=== PATIENT | female | born 1970 | race Caucasian/White ===

== ENCOUNTER 2019-09-28 01:32 | Emergency (ER) | payer BC, MEDICAID, SELFPAY ==
--- NOTE | ~2019-09-28 | XR_ITS ---
EXAMINATION: XR hip LT min 3V w AP pelvis DATE: 09/28/2019 02:25 INDICATION: Left hip pain at the greater trochanter. TECHNIQUE: An anteroposterior view of the pelvis on 2 radiographs and 3 views of left hip were obtain ed. COMPARISON: CT abdomen and pelvis 03/18/2018 FINDINGS: There is dextrocurvature and mild spondylosis of lumbar spine. No fracture. There is mild o steoarthritis of the hips. A surgical clip overlies the pelvis. IMPRESSION: 1. Mild osteoarthritis of the hips. Reviewed, dictated and finalized at location A.
[2019-09-28 01:32] VITALS: BP 164/101; PULSE 83; RESP 18; TEMP 36.2; O2SAT 99
[2019-09-28 01:52] VITALS: BP 133/88; PULSE 84; RESP 20; O2SAT 97
--- NOTE | 2019-09-28 02:18 | ED.EXTPRO ---
HPI - Extremity Problem General Chief complaint: Extremity Problem,Nontraumatic Stated complaint: Left leg Pain Source: patient Mode of arrival: ambulatory Limitations: no limitations History of Present Illness HPI Narrative: Pain in the left lateral hip, onset 2 weeks ago, much worse tonight. Pain is brought on by walking, sitting, standing up, laying on the left side or applying pressure. With these maneuvers the pain is severe tonight. The pain does not radiate into the back or into the leg. There is no leg numbness or weakness. She denies numbness or weakness of her legs. Acetaminophen and ibuprofen have not been controlling the pain. There is no hx of trauma to this area. Since July she has not been working but has been at home with her children. Quality: sharp Radiation: none Relieving factors: other (heat) Related Data Home Medications Medication Instructions Recorded Confirmed liraglutide [Victoza 3-Sandor] 0.6 mg SUBCUT DAILY 09/28/19 09/28/19 lisdexamfetamine [Vyvanse] 50 mg PO DAILY 09/28/19 09/28/19 prazosin 1 mg PO DAILY 09/28/19 09/28/19 Allergies Allergy/AdvReac Type Severity Reaction Status Date / Time Penicillins Allergy Unknown Itching Verified 09/28/19 01:57 nitrofurantoin AdvReac Intermediate Unknown Verified 09/28/19 01:57 PAPER TAPE Allergy Intermediate Redness of Uncoded 09/28/19 01:57 Skin Review of Systems Constitutional: Constitutional: Denies chills and Denies fever(s) Musculoskeletal: Musculoskeletal: Denies joint swelling Comments: no joint pain elsewhere. Denies back pain. Integumentary/Breasts: Skin/Breast: Denies rash PMFSH Past Medical History Medical History (Updated 09/28/19 @ 02:51 by Steven Hylton MD) Anxiety Diabetes mellitus Surgical History Surgical History (Updated 09/28/19 @ 02:28 by Steven Hylton MD) H/O: hysterectomy History of cholecystectomy Family History Family History (Updated 01/25/18 @ 13:49 by DOCTOR UNKNOWN) Grandparent Diabetes mellitus Mother Patient's mother is in good health Father Patient's father is in good health Other Family history of arthritis Hypertension Social History Social History Smoking status: Former smoker Smoking end date: 05/18/16 Alcohol intake: never Exam Narrative: Exam Narrative: Gait is slow and painful. No antalgic or waddling gait. Const: Other: looks uncomfortable. Moving from side to sitting up to standing are down slowly and deliberately. Skin: General skin exam: normal color Rashes: no rashes Wounds: no wounds Neuro: General: patient oriented x3 Extrem: Other: Maximally tender over the left greater, superior - posterior portion. There is no redness or swelling. near full ROM but pain at endpoint of external rotation. Resisted internal rotation is painful. Resisted left hip adduction reproduces the pain. Able to stand on both legs w/ c/o left hip pain. Would not try standing on just the left leg because pain. Psych: Appearance: grossly normal Mental Status: mental status grossly normal Course Course Emergency Course: [place] 5/325 given with some improvement.X ray results reviewed with patient. Vital Signs Vital signs: Vital Signs Temperature 36.2 C L 09/28/19 01:32 Pulse Rate 83 09/28/19 01:32 Respiratory Rate 18 09/28/19 01:32 Blood Pressure 164/101 H 09/28/19 01:32 Pulse Oximetry 99 09/28/19 01:32 Temperature 37.1 C 09/28/19 02:50 Pulse Rate 74 09/28/19 02:50 Respiratory Rate 20 09/28/19 02:50 Blood Pressure 129/86 09/28/19 02:50 Pulse Oximetry 99 09/28/19 02:50 MDM - Extremity (Nontraumatic) Differential Diagnosis Differential diagnosis: Likely gout and other (Sciatica, hip bone pathology, septic joint, greater trochanteric bursitis. ) Lab Data Labs: X ray of left hip: No evidence of acute fracture; no dislocation; Relatively moderate to large stool in the ascending and transverse colon. Possible concstipation
[2019-09-28 02:50] VITALS: BP 129/86; PULSE 74; RESP 20; TEMP 37.1; O2SAT 99
== END 2019-09-28 02:58 | disposition home or self-care (01) ==
PROVIDERS: Emergency Provider Family Medicine; PCP Family Medicine
DX: M70.62 Trochanteric bursitis, left hip (principal); K59.00 Constipation, unspecified
CPT/HCPCS: 73502; 99283; A9270

== ENCOUNTER 2019-10-17 12:12 | Outpatient (CLI) | payer BC, MEDICAID, SELFPAY ==
--- NOTE | ~2019-10-17 | XR_ITS ---
XR lumbar spine 2-3V DATE: 10/17/2019 12:34 INDICATION: Low back pain; No injury TECHNIQUE: AP, lateral, coned lateral lumbosacral views COMPARISON: None FINDINGS: Surgical clips, right upper quadrant, likely due to cholecystectomy. A surgical clip overli es the mid pelvis. Minimal dextroscoliosis. There is minimal dextroscoliosis of the lumbar spine. There is mild degenerative disease at L1-2, L3- 4 and moderate degenerative disease at L4-5. Normal alignment of the lumbar spine. No fracture or bone destruction or spondylolisthesis. The inclu ded lower thoracic and lumbar pedicles are intact. The sacroiliac joints are intact. IMPRESSION: Mild to moderate degenerative disc disease Reviewed, dictated and finalized at location A.
== END 2019-10-17 12:13 | disposition home or self-care (01) ==
LOC: ANHIMG 12:21
PROVIDERS: PCP Family Medicine; Visit Provider Family Medicine
DX: M54.5 Low back pain (principal); M51.36 Other intervertebral disc degeneration, lumbar region
CPT/HCPCS: 72100

== ENCOUNTER 2019-10-28 16:38 | Outpatient (CLI) | payer BC, MEDICAID, SELFPAY ==
--- NOTE | ~2019-10-28 | MR_ITS ---
EXAMINATION: MR lumbar spine wo con DATE: 10/28/2019 17:18 INDICATION: Low back pain. Left-sided sciatica. TECHNIQUE: Magnetic resonance imaging (MRI) of the lumbar spine was performed without intravenous con trast. Sequences included sagittal T2-weighted FSE, sagittal T2-weighted FS FSE, sagittal T1-weighted FSE, and axial T2-weighted FSE. COMPARISON: Lumbar spine radiograph 10/17/2019 FINDINGS: There is 5 degrees dextrocurvature of lumbar spine. There is 3 mm retrolisthesis of L5 on S 1. There are Schmorl's nodes at multiple levels. There is mildly decreased disc height at L3-L4 and m oderately decreased disc height at L4-L5 and L5-S1. The distal spinal cord signal intensity is normal . The conus medullaris is at L2. The following disc levels are specifically discussed: L1-L2: The disc does not extend beyond the endplate margin. There is mild bilateral facet joint osteo arthritis. There is no neural foraminal stenosis. There is no central canal stenosis. L2-L3: The disc does not extend beyond the endplate margin. There is mild bilateral facet joint osteo arthritis. There is no neural foraminal stenosis. There is no central canal stenosis. L3-L4: The disc is bulging and has an annular fissure. There is moderate bilateral facet joint osteoa rthritis. There is mild bilateral neural foraminal stenosis. There is mild central canal stenosis. L4-L5: The disc is bulging. There is mild right and moderate left facet joint osteoarthritis. There i s mild bilateral neural foraminal stenosis. There is mild central canal stenosis. L5-S1: The disc is bulging with superimposed left central extrusion that abuts left S1 nerve root in left lateral recess. There is mild bilateral facet joint osteoarthritis. There is moderate right and mild left neural foraminal stenosis. There is mild central canal stenosis. IMPRESSION: 1. Moderate lumbar spondylosis. Reviewed, dictated and finalized at location A.
== END 2019-10-28 16:39 | disposition home or self-care (01) ==
PROVIDERS: PCP Family Medicine; Visit Provider Family Medicine
DX: M54.42 Lumbago with sciatica, left side (principal); M47.816 Spondylosis without myelopathy or radiculopathy, lumbar region
CPT/HCPCS: 72148

== ENCOUNTER 2020-03-02 06:53 | Outpatient (CLI) | payer BC, MEDICAID, SELFPAY ==
--- NOTE | ~2020-03-02 | MR_ITS ---
EXAMINATION: MR lumbar spine wo con DATE: 03/02/2020 07:52 INDICATION: Lumbar degenerative disc disease with sciatica. TECHNIQUE: Magnetic resonance imaging (MRI) of the lumbar spine was performed without intravenous con trast. Sequences included sagittal T2-weighted FSE, sagittal T2-weighted FS FSE, sagittal T1-weighted FSE, and axial T2-weighted FSE. COMPARISON: Lumbar spine MRI 10/28/2019 FINDINGS: There is 3 mm retrolisthesis of L5 on S1. There is 6 degrees dextrocurvature of lumbar spin e. There are Schmorl's nodes at multiple levels. There is mildly decreased disc height at L3-L4 and m oderately decreased disc height at L4-L5 and L5-S1. The distal spinal cord signal intensity is normal . The conus medullaris is at L1-L2. The following disc levels are specifically discussed: L1-L2: The disc does not extend beyond the endplate margin. There is mild bilateral facet joint osteo arthritis. There is no neural foraminal stenosis. There is no central canal stenosis. L2-L3: The disc does not extend beyond the endplate margin. There is mild bilateral facet joint osteo arthritis. There is no neural foraminal stenosis. There is no central canal stenosis. L3-L4: The disc is bulging. There is moderate right and mild left facet joint osteoarthritis. There i s mild bilateral neural foraminal stenosis. There is mild central canal stenosis. L4-L5: The disc is bulging. There is mild right and moderate left facet joint osteoarthritis. There i s mild bilateral neural foraminal stenosis. There is mild central canal stenosis. L5-S1: The disc is bulging with superimposed left subarticular zone extrusion with mass effect on lef t S1 nerve root in left lateral recess. There is mild bilateral facet joint osteoarthritis. There is moderate right neural foraminal stenosis. There is mild central canal stenosis. IMPRESSION: 1. Stable moderate lumbar spondylosis. Of note, an extrusion at L5-S1 exerts mass effect on left S1 n erve root. Reviewed, dictated and finalized at location A. IMPRESSION: 1. Stable moderate lumbar spondylosis. Of note, an extrusion at L5-S1 exerts ma ss effect on left S1 nerve root.
== END 2020-03-02 06:54 | disposition home or self-care (01) ==
PROVIDERS: PCP Family Medicine; Visit Provider Family Medicine
DX: M51.16 Intervertebral disc disorders with radiculopathy, lumbar region (principal); M47.26 Other spondylosis with radiculopathy, lumbar region
CPT/HCPCS: 72148

== ENCOUNTER 2020-03-08 17:14 | Outpatient (CLI) | payer BC, MEDICAID, SELFPAY ==
[2020-03-08 17:27] LABS: Basophils Absolute Auto 0.06 K/mm3 (0.00-0.10); Basophils Percent Auto 0.6 % (0.0-1.0); Eosinophils Absolute Auto 0.11 K/mm3 (0.02-0.50); Eosinophils Percent Auto 1.2 % (1.0-6.0); Hematocrit 42.9 % (35.0-49.0); Hemoglobin 14.3 g/dL (12.0-15.0); Immature Granulocyte Absolute 0.04 K/mm3 (0.00-0.00); Immature Granulocyte Percent A 0.4 % (0.0-0.0); Lymphocytes Absolute Auto 2.31 K/mm3 (1.10-4.50); Lymphocytes Percent Auto 24.7 % (18.0-42.0); Mean Corpuscular HGB Conc 33.3 g/dL (32.0-36.0); Mean Corpuscular Hemoglobin 30.6 pg (27.0-31.0); Mean Corpuscular Volume 91.9 fL (78.0-102.0); Mean Platelet Volume 9.6 fl (9.2-11.8); Monocytes Absolute Auto 0.42 K/mm3 (0.10-0.90); Monocytes Percent Auto 4.5 % (2.0-11.0); Neutrophils Absolute Auto 6.4 K/mm3 (1.7-7.2); Neutrophils Percent Auto 68.6 % (50.0-70.0); Platelet Count Result 253 K/mm3 (150-420); Red Blood Count 4.67 M/mm3 (4.20-5.40); Red Cell Distribution Width 12.2 % (11.6-14.4); White Blood Count 9.4 K/mm3 (4.8-10.8)
--- NOTE | 2020-03-08 17:35 | ECG_ITS ---
Measurements Intervals [place] Rate: 74 P: 59 PA: 155 QRS: -19 QRSD: 96 T: 24 QT: 380 QTc: 423 Interpretive Statements SINUS RHYTHM BORDERLINE T WAVE ABNORMALITY- INFERIOR LEADS BORDERLINE ECG Electronically Signed On 03-09-2020 7:05:47 CDT by Reno Mcnamara D.O.
[2020-03-08 18:40] LABS: Alanine Aminotransferase 38 U/L (14-59); Albumin Level 3.5 g/dL (3.4-5.0); Alkaline Phosphatase 77 U/L (46-116); Anion Gap 8 mmol/L (8-16); Aspartate Amino Transferase 17 U/L (15-37); Bilirubin,Total 0.3 mg/dL (0.00-1.00); Blood Urea Nitrogen 11 mg/dL (7-18); Calcium 9.3 mg/dL (8.5-10.1); Carbon Dioxide 26 mmol/L (21-32); Chloride 100 mmol/L (98-108); Estimated Glomerular Filt Rate > 60; Osmolality Calculated 295 mOsm/kg (285-295); Sodium 134 mmol/L (136-145); Total Protein 6.6 g/dL (6.4-8.2)
[2020-03-08 18:48] LABS: Glucose 417 mg/dL (70-99)
== END 2020-03-08 17:15 | disposition home or self-care (01) ==
LOC: CHSLAB 17:17
PROVIDERS: PCP Family Medicine; Visit Provider Neurological Surgery
DX: Z01.812 Encounter for preprocedural laboratory examination (principal)
CPT/HCPCS: 36415; 80053; 85025; 93005

== ENCOUNTER 2020-03-11 19:29 | Emergency (ER) | payer BC, MEDICAID, SELFPAY ==
[2020-03-11 19:44] VITALS: BP 163/67; PULSE 74; RESP 20; TEMP 36.5; O2SAT 100
--- NOTE | 2020-03-11 19:47 | ED.BACK ---
HPI - Back Pain/Injury General Chief Complaint: Back Pain/Injury Stated Complaint: 49YO female w/ known h.o low back pain scheduled for a microdiscectomy tomorrow in [place] here c/o 1 week h/o left sided SI pain that she is unable to get relief from using Percocet. Here for pain relief till her surgery tomorrow. Denies any new trauma or injury. Related Data Home Medications Medication Instructions Recorded Confirmed liraglutide [Victoza 3-Sandor] 0.6 mg SUBCUT DAILY 09/28/19 03/11/20 lisdexamfetamine [Vyvanse] 50 mg PO DAILY 09/28/19 03/11/20 prazosin 1 mg PO DAILY 09/28/19 03/11/20 oxycodone-acetaminophen 1 tablet PO Q4-6H PRN 03/11/20 03/11/20 Allergies Allergy/AdvReac Type Severity Reaction Status Date / Time Penicillins Allergy Unknown Itching Verified 09/28/19 01:57 nitrofurantoin AdvReac Intermediate Unknown Verified 09/28/19 01:57 PAPER TAPE Allergy Intermediate Redness of Uncoded 09/28/19 01:57 Skin Review of Systems Review of Systems: All systems reviewed & are unremarkable except as noted in HPI and below Constitutional: Constitutional: Reports no additional constitutional complaints Eyes: Eyes: Reports no additional eye complaints ENT: Reports system reviewed and no additional complaints, except as documented Cardiovascular: Cardiovascular: Reports no additional cardiovascular complaints Respiratory: Respiratory: Reports no additional respiratory complaints Gastrointestinal: Gastrointestinal: Reports no additional gastrointestinal complaints Genitourinary: Genitourinary: Reports no additional female genitourinary complaints Musculoskeletal: Musculoskeletal: Reports back pain (Left SI TTP that reproduces exact pain she feels.) Integumentary/Breasts: Skin/Breast: Reports system reviewed and no additional complaints, except as docu Neurologic: Reports system reviewed and no additional complaints, except as documented Psychiatric: Psychiatric: Reports no additional psychiatric complaints Endocrine: Endocrine: Reports no additional endocrine complaints Hematologic/Lymphatic: Hematologic/Lymphatic: Reports no additional hematologic/lymphatic complaints Allergic/Immunologic: Allergic/Immunologic: Reports no additional allergic/immunologic complaints PMFSH Past Medical History Medical History Anxiety Degenerative disc disease at L5-S1 level Diabetes mellitus Lumbar spondylosis Surgical History Surgical History H/O: hysterectomy History of cholecystectomy Family History Family History Grandparent Diabetes mellitus Mother Patient's mother is in good health Father Patient's father is in good health Other Family history of arthritis Hypertension Social History Social History Smoking status: Former smoker Smoking end date: 05/18/16 Alcohol intake: never Exam Const: General: healthy appearing, no acute distress and alert Orientation/consciousness: patient oriented x3 HENMT: Head: normal to inspection General nose exam: Normal nares present Face and sinus: normal facial exam Mouth: Yes moist mucous membranes Eyes: Pupils: Equal, round and reactive pupils present Neck: Neck: normal visual inspection and no lymphadenopathy Chest: Chest palpation & inspection: normal inspection of the chest Resp: Effort & Inspection: normal respiratory effort Auscultation: clear to auscultation bilaterally Cardio: Rate: regular rate Rhythm: regular rhythm GI: Inspection: distended Auscultation: normal bowel sounds : General: Yes no CVA tenderness Back/Spine/Pelvis: Back: no CVA tenderness Skin: General skin exam: normal color Neuro: General: patient oriented x3, moves all extremities, no meningeal signs, no focal motor deficits and CN's II-XI int
[2020-03-11] MEDS: CYCLOBENZAPRINE HCL 10 MG TABLET PO (19:53)
[2020-03-11] MEDS: ONDANSETRON HCL ODT 4 MG TABLET PO (19:54)
[2020-03-11] MEDS: MORPHINE SULFATE INJ (*CRX) 10 MG/ML AMP IM (19:54)
[2020-03-11 20:24] VITALS: BP 132/80; PULSE 92; RESP 16; O2SAT 97
== END 2020-03-11 20:26 | disposition home or self-care (01) ==
PROVIDERS: Emergency Provider Family Medicine; PCP Family Medicine
DX: M53.3 Sacrococcygeal disorders, not elsewhere classified (principal); M47.9 Spondylosis, unspecified; M51.37 Other intervertebral disc degeneration, lumbosacral region
CPT/HCPCS: 96372; 99282; 99283; A9270; J2270

== ENCOUNTER 2020-05-11 18:20 | Emergency (ER) | payer BC, MEDICAID, SELFPAY ==
[2020-05-11] VITALS (15 sets, daily range): BP systolic 111–130; BP diastolic 66–93; PULSE 73–88; RESP 14–27; TEMP 37.3; O2SAT 93–98
--- NOTE | 2020-05-11 21:13 | PC.NURSE ---
PT WALKED OUT OF THE BUILDING STATING WE HAVE BEEN HERE 3 HOURS AND HAVEN'T SEEN ANYONE. THIS IS RIDICULOUS
--- NOTE | 2020-05-14 03:43 | PM.OP ---
Procedure Note - Brief Procedure Note - Brief Date of procedure: 05/14/20 Pre-op diagnosis: Falling,legs keep going numb,hit head Surgeon: Amilcar Walter MD Patient came in reportedly with complaints of nausea. She left without being seen after reportedly becoming angry that she had waited 45 minutes to see a physician. I had walked into her room to evaluate her when she told me she was leaving, but I was not able to calm her or assess her. She left without being evaluated.
== END 2020-05-11 21:01 | disposition left against medical advice (07) ==
PROVIDERS: Emergency Provider Emergency Medicine; PCP Family Medicine; Referring Provider Neurological Surgery
DX: Z53.8 Procedure and treatment not carried out for other reasons (principal)
CPT/HCPCS: 99199

== ENCOUNTER 2020-05-16 16:31 | Outpatient (CLI) | payer BC, MEDICAID, SELFPAY ==
--- NOTE | ~2020-05-16 | MR_ITS ---
EXAMINATION: MR lumbar spine wo/w con DATE: 05/16/2020 17:41 INDICATION: Low back pain. Left leg numbness. TECHNIQUE: Magnetic resonance imaging (MRI) of the lumbar spine was performed without and with 15 mL MultiHance intravenous contrast. Sequences included sagittal T2-weighted FSE, sagittal T2-weighted FS FSE, and sagittal and axial T1-weighted FSE. Postcontrast sequences included axial T2-weighted FSE a nd axial and sagittal T1-weighted FS FSE. COMPARISON: Lumbar spine MRI 03/02/2020 FINDINGS: There is 3 mm retrolisthesis of L5 on S1. There are Schmorl's nodes at multiple levels. The re is mildly decreased disc height at L3-L4 and moderately decreased disc height at L4-L5 and L5-S1. The distal spinal cord signal intensity is normal. The conus medullaris is at L2. The following disc levels are specifically discussed: L1-L2: The disc does not extend beyond the endplate margin. There is mild bilateral facet joint osteo arthritis. There is no neural foraminal stenosis. There is no central canal stenosis. L2-L3: The disc does not extend beyond the endplate margin. There is mild bilateral facet joint osteo arthritis. There is no neural foraminal stenosis. There is no central canal stenosis. L3-L4: The disc is bulging and has an annular fissure. There is moderate bilateral facet joint osteoa rthritis. There is mild bilateral neural foraminal stenosis. There is mild central canal stenosis. L4-L5: The disc is bulging and has an annular fissure. There is mild right and moderate left facet [place] int osteoarthritis. There is mild bilateral neural foraminal stenosis. There is mild central canal st enosis. L5-S1: The disc is bulging and has an annular fissure. There are changes of left hemilaminotomy and m icrodiscectomy. There is a fluid collection in the surgical bed, consistent with seroma. The collecti on measures up to 2.6 x 2.1 x 2.3 cm. There is enhancing epidural granulation tissue on the left. The re is mild bilateral facet joint osteoarthritis. There is moderate right and mild left neural foramin al stenosis. There is mild central canal stenosis. IMPRESSION: 1. Moderate lower lumbar spondylosis with improvement at L5-S1 status post microdiscectomy. Reviewed, dictated and finalized at location A. [employer] IMPRESSION: 1. Moderate lower lumbar spondylosis with improvement at L5-S1 status post micr odiscectomy.
[2020-05-16 17:04] LABS: Estimated Glomerular Filt Rate > 60
== END 2020-05-16 16:32 | disposition home or self-care (01) ==
PROVIDERS: PCP Family Medicine; Visit Provider Neurological Surgery
DX: M54.5 Low back pain (principal); M47.816 Spondylosis without myelopathy or radiculopathy, lumbar region; Z98.890 Other specified postprocedural states
CPT/HCPCS: 72158; A9577

== ENCOUNTER 2020-05-29 17:10 | Outpatient (CLI) | payer BC, MEDICAID, SELFPAY ==
[2020-05-29 18:01] LABS: Basophils Absolute Auto 0.08 K/mm3 (0.00-0.10); Basophils Percent Auto 1.1 % (0.0-1.0); Eosinophils Absolute Auto 0.17 K/mm3 (0.02-0.50); Eosinophils Percent Auto 2.2 % (1.0-6.0); Hematocrit 43.4 % (35.0-49.0); Hemoglobin 14.8 g/dL (12.0-15.0); Immature Granulocyte Absolute 0.04 K/mm3 (0.00-0.00); Immature Granulocyte Percent A 0.5 % (0.0-0.0); Lymphocytes Absolute Auto 2.58 K/mm3 (1.10-4.50); Lymphocytes Percent Auto 33.9 % (18.0-42.0); Mean Corpuscular HGB Conc 34.1 g/dL (32.0-36.0); Mean Corpuscular Hemoglobin 31.1 pg (27.0-31.0); Mean Corpuscular Volume 91.2 fL (78.0-102.0); Monocytes Absolute Auto 0.39 K/mm3 (0.10-0.90); Monocytes Percent Auto 5.1 % (2.0-11.0); Neutrophils Absolute Auto 4.4 K/mm3 (1.7-7.2); Neutrophils Percent Auto 57.2 % (50.0-70.0); Platelet Count Result 288 K/mm3 (150-420); Red Blood Count 4.76 M/mm3 (4.20-5.40); Red Cell Distribution Width 11.9 % (11.6-14.4); White Blood Count 7.6 K/mm3 (4.8-10.8)
[2020-05-29 18:26] LABS: Anion Gap 9 mmol/L (8-16); Blood Urea Nitrogen 17 mg/dL (7-18); Calcium 9.6 mg/dL (8.5-10.1); Carbon Dioxide 29 mmol/L (21-32); Chloride 98 mmol/L (98-108); Estimated Glomerular Filt Rate > 60; Glucose 322 mg/dL (70-99); Osmolality Calculated 295 mOsm/kg (285-295); Potassium 4.2 mmol/L (3.5-5.1); Sodium 136 mmol/L (136-145)
== END 2020-05-29 17:11 | disposition home or self-care (01) ==
LOC: CHSLAB 17:13
PROVIDERS: PCP Family Medicine; Visit Provider Neurological Surgery
DX: Z01.812 Encounter for preprocedural laboratory examination (principal)
CPT/HCPCS: 36415; 80048; 85025

== ENCOUNTER 2020-09-12 06:42 | Outpatient (CLI) | payer BC, MEDICAID, SELFPAY ==
--- NOTE | ~2020-09-12 | MR_ITS ---
EXAMINATION: MR lumbar spine wo/w con EXAM DATE: 09/12/2020 08:10 INDICATION: Low back pain, bilateral leg pain, left leg numbness, right hip pain. History of surgery. TECHNIQUE: Multi-sequential, multiplanar MR images of the lumbar spine were obtained without contrast . Sagittal T1, T2, T2 fat saturation images. Axial T2 weighted images. Axial T1 weighted sequence. Patient was then injected with 15 mL Multihance intravenous contrast and reimaged. Postcontrast axi al and sagittal T1-weighted fat saturation sequences were obtained. Comparison is made to prior exami nation from 05/16/2020. FINDINGS: There is interval placement of interbody and posterior fusion at L5-S1, and probable lamino tomies. Mild disc disease L3-L5. There are no suspicious marrow signal abnormalities. The vertebral b odies are aligned in the AP dimension. The conus medullaris terminates at the L1/2 level and has norm al signal intensity and morphology. Paraspinal soft tissue is unremarkable. There are no areas of a bnormal enhancement on the post contrast images. Level by level evaluation: T12-L1: Disc does not extend beyond the endplate margin. Facet arthropathy: None. Neural foraminal stenosis: No stenosis. Central canal stenosis: No stenosis. L1-L2: Disc does not extend beyond the endplate margin. Facet arthropathy: Minimal. Neural foraminal stenosis: No stenosis. Central canal stenosis: No stenosis. L2-L3: There is a mild diffuse disc bulge. Facet arthropathy: Mild. Neural foraminal stenosis: No stenosis. Central canal stenosis: No stenosis. L3-L4: There is a mild diffuse disc bulge. Facet arthropathy: Mild. Neural foraminal stenosis: Minimal bilateral. Central canal stenosis: Mild. L4-L5: There is a mild diffuse disc bulge. Facet arthropathy: Mild. Neural foraminal stenosis: Minimal bilateral. Central canal stenosis: Mild. L5-S1: This level is fused. Facet arthropathy: Mild. Neural foraminal stenosis: Mild bilateral. Central canal stenosis: Posterior decompression. IMPRESSION: 1. Interval L5-S1 fusion, posterior decompression. 2. Mild lumbar spondylosis. Reviewed, dictated and finalized at location A.
[2020-09-12 07:24] LABS: Estimated Glomerular Filt Rate > 60
== END 2020-09-12 06:43 | disposition home or self-care (01) ==
PROVIDERS: PCP Family Medicine; Visit Provider Neurological Surgery
DX: M54.5 Low back pain (principal); Z98.1 Arthrodesis status; M47.816 Spondylosis without myelopathy or radiculopathy, lumbar region
CPT/HCPCS: 72158; A9577

== ENCOUNTER 2020-11-13 09:43 | Outpatient (CLI) | payer BC, MEDICAID, SELFPAY ==
[2020-11-13 10:05] LABS: Hemoglobin A1C 11.9 % (<5.7)
[2020-11-13 10:11] LABS: Creatinine Urine 175.16 mg/dL (40-278)
[2020-11-13 10:16] LABS: MALB Creatinine Ratio 11.3 mg/g (0-30); Microalbumin Urine Random 19.9 mg/L
[2020-11-13 10:54] LABS: Alanine Aminotransferase 32 U/L (14-59); Albumin Level 3.8 g/dL (3.4-5.0); Alkaline Phosphatase 90 U/L (46-116); Anion Gap 8 mmol/L (8-16); Aspartate Amino Transferase 15 U/L (15-37); Bilirubin,Total 0.4 mg/dL (0.00-1.00); Blood Urea Nitrogen 12 mg/dL (7-18); Calcium 9.6 mg/dL (8.5-10.1); Carbon Dioxide 30 mmol/L (21-32); Chloride 102 mmol/L (98-108); Cholesterol 197 mg/dL (0-200); Estimated Glomerular Filt Rate > 60; Glucose 251 mg/dL (70-99); HDL Direct 37 mg/dL (40-60); LDL Cholesterol Calculated 121 mg/dL (<130); Osmolality Calculated 297 mOsm/kg (285-295); Potassium 4.1 mmol/L (3.5-5.1); Sodium 140 mmol/L (136-145); Total Protein 7.2 g/dL (6.4-8.2); Triglycerides 196 mg/dL (0-150)
== END 2020-11-13 09:44 | disposition home or self-care (01) ==
LOC: CHSLAB 09:48
PROVIDERS: PCP Family Medicine; Visit Provider Family Medicine
DX: E11.9 Type 2 diabetes mellitus without complications (principal); I10 Essential (primary) hypertension; E78.5 Hyperlipidemia, unspecified
CPT/HCPCS: 36415; 80053; 80061; 82043; 83036

== ENCOUNTER 2021-06-04 15:26 | Outpatient (CLI) | payer OTHER, SELFPAY ==
[2021-06-04 18:48] LABS: SARS-CoV-2 Ag Negative (Negative)
[2021-06-05 21:11] LABS: SARS-CoV-2 RNA PCR Negative
== END 2021-06-04 15:27 | disposition home or self-care (01) ==
LOC: CHSLAB 15:31
PROVIDERS: PCP Physician Assistant; Visit Provider Family Medicine
DX: Z20.822 Contact with and (suspected) exposure to COVID-19 (principal)
CPT/HCPCS: 87426; C9803; U0003; U0005

== ENCOUNTER 2021-07-06 08:16 | Outpatient (CLI) | payer OTHER, MEDICAID, SELFPAY ==
[2021-07-06 09:22] LABS: SARS-CoV-2 RNA PCR Negative (Negative)
== END 2021-07-06 08:17 | disposition home or self-care (01) ==
PROVIDERS: PCP Family Medicine; Visit Provider Family Medicine
DX: R09.81 Nasal congestion (principal); Z20.822 Contact with and (suspected) exposure to COVID-19
CPT/HCPCS: C9803; U0003; U0005

== ENCOUNTER 2021-07-19 10:27 | Outpatient (CLI) | payer OTHER, MEDICAID, SELFPAY ==
--- NOTE | 2021-07-19 10:40 | PC.NURSE ---
here for op infusion, taken to room 210, isolation due to covid diagnosis, here for sotrovimab infusion
[2021-07-19] MEDS: FAMOTIDINE 20 MG TABLET PO (11:02)
[2021-07-19] MEDS: ACETAMINOPHEN 325 MG TABLET 650 MG PO (11:02)
[2021-07-19] MEDS: diphenhydrAMINE HCl CAP 25 MG CAPSULE PO (11:02)
[2021-07-19 11:10] VITALS: BP 127/78; PULSE 80; RESP 18; TEMP 36.8; O2SAT 96
[2021-07-19 12:26] VITALS: BP 121/77; PULSE 65; RESP 18; TEMP 36.6; O2SAT 97
--- NOTE | 2021-07-19 12:28 | PC.NURSE ---
discharge ambulatory to home, here, denies needs upon discharge
== END 2021-07-19 10:28 | disposition home or self-care (01) ==
LOC: CHSTREATRM 10:31
PROVIDERS: PCP Family Medicine; Visit Provider Family Medicine
DX: U07.1 COVID-19 (principal); E11.9 Type 2 diabetes mellitus without complications; I10 Essential (primary) hypertension
CPT/HCPCS: 96365; A9270; M0247; Q0247

== ENCOUNTER 2021-08-07 16:27 | Outpatient (CLI) | payer OTHER, MEDICAID, SELFPAY ==
--- NOTE | ~2021-08-07 | XR_ITS ---
XR lumbar spine 2-3V 08/07/2021 16:49 Indication: Intervertebral disc disorder. Procedure: 3 views of the lumbar spine Comparison: 10/17/2019 Findings: Interval placement of pedicular screws at L5-S1. There are prosthetic disc devices at the L 5-S1 level. There is disc narrowing at L4-5. Vertebral body heights are maintained. No acute fracture or traumatic displacement. No evidence for spondylolisthesis. Pedicle screws appear to be intact. Th ere is mild dextrocurvature of the lumbar spine. There are cholecystectomy clips. Impression: 1: Interval surgical changes consistent with L5-S1 fusion with placement of prosthetic disc devices a t this level. 2: Mild spondylosis at L4-5. Reviewed, dictated and finalized at location A. Impression: 1: Interval surgical changes consistent with L5-S1 fusion with placement of pro sthetic disc devices at this level. 2: Mild spondylosis at L4-5.
== END 2021-08-07 16:28 | disposition home or self-care (01) ==
LOC: ANHIMG 16:32
PROVIDERS: PCP Family Medicine; Visit Provider Physician Assistant
DX: M47.817 Spondylosis without myelopathy or radiculopathy, lumbosacral region (principal); Z98.1 Arthrodesis status
CPT/HCPCS: 72100

== ENCOUNTER 2021-08-23 13:25 | Outpatient (CLI) | payer OTHER, MEDICAID, SELFPAY ==
--- NOTE | ~2021-08-23 | MR_ITS ---
EXAMINATION: MR lumbar spine wo/w con EXAM DATE: 08/23/2021 14:25 INDICATION: Lumbar pain. TECHNIQUE: Multi-sequential, multiplanar MR images of the lumbar spine were obtained without contrast . Sagittal T1, T2, T2 fat saturation images. Axial T2 weighted images. Axial T1 weighted sequence. Patient was then injected with 15 mL Multihance intravenous contrast and reimaged. Postcontrast axi al and sagittal T1-weighted fat saturation sequences were obtained. Comparison is made to prior exami nation from 09/12/2020. FINDINGS: Mild lumbar dextroscoliosis. Mild disc disease L3-4 and L4-5. Interbody and posterior fusio n, laminotomies at L5-S1. The conus medullaris terminates at the L1/2 level and has normal signal int ensity and morphology. There are no suspicious marrow signal abnormalities. The vertebral bodies are aligned in the AP dimension. There are no areas of abnormal enhancement on the post contrast image s. Level by level evaluation: T12-L1: Disc does not extend beyond the endplate margin. Facet arthropathy: None. Neural foraminal stenosis: No stenosis. Central canal stenosis: No stenosis. L1-L2: Disc does not extend beyond the endplate margin. Facet arthropathy: Mild. Neural foraminal stenosis: No stenosis. Central canal stenosis: No stenosis. L2-L3: Disc does not extend beyond the endplate margin. Facet arthropathy: Mild. Neural foraminal stenosis: No stenosis. Central canal stenosis: No stenosis. L3-L4: There is a mild diffuse disc bulge. Facet arthropathy: Mild to moderate. Neural foraminal stenosis: No stenosis. Central canal stenosis: No stenosis. L4-L5: There is a mild diffuse disc bulge. Facet arthropathy: Mild to moderate. Neural foraminal stenosis: Mild left. Central canal stenosis: Mild. L5-S1: This level is fused. Facet arthropathy: Fused. Neural foraminal stenosis: Mild to moderate left, mild right. Central canal stenosis: Posterior decompression. Difficult to appreciate any significant interval change compared to last year. IMPRESSION: 1. L5-S1 fusion. 2. Mild to moderate facet arthropathy. Reviewed, dictated and finalized at location A.
[2021-08-23 13:56] LABS: Estimated Glomerular Filt Rate > 60
== END 2021-08-23 13:26 | disposition home or self-care (01) ==
PROVIDERS: PCP Family Medicine; Visit Provider Neurological Surgery
DX: M54.50 Low back pain, unspecified (principal); Z98.1 Arthrodesis status; M12.88 Other specific arthropathies, not elsewhere classified, other specified site
CPT/HCPCS: 72158; A9577

== ENCOUNTER 2021-11-11 13:53 | Outpatient (CLI) | payer OTHER, MEDICAID, SELFPAY ==
[2021-11-11 14:16] LABS: Hemoglobin A1C 9.6 % (<5.7)
[2021-11-14 15:15] LABS: Vitamin D 1,25 (OH)2 Total 31 pg/mL (18-72); Vitamin D2 1,25 (OH)2 <8 pg/mL; Vitamin D3 1,25 (OH)2 31 pg/mL
[2021-11-15 07:30] LABS: Vitamin D 25 Hydroxy 22 ng/mL (30-100)
== END 2021-11-11 13:54 | disposition home or self-care (01) ==
LOC: CHSLAB 13:58
PROVIDERS: PCP Family Medicine; Visit Provider Family Medicine
DX: E55.9 Vitamin D deficiency, unspecified (principal); E11.65 Type 2 diabetes mellitus with hyperglycemia
CPT/HCPCS: 36415; 82306; 82652; 83036

== ENCOUNTER 2022-03-28 12:03 | Emergency (ER) | payer OTHER, MEDICAID, SELFPAY ==
[2022-03-28 12:09] VITALS: BP 136/98; PULSE 102; RESP 16; TEMP 37.1; O2SAT 99
--- NOTE | 2022-03-28 12:42 | ED.DENTAL ---
HPI - Dental/Oral General Chief complaint: Dental/Oral Stated complaint: abcessed tooth right side been on antibiotics 3 da Time Seen by Provider: 03/28/22 12:07 Source: patient and RN notes reviewed Mode of arrival: ambulatory Limitations: no limitations History of Present Illness MD Complaint: tooth pain Location: Tooth # (29) Onset (ago): day(s) (3) Duration: constant Severity: moderate Severity scale (1-10): 7 Relieving factors: prescription analgesics Exacerbating factors: chewing Context: history of dental caries and poor dental care Associated symptoms: gum swelling Treatment prior to arrival: none Related Data Home Medications Medication Instructions Recorded Confirmed liraglutide 0.6 mg/0.1 mL (18 mg/3 1.8 mg subcut DAILY 09/28/19 03/28/22 mL) subcutaneous pen injector (Victoza 3-Sandor) methocarbamol 750 mg tablet 750 mg PO TID PRN Pain 05/11/20 03/28/22 clindamycin HCl 300 mg capsule 300 mg PO TID 03/28/22 03/28/22 dapagliflozin 10 mg tablet 10 mg PO DAILY 03/28/22 03/28/22 (Farxiga) ezetimibe 10 mg tablet 10 mg PO DAILY 03/28/22 03/28/22 insulin glargine 100 unit/mL (3 16 unit subcut DAILY 03/28/22 03/28/22 mL) subcutaneous pen (Lantus Solostar U-100 Insulin) insulin lispro 100 unit/mL 6 unit subcut TIDWMEAL 03/28/22 03/28/22 subcutaneous pen (Humalog KwikPen (U-100) Insulin) pregabalin 25 mg capsule 25 mg PO DAILY 03/28/22 03/28/22 Allergies Allergy/AdvReac Type Severity Reaction Status Date / Time Penicillins Allergy Unknown Itching Verified 09/28/19 01:57 ibuprofen [From Motrin] Allergy Unknown Verified 03/28/22 12:37 nitrofurantoin AdvReac Intermediate Unknown Verified 09/28/19 01:57 PAPER TAPE Allergy Intermediate Redness of Uncoded 09/28/19 01:57 Skin Review of Systems Review of Systems: All systems reviewed & are unremarkable except as noted in HPI and below Constitutional: Constitutional: Reports no additional constitutional complaints Eyes: Eyes: Reports no additional eye complaints ENT: Reports system reviewed and no additional complaints, except as documented Comments: tooth abscess Cardiovascular: Cardiovascular: Reports no additional cardiovascular complaints Respiratory: Respiratory: Reports no additional respiratory complaints Gastrointestinal: Gastrointestinal: Reports no additional gastrointestinal complaints Genitourinary: Genitourinary: Reports no additional female genitourinary complaints Musculoskeletal: Musculoskeletal: Reports no additional musculoskeletal complaints Integumentary/Breasts: Skin/Breast: Reports system reviewed and no additional complaints, except as docu Neurologic: Reports system reviewed and no additional complaints, except as documented Psychiatric: Psychiatric: Reports no additional psychiatric complaints Endocrine: Endocrine: Reports no additional endocrine complaints Hematologic/Lymphatic: Hematologic/Lymphatic: Reports no additional hematologic/lymphatic complaints Allergic/Immunologic: Allergic/Immunologic: Reports no additional allergic/immunologic complaints PMFSH Past Medical History Medical History Anxiety Degenerative disc disease at L5-S1 level Dental abscess Diabetes mellitus Lumbar spondylosis Surgical History Surgical History H/O: hysterectomy History of cholecystectomy Family History Family History Grandparent Diabetes mellitus Mother Patient's mother is in good health Father Patient's father is in good health Other Family history of arthritis Hypertension Social History Social History Smoking status: Former smoker Smoking end date: 05/18/16 Alcohol intake: never Exam Const: General: healthy appearing, no acute distress and well nourished Nutritiona
[2022-03-28] MEDS: KETOROLAC 30 MG/ML VIAL (*BKC) IM (13:03)
[2022-03-28 13:04] VITALS: BP 131/87; PULSE 84; RESP 16; TEMP 36.7; O2SAT 99
[2022-03-28] MEDS: cefTRIAXone 1 GM, LIDOCAINE HCL 1% LOCAL INJ 2.1 ML IM (13:04)
== END 2022-03-28 13:36 | disposition home or self-care (01) ==
PROVIDERS: Emergency Provider Emergency Medicine; PCP Family Medicine
DX: K08.89 Other specified disorders of teeth and supporting structures (principal); K04.7 Periapical abscess without sinus
CPT/HCPCS: 96372; 99284; J0696; J1885

== ENCOUNTER 2022-12-29 09:43 | Outpatient (CLI) | payer OTHER, MEDICAID, SELFPAY ==
[2022-12-29 10:17] LABS: Hemoglobin A1C 6.4 % (<5.7)
[2022-12-29 10:24] LABS: Creatinine Urine 93.68 mg/dL (40-278); MALB Creatinine Ratio 13.8 mg/g (0-30); Microalbumin Urine Random < 13.0 mg/L
[2022-12-29 10:36] LABS: Alanine Aminotransferase 25 U/L (14-59); Albumin Level 3.7 g/dL (3.4-5.0); Alkaline Phosphatase 72 U/L (46-116); Anion Gap 6 mmol/L (8-16); Aspartate Amino Transferase 17 U/L (15-37); Bilirubin,Total 0.4 mg/dL (0.00-1.00); Blood Urea Nitrogen 18 mg/dL (7-18); Calcium 8.8 mg/dL (8.5-10.1); Carbon Dioxide 31 mmol/L (21-32); Chloride 105 mmol/L (98-108); Cholesterol 154 mg/dL (0-200); Estimated Glomerular Filt Rate > 60; Glucose 116 mg/dL (70-99); HDL Direct 35 mg/dL (40-60); LDL Cholesterol Calculated 88 mg/dL (<130); Osmolality Calculated 296 mOsm/kg (285-295); Potassium 4.3 mmol/L (3.5-5.1); Sodium 142 mmol/L (136-145); Total Protein 6.9 g/dL (6.4-8.2); Triglycerides 155 mg/dL (0-150)
== END 2022-12-29 09:44 | disposition home or self-care (01) ==
LOC: CHSLAB 09:45
PROVIDERS: PCP Family Medicine; Visit Provider Family Medicine
DX: I10 Essential (primary) hypertension (principal); E11.65 Type 2 diabetes mellitus with hyperglycemia; E78.5 Hyperlipidemia, unspecified
CPT/HCPCS: 36415; 80053; 80061; 82043; 83036

== ENCOUNTER 2023-08-20 11:43 | Outpatient (CLI) | payer OTHER, MEDICAID, SELFPAY ==
[2023-08-20 12:20] LABS: Creatinine Urine 154.69 mg/dL (40-278); MALB Creatinine Ratio 8.4 mg/g (0-30); Microalbumin Urine Random < 13.0 mg/L
[2023-08-20 12:22] LABS: Hemoglobin A1C 5.8 % (<5.7)
[2023-08-20 13:24] LABS: Alanine Aminotransferase 34 U/L (14-59); Albumin Level 3.9 g/dL (3.4-5.0); Alkaline Phosphatase 68 U/L (46-116); Anion Gap 9 mmol/L (4-12); Aspartate Amino Transferase 20 U/L (15-37); Bilirubin,Total 0.4 mg/dL (0.00-1.00); Blood Urea Nitrogen 14 mg/dL (7-18); Calcium 9.2 mg/dL (8.5-10.1); Carbon Dioxide 31 mmol/L (21-32); Chloride 103 mmol/L (98-108); Cholesterol 183 mg/dL (0-200); Estimated Glomerular Filt Rate > 60; Glucose 106 mg/dL (70-99); HDL Direct 54 mg/dL (40-60); LDL Cholesterol Calculated 101 mg/dL (<130); Osmolality Calculated 296 mOsm/kg (285-295); Potassium 3.5 mmol/L (3.5-5.1); Sodium 143 mmol/L (136-145); Total Protein 6.9 g/dL (6.4-8.2); Triglycerides 138 mg/dL (0-150)
== END 2023-08-20 11:44 | disposition home or self-care (01) ==
LOC: CHSLAB 11:46
PROVIDERS: PCP Family Medicine; Visit Provider Family Medicine
DX: I10 Essential (primary) hypertension (principal); E78.5 Hyperlipidemia, unspecified; E11.65 Type 2 diabetes mellitus with hyperglycemia
CPT/HCPCS: 36415; 80053; 80061; 82043; 83036

== ENCOUNTER 2023-11-01 17:20 | Inpatient (IN) | payer OTHER, MEDICAID, SELFPAY ==
[2023-11-01] VITALS (17 sets, daily range): BP systolic 92–111; BP diastolic 51–87; PULSE 78–97; RESP 15–20; TEMP 36.4–36.9; O2SAT 94–100
--- NOTE | ~2023-11-01 | US_ITS ---
US transvaginal Ordering provider: Taisha Cook APRN History: . look for ovarian cyst, ectopic . Comparison: None. Technique: Transabdominal and endovaginal ultrasound of the pelvis (Doppler ultrasound interrogation techniques used as needed for this exam.) FINDINGS: UTERUS surgically removed. RIGHT OVARY: Not demonstrated. LEFT OVARY: Surgically removed. IMPRESSION: Status post surgical removal of the uterus and left ovary. The right ovary is not well demonstrated. Reviewed, dictated and finalized at location A. IMPRESSION: Status post surgical removal of the uterus and left ovary. The right ovary is n ot well demonstrated.
--- NOTE | ~2023-11-01 | CT_ITS ---
CT abdomen pelvis wo con Ordering provider: Magdalena Sommers MD History: 53 years Female with . Onset x1 day, low back pain/nausea/vomiting/hematuria . Comparison: None. Technique: CT abdomen and pelvis without IV and without oral contrast. Radiation reduction technique utilized. DLP is 330.36 mGy. Findings: VISUALIZED LOWER CHEST: Normal. UPPER ABDOMINAL ORGANS: Liver: Normal. Gallbladder: Status post cholecystectomy. Spleen: Normal. Stomach/duodenum: Normal. Pancreas: Normal. Adrenals: Normal. Kidneys: Normal. PELVIC ORGANS: The bladder shows slightly thickened wall. Evaluation for cystitis advised. BOWEL AND MESENTERY: Colon: No evidence of diverticulitis. Fecal material is loaded in the colon suggestive of constipatio n. Normal appendix. Small Bowel: Normal. No obstruction. Peritoneum/mesentery: No free air or free fluid. No mesenteric lymphadenopathy. RETROPERITONEUM: Mild atheromatous disease of the abdominal aorta. No retroperitoneal lymphadenopat hy. MUSCULOSKELETAL: Superficial soft tissues: The superficial soft tissues are normal. Tiny fat-containing umbilical carol ann ia. Bones: Age appropriate degenerative changes of the spine. Postoperative changes in the lumbosacral. IMPRESSION: 1. Thickened wall of the urinary bladder. Evaluation for cystitis advised. 2. Constipation. Reviewed, dictated and finalized at location A.
--- NOTE | ~2023-11-01 | US_ITS ---
EXAMINATION: US renal BI DATE: 11/03/2023 09:34 INDICATION: Kidney stones and hematuria TECHNIQUE: Multiple ultrasound grayscale images of the kidneys were obtained. COMPARISON: CT dated 11/01/2023 FINDINGS: The right kidney measures 10.0 x 4.0 x 4.9 cm. The left kidney measures 10.1 x 4.1 x 5.4 cm. The kidn eys demonstrate normal echogenicity. There is no hydronephrosis in either kidney. No stones identifi ed. There is diffuse mild bladder wall thickening with smooth mucosal surface. IMPRESSION: 1. Normal kidneys without hydronephrosis. 2. Diffuse mild bladder wall thickening which could be due to underdistention, cystitis either acute or chronic, neurogenic bladder or chronic outlet obstruction. Reviewed, dictated and finalized at location A. IMPRESSION: 1. Normal kidneys without hydronephrosis. 2. Diffuse mild bladder wall thickening which could be due to underdistention, cystitis either acute or chronic, neurogenic bladder or chronic outlet obstruct ion.
--- NOTE | ~2023-11-01 | XR_ITS ---
EXAMINATION: XR chest 2V DATE: 11/01/2023 17:55 INDICATION: Shortness of breath. Chest tightness. TECHNIQUE: Frontal and lateral views of the chest were obtained. COMPARISON: Chest single view 01/10/2017 FINDINGS: There is no pneumonia, pleural effusion, or pneumothorax. The heart size is normal. There a re surgical clips in the abdomen. IMPRESSION: 1. No acute cardiopulmonary disease. Reviewed, dictated and finalized at location E.
[2023-11-01 17:27] LABS: Glucose Point of Care 141 mg/dl (65-105)
--- NOTE | 2023-11-01 17:38 | ED.GENADULT ---
HPI - General Adult General Chief complaint: Urogenital-Female <Magdalena Sommers MD - Last Filed: 11/04/23 11:57> Stated complaint: dizzy <Magdalena Sommers MD - Last Filed: 11/04/23 11:57> Time Seen by Provider: 11/01/23 17:26 <Magdalena Sommers MD - Last Filed: 11/04/23 11:57> History of Present Illness HPI narrative: Patient is a 53 year old female with history of chronic back pain, DM here with back pain, fever, urinary symptoms. Patient notes that 2 days ago she began having worsening back pain than she typically has. She thought it was a flare up of her chronic back issues initially. Yesterday she began having dysuria, increased urinary frequency and a fever. Tmax at home was 102F. She noted that today she continued to feel worse and now has a headache, dizziness, nausea, chest tightness and generally feels horrible. She denies cough. She denies sick contacts. She took 400 mg of ibuprofen about 2 hours ago which helped minimally with her symptoms. She notes she feels similar to the last time she had a UTI. She notes this was about 8 years ago and she required ICU hospitalization at [facility]. No diarrhea. Prior abdominal surgeries include hysterectomy and cholecystectomy. No new lower extremity numbness or weakness. <Magdalena Sommers MD - Last Filed: 11/04/23 11:57> Related Data Allergies/adverse reactions: Allergies Allergy/AdvReac Type Severity Reaction Status Date / Time Penicillins Allergy Unknown Itching Verified 11/04/23 08:50 nitrofurantoin AdvReac Intermediate Unknown Verified 09/15/23 09:56 PAPER TAPE Allergy Intermediate Redness of Uncoded 09/15/23 09:56 Skin <Magdalena Smomers MD - Last Filed: 11/04/23 11:57> Review of Systems Review of Systems: All systems reviewed & are unremarkable except as noted in HPI and below <Magdalena Sommers MD - Last Filed: 11/04/23 11:57> PMFSH Past Medical History Medical History: Medical History (Updated 11/02/23 @ 10:33 by Taisha Cook, JAMES) Anxiety Chronic back pain Degenerative disc disease at L5-S1 level Essential (primary) hypertension Generalized anxiety disorder Hot flashes Hyperlipidemia, unspecified Loss of balance Major depressive disorder, recurrent, moderate Migraine, unspecified, not intractable, without status migrainosus Other spondylosis with radiculopathy, lumbar region Peripheral neuropathy Type 2 diabetes mellitus with hyperglycemia Type 2 diabetes mellitus without complications <Magdalena Sommers MD - Last Filed: 11/04/23 11:57> Surgical History Surgical History: Surgical History H/O lumbar discectomy 03/12/2020, (Infusions 05/2020, and 12/24/2021) H/O: hysterectomy History of cholecystectomy <Magdalena Sommers MD - Last Filed: 11/04/23 11:57> Family History Family History: Family History Grandparent Diabetes mellitus Mother Patient's mother is in good health Father Patient's father is in good health Other Family history of arthritis Hypertension <Magdalena Sommers MD - Last Filed: 11/04/23 11:57> Social History Social History: Social History Smoking packs per day: 0.5 Smoking cigarettes per day: 10.0 Years smoked: 20 Smoking pack-years: 10.00 Smoking status: Current some day smoker Tobacco type: cigarettes Second hand tobacco smoke exposure: No Smoking end date: 05/18/16 Alcohol intake: never Substance use: never Substance use type: does not use Do You Feel Safe in your Home?: Yes Lack of Transportation: No Lack of Food: Never True Current Housing: I Have Housing Concerned About Future Housing: No Difficulty Paying Gas/Electric Bills: No Difficulty Paying for Meds: No Currently Unemployed: No Education: Associate Degree Difficulty w/ Childcare or Family Care: No Living arrangements: with family
--- NOTE | 2023-11-01 17:47 | ECG_ITS ---
Test Date: 2023-11-01 18:08:48 Measurements Intervals Carbon Rate: 74 P: 57 [place]: 154 QRS: -14 QRSD: 88 T: 34 QT: 373 QTc: 416 Interpretive Statements SINUS RHYTHM No previous ECG available for comparison Electronically Signed On 11-03-2023 11:37:45 CDT by Kelsea Langston M.D.
[2023-11-01 18:18] LABS: Basophils Absolute Auto 0.09 K/mm3 (0.00-0.10); Eosinophils Absolute Auto 0.16 K/mm3 (0.02-0.50); Eosinophils Percent Auto 1.8 % (1.0-6.0); Hematocrit 42.6 % (35.0-49.0); Immature Granulocyte Absolute 0.04 K/mm3 (0.00-0.00); Immature Granulocyte Percent A 0.4 % (0.0-0.0); Lymphocytes Percent Auto 31.1 % (18.0-42.0); Mean Corpuscular HGB Conc 32.9 g/dL (32-36); Mean Corpuscular Hemoglobin 31.5 pg (27.0-31.0); Mean Corpuscular Volume 95.7 fL (78.0-102.0); Mean Platelet Volume 9.3 fl (9.2-11.8); Monocytes Absolute Auto 0.56 K/mm3 (0.10-0.90); Monocytes Percent Auto 6.2 % (2.0-11.0); Neutrophils Absolute Auto 5.34 K/mm3 (1.70-7.20); Neutrophils Percent Auto 59.5 % (50.0-70.0); Platelet Count Result 248 K/mm3 (150-420); Red Blood Count 4.45 M/mm3 (4.20-5.40); Red Cell Distribution Width 13.4 % (11.6-14.4)
[2023-11-01 18:18] LABS: Bilirubin Urine Negative (Negative); Blood Urine 3+ (Negative); Color Urine Yellow (Yellow); Glucose Urine UA 3+ (Negative); Ketones Urine Negative (Negative); Leukocyte Esterase Ur Trace LEU/UL (Negative); Nitrate Urine Negative (Negative); Protein Urine 2+ (Negative); Specific Grav Ur 1.025 (1.010-1.020); pH Urine 6.5 (5.0-8.0)
[2023-11-01] MEDS: LACTATED RINGERS 1,000 ML 999 ML IV CONT ×2 (18:25→18:26)
[2023-11-01] MEDS: ONDANSETRON INJ 4 MG/2 ML VIAL IV PUSH ×2 (18:25→21:14)
[2023-11-01 18:26] LABS: SARS-CoV-2 RNA PCR Negative (Negative)
[2023-11-01 18:27] LABS: Add Urine Microscopic? YES; Appearance Urine Turbid (Clear); Influenza A QL RT-PCR Negative (Negative); Influenza B QL RT-PCR Negative (Negative); RBC Urine >75 /hpf (0-2); RSV RNA, RT-PCR Negative (Negative); Squamous Epithelial Cell Urine Few /hpf (Few); WBC Clumps Urine Present /hpf; WBC Urine >75 /hpf (0-3)
[2023-11-01 18:28] LABS: Bacteria Urine 4+ /hpf; Mucus Urine Heavy /lpf
[2023-11-01 18:29] LABS: INR 0.9; Partial Thromboplastin Time 25.1 Sec (23.9-30.70); Prothrombin Time 9.8 Seconds (9.50-12.1)
--- NOTE | 2023-11-01 18:45 | PC.NURSE ---
report to yair wesley
--- NOTE | 2023-11-01 18:55 | PC.NURSE ---
assumed care. report received from Jerardo UGARTE.
--- NOTE | 2023-11-01 18:57 | PC.NURSE ---
patient requesting pain medication for headache. will notify provider
--- NOTE | 2023-11-01 19:01 | PC.NURSE ---
patient ambulating to the bathroom
[2023-11-01] MEDS: ACETAMINOPHEN 500 MG TABLET 1000 MG PO (19:07)
[2023-11-01 19:15] LABS: Alanine Aminotransferase 28 U/L (14-59); Albumin Level 3.5 g/dL (3.4-5.0); Alkaline Phosphatase 77 U/L (46-116); Anion Gap 9 mmol/L (4-12); Aspartate Amino Transferase 19 U/L (15-37); Bilirubin,Total 0.3 mg/dL (0.00-1.00); Blood Urea Nitrogen 17 mg/dL (7-18); CRP 1.4 mg/dL (0.0-0.9); Carbon Dioxide 26 mmol/L (21-32); Chloride 106 mmol/L (98-108); Estimated CRCL calculation 57 ml/min; Estimated Glomerular Filt Rate 59; Glucose 132 mg/dL (70-99); Lactic Acid Reflex 0.8 mmol/L (0.4-2.0); Lipase 87 U/L (16-77); Osmolality Calculated 295 mOsm/kg (285-295); Potassium 3.7 mmol/L (3.5-5.1); Sodium 141 mmol/L (136-145); Total Protein 7.3 g/dL (6.4-8.2)
[2023-11-01 19:17] LABS: Troponin I < 4.0 ng/L (0.00-60.4)
--- NOTE | 2023-11-01 20:05 | PC.NURSE ---
room assignment received, room 204. registration notified. Jer Rn to be the nurse
--- NOTE | 2023-11-01 20:12 | PC.NURSE ---
ED SBAR reviewed and printed by this RN. Room is ready for pt arrival to the floor.
--- NOTE | 2023-11-01 21:00 | ADMGEN ---
This patient, Kateryna Overton, was admitted to 2nd Floor Room 204-1. Patient oriented to hospital policies and general routines including ID bracelet, bed and alarms, visiting hours, pain management, procedures, bathroom and other care routines, personal items, smoking policy, room service/diet, and visiting hours. Information on how to activate the Rapid Response Team has been discussed. Patient are encouraged to report perceived risks to care and to ask questions if they do not understand what they are told or what they should do.
[2023-11-01] MEDS: diphenhydrAMINE HCl INJ 50 MG/ML VIAL 25 MG IV PUSH (21:14)
[2023-11-01] MEDS: PREGABALIN (*CRX) 25 MG CAPSULE PO (21:14)
[2023-11-01 22:32] LABS: Glucose Point of Care 233 mg/dl (65-105)
[2023-11-01] MEDS: LACTATED RINGERS 1,000 ML 100 ML IV CONT (22:32)
[2023-11-02] MEDS: ACETAMINOPHEN 325 MG TABLET 650 MG PO ×2 (01:10→07:40)
[2023-11-02] MEDS: ONDANSETRON HCL ODT 4 MG TABLET PO ×2 (01:11→19:51)
--- NOTE | 2023-11-02 05:52 | PC.NURSE ---
Pt's sandwich brought in by placed in a bag w/pt label and placed in the fridge for pt to eat at a later time.
[2023-11-02] MEDS: ONDANSETRON INJ 4 MG/2 ML VIAL IV PUSH ×2 (07:41→15:14)
[2023-11-02 08:00] VITALS: BP 120/76; PULSE 84; RESP 14; TEMP 36.6; O2SAT 97
--- NOTE | 2023-11-02 08:40 | PM.IMHP ---
H&P: HPI History of Present Illness Date/Time: 11/02/23 08:40 Chief Complaint: UTI back pain dizziness Narrative: This is a 53-year-old female with a significant past medical history of chronic back pain, diabetes mellitus, anxiety, hyperlipidemia, depression, migraine, peripheral neuropathy, hypertension who presents with back pain, fever, urinary complaints. patient states that she felt back pain on Thursday but did not really think anything it as she has chronic back pain. She put a lidocaine patch on and went about her day as she felt fine otherwise.. Thursday she noticed some burning with urination Which started to worsen over Thursday with associated fever chills. She states she has had a UTI 8 years ago that she became septic with and her urinary pain was similar to that time. She came in for further evaluation. On examination today patient Is alert oriented x3, lying in the bed. Patient endorses chills, abdominal pain, nausea, burning and pain with urination. Patient denies any fever, vomiting, diarrhea, shortness of breath, chest pain. Workup in the hospital included a chest x-ray which was negative. Abdomen/ pelvis CT which showed thickened wall of the urinary bladder likely cystitis, constipation. Initial labs revealed normal white blood cell count of 9.0, blood sugars ranging 106-132, lactic acid was normal at 0.8, C reactive protein was 1.4, troponin was negative, lipase was 87. A UA was obtained and showed a urine specific gravity of 1.025, 2+ urine protein, 3+ urine glucose, 3+ urine blood, trace leukocytes, greater than 75 urine RBC, greater than 75 urine WBC, 4+ bacteria. A respiratory panel was also obtained which was negative for influenza a and B, RSV, COVID. Blood and urine cultures were obtained and are pending. Patient was given 1 L of LR, Zofran, Tylenol, Benadryl, and started on Rocephin. We will add Pyridium for urinary pain. Review of Systems Review of Systems: All systems reviewed & are unremarkable except as noted in HPI and below Constitutional: Constitutional: Reports as per HPI and Reports no additional constitutional complaints Eyes: Eyes: Reports as per HPI and Reports no additional eye complaints ENT: Reports system reviewed and no additional complaints, except as documented and Reports as per HPI Cardiovascular: Cardiovascular: Reports as per HPI and Reports no additional cardiovascular complaints Respiratory: Respiratory: Reports as per HPI and Reports no additional respiratory complaints Gastrointestinal: Gastrointestinal: Reports as per HPI and Reports no additional gastrointestinal complaints Genitourinary: Genitourinary: Reports no additional female genitourinary complaints and Reports as per HPI Musculoskeletal: Musculoskeletal: Reports no additional musculoskeletal complaints and Reports as per HPI Integumentary/Breasts: Skin/Breast: Reports system reviewed and no additional complaints, except as docu and Reports as per HPI Neurologic: Reports system reviewed and no additional complaints, except as documented and Reports as per HPI Psychiatric: Psychiatric: Reports no additional psychiatric complaints and Reports as per HPI [facility] Past Medical History Medical History (Updated 11/02/23 @ 10:33 by Taisha Cook APRN) Anxiety Chronic back pain Degenerative disc disease at L5-S1 level Essential (primary) hypertension Generalized anxiety disorder Hot flashes Hyperlipidemia, unspecified Loss of balance Major depressive disorder, recurrent, moderate Migraine, unspecified, not intractable, without status migrainosus Other spondylosis with radiculopathy, lumbar region Peripheral neuropathy Type 2 diabetes mellitus with hyperglycemia Type 2 diabetes mellitus without complications Surgical History Surgical History H/O lumbar discectomy 03/12/2020, (Infusions 05/2020, and 12/24/2021) H/O: hysterectomy History of cholecystect
[2023-11-02] MEDS: PREGABALIN (*CRX) 25 MG CAPSULE PO ×4 (09:27→20:08)
[2023-11-02] MEDS: DULoxetine HCL 30 MG CAPSULE.DR 60 MG PO (09:27)
[2023-11-02] MEDS: EMPAGLIFLOZIN 25 MG TABLET PO (09:28)
[2023-11-02] MEDS: EZETIMIBE 10 MG TABLET PO (09:28)
[2023-11-02] MEDS: DOCUSATE SODIUM 100 MG CAPSULE PO ×2 (09:28→17:06)
[2023-11-02] MEDS: INSULIN HUMAN LISPRO (*BKC) 1,000 UNITS/10 ML VIAL 6 UNITS SUB-Q (09:32)
[2023-11-02 11:33] LABS: Glucose Point of Care 69 mg/dl (65-105)
[2023-11-02] MEDS: PHENAZOPYRIDINE HCL 100 MG TABLET 200 MG PO ×2 (11:34→17:05)
[2023-11-02 16:00] VITALS: BP 112/65; PULSE 55; RESP 16; TEMP 36.8; O2SAT 97
--- NOTE | 2023-11-02 17:14 | PC.NURSE ---
Patient c/o poor appetite and blood glucose was 147 before dinner. Lieutenant Fire Fighter held 6 units of scheduled insulin and notified WORKERS' COMPENSATION CLAIMS SUPERVISOR. WORKERS' COMPENSATION CLAIMS SUPERVISOR to place scheduled insulin on hold and rely solely on sliding scale.
[2023-11-02] MEDS: LIDOCAINE 5% PATCH 1 PATCH TOPICAL (19:51)
[2023-11-02 20:45] LABS: Glucose Point of Care 281 mg/dl (65-105)
--- NOTE | 2023-11-02 21:00 | PC.NURSE ---
Lidocaine patch applied @ this time instead of 0900 per patient's request.
[2023-11-03] VITALS: BP 120/70; PULSE 70; RESP 16; TEMP 36.4; O2SAT 95
[2023-11-03] MEDS: ONDANSETRON INJ 4 MG/2 ML VIAL IV PUSH ×3 (00:21→12:40)
[2023-11-03] MEDS: ACETAMINOPHEN 325 MG TABLET 650 MG PO ×2 (00:21→07:44)
[2023-11-03 05:26] LABS: Basophils Absolute Auto 0.06 K/mm3 (0.00-0.10); Basophils Percent Auto 0.9 % (0.0-1.0); Eosinophils Absolute Auto 0.19 K/mm3 (0.02-0.50); Hematocrit 37.3 % (35.0-49.0); Hemoglobin 12.6 g/dL (12.0-15.0); Immature Granulocyte Absolute 0.04 K/mm3 (0.00-0.00); Immature Granulocyte Percent A 0.6 % (0.0-0.0); Lymphocytes Absolute Auto 1.69 K/mm3 (1.10-4.50); Lymphocytes Percent Auto 26.7 % (18.0-42.0); Mean Corpuscular HGB Conc 33.8 g/dL (32-36); Mean Corpuscular Hemoglobin 32.2 pg (27.0-31.0); Mean Corpuscular Volume 95.4 fL (78.0-102.0); Mean Platelet Volume 9.3 fl (9.2-11.8); Monocytes Absolute Auto 0.47 K/mm3 (0.10-0.90); Monocytes Percent Auto 7.4 % (2.0-11.0); Neutrophils Absolute Auto 3.88 K/mm3 (1.70-7.20); Neutrophils Percent Auto 61.4 % (50.0-70.0); Platelet Count Result 201 K/mm3 (150-420); Red Blood Count 3.91 M/mm3 (4.20-5.40); Red Cell Distribution Width 13.2 % (11.6-14.4); White Blood Count 6.3 K/mm3 (4.8-10.8)
[2023-11-03 05:43] LABS: Alanine Aminotransferase 14 U/L (14-59); Albumin Level 2.9 g/dL (3.4-5.0); Alkaline Phosphatase 63 U/L (46-116); Anion Gap 5 mmol/L (4-12); Aspartate Amino Transferase 20 U/L (15-37); Bilirubin,Total 0.2 mg/dL (0.00-1.00); Blood Urea Nitrogen 14 mg/dL (7-18); Calcium 8.4 mg/dL (8.5-10.1); Carbon Dioxide 30 mmol/L (21-32); Chloride 106 mmol/L (98-108); Estimated CRCL calculation 67 ml/min; Estimated Glomerular Filt Rate > 60; Glucose 122 mg/dL (70-99); Osmolality Calculated 293 mOsm/kg (285-295); Potassium 3.9 mmol/L (3.5-5.1); Sodium 141 mmol/L (136-145); Total Protein 6.2 g/dL (6.4-8.2)
--- NOTE | 2023-11-03 07:49 | P.PNIM_ITS ---
Progress Note: A&P Assessment and Plan (1) UTI (urinary tract infection): Code(s): N39.0 - Urinary tract infection, site not specified Status: Acute Assessment and Plan: 11/02/23: * UA showed a urine specific gravity of 1.025, 2+ urine protein, 3+ urine glucose, 3+ urine blood, trace leukocytes, greater than 75 urine RBC, greater than 75 urine WBC, 4+ urine bacteria * urine and blood cultures are obtained and pending * continue Rocephin * will start Pyridium for urinary pain associated with UTI 11/03/23: * Urine and blood cultures are still pending * continue with Rocephin * continue with Pyridium * Patient complaining right-sided abdominal pain and cramping. Patient had concerns for her ovary on the right as she has had a mass on her left with removal of her left ovary past. We did do a transvaginal ultrasound but her right ovary was in a easily seen and there was no note of growth on that. She did have a CT scan the other day which did not make any concerns for her ovary. We also did a renal ultrasound as I seen some calcifications on her CT when looking added and could not figure out if there might be some kidney stones that were moving towards the bladder However that was negative as well. (2) Hyperlipidemia, unspecified: Qualifiers: Hyperlipidemia type: mixed hyperlipidemia Qualified Code(s): E78.2 - Mixed hyperlipidemia Code(s): E78.5 - Hyperlipidemia, unspecified Status: Chronic Assessment and Plan: 11/02/23: * continues Zetia 11/03/23: * no change to current treatment plan (3) Type 2 diabetes mellitus with hyperglycemia: Qualifiers: Diabetes mellitus shelter insulin use: with shelter use Qualified Code(s): E11.65 - Type 2 diabetes mellitus with hyperglycemia; Z79.4 - terminal operator (current) use of insulin Code(s): E11.65 - Type 2 diabetes mellitus with hyperglycemia Status: Chronic Assessment and Plan: 11/02/23: * blood sugars ranging 141-233 * last hemoglobin A1c 5.8 on 08/20/2023 * Ozempic on hold * Will supplement with Jardiance for her Farxiga as it is nonformulary * insulin lispro 6 units t.i.d. with meals * Accu-Cheks AC and HS * low-dose sliding scale insulin ordered * hypoglycemic protocol in place * diabetic diet ordered 11/03/23: * insulin lispro 6 units t.i.d. with meals on hold * continue with current treatment plan (4) Major depressive disorder, recurrent, moderate: Code(s): F33.1 - Major depressive disorder, recurrent, moderate Status: Chronic Assessment and Plan: 11/02/23: * continue Cymbalta 11/03/23: * no change to current treatment plan (5) Chronic back pain: Code(s): M54.9 - Dorsalgia, unspecified; G89.29 - Other chronic pain Status: Chronic Assessment and Plan: 11/02/23: * continue methocarbamol and Lyrica * will start lidocaine patch 11/03/23: * no change to current treatment plan Time Spent With Patient Time with patient: 15 - 25 minutes Subjective Date/time seen: 11/03/23 07:49 Interval history: 11/02/23: This is a 53-year-old female with a significant past medical history of chronic back pain, diabetes mellitus, anxiety, hyperlipidemia, depression, migraine, peripheral neuropathy, hypertension who presents with back pain, fever, urinary complaints. patient states that she felt back pain on Thursday but did not really think anything it as she has chronic back pain. She put a lidocaine patch on and went about her day as she felt fine otherwise.. Sa
--- NOTE | 2023-11-03 07:49 | PM.IMPN ---
Progress Note: A&P Assessment and Plan (1) UTI (urinary tract infection): Code(s): N39.0 - Urinary tract infection, site not specified Status: Acute Assessment and Plan: 11/02/23: UA showed a urine specific gravity of 1.025, 2+ urine protein, 3+ urine glucose, 3+ urine blood, trace leukocytes, greater than 75 urine RBC, greater than 75 urine WBC, 4+ urine bacteria urine and blood cultures are obtained and pending continue Rocephin will start Pyridium for urinary pain associated with UTI 11/03/23: Urine and blood cultures are still pending continue with Rocephin continue with Pyridium Patient complaining right-sided abdominal pain and cramping. Patient had concerns for her ovary on the right as she has had a mass on her left with removal of her left ovary past. We did do a transvaginal ultrasound but her right ovary was in a easily seen and there was no note of growth on that. She did have a CT scan the other day which did not make any concerns for her ovary. We also did a renal ultrasound as I seen some calcifications on her CT when looking added and could not figure out if there might be some kidney stones that were moving towards the bladder However that was negative as well. (2) Hyperlipidemia, unspecified: Qualifiers: Hyperlipidemia type: mixed hyperlipidemia Qualified Code(s): E78.2 - Mixed hyperlipidemia Code(s): E78.5 - Hyperlipidemia, unspecified Status: Chronic Assessment and Plan: 11/02/23: continues Zetia 11/03/23: no change to current treatment plan (3) Type 2 diabetes mellitus with hyperglycemia: Qualifiers: Diabetes mellitus joint terminal attack controller insulin use: with joint terminal attack controller use Qualified Code(s): E11.65 - Type 2 diabetes mellitus with hyperglycemia; Z79.4 - intermediate (current) use of insulin Code(s): E11.65 - Type 2 diabetes mellitus with hyperglycemia Status: Chronic Assessment and Plan: 11/02/23: blood sugars ranging 141-233 last hemoglobin A1c 5.8 on 08/20/2023 Ozempic on hold Will supplement with Jardiance for her Farxiga as it is nonformulary insulin lispro 6 units t.i.d. with meals Accu-Cheks AC and HS low-dose sliding scale insulin ordered hypoglycemic protocol in place diabetic diet ordered 11/03/23: insulin lispro 6 units t.i.d. with meals on hold continue with current treatment plan (4) Major depressive disorder, recurrent, moderate: Code(s): F33.1 - Major depressive disorder, recurrent, moderate Status: Chronic Assessment and Plan: 11/02/23: continue Cymbalta 11/03/23: no change to current treatment plan (5) Chronic back pain: Code(s): M54.9 - Dorsalgia, unspecified; G89.29 - Other chronic pain Status: Chronic Assessment and Plan: 11/02/23: continue methocarbamol and Lyrica will start lidocaine patch 11/03/23: no change to current treatment plan Time Spent With Patient Time with patient: 15 - 25 minutes Subjective Date/time seen: 11/03/23 07:49 Interval history: 11/02/23: This is a 53-year-old female with a significant past medical history of chronic back pain, diabetes mellitus, anxiety, hyperlipidemia, depression, migraine, peripheral neuropathy, hypertension who presents with back pain, fever, urinary complaints. patient states that she felt back pain on Thursday but did not really think anything it as she has chronic back pain. She put a lidocaine patch on and went about her day as she felt fine otherwise.. Thursday she noticed some burning with urination Which started to worsen over Thursday with associated fever chills. She states she has had a UTI 8 years ago that she became septic with and her urinary pain was similar to that time. She came in for further evaluation. On examination today patient Is alert oriented x3, lying in the bed. Patient endorses chills, abdominal pain, nausea, burning and pain with urination. Patie
[2023-11-03 08:00] VITALS: BP 98/58; PULSE 57; RESP 14; TEMP 36.4; O2SAT 97
[2023-11-03] MEDS: PHENAZOPYRIDINE HCL 100 MG TABLET 200 MG PO ×3 (08:20→16:35)
[2023-11-03] MEDS: EZETIMIBE 10 MG TABLET PO (09:46)
[2023-11-03] MEDS: PREGABALIN (*CRX) 25 MG CAPSULE PO ×4 (09:47→20:44)
[2023-11-03] MEDS: BISACODYL 5 MG TABLET EC PO (09:47)
[2023-11-03] MEDS: DULoxetine HCL 30 MG CAPSULE.DR 60 MG PO (09:47)
[2023-11-03] MEDS: EMPAGLIFLOZIN 25 MG TABLET PO (09:47)
[2023-11-03] MEDS: DOCUSATE SODIUM 100 MG CAPSULE PO ×2 (09:47→16:36)
[2023-11-03 11:39] LABS: Glucose Point of Care 104 mg/dl (65-105)
[2023-11-03 16:00] VITALS: BP 121/71; PULSE 67; RESP 16; TEMP 36.7; O2SAT 96
[2023-11-03 16:40] LABS: Glucose Point of Care 137 mg/dl (65-105)
--- NOTE | 2023-11-03 17:03 | PC.NURSE ---
Patient c/o feeling constipated and the colace is not working for her. Barrel Racer gave patient 4 oz apple juice.
[2023-11-03] MEDS: LIDOCAINE 5% PATCH 1 PATCH TOPICAL (20:44)
[2023-11-03 20:50] LABS: Glucose Point of Care 195 mg/dl (65-105)
[2023-11-04 00:06] VITALS: BP 117/71; PULSE 64; RESP 18; TEMP 37.1; O2SAT 97
[2023-11-04] MEDS: ACETAMINOPHEN 325 MG TABLET 650 MG PO ×2 (01:34→08:32)
[2023-11-04] MEDS: ONDANSETRON HCL ODT 4 MG TABLET PO ×2 (01:34→08:32)
[2023-11-04 05:21] LABS: Basophils Percent Auto 1.4 % (0.0-1.0); Eosinophils Absolute Auto 0.25 K/mm3 (0.02-0.50); Eosinophils Percent Auto 3.4 % (1.0-6.0); Hematocrit 38.8 % (35.0-49.0); Hemoglobin 12.8 g/dL (12.0-15.0); Immature Granulocyte Absolute 0.05 K/mm3 (0.00-0.00); Immature Granulocyte Percent A 0.7 % (0.0-0.0); Lymphocytes Absolute Auto 2.16 K/mm3 (1.10-4.50); Lymphocytes Percent Auto 29.5 % (18.0-42.0); Mean Corpuscular Hemoglobin 31.4 pg (27.0-31.0); Mean Corpuscular Volume 95.3 fL (78.0-102.0); Mean Platelet Volume 9.4 fl (9.2-11.8); Monocytes Absolute Auto 0.57 K/mm3 (0.10-0.90); Monocytes Percent Auto 7.8 % (2.0-11.0); Neutrophils Absolute Auto 4.18 K/mm3 (1.70-7.20); Neutrophils Percent Auto 57.2 % (50.0-70.0); Platelet Count Result 218 K/mm3 (150-420); Red Blood Count 4.07 M/mm3 (4.20-5.40); Red Cell Distribution Width 12.9 % (11.6-14.4); White Blood Count 7.3 K/mm3 (4.8-10.8)
[2023-11-04 05:43] LABS: Alanine Aminotransferase 28 U/L (14-59); Albumin Level 2.9 g/dL (3.4-5.0); Alkaline Phosphatase 62 U/L (46-116); Anion Gap 7 mmol/L (4-12); Aspartate Amino Transferase 18 U/L (15-37); Bilirubin,Total 0.2 mg/dL (0.00-1.00); Blood Urea Nitrogen 16 mg/dL (7-18); Calcium 8.5 mg/dL (8.5-10.1); Carbon Dioxide 28 mmol/L (21-32); Chloride 104 mmol/L (98-108); Estimated CRCL calculation 68 ml/min; Estimated Glomerular Filt Rate > 60; Glucose 132 mg/dL (70-99); Osmolality Calculated 291 mOsm/kg (285-295); Potassium 4.1 mmol/L (3.5-5.1); Sodium 139 mmol/L (136-145); Total Protein 6.2 g/dL (6.4-8.2)
[2023-11-04 07:50] VITALS: BP 129/67; PULSE 63; RESP 16; TEMP 36.8; O2SAT 96
[2023-11-04] MEDS: PHENAZOPYRIDINE HCL 100 MG TABLET 200 MG PO ×3 (08:27→16:48)
[2023-11-04] MEDS: EZETIMIBE 10 MG TABLET PO (08:27)
[2023-11-04] MEDS: DOCUSATE SODIUM 100 MG CAPSULE PO ×2 (08:27→16:47)
[2023-11-04] MEDS: EMPAGLIFLOZIN 25 MG TABLET PO (08:27)
[2023-11-04] MEDS: PREGABALIN (*CRX) 25 MG CAPSULE PO ×4 (08:27→21:17)
[2023-11-04] MEDS: DULoxetine HCL 30 MG CAPSULE.DR 60 MG PO (08:27)
[2023-11-04] MEDS: BISACODYL 5 MG TABLET EC PO (08:27)
[2023-11-04] MEDS: HYOSCYAMINE SULFATE 0.125 MG TABLET 0.25 MG PO (10:04)
[2023-11-04] MEDS: METOCLOPRAMIDE HCL 10 MG TABLET PO ×3 (10:05→21:17)
--- NOTE | 2023-11-04 10:10 | P.PNIM_ITS ---
Progress Note: A&P Assessment and Plan (1) UTI (urinary tract infection): Code(s): N39.0 - Urinary tract infection, site not specified Status: Acute Assessment and Plan: 11/02/23: * UA showed a urine specific gravity of 1.025, 2+ urine protein, 3+ urine glucose, 3+ urine blood, trace leukocytes, greater than 75 urine RBC, greater than 75 urine WBC, 4+ urine bacteria * urine and blood cultures are obtained and pending * continue Rocephin * will start Pyridium for urinary pain associated with UTI 11/03/23: * Urine and blood cultures are still pending * continue with Rocephin * continue with Pyridium * Patient complaining right-sided abdominal pain and cramping. Patient had concerns for her ovary on the right as she has had a mass on her left with removal of her left ovary past. We did do a transvaginal ultrasound but her right ovary was in a easily seen and there was no note of growth on that. She did have a CT scan the other day which did not make any concerns for her ovary. We also did a renal ultrasound as I seen some calcifications on her CT when looking added and could not figure out if there might be some kidney stones that were moving towards the bladder However that was negative as well. 11/03: Continue Rocephin urine culture E coli but sensitivities still pending. Prior history of sepsis requiring ICU stay. Add Levsin for bladder spasms. Patient reports bladder feels a little better after addition of Pyridium. (2) Hyperlipidemia, unspecified: Qualifiers: Hyperlipidemia type: mixed hyperlipidemia Qualified Code(s): E78.2 - Mixed hyperlipidemia Code(s): E78.5 - Hyperlipidemia, unspecified Status: Chronic Assessment and Plan: 11/02/23: * continues Zetia 11/03/23: * no change to current treatment plan (3) Type 2 diabetes mellitus with hyperglycemia: Qualifiers: Diabetes mellitus long term care social worker insulin use: with long term care social worker use Qualified Code(s): E11.65 - Type 2 diabetes mellitus with hyperglycemia; Z79.4 - termite control representative (current) use of insulin Code(s): E11.65 - Type 2 diabetes mellitus with hyperglycemia Status: Chronic Assessment and Plan: 11/02/23: * blood sugars ranging 141-233 * last hemoglobin A1c 5.8 on 08/20/2023 * Ozempic on hold * Will supplement with Jardiance for her Juancarlos as it is nonformulary * insulin lispro 6 units t.i.d. with meals * Accu-Cheks AC and HS * low-dose sliding scale insulin ordered * hypoglycemic protocol in place * diabetic diet ordered 11/03/23: * insulin lispro 6 units t.i.d. with meals on hold * continue with current treatment plan 11/03: Patient previously on Ozempic has not taking in about 4 months, non- contributory. Patient also used to be on Lantus but no longer takes that, only SGL2 and sliding scale Humalog at home (4) Major depressive disorder, recurrent, moderate: Code(s): F33.1 - Major depressive disorder, recurrent, moderate Status: Chronic Assessment and Plan: 11/02/23: * continue Cymbalta 11/03/23: * no change to current treatment plan (5) Chronic back pain: Code(s): M54.9 - Dorsalgia, unspecified; G89.29 - Other chronic pain Status: Chronic Assessment and Plan: 11/02/23: * continue methocarbamol and Lyrica * will start lidocaine patch 11/03/23: * no change to current treatment plan Time Spent With Patient Time with patient: Greater than 35 minutes Subjective Date/time seen: 11/04/23 10:10 Interval history: 11/02/23: Th
--- NOTE | 2023-11-04 10:10 | PM.IMPN ---
Progress Note: A&P Assessment and Plan (1) UTI (urinary tract infection): Code(s): N39.0 - Urinary tract infection, site not specified Status: Acute Assessment and Plan: 11/02/23: UA showed a urine specific gravity of 1.025, 2+ urine protein, 3+ urine glucose, 3+ urine blood, trace leukocytes, greater than 75 urine RBC, greater than 75 urine WBC, 4+ urine bacteria urine and blood cultures are obtained and pending continue Rocephin will start Pyridium for urinary pain associated with UTI 11/03/23: Urine and blood cultures are still pending continue with Rocephin continue with Pyridium Patient complaining right-sided abdominal pain and cramping. Patient had concerns for her ovary on the right as she has had a mass on her left with removal of her left ovary past. We did do a transvaginal ultrasound but her right ovary was in a easily seen and there was no note of growth on that. She did have a CT scan the other day which did not make any concerns for her ovary. We also did a renal ultrasound as I seen some calcifications on her CT when looking added and could not figure out if there might be some kidney stones that were moving towards the bladder However that was negative as well. 11/03: Continue Rocephin urine culture E coli but sensitivities still pending. Prior history of sepsis requiring ICU stay. Add Levsin for bladder spasms. Patient reports bladder feels a little better after addition of Pyridium. (2) Hyperlipidemia, unspecified: Qualifiers: Hyperlipidemia type: mixed hyperlipidemia Qualified Code(s): E78.2 - Mixed hyperlipidemia Code(s): E78.5 - Hyperlipidemia, unspecified Status: Chronic Assessment and Plan: 11/02/23: continues Zetia 11/03/23: no change to current treatment plan (3) Type 2 diabetes mellitus with hyperglycemia: Qualifiers: Diabetes mellitus intermediate insulin use: with technician terminal and repeater use Qualified Code(s): E11.65 - Type 2 diabetes mellitus with hyperglycemia; Z79.4 - prison (current) use of insulin Code(s): E11.65 - Type 2 diabetes mellitus with hyperglycemia Status: Chronic Assessment and Plan: 11/02/23: blood sugars ranging 141-233 last hemoglobin A1c 5.8 on 08/20/2023 Ozempic on hold Will supplement with Jardiance for her Farxiga as it is nonformulary insulin lispro 6 units t.i.d. with meals Accu-Cheks AC and HS low-dose sliding scale insulin ordered hypoglycemic protocol in place diabetic diet ordered 11/03/23: insulin lispro 6 units t.i.d. with meals on hold continue with current treatment plan 11/03: Patient previously on Ozempic has not taking in about 4 months, non-contributory. Patient also used to be on Lantus but no longer takes that, only SGL2 and sliding scale Humalog at home (4) Major depressive disorder, recurrent, moderate: Code(s): F33.1 - Major depressive disorder, recurrent, moderate Status: Chronic Assessment and Plan: 11/02/23: continue Cymbalta 11/03/23: no change to current treatment plan (5) Chronic back pain: Code(s): M54.9 - Dorsalgia, unspecified; G89.29 - Other chronic pain Status: Chronic Assessment and Plan: 11/02/23: continue methocarbamol and Lyrica will start lidocaine patch 11/03/23: no change to current treatment plan Time Spent With Patient Time with patient: Greater than 35 minutes Subjective Date/time seen: 11/04/23 10:10 Interval history: 11/02/23: This is a 53-year-old female with a significant past medical history of chronic back pain, diabetes mellitus, anxiety, hyperlipidemia, depression, migraine, peripheral neuropathy, hypertension who presents with back pain, fever, urinary complaints. patient states that she felt back pain on Thursday but did not really think anything it as she has chronic back pain. She put a lidocaine patch on and went about her day as she felt fine otherwise
[2023-11-04] MEDS: SODIUM CHLORIDE 0.9% IV 1,000 ML 75 ML IV CONT (11:18)
[2023-11-04 12:04] LABS: Glucose Point of Care 151 mg/dl (65-105)
--- NOTE | 2023-11-04 12:30 | PC.NURSE ---
Patient changed to IP at 1230.
[2023-11-04 16:40] VITALS: BP 97/62; PULSE 58; RESP 16; TEMP 36.6; O2SAT 95
[2023-11-04 16:55] LABS: Glucose Point of Care 212 mg/dl (65-105)
[2023-11-04] MEDS: LIDOCAINE 5% PATCH 1 PATCH TOPICAL (21:17)
[2023-11-04 21:18] LABS: Glucose Point of Care 210 mg/dl (65-105)
[2023-11-05] VITALS: BP 112/63; PULSE 70; RESP 16; TEMP 36.5; O2SAT 95
[2023-11-05] MEDS: SODIUM CHLORIDE 0.9% IV 1,000 ML 75 ML IV CONT (01:02)
[2023-11-05 05:18] LABS: Basophils Absolute Auto 0.08 K/mm3 (0.00-0.10); Basophils Percent Auto 1.2 % (0.0-1.0); Eosinophils Absolute Auto 0.23 K/mm3 (0.02-0.50); Eosinophils Percent Auto 3.5 % (1.0-6.0); Hematocrit 38.1 % (35.0-49.0); Hemoglobin 12.6 g/dL (12.0-15.0); Immature Granulocyte Absolute 0.07 K/mm3 (0.00-0.00); Immature Granulocyte Percent A 1.1 % (0.0-0.0); Lymphocytes Absolute Auto 1.98 K/mm3 (1.10-4.50); Lymphocytes Percent Auto 30.2 % (18.0-42.0); Mean Corpuscular HGB Conc 33.1 g/dL (32-36); Mean Corpuscular Hemoglobin 31.6 pg (27.0-31.0); Mean Corpuscular Volume 95.5 fL (78.0-102.0); Mean Platelet Volume 9.2 fl (9.2-11.8); Monocytes Absolute Auto 0.58 K/mm3 (0.10-0.90); Monocytes Percent Auto 8.8 % (2.0-11.0); Neutrophils Absolute Auto 3.62 K/mm3 (1.70-7.20); Neutrophils Percent Auto 55.2 % (50.0-70.0); Platelet Count Result 211 K/mm3 (150-420); Red Blood Count 3.99 M/mm3 (4.20-5.40); Red Cell Distribution Width 13.1 % (11.6-14.4); White Blood Count 6.6 K/mm3 (4.8-10.8)
[2023-11-05 05:35] LABS: Alanine Aminotransferase 29 U/L (14-59); Albumin Level 2.9 g/dL (3.4-5.0); Alkaline Phosphatase 58 U/L (46-116); Anion Gap 4 mmol/L (4-12); Aspartate Amino Transferase 15 U/L (15-37); Bilirubin,Total 0.2 mg/dL (0.00-1.00); Blood Urea Nitrogen 14 mg/dL (7-18); Calcium 8.1 mg/dL (8.5-10.1); Carbon Dioxide 30 mmol/L (21-32); Chloride 107 mmol/L (98-108); Estimated CRCL calculation 70 ml/min; Estimated Glomerular Filt Rate > 60; Glucose 115 mg/dL (70-99); Osmolality Calculated 293 mOsm/kg (285-295); Sodium 141 mmol/L (136-145)
[2023-11-05] MEDS: METOCLOPRAMIDE HCL 10 MG TABLET PO ×2 (06:25→12:00)
[2023-11-05 07:59] LABS: Glucose Point of Care 133 mg/dl (65-105)
[2023-11-05 08:00] VITALS: BP 105/72; PULSE 71; RESP 14; TEMP 36.6; O2SAT 97
[2023-11-05] MEDS: DULoxetine HCL 30 MG CAPSULE.DR 60 MG PO (09:17)
[2023-11-05] MEDS: PHENAZOPYRIDINE HCL 100 MG TABLET 200 MG PO ×2 (09:17→13:04)
[2023-11-05] MEDS: EMPAGLIFLOZIN 25 MG TABLET PO (09:18)
[2023-11-05] MEDS: PREGABALIN (*CRX) 25 MG CAPSULE PO ×2 (09:18→13:04)
[2023-11-05] MEDS: EZETIMIBE 10 MG TABLET PO (09:18)
[2023-11-05] MEDS: BISACODYL 5 MG TABLET EC PO (09:18)
[2023-11-05] MEDS: DOCUSATE SODIUM 100 MG CAPSULE PO (09:18)
[2023-11-05] MEDS: methocarbamoL 750 MG TABLET PO (09:20)
[2023-11-05 11:40] LABS: Glucose Point of Care 123 mg/dl (65-105)
--- NOTE | 2023-11-05 12:13 | PM.DS ---
DS: Admitting Diagnosis Discharge Date 11/05/2023 Admitting Diagnosis UTI DS: Discharge Diagnosis Discharge Diagnosis (1) UTI (urinary tract infection): Code(s): N39.0 - Urinary tract infection, site not specified Status: Acute (2) Hyperlipidemia, unspecified: Qualifiers: Hyperlipidemia type: mixed hyperlipidemia Qualified Code(s): E78.2 - Mixed hyperlipidemia Code(s): E78.5 - Hyperlipidemia, unspecified Status: Chronic (3) Type 2 diabetes mellitus with hyperglycemia: Qualifiers: Diabetes mellitus alf insulin use: with alf use Qualified Code(s): E11.65 - Type 2 diabetes mellitus with hyperglycemia; Z79.4 - prison (current) use of insulin Code(s): E11.65 - Type 2 diabetes mellitus with hyperglycemia Status: Chronic (4) Major depressive disorder, recurrent, moderate: Code(s): F33.1 - Major depressive disorder, recurrent, moderate Status: Chronic (5) Chronic back pain: Code(s): M54.9 - Dorsalgia, unspecified; G89.29 - Other chronic pain Status: Chronic DS: Summary Hospital Course Hospital Course: This is a 53 year old female patient with history of sepsis from UTI, IDDM, HLD, chronic back pain, HTN and several back surgeries who was admitted due to severe abdominal pain, nausea/vomiting and findings of UTI. Patient received IV antibiotics for several days and had to go back on IV fluids due to poor oral intake. Patient had significant constipation as well. Workup revealed E. coli UTI. Culture and sensitivities took extra time. Once sensitivities were back patient was discharged on oral antibiotics. Patient also given Reglan for nausea/vomiting which helped more than Zofran. Status at Discharge Cognitive/behavioral status at discharge: awake, alert, oriented and pleasant Functional status at discharge: independent ambulation Overall status at discharge: patient is back to baseline Time Spent with Patient Time attestation: Total time spent providing and/or coordinating discharge services:45 minutes Time spent: Greater than 30 minutes Exam Narrative: General: Awake alert oriented, comfortable appearing Head: atraumatic Eyes: EOMI, PERRLA, sclera clear ENT: moist mucous membranes, nasal passages clear Neck: supple, no JVD, no adenopathy, trachea midline Cardiac: Normal S1 and S2. RRR, No murmur, gallops or friction rubs, peripheral pulses intact. Respiratory: Lungs clear to auscultation, no adventitious lung sounds, currently on room air Gastrointestinal: soft, no tenderness no rebound no guarding, normoactive bowel sounds. Extremities: moves all extremities well, no edema, good ROM, strength 5/5 Skin: clean, dry, intact. No wounds or lesions. Neuro: Alert and oriented x4, cranial nerves intact, no neuro deficits. Psych: normal mood, normal affect, interactive DS: Data Data Completed and Pending Completed studies during hospitalization: CXR, CT abd/pelvis, pelvis US, renal US Labs on day of discharge: Labs from last 24 hours 11/05/23 11/05/23 11/05/23 11:34 07:53 05:00 WBC 6.6 RBC 3.99 L Hgb 12.6 Hct 38.1 MCV 95.5 MCH 31.6 H MCHC 33.1 RDW 13.1 Plt Count 211 MPV 9.2 Immature Gran % (Auto) 1.1 H Neut % (Auto) 55.2 Lymph % (Auto) 30.2 [place] % (Auto) 8.8 Eos % (Auto) 3.5 Baso % (Auto) 1.2 H Lymph # (Auto) 1.98 [place] # (Auto) 0.58 Eos # (Auto) 0.23 Baso # (Auto) 0.08 Abs Immat Gran (auto) 0.07 H Absolute Neuts (auto) 3.62 Absolute Nucleated RBC 0.00 Nucleated RBC % 0.0 Sodium 141 Potassium 4.0 Chloride 107 Carbon Dioxide 30 Anion Gap 4 BUN 14 Creatinine 0.80 Estim Creat Clear Calc 70 Estimated GFR > 60 Glucose 115 H POC Capillary Glucose 123 H 133 H Calculated Osmolality 293 Calcium 8.1 L Total Bilirubin 0.2 AST 15 ALT 29 Alkaline Phosphatase 58 Total Protein 6.0
--- NOTE | 2023-11-05 14:38 | PC.NURSE ---
Pt discharged to home and family care. Medications reviewed with pt and CG. Purpose, dose,times and SE. Pt has made a follow up appointment for Thursday with her PCP. VSS, no nausea or vomiting .
--- NOTE | 2023-11-11 10:59 | PC.NURSE ---
Discharge call back completed, patient reports concerns regarding her discharge information from the provider on her [email or web address] account. CNO notified of patient concerns and will follow up.
[2023-11-23 21:40] LABS: Glucose Point of Care 149 mg/dl (65-105)
[2023-11-23 21:40] LABS: Glucose Point of Care 147 mg/dl (65-105)
[2023-11-23 21:41] LABS: Glucose Point of Care 133 mg/dl (65-105)
== END 2023-11-05 13:40 | disposition home or self-care (01) | DRG 690 ==
LOC: CHSED 18:47 → CHS2ND 20:08
PROVIDERS: Nurse Practitioner Acute Care; Student in an Organized Health Care Education/Training Program; Admitting Provider Internal Medicine; Emergency Provider Family Medicine; PCP Family Medicine; Visit Provider Internal Medicine
DX: N39.0 Urinary tract infection, site not specified (principal); I10 Essential (primary) hypertension; E78.5 Hyperlipidemia, unspecified; E11.51 Type 2 diabetes mellitus with diabetic peripheral angiopathy without gangrene; B96.20 Unspecified Escherichia coli [E. coli] as the cause of diseases classified elsewhere; K59.00 Constipation, unspecified; M54.9 Dorsalgia, unspecified; M51.37 Other intervertebral disc degeneration, lumbosacral region; M47.26 Other spondylosis with radiculopathy, lumbar region; G89.29 Other chronic pain; F41.9 Anxiety disorder, unspecified; F41.1 Generalized anxiety disorder; F32.9 Major depressive disorder, single episode, unspecified; Z72.0 Tobacco use; Z79.4 Long term (current) use of insulin
CPT/HCPCS: 36415; 71046; 74176; 76775; 76830; 80053; 81001; 82948; 83605; 83690; 84484; 85025; 85610; 85730; 86140; 87040; 87077; 87086; 87088; 87186; 87637; 93005; 96361; 96365; 96366; 96375; 96376; 99285; A9270; G0378; J0696; J1200; J1815; J2405; J7030; J7120

== ENCOUNTER 2024-01-26 16:04 | Outpatient (CLI) | payer OTHER, MEDICARE, MEDICAID, SELFPAY ==
--- NOTE | ~2024-01-26 | XR_ITS ---
EXAM: XR lumbar spine min 4V DATE: 01/26/2024 17:09 HISTORY: ARTHRODESIS STATUS . COMPARISON: 08/07/2021. FINDINGS: Cholecystomy clips. Mild lumbar scoliosis. Interval removal of the posterior fusion hardwar e at L5-S1. Uncomplicated appearing posterior lumbar fusion hardware at L4-5. Interbody devices at L4 -5 and L5-S1. 5 nonrib-bearing lumbar-type vertebral bodies. Pedicles intact. Normal vertebral body a lignment. Vertebral body heights preserved. Multilevel mild disc space narrowing and marginal osteoph ytosis. Multilevel mild facet hypertrophy and sclerosis. No fracture or dislocation. IMPRESSION: Uncomplicated posterior lumbar fusion hardware and interbody devices. Multilevel mild deg enerative disc disease. Multilevel mild facet arthropathy. Reviewed, dictated and finalized at location [facility]. IMPRESSION: Uncomplicated posterior lumbar fusion hardware and interbody device s. Multilevel mild degenerative disc disease. Multilevel mild facet arthropathy .
== END 2024-01-26 16:05 | disposition home or self-care (01) ==
PROVIDERS: PCP Family Medicine; Visit Provider Neurological Surgery
DX: Z98.1 Arthrodesis status (principal); M51.36 Other intervertebral disc degeneration, lumbar region; M12.88 Other specific arthropathies, not elsewhere classified, other specified site
CPT/HCPCS: 72110

== ENCOUNTER 2024-02-14 10:20 | Outpatient (CLI) | payer OTHER, MEDICARE, MEDICAID, SELFPAY ==
--- NOTE | ~2024-02-14 | MR_ITS ---
MRI of the lumbar spine Clinical History: Spinal stenosis Technique: Axial T2-weighted images, and sagittal T1-weighted, T2-weighted, and and T2 fat-sat images were acquired. Following intravenous administration of 13 cc MultiHance gadolinium, T1-weighted fat- sat imaging was performed in the axial and sagittal planes. Findings: No acute fracture or subluxation identified. There is posterior fusion from L4 to L5, with L4 and L5 laminectomies. Interbody disc fusion cages are present at the L4-L5 and L5-S1 levels. No smith spicious bone marrow signal abnormality seen. At L1-L2 and L2-L3, there is no disc bulge or herniation. No spinal canal stenosis or neural foramina l narrowing at these levels. At L3-L4, there is minimal disc bulge with moderate facet arthropathy. No central canal stenosis or n eural foraminal narrowing. At L4-L5, there is no disc bulge or herniation. There is posterior decompression. No spinal canal geoff nosis or definite neural foraminal narrowing. At L5-S1, there is probable minimal disc bulge. No spinal canal stenosis. There is probable mild to m oderate bilateral neural foraminal narrowing. Paravertebral soft tissues are unremarkable. No abnormal postcontrast enhancement seen. Impression: Postoperative changes at the L4-L5 and L5-S1 levels, as above. No acute abnormality evident. Mild degenerative spondylitic changes, as above. Reviewed, dictated and finalized at [facility]. Impression: Postoperative changes at the L4-L5 and L5-S1 levels, as above. No acute abnormality evident. Mild degenerative spondylitic changes, as above.
== END 2024-02-14 10:21 | disposition home or self-care (01) ==
PROVIDERS: PCP Family Medicine; Visit Provider Neurological Surgery
DX: M48.062 Spinal stenosis, lumbar region with neurogenic claudication (principal)
CPT/HCPCS: 72158; A9577

== ENCOUNTER 2024-02-27 09:59 | Outpatient (CLI) | payer OTHER, MEDICARE, MEDICAID, SELFPAY ==
--- NOTE | ~2024-02-27 | CT_ITS ---
EXAMINATION: CT lumbar spine wo con DATE: 02/27/2024 10:19 INDICATION: Lumbar arthrodesis. TECHNIQUE: Computed tomography (CT) of the lumbar spine was performed without intravenous contrast. A utomated exposure control and iterative reconstruction technique were employed. The dose-length produ ct was 388.41 mGy-cm. COMPARISON: Lumbar spine MRI 02/14/2024 FINDINGS: There is 7 degrees dextrocurvature of lumbar spine. There are changes of anterior fusion pr ocedures at L4-L5 and L5-S1 with interbody devices. There is vacuum disc phenomenon at L5-S1 with gas between the interbody devices and the superior endplate of L1. There are changes of posterior fusion procedure at L4-L5 with pedicle screws. There is mildly decreased disc height at L3-L4. The followin g disc levels are specifically discussed: L1-L2: The disc does not extend beyond the endplate margin. There is mild bilateral facet joint osteo arthritis. There is no neural foraminal stenosis. There is no central canal stenosis. L2-L3: The disc does not extend beyond the endplate margin. There is mild bilateral facet joint osteo arthritis. There is no neural foraminal stenosis. There is no central canal stenosis. L3-L4: The disc is bulging. There is moderate bilateral facet joint osteoarthritis. There is mild bairon ateral neural foraminal stenosis. There is mild central canal stenosis. L4-L5: There is no facet joint hypertrophy. There is mild bilateral neural foraminal stenosis. There is no central canal stenosis. There is posterior decompression. L5-S1: There is mild bilateral facet joint hypertrophy. There is mild bilateral neural foraminal sten osis. There is mild central canal stenosis. There is posterior decompression. IMPRESSION: 1. Anterior fusion procedures at L4-L5 and L5-S1. No bony fusion between the superior endplate of S1 and the interbody devices at L5-S1. 2. Posterior fusion procedure at L4-L5. 3. Mild lumbar spondylosis. Reviewed, dictated and finalized at location [facility]. IMPRESSION: 1. Anterior fusion procedures at L4-L5 and L5-S1. No bony fusion between the smith perior endplate of S1 and the interbody devices at L5-S1. 2. Posterior fusion procedure at L4-L5. 3. Mild lumbar spondylosis.
== END 2024-02-27 10:00 | disposition home or self-care (01) ==
PROVIDERS: PCP Family Medicine; Visit Provider Neurological Surgery
DX: Z98.1 Arthrodesis status (principal); M47.816 Spondylosis without myelopathy or radiculopathy, lumbar region
CPT/HCPCS: 72131

== ENCOUNTER 2024-03-31 15:55 | Emergency (ER) | payer OTHER, MEDICARE, MEDICAID, SELFPAY ==
[2024-03-31 16:00] VITALS: BP 131/99; PULSE 81; RESP 16; TEMP 36.7; O2SAT 98
--- NOTE | 2024-03-31 16:10 | ED.EAR ---
HPI - Ear Problem General Chief complaint: Ear Stated complaint: left ear Time Seen by Provider: 03/31/24 15:59 Source: patient Mode of arrival: ambulatory Limitations: no limitations History of Present Illness HPI Narrative: This is a 53-year-old female with history of diabetes that presents with sinus congestion with left ear pressure and fullness with no shortness of breath no fever chills does have nasal congestion with no audible wheezing no nausea vomiting no chest pain. MD Complaint: ear pain Location: left ear Duration: constant Severity: moderate Exacerbating factors: nothing, chewing, position of head and palpation Discharge from ear: Reports no Associated symptoms ear: external ear tenderness Related Data Allergies Allergy/AdvReac Type Severity Reaction Status Date / Time Penicillins Allergy Unknown Itching Verified 03/31/24 16:10 nitrofurantoin AdvReac Intermediate Unknown Verified 03/31/24 16:10 PAPER TAPE Allergy Intermediate Redness of Uncoded 03/31/24 16:10 Skin Review of Systems Review of Systems: All systems reviewed & are unremarkable except as noted in HPI and below PMFSH Past Medical History Medical History Anxiety Chronic back pain Degenerative disc disease at L5-S1 level Essential (primary) hypertension (~11/09/23) Generalized anxiety disorder Hot flashes Hyperlipidemia, unspecified Loss of balance Major depressive disorder, recurrent, moderate Migraine, unspecified, not intractable, without status migrainosus Other spondylosis with radiculopathy, lumbar region Peripheral neuropathy Type 2 diabetes mellitus with hyperglycemia Type 2 diabetes mellitus without complications Surgical History Surgical History H/O lumbar discectomy 03/12/2020, (Infusions 05/2020, and 12/24/2021) H/O: hysterectomy History of cholecystectomy Family History Family History Grandparent Diabetes mellitus Mother Patient's mother is in good health Father Patient's father is in good health Other Family history of arthritis Hypertension Social History Social History Smoking packs per day: 0.5 Smoking cigarettes per day: 10.0 Years smoked: 20 Smoking pack-years: 10.00 Smoking status: Current some day smoker Tobacco type: cigarettes Second hand tobacco smoke exposure: No Smoking end date: 05/18/16 Alcohol intake: never Substance use: never Substance use type: does not use Do You Feel Safe in your Home?: Yes Lack of Transportation: No Lack of Food: Never True Current Housing: I Have Housing Concerned About Future Housing: No Difficulty Paying Gas/Electric Bills: No Difficulty Paying for Meds: No Currently Unemployed: No Education: Associate Degree Difficulty w/ Childcare or Family Care: No Living arrangements: with family Occupation/Education: occupation Gender identity (if verbalized by the patient): Female Sexual Orientation (if Verbalized by the Patient): Straight or Heterosexual Spiritual care concerns: No Exam Const: General: healthy appearing and no acute distress Nutritional Appearance: well nourished Orientation/consciousness: patient oriented x3 Limitations: no limitations HENMT: Other: Left ear fullness and dullness with sinus pressure with palpation of the left frontal and maxillary sinus. Eyes: Conjunctivae: conjunctivae normal Neck: Neck: normal visual inspection, no lymphadenopathy and no meningeal signs Chest: Chest palpation & inspection: normal inspection of the chest Resp: Effort & Inspection: normal respiratory effort Auscultation: clear to auscultation bilaterally Cardio: Rate: regular rate Rhythm: regular rhythm GI: Auscultation: normal bowel sounds Course Course Emergency Course: Patient with some left ear pain and pressure and fullness advised take medicine as prescribed and follow-up with primary. Vital Signs Vital signs: Vital Signs Temperature 36.7 C 03/31/24 16:00 Pulse Rate 81 03/31/24 16:00 Respiratory Rate 16 03/31/24 16:00 Blood Pressure 131/99 H 03/31/24 16:00 Pulse Oximetry 98 03/31/24 16:00 Oxygen Delivery Room Air 03/31/24 16:00 Temperature 36.7 C 03/31/24 16:00 Pulse Rate 81 03/31/24 16:00 Respiratory Rate 16 03/31/24 16:00 Blood Pressure 131/99 H 03/31/24 16:00 Pulse Oximetry 98 03/31/24 16:00 Oxygen Delivery Room Air 03/31/24 16:00 Medical Decision Making Vital Signs Vital Signs: Vital Signs Temperature 36.7 C 03/31/24 16:00 Pulse Rate 81 03/31/24 16:00 Respiratory Rate 16 03/31/24 16:00 Blood Pressure 131/99 H 03/31/24 16:00 Pulse Oximetry 98 03/31/24 16:00 Oxygen Delivery Room Air 03/31/24 16:00 Temperature 36.7 C 03/31/24 16:00 Pulse Rate 81 03/31/24 16:00 Respiratory Rate 16 03/31/24 16:00 Blood Pressure 131/99 H 03/31/24 16:00 Pulse Oximetry 98 03/31/24 16:00 Oxygen Delivery Room Air 03/31/24 16:00 Critical Care Time Critical Care Time Critical Care Time: No Discharge Plan Discharge Clinical Impression: Sinusitis Patient Disposition: Home, Self-Care Condition: Stable Instructions: Antibiotic Form, Sinusitis (ED) Additional Instructions: advised take medicine as prescribed, and take Claritin D twice daily x4 days and then regular Claritin daily times 10 days. Follow with primary symptoms persist or worsen. Prescriptions: New azithromycin [Zithromax Z-Sandor] 250 mg tablet See Rx Instructions .ROUTE .COMPLEX Qty: 6 0RF Rx Instructions: For 250 mg dose pack: take 500 mg today (day 1), then 250 mg for 4 days (days 2-5) fluticasone propionate [Flonase Allergy Relief] 50 mcg/actuation spray,suspension 2 spray intranasal DAILY Qty: 16 0RF Rx Instructions: administer into each nostril No Action ondansetron HCl 4 mg tablet 4 mg PO Q6H PRN (Reason: nausea and vomiting) Qty: 30 2RF duloxetine 60 mg capsule,delayed release(DR/EC) 60 mg PO DAILY Qty: 90 1RF Ozempic 2 mg/dose (8 mg/3 mL) pen injector 2 mg subcut WEEKLY Qty: 3 6RF pregabalin 25 mg capsule 25 mg PO QID Qty: 120 3RF lidocaine 5 % adhesive patch,medicated 1 patch topical DAILY Qty: 30 1RF Rx Instructions: leave on most painful area for up to 12 hrs tizanidine 4 mg tablet 4 mg PO TID PRN (Reason: muscle spasticity) Qty: 270 1RF (DME) Dexcom G6 Transmitter Device See Rx Instructions .Route Qty: 1 6RF Rx Instructions: As directed alprazolam 0.25 mg tablet 0.25 mg PO BID PRN (Reason: anxiety) Qty: 20 0RF (DME) Dexcom G6 Sensor Device See Rx Instructions .Route Qty: 9 1RF Rx Instructions: As directed (DME) pen needle, diabetic [BD Ultra-Fine Orig Pen Needle] 29 gauge x 1/2 needle See Rx Instructions .Route Qty: 100 3RF Rx Instructions: use as directed 5 times daily insulin aspart U-100 [Novolog FlexPen U-100 Insulin] 100 unit/mL (3 mL) insulin pen 6 unit subcut TID Qty: 15 0RF ezetimibe 10 mg tablet 10 mg PO DAILY Qty: 90 1RF Follow-up/Referrals: UNKNOWN,DOCTOR [Primary Care Provider] - Time of Disposition: 16:15
[2024-03-31 16:28] VITALS: BP 131/99; PULSE 81; RESP 16; TEMP 36.7; O2SAT 98
== END 2024-03-31 16:28 | disposition home or self-care (01) ==
LOC: CHSED 16:18
PROVIDERS: Emergency Provider Emergency Medicine
DX: J32.9 Chronic sinusitis, unspecified (principal); E11.9 Type 2 diabetes mellitus without complications; I10 Essential (primary) hypertension; E78.5 Hyperlipidemia, unspecified; F17.210 Nicotine dependence, cigarettes, uncomplicated
CPT/HCPCS: 99283

== ENCOUNTER 2024-05-02 08:34 | Outpatient (RCR) | payer OTHER, MEDICARE, MEDICAID, SELFPAY ==
--- NOTE | 2024-05-02 08:51 | PTOPEVAL1 ---
Assessment and note entered by Niranjan Blair Evaluation Information Assessment Status Evaluation Diagnosis L3-4 laminectomy, L3-5 fusion, Z98.1 ICD-10 Condition Codes (PT) Pain in low back M54.50 Onset 04/05/24 Subjective Information Pt. reports that she underwent surgery on 04/05/24 . She reports that she has underwent multiple surgeries to her low back with her last being . She states she has multiple symptoms which include weakness in the left l.e., cramping in the left lower leg and pain across the low back. She states that she can only stand for about 10 minute before having to sit. She reports she attempted to walk through [employer] yesterday, but could not due to left leg pain. She reports she cannot sleep well due to pain currently. She states that she takes Hydrocodone every night and states that she has to take anti-nausea medication due to increased pain. She reports that she requires a cane for ambulation. She reports that her goal is to be able to walk through the store in order to do her shopping. Reported Pain Level Pain Score 8: Self Report Assessment PT Clinical Summary Pt. is a 53 year old female who enters the clinic with a diagnosis of low back pain post laminectomy and fusion. she presents with impaired gait, functional decline, impaired l.e. strength and pain on this date. Continued skilled PT is indicated in order to improve these areas to allow the pt. to achieve improved comfort with IADL performance and to improve standing endurance. Plan of Care Interventions Electrical Stimulation,Gait Training,Hot Pack/Cold Pack,Manual Therapy,Neuro Re-education,Patient/ Caregiver Education,Therapeutic Activities, Therapeutic Exercise PT Services Indicated Yes Treatment Frequency and 2x/week x 10 visits Duration These treatments will address the objective and functional deficits as defined above. The patient will be advanced safely and appropriately in order for the patient to progress towards his/her prior level of function. Additional exercises will be introduced and as well as a comprehensive home exercise program upon discharge, if needed, ?to ensure carryover of functional gains achieved in the clinic. This treatment plan has been reviewed and agreement upon by the patient.
== END 2024-05-02 20:00 | disposition home or self-care (01) ==
LOC: CHSPT 08:34
PROVIDERS: Visit Provider Neurological Surgery
DX: Z98.1 Arthrodesis status (principal)
CPT/HCPCS: 97110; 97162

== ENCOUNTER 2024-05-25 19:05 | Emergency (ER) | payer OTHER, MEDICARE, MEDICAID, SELFPAY ==
--- NOTE | ~2024-05-25 | CT_ITS ---
History: Palpable abnormality over spine surgery access site (reoperative spine surgery performed ) with back pain. PROCEDURE: CT lumbar spine without intravenous contrast. COMPARISON: No postoperative imaging of the lumbar spine has been performed TECHNIQUE: Multiple contiguous axial images of the lumbar spine were performed without the administration of int ravenous contrast. DLP: 408 mGy-cm FINDINGS: Fixation hardware and postoperative change at the levels of L3, L4, and L5. Disc spacers are also noted at the levels of L3/L4, L4/L5 and L5/S1. Postlaminectomy change is also noted at these levels. No acute compression fracture is appreciated. Originating superficial to the paraspinous muscles at the level of L5 and extending cranially to the level of L2 is a focus of fluid attenuation, likely a perioperative seroma. This focus measures 2.6 x 2.4 x 10.8 cm (anterior to posterior x medial to lateral x cranial to cauda l dimension). Only trace surrounding infiltration of the superficial fat is present. Hardware is in good position, without additional abnormality. Impression: Likely perioperative seroma, as detailed above. If clinical suspicion persists, fluid sampling versus contrast-enhanced lumbar spine is suggested, to evaluate for rim enhancement. Reviewed, dictated and finalized at location A. [facility] Impression: Likely perioperative seroma, as detailed above. If clinical suspicion persists, fluid sampling versus contrast-enhanced lumbar spine is suggested, to evaluate for rim enhancement.
[2024-05-25 19:09] VITALS: BP 140/94; PULSE 101; RESP 18; TEMP 37.2; O2SAT 99
--- NOTE | 2024-05-25 19:30 | ED.BACK ---
HPI - Back Pain/Injury General Chief Complaint: Back Pain/Injury Stated Complaint: back pain/ abdominal pain Time Seen by Provider: 05/25/24 19:25 Source: patient Mode of arrival: ambulatory Limitations: no limitations History of Present Illness HPI Narrative: 53-year-old female with a history of smoking, hypertension, GERD, dyslipidemia, diabetes mellitus, migraine, peripheral neuropathy, lumbar diskectomy in 2019 with recent back surgery( L4-L5 hardware removal, L3-L4 posterior spinal decompressive laminectomy and L3-L5 posterior spinal fusion) at [facility] on 04/05/2024 presents to the ED with a 5 day history of -- lower back pain. No new neuro deficit in bilateral lower extremities. No bladder or bowel involvement. She has chronic left lower extremity decreased sensation and decreased strength. -- swelling on the top of the back incision. -- groin pain blood sugar is controlled. No fever or chills no drainage from the incision site patient has a history of partial hysterectomy and left oophorectomy. MD elicited complaint: back pain Pertinent past history: prior back pain and recent trauma ( recent surgery on 04/05/2024.) Onset (ago): day(s) ( 5 days) Timing: constant Severity: moderate Quality: aching Location: lumbar spine Radiation: none Exacerbating factors: movement Relieving factors: immobilization Work related injury: No Related Data Allergies Allergy/AdvReac Type Severity Reaction Status Date / Time Penicillins Allergy Unknown Itching Verified 05/25/24 21:32 nitrofurantoin AdvReac Intermediate Unknown Verified 05/25/24 21:32 PAPER TAPE Allergy Intermediate Redness of Uncoded 05/25/24 21:32 Skin Review of Systems Review of Systems: All systems reviewed & are unremarkable except as noted in HPI and below Constitutional: Constitutional: Reports as per HPI and Reports no additional constitutional complaints Eyes: Eyes: Reports as per HPI and Reports no additional eye complaints ENT: Reports system reviewed and no additional complaints, except as documented and Reports as per HPI Cardiovascular: Cardiovascular: Reports as per HPI and Reports no additional cardiovascular complaints Respiratory: Respiratory: Reports as per HPI and Reports no additional respiratory complaints Gastrointestinal: Gastrointestinal: Reports as per HPI and Reports no additional gastrointestinal complaints Genitourinary: Genitourinary: Reports no additional female genitourinary complaints and Reports as per HPI Musculoskeletal: Musculoskeletal: Reports no additional musculoskeletal complaints and Reports back pain Integumentary/Breasts: Comments: 5 cm swelling over the top of lumbar incision. Neurologic: Reports system reviewed and no additional complaints, except as documented Comments: Chronic left lower extremity decreased sensation and decreased strength Psychiatric: Psychiatric: Reports no additional psychiatric complaints and Reports as per HPI Endocrine: Endocrine: Reports no additional endocrine complaints and Reports as per HPI Hematologic/Lymphatic: Hematologic/Lymphatic: Reports no additional hematologic/lymphatic complaints and Reports as per HPI Allergic/Immunologic: Allergic/Immunologic: Reports no additional allergic/immunologic complaints and Reports as per HPI [facility] Past Medical History Medical History Chronic back pain Other spondylosis with radiculopathy, lumbar region Major depressive disorder, recurrent, moderate Loss of balance Type 2 diabetes mellitus with hyperglycemia Hot flashes Generalized anxiety disorder Peripheral neuropathy Migraine, unspecified, not intractable, without status migrainosus Hyperlipidemia, unspecified Essential (primary) hypertension (~11/09/23) Type 2 diabetes mellitus without complications Degenerative disc disease at L5-S1 level Anxiety Surgical History Surgical History H/O lumbar discectomy 03/12/2020, (Infusions 05/2020, and 12/24/2021) History of cholecystectomy H/O: hysterectomy Family History Family History Grandparent Diabetes mellitus Mother Patient's mother is in good health Father Patient's father is in good health Other Family history of arthritis Hypertension Social History Social History Smoking packs per day: 0.5 Smoking cigarettes per day: 10.0 Years smoked: 20 Smoking pack-years: 10.00 Smoking status: Current some day smoker Tobacco type: cigarettes Second hand tobacco smoke exposure: No Smoking end date: 05/18/16 Alcohol intake: never Substance use: never Substance use type: does not use Do You Feel Safe in your Home?: Yes Lack of Transportation: No Lack of Food: Never True Current Housing: I Have Housing Concerned About Future Housing: No Difficulty Paying Gas/Electric Bills: No Difficulty Paying for Meds: No Currently Unemployed: No Education: Associate Degree Difficulty w/ Childcare or Family Care: No Living arrangements: with family Occupation/Education: occupation Gender identity (if verbalized by the patient): Female Sexual Orientation (if Verbalized by the Patient): Straight or Heterosexual Spiritual care concerns: No Exam Narrative: afebrile with a temperature of 37.2?. Blood pressure 140/94. Heart rate of 101. Const: General: ill appearing Nutritional Appearance: well nourished Orientation/consciousness: patient oriented x3 Limitations: no limitations HENMT: Head: normal to inspection Ears: external ears normal Face/Nose/Sinus: Normal external nose present Face and sinus: normal facial exam Mouth: Yes Normal oral and palatal mucosa present Throat: posterior oropharynx normal Eyes: Conjunctivae: conjunctivae normal Pupils: Equal, round and reactive pupils present EOM: EOMs intact bilaterally Direct Ophthalmoscopy: no photophobia Neck: Neck: normal visual inspection, no lymphadenopathy and no meningeal signs Chest: Chest palpation & inspection: normal inspection of the chest Resp: Effort & Inspection: normal respiratory effort Auscultation: clear to auscultation bilaterally Cardio: Rate: regular rate Rhythm: regular rhythm GI: GI Palp: Yes Soft to palpation Auscultation: normal bowel sounds Other: No tenderness/rigidity / rebound. Right groin lymphadenopathy : General: Yes no CVA tenderness Back/Spine/Pelvis: Back: no CVA tenderness Other: lumbar incision which looks healthy. On the top of the lumbar incision there is a 5 cm semicircular swelling. tender on palpation Skin: General skin exam: normal color Rashes: no rashes Wounds: no wounds Neuro: General: patient oriented x3, moves all extremities, no meningeal signs and CN's II-XI intact bilaterally Cranial nerves: Yes Nystagmus not present Speech: normal speech Extrem: General: normal to inspection and no clubbing, cyanosis or edema Psych: Mental Status: mental status grossly normal Affect: normal affect Attitude: cooperative Course Course Emergency Course: 5 cm soft tissue swelling in the lower back-- CT revealed a swelling of 2.6X 2.4X 10.8 cm. findings suggestive perioperative seroma. Patient was afebrile and noted to have a normal white cell count. right inguinal lymphadenopathy-- No obvious focus of infection. Will have the patient follow-up with her surgeon for fluid sampling. sent MRSA nasal surveillance culture Vital Signs Vital signs: Vital Signs Temperature 37.2 C 05/25/24 19:09 Pulse Rate 101 H 05/25/24 19:09 Respiratory Rate 18 05/25/24 19:09 Blood Pressure 140/94 H 05/25/24 19:09 Pulse Oximetry 99 05/25/24 19:09 Oxygen Delivery Room Air 05/25/24 19:09 Temperature 37.2 C 05/25/24 19:09 Pulse Rate 101 H 05/25/24 19:09 Respiratory Rate 18 05/25/24 19:09 Blood Pressure 140/94 H 05/25/24 19:09 Pulse Oximetry 99 05/25/24 19:09 Oxygen Delivery Room Air 05/25/24 19:09 MDM - Back Pain/Injury MDM Narrative Medical decision making narrative: Postoperative seroma status post spinal surgery Differential Diagnosis Differential diagnosis: Likely lumbar radiculopathy and strain of lumbar region Medical Records Attestation: I reviewed the patient's medical records. Lab Data Attestation: I reviewed the patient's lab results. 05/25/24 20:09 05/25/24 20:09 Labs: Lab Results 05/25/24 05/25/24 Range/Units 20:09 21:02 WBC 9.5 (4.8-10.8) K/mm3 RBC 4.55 (4.20-5.40) M/mm3 Hgb 14.0 (12.0-15.0) g/dL Hct 42.2 (35.0-49.0) % MCV 92.7 (78.0-102.0) fL MCH 30.8 (27.0-31.0) pg MCHC 33.2 (32-36) g/dL RDW 12.7 (11.6-14.4) % Plt Count 316 (150-420) K/mm3 MPV 8.8 L (9.2-11.8) fl Immature Gran % (Auto) 0.4 H (0.0-0.0) % Neut % (Auto) 70.3 H (50.0-70.0) % Lymph % (Auto) 21.2 (18.0-42.0) % [place] % (Auto) 5.1 (2.0-11.0) % Eos % (Auto) 1.9 (1.0-6.0) % Baso % (Auto) 1.1 H (0.0-1.0) % Lymph # (Auto) 2.01 (1.10-4.50) K/mm3 [place] # (Auto) 0.48 (0.10-0.90) K/mm3 Eos # (Auto) 0.18 (0.02-0.50) K/mm3 Baso # (Auto) 0.10 (0.00-0.10) K/mm3 Abs Immat Gran (auto) 0.04 H (0.00-0.00) K/mm3 Absolute Neuts (auto) 6.69 (1.70-7.20) K/mm3 Absolute Nucleated RBC 0.00 (0.00-0.00) K/mm3 Nucleated RBC % 0.0 (0-0.0) % APTT 27.3 (23.9-30.70) Sec Sodium 137 (136-145) mmol/L Potassium 3.6 (3.5-5.1) mmol/L Chloride 100 (98-108) mmol/L Carbon Dioxide 29 (21-32) mmol/L Anion Gap 8 (4-12) mmol/L BUN 12 (7-18) mg/dL Creatinine 0.87 (0.55-1.02) mg/dL Estim Creat Clear Calc 64 ml/min Estimated GFR > 60 (59 - ) Glucose 172 H (70-99) mg/dL Calculated Osmolality 287 (285-295) mOsm/kg Lactic Acid 1.3 (0.4-2.0) mmol/L Calcium 9.6 (8.5-10.1) mg/dL Total Bilirubin 0.4 (0.00-1.00) mg/dL AST 12 L (15-37) U/L ALT 38 (14-59) U/L Alkaline Phosphatase 122 H (46-116) U/L C-Reactive Protein 4.3 H (0.0-0.9) mg/dL Total Protein 8.0 (6.4-8.2) g/dL Albumin 3.6 (3.4-5.0) g/dL Lipase 54 (16-77) U/L Urine Color Light yellow (Yellow) Urine Appearance Clear (Clear) Urine pH 6.0 (5.0-8.0) Ur Specific [place] <= 1.005 L (1.010-1.020) Urine Protein Negative (Negative) Urine Glucose (UA) Negative (Negative) Urine Ketones Negative (Negative) Ur Blood (Man) Negative (Negative) Urine Nitrate Negative (Negative) Urine Bilirubin Negative (Negative) Urine Urobilinogen 0.2 (0.2-1.0) mg/dL Leukocyte Esterase Rfl Negative (Negative) ARIEL/UL Discharge Plan Discharge Clinical Impression: Seroma complicating a procedure, Inguinal adenopathy Back pain Qualifiers: Back pain location: low back pain Chronicity: chronic Back pain laterality: midline Sciatica presence: without sciatica Qualified Code(s): M54.50 - Low back pain, unspecified Patient Disposition: Home, Self-Care Condition: Stable Instructions: Antibiotic Form, Surgical Site Infections (ED), Back Pain (ED) Patient Language: Serbian Prescriptions: No Action pregabalin 25 mg capsule 25 mg PO QID Qty: 120 3RF (DME) Dexcom G6 Transmitter Device See Rx Instructions .Route Qty: 1 6RF Rx Instructions: As directed alprazolam 0.25 mg tablet 0.25 mg PO BID PRN (Reason: anxiety) Qty: 20 0RF (DME) Dexcom G6 Sensor Device See Rx Instructions .Route Qty: 9 1RF Rx Instructions: As directed ezetimibe 10 mg tablet 10 mg PO DAILY Qty: 90 1RF insulin lispro 100 unit/mL insulin pen See Rx Instructions .ROUTE .COMPLEX Qty: 15 0RF Dose Instruction: INJECT 6 UNITS UNDER THE SKIN THREE TIMES DAILY WITH MEALS Rx Instructions: INJECT 6 UNITS UNDER THE SKIN THREE TIMES DAILY WITH MEALS duloxetine 60 mg capsule,delayed release(DR/EC) 60 mg PO DAILY Qty: 90 1RF fluticasone propionate [Flonase Allergy Relief] 50 mcg/actuation spray,suspension 2 spray intranasal DAILY Qty: 16 0RF Rx Instructions: administer into each nostril lidocaine 5 % adhesive patch,medicated 1 patch topical DAILY Qty: 30 1RF Rx Instructions: leave on most painful area for up to 12 hrs lisinopril 5 mg tablet 5 mg PO DAILY Qty: 90 1RF ondansetron HCl 4 mg tablet 4 mg PO Q6H PRN (Reason: nausea and vomiting) Qty: 30 2RF (DME) pen needle, diabetic [BD Ultra-Fine Orig Pen Needle] 29 gauge x 1/2 needle See Rx Instructions .Route Qty: 100 3RF Rx Instructions: use as directed 5 times daily Ozempic 2 mg/dose (8 mg/3 mL) pen injector 2 mg subcut WEEKLY Qty: 3 6RF tizanidine 4 mg tablet 4 mg PO TID PRN (Reason: muscle spasticity) Qty: 270 1RF Follow-up/Referrals: Christos Coon MD [Primary Care Provider] - Time of Disposition: 21:47
--- NOTE | 2024-05-25 19:55 | PC.NURSE ---
patient in imaging at this time.
--- NOTE | 2024-05-25 20:01 | PC.NURSE ---
pt aware urine specimen is needed. pt unable to go at this time
[2024-05-25 20:13] LABS: Basophils Percent Auto 1.1 % (0.0-1.0); Eosinophils Absolute Auto 0.18 K/mm3 (0.02-0.50); Eosinophils Percent Auto 1.9 % (1.0-6.0); Hematocrit 42.2 % (35.0-49.0); Immature Granulocyte Absolute 0.04 K/mm3 (0.00-0.00); Immature Granulocyte Percent A 0.4 % (0.0-0.0); Lymphocytes Absolute Auto 2.01 K/mm3 (1.10-4.50); Lymphocytes Percent Auto 21.2 % (18.0-42.0); Mean Corpuscular HGB Conc 33.2 g/dL (32-36); Mean Corpuscular Hemoglobin 30.8 pg (27.0-31.0); Mean Corpuscular Volume 92.7 fL (78.0-102.0); Mean Platelet Volume 8.8 fl (9.2-11.8); Monocytes Absolute Auto 0.48 K/mm3 (0.10-0.90); Monocytes Percent Auto 5.1 % (2.0-11.0); Neutrophils Absolute Auto 6.69 K/mm3 (1.70-7.20); Neutrophils Percent Auto 70.3 % (50.0-70.0); Platelet Count Result 316 K/mm3 (150-420); Red Blood Count 4.55 M/mm3 (4.20-5.40); Red Cell Distribution Width 12.7 % (11.6-14.4); White Blood Count 9.5 K/mm3 (4.8-10.8)
[2024-05-25] MEDS: ONDANSETRON HCL ODT 4 MG TABLET PO (20:14)
[2024-05-25] MEDS: HYDROmorphone HCL INJ (*CRX) 2 MG/ML VIAL 0.5 MG IM (20:14)
[2024-05-25 20:27] LABS: Partial Thromboplastin Time 27.3 Sec (23.9-30.70)
[2024-05-25 20:29] LABS: Alanine Aminotransferase 38 U/L (14-59); Albumin Level 3.6 g/dL (3.4-5.0); Alkaline Phosphatase 122 U/L (46-116); Anion Gap 8 mmol/L (4-12); Aspartate Amino Transferase 12 U/L (15-37); Bilirubin,Total 0.4 mg/dL (0.00-1.00); Blood Urea Nitrogen 12 mg/dL (7-18); CRP 4.3 mg/dL (0.0-0.9); Calcium 9.6 mg/dL (8.5-10.1); Carbon Dioxide 29 mmol/L (21-32); Chloride 100 mmol/L (98-108); Estimated CRCL calculation 64 ml/min; Estimated Glomerular Filt Rate > 60; Glucose 172 mg/dL (70-99); Lipase 54 U/L (16-77); Osmolality Calculated 287 mOsm/kg (285-295); Potassium 3.6 mmol/L (3.5-5.1); Sodium 137 mmol/L (136-145)
[2024-05-25 20:35] LABS: Lactic Acid Reflex 1.3 mmol/L (0.4-2.0)
--- NOTE | 2024-05-25 20:54 | PC.NURSE ---
pt taken to bathroom via wheelchair for urine specimen
[2024-05-25 21:04] LABS: Add Urine Microscopic? NO; Appearance Urine Clear (Clear); Bilirubin Urine Negative (Negative); Blood Urine Negative (Negative); Color Urine Light Yellow (Yellow); Glucose Urine UA Negative (Negative); Ketones Urine Negative (Negative); Leukocyte Esterase Ur Negative LEU/UL (Negative); Nitrate Urine Negative (Negative); Protein Urine Negative (Negative); Specific Grav Ur <= 1.005 (1.010-1.020); Urobilinogen Urine 0.2 mg/dL (0.2-1.0)
--- NOTE | 2024-05-25 21:09 | PC.NURSE ---
patient awake and alert, now sitting upright on stretcher in ED 2, reports her pain is improved, now is 7/10 post internal medicine physician. patient update provided, awaiting results of imaging. sig other at bedside. call light within reach.
--- NOTE | 2024-05-25 21:41 | PC.NURSE ---
JAC Al at patient bedside at this time, providing patient update of labs and imaging results in addition to plan of care.
[2024-05-25 22:04] VITALS: BP 116/77; PULSE 86; RESP 16; TEMP 36.6; O2SAT 97
[2024-05-25 23:24] LABS: MRSA (PCR) NOT DETECTED (NOT DETECTE)
--- NOTE | 2024-05-27 13:02 | PC.NURSE ---
PRELIMINARY BLOOD CULTURE; NO GROWTH TO DATE.
== END 2024-05-25 22:05 | disposition home or self-care (01) ==
PROVIDERS: Emergency Provider Internal Medicine Critical Care Medicine; PCP Family Medicine
DX: L76.34 Postprocedural seroma of skin and subcutaneous tissue following other procedure (principal); M54.50 Low back pain, unspecified; I10 Essential (primary) hypertension; E78.5 Hyperlipidemia, unspecified; E11.42 Type 2 diabetes mellitus with diabetic polyneuropathy; K21.9 Gastro-esophageal reflux disease without esophagitis; Z98.1 Arthrodesis status; F17.210 Nicotine dependence, cigarettes, uncomplicated; Y83.8 Other surgical procedures as the cause of abnormal reaction of the patient, or of later complication, without mention of misadventure at the time of the procedure; Z79.4 Long term (current) use of insulin; Z79.85 Long-term (current) use of injectable non-insulin antidiabetic drugs
CPT/HCPCS: 36415; 72131; 80053; 81003; 83605; 83690; 85025; 85730; 86140; 87040; 87641; 96372; 99284; A9270; J1171

== ENCOUNTER 2024-07-11 08:44 | Outpatient (CLI) | payer OTHER, MEDICARE, MEDICAID, SELFPAY ==
--- NOTE | ~2024-07-11 | XR_ITS ---
EXAMINATION: XR lumbar spine 2-3V DATE: 07/11/2024 09:04 INDICATION: Arthrodesis status. TECHNIQUE: 3 views of lumbar spine were obtained. COMPARISON: Lumbar spine radiographs 01/26/2024 FINDINGS: There is 7 degrees dextrocurvature of lumbar spine. Vertebral body heights are normal. Inte rvertebral disc heights are normal. There are changes of anterior fusion procedures from L3 to S1 wit h interbody devices. There are changes of posterior fusion procedure from L3 to L5 with pedicle screw s. There is multilevel [id number] facet joint osteoarthritis. There are surgical clips in right abdomen. IMPRESSION: 1. Anterior fusion procedures at L3-L4, L4-L5, and L5-S1. 2. Posterior fusion procedure from L3 to L5. Reviewed, dictated and finalized at location [facility]. [facility]
--- OUTSIDE RECORDS SUMMARY | 2024-07-11 09:12 | XMS_ITS | Referral Summary ---
Author Organization [facility] Address [address] [place] [address] Care Team Providers Care Reservation Agent Name Role Phone Christos Coon MD Primary Care Provider [phone] Source Comments [facility],non-owned Affiliates and Associated Physician Practices is amultiple site organization consisting of ambulatory clinics and hospital sitesin [place], [place], [place] and [place]. This disclosure is being madepursuant to the Care Everywhere program and may not contain all information available regarding this patient. Last updated 18.[facility] Allergies No known active allergies Medications * Be aware that medications may not be up to date on this document. Alwaysverify current medications with the patient. Medication Sig Dispensed Refills Start Date End Date Status fluconazole (DIFLUCAN) 150 MG tablet TAKE 1 TABLET BY MOUTH EVERY DAY FOR 2 DAYS 11/03/2019 Active ACCU-CHEK GUIDE test strip USE TO TEST ONCE DAILY 07/05/2019 Ac tive HYDROcodone-acetam inophen (NORCO) 5-325 MG tablet Take 1 tablet by mouth every 6 hours as needed 11/12/2019 Active VICTOZA 18 MG/3ML pen INJECT 1.8MG SUBCUTANEOUSLY ONCE DAILY 11/23/2019 Active VYVANSE 50 MG capsule TAKE 1 CAPSULE BY MOUTH EVERY DAY IN THE MORNING 11/23/2019 Active metroNIDAZOLE (FLAGYL) 500 MG tablet TAKE 1 TABLET BY MOUTH TWICE A DAY FOR 7 DAYS 11/13/2019 Activ e prazosin (MINIPRESS) 1 MG capsule Take 1 mg by mouth at bedtime 11/23/2019 Active predniSONE (DELTASONE) 10 MG tablet TAKE 4 TABS DAILY X 3 DAYS, 3 TABS DAILY X 3 DAYS, 2 TABS DAILY X 3 DAYS, THEN 1 TAB DAILY X 3 DAYS 11/11/2019 Active Active Problems No known active problems Social History Tobacco Use Types Packs/Day Years Used Date Smoking Tobacco: Every Day Smokeless Tobacco: Never Alcohol Use Standard Drinks/Week Comments Not Currently 0 (1 standard drink = 0.6 oz pur e alcohol) Sex and Gender Information Value Date Recorded Sex Assigned at Not on file Gender Identity Not on file Sexual Orientation Not on file Last Filed Vital Signs Vital Sign Reading Time Taken Comments Blood Pressure 134/90 12/08/2019 2:18 PM CDT Pulse 93 12/08/2019 2:18 PM CDT Temperature 36.2 C (97.1 F) 12/08/2019 2:18 PM CDT Respiratory Rate 20 12/08/2019 2:18 PM CDT Oxygen Saturation 98% 12/08/2019 2:18 PM CDT Inhaled Oxygen Concentration - - Weight 83.9 kg (185 lb) 12/08/2019 2:18 PM CDT Height 170.2 cm (5' 7 ) 12/08/2019 2:18 PM CDT Body Mass Index 28.98 12/08/2019 2:18 PM CDT Plan of Treatment Not on file Care Teams Reservation Agent Relationship Specialty Start Date End Date Christos Coon MD PCP - General 11/05/17
--- OUTSIDE RECORDS SUMMARY | 2024-07-11 09:12 | XMS_ITS | Clinical Summary ---
Author Organization [facility] Address [address] [place] [address] Care Team Providers Care Neurology Technologist Name Role Phone Christos Coon MD Primary Care Provider [phone] Allergies Active Allergy Reactions Criticality Noted Date Comments Tape Rash Low 05/11/2020 Penicillins Rash Low 05/11/2020 Medications methocarbamol 750 MG Tab Take 1 tablet by mouth 3 (three) times daily. Active etodolac 400 MG tablet Take 400 mg by mouth every 12 (twelve) hours. Active prazosin 1 MG capsule Take 1 mg by mouth nightly at bedtime. 04/13/2020 Active lisdexamfetamin e (VYVANSE) 50 MG capsule TAKE 1 CAPSULE BY MOUTH EVERY DAY IN THE MORNING 11/23/2019 Active liraglutide (VICTOZA) 18 MG/3ML injection Inject 18 mg into the muscle daily. 11/23/2019 Active Social History Tobacco Use Types Packs/Day Years Used Date Smoking Tobacco: Every Day Smokeless Tobacco: Never Alcohol Use Standard Drinks/Week Comments Not Currently 0 (1 standard drink = 0.6 oz pur e alcohol) Comments Unknown Sex and Gender Information Value Date Recorded Sex Assigned at Not on file Legal Sex Female 5:47 PM IMPREGNATOR HELPER Gender Identity Not on file Sexual Orientation Not on file Last Filed Vital Signs Vital Sign Reading Time Taken Comments Blood Pressure 136/85 05/11/2020 11:20 PM IMPREGNATOR HELPER Pulse 85 05/11/2020 11:20 PM IMPREGNATOR HELPER Temperature 36.8 C (98.2 F) 05/11/2020 11:20 PM IMPREGNATOR HELPER Respiratory Rate 20 05/11/2020 11:20 PM IMPREGNATOR HELPER Oxygen Saturation 99% 05/11/2020 11:20 PM IMPREGNATOR HELPER Inhaled Oxygen Concentration - - Weight 76.7 kg (169 lb) 05/11/2020 11:20 PM IMPREGNATOR HELPER Height 170.2 cm (5' 7 ) 05/11/2020 11:20 PM IMPREGNATOR HELPER Body Mass Index 26.47 05/11/2020 11:20 PM IMPREGNATOR HELPER Plan of Treatment Health Maintenance Due Date Last Done Comments Cervical Cancer Screening Pa p Smear (Age 30 to 64) Every 3 Years 1971 Colorectal Cancer Screening Colonoscopy (10 Years) 1971 Annual Physical 1974 Pneumococcal Vaccine: Pediat rics (0 to 5 Years) and At-Risk Patients (6 to 64 Years) (1 of 2 - PCV) 1977 Hepatitis C 1989 DTaP, Tdap and Td Vaccines ( 1 - Tdap) 1990 Hepatitis B Vaccines (1 of 3 - 19+ 3-dose series) 1990 Cervical Cancer Screening Pa p with HPV Testing (Age 30 to 64) Every 5 Years 2001 Cervical Cancer Screening with HPV 2001 Mammogram Screening 2011 Zoster Vaccines (1 of 2) 2021 COVID-19 Vaccine ( - 2023-2 5 season) 2024 Influenza Adult (#1) 2024 Meningococcal B Vaccine Aged Out No l onger eligible based on patient's age to complete this topic Meningococcal Vaccine Aged Out No kusum david eligible based on patient's age to complete this topic RSV Immunizations Under 20 Months Aged Out No longer eligible based on patient's age to complete this topic Insurance [facility] MEDICAID Care Teams Neurology Technologist Relationship Specialty Start Date End Date Christos Coon MD [address] [place] [id number] PCP - General FAMILY PRACTICE 05/11/20
--- OUTSIDE RECORDS SUMMARY | 2024-07-11 09:12 | XMS_ITS | Clinical Summary ---
Author Organization [facility] Address [address] [address] Care Team Providers Care Risk Tech Name Role Phone Christos Coon MD Primary Care Provider [phone] Source Comments [facility],non-owned Affiliates and Associated Physician Practices is amultiple site organization consisting of ambulatory clinics and hospital sitesin [place], [place], [place] and [place]. This disclosure is being madepursuant to the Care Everywhere program and may not contain all information available regarding this patient. Last updated 18.[facility] Allergies No known active allergies Medications * [...] 12/08/2019 2:18 PM CDT Plan of Treatment Health Maintenance Due Date Last Done Comments COLOGUARD (AGES 45-75) - COL ON CA SCREENING 1971 COLON MONITORING 1971 COLONOSCOPY - COLON CA SCREENING 1971 CT COLONOGRAPHY - COLON CA SCREENING 1971 Colorectal Cancer Screening 1971 FIT - COLON CA SCREENING 1971 FLEX SIG - COLON CA SCREENING 1971 LIPID TESTING 1971 PAP SMEAR 1971 HIV SCREENING 1986 HEPATITIS C SCREENING 06/06/1989 DTAP/TDAP/TD VACCINES (1 - Tdap) 1990 HEPATITIS B VACCINE (1 of 3 - 19+ 3-dose series) 1990 PNEUMOCOCCAL VACCINE 50+ (1 of 2 - PCV) 1990 MAMMOGRAM 03/22/2015 03/22/2013 SCREENING FOR DIABETES 12/08/2019 ZOSTER VACCINE (1 of 2) 2021 COVID-19 VACCINE ( - 2023-2 5 season) 2024 INFLUENZA VACCINE (#1) 2024 DEPRESSION SCREENING 05/18/2024 HIB VACCINE Aged Out No longer eligi ble based on patient's age to complete this topic HPV VACCINE Aged Out No longer eligi ble based on patient's age to complete this topic MENINGOCOCCAL (Group B) VACCINE Aged Out No longer eligible based on patient's age to complete this topic MENINGOCOCCAL VACCINE Aged Out No kusum david eligible based on patient's age to complete this topic Care Teams Risk Tech Relationship Specialty Start Date End Date Christos Coon MD PCP - General 11/05/17
--- OUTSIDE RECORDS SUMMARY | 2024-07-11 09:12 | XMS_ITS | Referral Summary ---
Author Organization [facility] al Address [address] [place] [address] Care Team Providers Care Asparagus Buncher Name Role Phone Christos Coon MD Primary Care Provider [phone] Darío Ceron MD Unavailable Kali Moses MD Unavailable Encounters Date Type Department Care Team Description 07/06/2024 2:00 PM BEEKEEPER - 07/06/2024 11:59 PM BEEKEEPER Hospital Encounter [address] [address] Discharge Disposition: Discharge to home or self care 07/06/2024 11:30 AM BEEKEEPER Home Care Visit [address] [place] [address] Mary Juarez PTA PT HOME VISIT 07/06/2024 2:00 PM BEEKEEPER Home Care Visit [address] [place] [address] Marcello Hurtado, SHANEL SN HOME VISIT 07/01/2024 Home Care Visit [address] [place] [address] Alexia Ta, SHANEL SN TRIAGE ENCOUNTER 07/01/2024 4:15 PM BEEKEEPER Home Care Visit [address] [place] [address] Mili White SN HOME VISIT 06/30/2024 Orders Only [facility] [address] [place] [address] Gina Pisano, [facility] 06/28/2024 6:27 PM BEEKEEPER - 06/28/2024 11:59 PM BEEKEEPER Hospital Encounter [address] [address] Discharge Disposition: Discharge to home or self care 06/28/2024 1:30 PM BEEKEEPER Home Care Visit [address] [place] [address] Marcello Hurtado, RN SN HOME VISIT 06/22/2024 9:30 AM BEEKEEPER - 06/22/2024 11:59 PM BEEKEEPER Hospital Encounter [address] [address] Discharge Disposition: Discharge to home or self care 06/22/2024 9:30 AM BEEKEEPER Home Care Visit [address] [place] [address] Marcello Hurtado, SHANEL SN HOME VISIT 06/20/2024 Home Care Visit [address] [place] [address] Mili Isidro, PT CARE CONFERENCE 06/20/2024 Home Care Visit [address] [place] [address] Georgina Mauricio, SHANEL SN TRIAGE ENCOUNTER 06/20/2024 1:30 PM BEEKEEPER Home Care Visit [address] [place] [address] Mili Isidro, PT PT INITIAL EVALUATION 06/18/2024 Home Care Visit [address] [place] [address] Leslie Contrersa, RN TELEPHONE ENCOUNTER 06/18/2024 Home Care Visit [address] [place] [address] Marcia Cho, SHANEL SN TRIAGE ENCOUNTER 06/17/2024 Home Care Visit [address] [place] [address] Georgina Mauricio RN SN TRIAGE ENCOUNTER 06/15/2024 Plan of Care Documentation [address] [place] [address] 06/15/2024 8:15 AM BEEKEEPER Home Care Visit [address] [address] [address] [place] [address] Marcello Hurtado RN SN OASIS START OF CARE 06/14/2024 Orders Only [facility] Home Care Services [address] [place] [address] Gina Pisano, [facility] 06/07/2024 8:19 PM BEEKEEPER - 06/14/2024 4:29 PM BEEKEEPER Hospital Encounter [address] [address] Abram Mcnair MD Jain, Anshu, MD care home current use of antibiotics (Primary Dx); Spinal abscess (CMS/HCC) (HCC); Acute low back pain due to spinal disorder Discharge Disposition: Discharge to home, home health skilled care 06/08/2024 2:58 PM BEEKEEPER Anesthesia Event [facility] Operating Room [address] [place] [phone] Jah Bowman MD Grither, Christine D., SET ILLUSTRATOR 06/08/2024 2:02 PM BEEKEEPER - 06/08/2024 4:07 PM BEEKEEPER Surgery [facility] Operating Room [address] [place] [phone] Darío Ceron MD INCISION AND DRAINAGE - LUMBAR WOUND from Last 3 Months Allergies Active Allergy Reactions Criticality Noted Date Comments Adhesive Hives Medium 02/23/2020 Paper tape Dapagliflozin Other (See comments) Low 03/21/2024 Caused a serious UTI and ended up in hospital Nitrofurantoin Anaphylaxis,Swelling , Other (See comments),Mental status changes High 10/11/2021 Throat closing, swelling, confusion Penicillins Swelling,Rash Medium 05/11/2020 Swelling as an adult; Patient may still be a candidate for cephalosporins - please investigate & update findings here Medications ezetimibe (ZETIA) 10 mg tablet Take 1 tablet (10 mg total) by mouth nightly 04/04/20 21 Active blood-glucose sensor (Dexcom G6 Sensor) device 1 Device continuously Use to check glucose level continuously; change every 10 days. e11.65 12 each 12/10/19 22 Active blood-glucose transmitter (Dexcom G6 Transmitter) device 1 Device continuously Use to monitor blood sugar continuously, change every 90 days e11.65 1 each 12/10/19 22 Active BD Ultra-Fine Orig Pen Needle 29 gauge x 1/2 needle Use to deliver insulin 4x/day e11.65 150 each 12/12/[address] (CYMBALTA) 60 mg capsule Take 1 capsule (60 mg total) by mouth nightly Active insulin aspart (NovoLOG) 100 unit/mL (3 mL) pen for injection Inject 3-5 Units under the skin 3 (three) times a day as needed (sliding scale with meals) Active lidocaine (LIDODERM) 5 % Place 1 patch on the skin daily Remove & discard patch within 12 hours or as directed by MD. Active semaglutide (Ozempic) 2 mg/dose (8 mg/3 mL) pen injector injectionIndic ations:type 2 diabetes mellitus Inject 2 mg under the skin every 30 (thirty) days Active TiZANidine (ZANAFLEX) 4 mg capsule Take 1 capsule (4 mg total) by mouth 3 (three) times a day as needed for muscle spasms Active ondansetron (ZOFRAN) 4 mg tablet Take 1 tablet (4 mg total) by mouth every 8 (eight) hours as needed for nausea or vomiting Active ALPRAZolam (XANAX) 0.25 mg tablet Take 0.5-1 tablets (0.125-0.25 mg total) by mouth daily as needed for anxiety Active fluticasone propionate (FLONASE) 50 mcg/actuation nasal spray Administer 1 spray into each nostril daily Active pregabalin (LYRICA) 25 mg capsule Take 1 capsule (25 mg total) by mouth 3 (three) times a day 06/14/19 25 Active oxyCODONE (ROXICODONE) 5 mg immediate release tabletIndicati ons:Pain Take 1 tablet (5 mg total) by mouth every 8 (eight) hours as needed for pain 12 tablet 06/14/19 25 Active ceFAZolin (ANCEF) 2,000 mg/20 mL syringeIndicat ions:Blood Stream/Endovas cular Infection Infuse 20 mL (2 g total) into a venous catheter every 8 (eight) hours 06/14/19 25 025 Active pregabalin (LYRICA) 25 mg capsule Take 1 capsule (25 mg total) by mouth 4 (four) times a day 025 Discontinued Active Problems Problem Noted Date Diagnosed Date Intractable pain 06/08/2024 Spinal abscess (CMS/HCC) 06/08/2024 Lumbar disc herniation with radiculopathy 2021 Type 2 diabetes mellitus wit h hyperglycemia, with long-term current use of insulin 12/09/2021 Assessment & Plan (12/09/2021 12:49 PM CDT): This is a chronic condition which is improving, but not at goal. Personally reviewed most recent A1c - Lab Results Component Value Date HGBA1C 7.9 12/09/2021 goal less than 7% Personally reviewed blood sugar- Lab Results Component Value Date GLUCOSE 280 (H) 10/11/2021 not at goal 80-180 Medication- Continue Victoza 1.8mg weekly, farxiga 10 mg daily, Add Lantus 14 units nightly, decrease Humalog to 5 units - 15 minutes prior to meals. Call blood sugar in 4 days. Monitor blood sugar continuously with Dexcom sensor. Encouraged annual eye exam. Monofilament foot exam completed, loss of protective senses. Treated with Lyrica- helps with pain Urine microalbumin/creatinine ratio - <30., at goal <30- not treated with BLAS/ARB Personally reviewed BUN, creatinine, GFR-109 Kidney function- normal B/P today- 136/76 at goal . Goal is <140/90 and as close to 120/80 as possible. Personally reviewed lipid panel. At Goal of less than 70. Continue on zetia Will evaluate for Type 1 Diabetes- Due to such high blood sugars after Covid. Mixed hyperlipidemia 12/09/2021 Assessment & Plan (12/09/2021 12:49 PM CDT): This is a chronic condition which is at goal. Goal is less than 70. Personally reviewed lipid panel. Continue zetia Encouraged to eat healthy, include fresh fruits and vegetables daily and avoid eating fried foods more than once per week. Encouraged to take medications as prescribed. Immunizations Immunization Administration Dates Next Due Influenza, Quadrivalent, Split, Intramuscular ,02/21/2017 Influenza, Trivalent, IM (MDV) 05/04/2013 Influenza, Unspecified 05/04/2013 Tdap 05/06/2013 Social History Tobacco Use Types Packs/Day Years Used Date Smoking Tobacco: Former Cigarettes Smokeless Tobacco: Never Tobacco Cessation:Counseling Given: Not Answered Comments:Smokes every couple days and nicotine gum- Last cigarette- This morning 10/11/2021 OASIS D0700: Social Isolation Answer Da te Recorded Frequency of experiencing loneliness or isolatio n Never 06/15/2024 OASIS A1250: Transportation Answer Date Recorded Lack of Transportation (Medical) No 06/15/2024 Lack of Transportation (Non-Medical) No 06/15/2024 Patient Unable or Declines to Respond No 06/15/2024 OASIS B1300: Health Literacy Answer Too e Recorded Frequency of needing help to read materials from doctor or pharmacy Sometimes 06/15/2024 [facility] Utilities Answer Date Recorded In the past 12 months has e [employer], AA Party, or water [employer] threatened to shut off services in your home? Patient declined 06/08/2024 Social Connection and Isolation Panel [NHANES] A nswer Date Recorded In a typical week, how many times do you talk on the phone with family, friends, or neighbors? Patient declined 06/08/2024 How often do you get togethe r with friends or relatives? Patient declined 06/08/2024 How often do you attend scientology or anabaptist serv ices? Patient declined 06/08/2024 Do you belong to any clubs o r organizations such as scientology groups, unions, fraternal or athletic groups, or school groups? Patient declined 06/08/2024 How often do you attend meet ings of the clubs or organizations you belong to? Patient declined 06/08/2024 Are you , , di vorced, , never , or living with a partner? Patient declined 06/08/2024 AUDIT-C Answer Date Recorded Q1: How often do you have a drink containing alcohol? Never 04/05/2024 Q2: How many drinks containi ng alcohol do you have on a typical day when you are drinking? Patient does not drink Q3: How often do you have si x or more drinks on one occasion? Never 04/05/2024 Overall Financial Resource Strain (CARDIA) Answe r Date Recorded How hard is it for you to pa y for the very basics like food, housing, medical care, and heating? Patient declined 06/08/2024 Hunger Vital Sign Answer Date Recorded Within the past 12 months, y ou worried that your food would run out before you got the money to buy more. Patient declined Within the past 12 months, t he food you bought just didn't last and you didn't have money to get more. Patient declined PRAPARE - Transportation Answer Date Re corded In the past 12 months, has l ack of transportation kept you from medical appointments or from getting medications? Patient declined 06/08/2024 In the past 12 months, has l ack of transportation kept you from meetings, work, or from getting things needed for daily living? Patient declined 06/08/2024 Housing Stability Vital Sign Answer Too e Recorded In the last 12 months, was t here a time when you were not able to pay the mortgage or rent on time? Patient declined 06/08/19 25 Number of Times Moved in the Last Year Not on fi le 06/08/2024 At any time in the past 12 m [facility], were you homeless or living in a snf (including now)? Patient declined 06/08/2024 Personal Safety Answer Date Recorded Have you ever been in or are you currently in a harmful physical or emotional relationship or is someone making you feel afraid or unsafe? Denies 06/08/2024 Comments No Sex and Gender Information Value Date Recorded Sex Assigned at Not on file Legal Sex Female 12:29 PM BEEKEEPER Gender Identity Not on file Sexual Orientation Not on file Last Filed Vital Signs Vital Sign Reading Time Taken Comments Blood Pressure 108/64 07/06/2024 12:04 PM BEEKEEPER Pulse 86 07/06/2024 12:04 PM BEEKEEPER Temperature 36.9 C (98.5 F) 07/06/2024 12:04 PM BEEKEEPER Respiratory Rate 18 07/06/2024 12:04 PM BEEKEEPER Oxygen Saturation 98% 07/06/2024 12:04 PM BEEKEEPER Inhaled Oxygen Concentration - - Weight 60.9 kg (134 lb 3.2 oz) 06/08/2024 4:00 A M BEEKEEPER Height 170.2 cm (5' 7 ) 06/08/2024 4:00 AM BEEKEEPER Body Mass Index 21.02 06/08/2024 4:00 AM BEEKEEPER Plan of Treatment Not on file Medical Devices Implanted Type Area Truss Builder Device Identifier Shelf Expiration Date Model / Serial / Lot Stuart Spine [place] L22 Mm X W8.5 Mm X H10 Mm Convex Cage Spinal Titanium P Latex Free [id number] - Sn/A - [id number] Implanted:Qty: 1 on 12/24/2021 by Darío Ceron MD at [facility] Cage N/A: Lumbar-Sa cral Spine [place] Spine [id number] 06/03/[id number] 210NC-G2 / N/A / [id number] [place] Spine [place] L22 Mm X W8.5 Mm X H10 Mm Convex Cage Spinal Titanium P Latex Free [id number] - Sn/A - [id number] Implanted:Qty: 1 on 12/24/2021 by Darío Ceron MD at [facility] Cage N/A: Lumbar-Sa cral Spine Stuart Spine [id number] 06/03/[id number] 210NC-G2 / N/A / [id number] 11 Screws,Rods N/A: Spine Lumbar Stuart Spine 4mm 30mm Polyaxial Spine Screw Bone Deformity [id number] - [id number] Implanted:Qty: 2 on 12/24/2021 by Darío Ceron MD at [facility] N/A: Lumbar-Sa cral Spine Stuart Spine [id number] 0 / / Stuart Spine 4.5mm 30mm Polyaxial Spine Screw Bone Deformity [id number] - [id number] Implanted:Qty: 2 on 12/24/2021 by Darío Ceron MD at [facility] N/A: Lumbar-Sa cral Spine Stuart Spine 1622-5097 0 / / [place] Spine 4.5mm 40mm Contour Praful Spinal Cocr [id number] - [id number] Implanted:Qty: 2 on 12/24/2021 by Darío Ceron MD at [facility] N/A: Lumbar-Sa cral Spine [place] Spine [id number] 0 / / [place] Spine 29mm Semiadjustable Transverse Spine Connector Praful Posterior [id number] - [id number] Implanted:Qty: 1 on 12/24/2021 by Darío Ceron MD at [facility] N/A: Lumbar-Sa cral Spine Stuart Spine [id number] 9A / / Stuart Spine 26mm Semiadjustable Transverse Spine Connector Praful Posterior 3001-20095c - [id number] Implanted:Qty: 1 on 04/05/2024 by Darío Ceron MD at [facility] N/A: Spine Lumbar [place] Spine [id number] 6A / / Stuart Spine 29mm Semiadjustable Transverse Spine Connector Praful Posterior 3001-08946d - [id number] Implanted:Qty: 1 on 04/05/2024 by Darío Ceron MD at [facility] N/A: Spine Lumbar Stuart Spine [id number] 9A / / Stuart Spine 4mm 30mm Polyaxial Spine Screw Bone Deformity 3001-21131 - [id number] Implanted:Qty: 2 on 04/05/2024 by Darío Ceron MD at [facility] N/A: Spine Lumbar [place] Spine [id number] 0 / / [place] Spine 4.5mm 70mm Contour Praful Spinal Cocr [id number] - [id number] Implanted:Qty: 2 on 04/05/2024 by Darío Ceron MD at [facility] N/A: Spine Lumbar [place] Spine [id number] 0 / / [employer] Cage Spinal Lumbar 10 Degree Tlif Expandable 7-11.5mm Titanium [id number] - [id number] Implanted:Qty: 2 on 04/05/2024 by Darío Ceron MD at [facility] N/A: Spine Lumbar [employer] [id number] 10 / / Biocomposites Stimulan Rapid Cure Kit Paste Swiss Machinist 5cc 12.5cc Bone Void 620-005 - [id number] Implanted:Qty: 1 on 04/05/2024 by Darío Ceron MD at [facility] N/A: Spine Lumbar [employer]ites [id number] 12/15/2026 620-005 / / [id number] Procedures Procedure Name Priority Date/Time Associated Diagnosis Comments EGFR Routine 07/06/2024 2:00 PM BEEKEEPER DIFFERENTIAL AUTO Routine 07/06/2024 2:0 0 PM BEEKEEPER CBC WITH AUTO DIFFERENTIAL Routine 07/06/2024 2:00 PM BEEKEEPER COMPREHENSIVE METABOLIC PANEL Routine 07/06/2024 2:00 PM BEEKEEPER EGFR Routine 06/28/2024 1:30 PM BEEKEEPER DIFFERENTIAL AUTO Routine 06/28/2024 1:3 0 PM BEEKEEPER CBC WITH AUTO DIFFERENTIAL Routine 06/28/2024 1:30 PM BEEKEEPER COMPREHENSIVE METABOLIC PANEL Routine 06/28/2024 1:30 PM BEEKEEPER EGFR STAT 06/22/2024 9:30 AM BEEKEEPER DIFFERENTIAL AUTO STAT 06/22/2024 9:3 0 AM BEEKEEPER CBC WITH AUTO DIFFERENTIAL STAT 06/22/2024 9:30 AM BEEKEEPER COMPREHENSIVE METABOLIC PANEL STAT 06/22/2024 9:30 AM BEEKEEPER POCT GLUCOSE DEVICE Routine 06/14/2024 1 1:44 AM BEEKEEPER POCT GLUCOSE DEVICE Routine 06/14/2024 5 :57 AM BEEKEEPER POCT GLUCOSE DEVICE Routine 06/13/2024 9 :43 PM BEEKEEPER XR CHEST 1 VIEW ED Urgent/IP Urgent 06/13/2024 5:20 PM BEEKEEPER POCT GLUCOSE DEVICE Routine 06/13/2024 4 :41 PM BEEKEEPER GENERAL Routine 06/13/2024 4:36 PM BEEKEEPER care home current use of antibiotics POCT GLUCOSE DEVICE Routine 06/13/2024 1 1:19 AM BEEKEEPER POCT GLUCOSE DEVICE Routine 06/13/2024 5 :28 AM BEEKEEPER POCT GLUCOSE DEVICE Routine 06/12/2024 8 :07 PM BEEKEEPER HEPATITIS PANEL, ACUTE Routine 06/12/2024 7:39 PM BEEKEEPER POCT GLUCOSE DEVICE Routine 06/12/2024 4 :49 PM BEEKEEPER POCT GLUCOSE DEVICE Routine 06/12/2024 1 1:30 AM BEEKEEPER EGFR Routine 06/12/2024 6:07 AM BEEKEEPER DIFFERENTIAL AUTO Routine 06/12/2024 6:0 7 AM BEEKEEPER CBC WITH AUTO DIFFERENTIAL Routine 06/12/2024 6:07 AM BEEKEEPER BASIC METABOLIC PANEL Routine 06/12/2024 6:07 AM BEEKEEPER POCT GLUCOSE DEVICE Routine 06/12/2024 5 :52 AM BEEKEEPER POCT GLUCOSE DEVICE Routine 2024 8 :40 PM BEEKEEPER POCT GLUCOSE DEVICE Routine 2024 4 :22 PM BEEKEEPER TRANSTHORACIC ECHO (TTE) COMPLETE W DOPPLER/CF WO CONTRAST Routine 2024 1:09 PM BEEKEEPER HEPATIC FUNCTION PANEL Routine 2024 1:01 PM BEEKEEPER POCT GLUCOSE DEVICE Routine 2024 1 1:26 AM BEEKEEPER POCT GLUCOSE DEVICE Routine 2024 6 :17 AM BEEKEEPER POCT GLUCOSE DEVICE Routine 06/10/2024 8 :43 PM BEEKEEPER POCT GLUCOSE DEVICE Routine 06/10/2024 4 :41 PM BEEKEEPER BLOOD CULTURE Routine 06/10/2024 12:01 PM BEEKEEPER BLOOD CULTURE Routine 06/10/2024 12:01 PM BEEKEEPER POCT GLUCOSE DEVICE Routine 06/10/2024 1 1:29 AM BEEKEEPER EGFR Routine 06/10/2024 5:39 AM BEEKEEPER BASIC METABOLIC PANEL Routine 06/10/2024 5:39 AM BEEKEEPER POCT GLUCOSE DEVICE Routine 06/09/2024 9 :22 PM BEEKEEPER POCT GLUCOSE DEVICE Routine 06/09/2024 6 :22 PM BEEKEEPER POCT GLUCOSE DEVICE Routine 06/09/2024 2 :12 PM BEEKEEPER VANCOMYCIN LEVEL TROUGH Timed 06/09/2024 2:00 PM BEEKEEPER POCT GLUCOSE DEVICE Routine 06/09/2024 7 :53 AM BEEKEEPER POCT GLUCOSE DEVICE Routine 06/09/2024 4 :13 AM BEEKEEPER POCT GLUCOSE DEVICE Routine 06/09/2024 2 :03 AM BEEKEEPER POCT GLUCOSE DEVICE Routine 06/08/2024 1 1:36 PM BEEKEEPER POCT GLUCOSE DEVICE Routine 06/08/2024 7 :46 PM BEEKEEPER POCT GLUCOSE DEVICE Routine 06/08/2024 4 :34 PM BEEKEEPER MYCOLOGY (FUNGAL) CULTURE Routine 06/08/2024 4:30 PM BEEKEEPER AEROBIC AND ANAEROBIC CULTURE AND GRAM STAIN Routine 06/08/2024 4:30 PM BEEKEEPER MYCOLOGY (FUNGAL) CULTURE Routine 06/08/2024 4:30 PM BEEKEEPER AEROBIC AND ANAEROBIC CULTURE AND GRAM STAIN Routine 06/08/2024 4:30 PM BEEKEEPER AL AN PROCEDURE PLACEHOLDER Routine 06/08/2024 3:17 PM BEEKEEPER AL AN ELECTIVE ENDOTRACHEAL AIRWAY Routine 06/08/2024 3:17 PM BEEKEEPER INCISION AND DRAINAGE - BACK 06/08/2024 2:55 PM BEEKEEPER PAIN/ INFECTION POCT GLUCOSE DEVICE Routine 06/08/2024 1 :33 PM BEEKEEPER POCT GLUCOSE DEVICE Routine 06/08/2024 1 2:35 PM BEEKEEPER POCT GLUCOSE DEVICE Routine 06/08/2024 8 :39 AM BEEKEEPER EGFR Routine 06/08/2024 6:21 AM BEEKEEPER CBC WITHOUT DIFFERENTIAL Routine 06/08/2024 6:21 AM BEEKEEPER PHOSPHORUS Routine 06/08/2024 6:21 AM BEEKEEPER MAGNESIUM Routine 06/08/2024 6:21 AM BEEKEEPER BASIC METABOLIC PANEL Routine 06/08/2024 6:21 AM BEEKEEPER POCT GLUCOSE DEVICE Routine 06/08/2024 4 :21 AM BEEKEEPER BLOOD CULTURE STAT 06/08/2024 12:42 AM BEEKEEPER POCT GLUCOSE DEVICE Routine 06/08/2024 1 2:38 AM BEEKEEPER BLOOD CULTURE STAT 06/08/2024 12:30 AM BEEKEEPER MRI LUMBAR SPINE W WO CONTRAST ED 06/07/2024 11:30 PM BEEKEEPER URINALYSIS AND REFLEX TO MICROSCOPIC AND CULTURE STAT 06/07/2024 9:41 PM BEEKEEPER EGFR STAT 06/07/2024 9:39 PM BEEKEEPER DIFFERENTIAL AUTO STAT 06/07/2024 9:3 9 PM BEEKEEPER CBC WITH AUTO DIFFERENTIAL STAT 06/07/2024 9:39 PM BEEKEEPER COMPREHENSIVE METABOLIC PANEL STAT 06/07/2024 9:39 PM BEEKEEPER SEPSIS LACTATE WITH REFLEX STAT 06/07/2024 9:39 PM BEEKEEPER CRP (ACUTE PHASE) STAT 06/07/2024 9:3 9 PM BEEKEEPER ERYTHROCYTE SEDIMENTATION RATE STAT 06/07/2024 9:39 PM BEEKEEPER HEMOGLOBIN A1C Routine 03/21/2024 10:40 AM BEEKEEPER Preoperative examination POCT LIPID PANEL Routine 12/09/2021 10:2 7 AM CDT Type 2 diabetes mellitus with hyperglycemia, with long-term current use of insulin (CMS/HCC) (HCC) DIAGNOSTIC MAMMOGRAM BILATERAL W HAI Schedule Routine, Read Routine (OP Routine) 06/10/2021 10:10 AM BEEKEEPER Breast mass from Last 3 Months or Most Recently Relevant to Health Maintenance Results * eGFR (07/06/2024 2:00 PM BEEKEEPER) eGFR >90 >=60 mL/min/1. 73 m2 Comment: Interpretive Data Reference Interval Normal >/= 90 mL/min/1.73m2 Mildly decreased* 60 - 89 mL/min/1.73m2 Mildly to moderately decreased 45 - 59 mL/min/1.73m2 Moderately to severely decreased 30 - 44 mL/min/1.73m2 Severely decreased 15 - 29 mL/min/1.73m2 Kidney Failure < 15 mL/min/1.73m2 *Relative to young adult level Estimated glomerular filtration rate is determined by the 2020 CKD-EPI equation recommended by the National Kidney Foundation (A Unifying Approach to GFR Estimation: Recommendations of the NKF-ASK Task Force on Reassessing the Inclusion of Race in Diagnosing Kidney Disease, JASN 2020). The CKD-EPI equation should not be used for patients with unstable renal function and has not been validated in children and those over 70. Current interpretive data was last reviewed 2021. Blood 07/06/2024 2:00 PM BEEKEEPER 07/06/2024 4:57 PM BEEKEEPER us Kali Moses MD LAB BLOOD ORDERABLES Final Resul t JEFFREY RUSSELL [facility] Department [place] [address] * Differential, auto (07/06/2024 2:00 PM BEEKEEPER) Neutrophil abs 4.0 1.5 - 6.5 K/cumm Imm gran abs 0.0 0.0 - 0.1 K/cumm [facility] Lymphocyte abs 2.1 0.8 - 3.3 K/cumm [facility] Monocyte abs 0.5 0.2 - 0.8 K/cumm [facility] Eosinophil abs 0.3 0.0 - 0.5 K/cumm [facility] Basophil abs 0.1 0.0 - 0.1 K/cumm [facility] Neutrophil pct 57.4 % [facility] Comment: Interpretive Data Percent cell count reference ranges are not reported, since discordance with absolute values may lead to misinterpretation of CBC data. Current Interpretive Data was last revised on 2017. Imm gran pct 0.4 % [facility] Comment: Interpretive Data Percent cell count reference ranges are not reported, since discordance with absolute values may lead to misinterpretation of CBC data. Current Interpretive Data was last revised on 2017. Lymphocyte pct 30.5 % [facility] Comment: Interpretive Data Percent cell count reference ranges are not reported, since discordance with absolute values may lead to misinterpretation of CBC data. Current Interpretive Data was last revised on 2017. Monocyte pct 6.8 % [facility] Comment: Interpretive Data Percent cell count reference ranges are not reported, since discordance with absolute values may lead to misinterpretation of CBC data. Current Interpretive Data was last revised on 2017. Eosinophil pct 3.9 % [facility] Comment: Interpretive Data Percent cell count reference ranges are not reported, since discordance with absolute values may lead to misinterpretation of CBC data. Current Interpretive Data was last revised on 2017. Basophil pct 1.0 % [facility] Comment: Interpretive Data Percent cell count reference ranges are not reported, since discordance with absolute values may lead to misinterpretation of CBC data. Current Interpretive Data was last revised on 2017. Blood 07/06/2024 2:00 PM BEEKEEPER 07/06/2024 4:54 PM BEEKEEPER us Kali Moses MD LAB BLOOD ORDERABLES Final Resul t [facility] Department [place] [address] * CBC with auto differential (07/06/2024 2:00 PM BEEKEEPER) [facility] [facility] WBC 6.9 3.8 - 9.9 K/cumm Hgb 11.9 11.9 - 15.5 g/dL [facility] Hct 36.7 35.6 - 45.5 % [facility] Plt 267 150 - 400 K/cumm [facility] MPV 9.6 9.1 - 12.3 fL [facility] RBC 3.95 3.90 - 5.20 M/cumm [facility] MCV 92.9 81.3 - 96.4 fL [facility] MCH 30.1 27.1 - 33.3 pg [facility] MCHC 32.4 32.3 - 35.7 g/dL [facility] RDW CV 13.3 11.1 - 14.9 % [facility] RDW SD 45.5 35.7 - 48.1 fL [facility] NRBC abs 0.00 0.00 - 0.01 K/cumm [facility] Blood 07/06/2024 2:00 PM BEEKEEPER 07/06/2024 4:54 PM BEEKEEPER Kali Moses MD LAB BLOOD ORDERABLES Final Resul t [facility] Department [place] [address] * Comprehensive metabolic panel (07/06/2024 2:00 PM BEEKEEPER) [facility] Sodium 140 135 - 145 mmol/L Potassium, pl 4.2 3.3 - 4.9 mmol/L [facility] Chloride 103 97 - 110 mmol/L [facility] CO2 29 22 - 32 mmol/L [facility] Anion gap 8 2 - 15 mmol/L [facility] BUN 11 6 - 25 mg/dL [facility] Creatinine 0.62 0.60 - 1.10 mg/dL [facility] Glucose 175 70 - 199 mg/dL [facility] Comment: Interpretive Data Fasting glucose >/= 126 mg/dl is diagnostic for diabetes. Fasting is defined as no caloric intake for at least 8 hours. Fasting glucose between 100 mg/dl to 125 mg/dl is diagnostic of prediabetes. In a patient with classic symptoms of hyperglycemia or hyperglycemic crisis, a random glucose >/= 200 mg/dl is diagnostic for diabetes. In the absence of unequivocal hyperglycemia, results should be confirmed by repeat testing. The classification and Diagnosis of Diabetes Diabetes Care 202; 46: S19-S40. Current interpretive data was last revised 2022. Calcium 9.4 8.5 - 10.3 mg/dL [facility] Bilirubin, total <0.2 0.1 - 1.2 mg/dL [facility] Protein, pl 7.4 6.5 - 8.5 g/dL [facility] Albumin 4.0 3.5 - 5.0 g/dL [facility] Alk phos 86 40 - 130 Units/L [facility] ALT 9 7 - 45 Units/L [facility] AST 15 10 - 45 Units/L [facility] Blood 07/06/2024 2:00 PM BEEKEEPER 07/06/2024 4:53 PM BEEKEEPER Kali Moses MD LAB BLOOD ORDERABLES Final Resul t [facility] Department [place] [address] * eGFR (06/28/2024 1:30 PM BEEKEEPER) eGFR >90 >=60 mL/min/1. 73 m2 Comment: Interpretive Data Reference Interval Normal >/= 90 mL/min/1.73m2 Mildly decreased* 60 - 89 mL/min/1.73m2 Mildly to moderately decreased 45 - 59 mL/min/1.73m2 Moderately to severely decreased 30 - 44 mL/min/1.73m2 Severely decreased 15 - 29 mL/min/1.73m2 Kidney Failure < 15 mL/min/1.73m2 *Relative to young adult level Estimated glomerular filtration rate is determined by the 2020 CKD-EPI equation recommended by the National Kidney Foundation (A Unifying Approach to GFR Estimation: Recommendations of the NKF-ASK Task Force on Reassessing the Inclusion of Race in Diagnosing Kidney Disease, JASN 202). The CKD-EPI equation should not be used for patients with unstable renal function and has not been validated in children and those over 70. Current interpretive data was last reviewed 2021. Blood 06/28/2024 1:30 PM BEEKEEPER 06/28/2024 6:37 PM BEEKEEPER us Kali Moses MD LAB BLOOD ORDERABLES Final Resul t [facility] [place] [address] * Differential, auto (06/28/2024 1:30 PM BEEKEEPER) Neutrophil abs 4.2 1.5 - 6.5 K/cumm Imm gran abs 0.0 0.0 - 0.1 K/cumm [facility] Lymphocyte abs 2.1 0.8 - 3.3 K/cumm [facility] Monocyte abs 0.4 0.2 - 0.8 K/cumm [facility] Eosinophil abs 0.3 0.0 - 0.5 K/cumm [facility] Basophil abs 0.1 0.0 - 0.1 K/cumm [facility] Neutrophil pct 59.4 % [facility] Comment: Interpretive Data Percent cell count reference ranges are not reported, since discordance with absolute values may lead to misinterpretation of CBC data. Current Interpretive Data was last revised on 2017. Imm gran pct 0.3 % [facility] Comment: Interpretive Data Percent cell count reference ranges are not reported, since discordance with absolute values may lead to misinterpretation of CBC data. Current Interpretive Data was last revised on 2017. Lymphocyte pct 29.9 % [facility] Comment: Interpretive Data Percent cell count reference ranges are not reported, since discordance with absolute values may lead to misinterpretation of CBC data. Current Interpretive Data was last revised on 2017. Monocyte pct 5.4 % [facility] Comment: Interpretive Data Percent cell count reference ranges are not reported, since discordance with absolute values may lead to misinterpretation of CBC data. Current Interpretive Data was last revised on 2017. Eosinophil pct 3.6 % [facility] Comment: Interpretive Data Percent cell count reference ranges are not reported, since discordance with absolute values may lead to misinterpretation of CBC data. Current Interpretive Data was last revised on 2017. Basophil pct 1.4 % [facility] Comment: Interpretive Data Percent cell count reference ranges are not reported, since discordance with absolute values may lead to misinterpretation of CBC data. Current Interpretive Data was last revised on 2017. Blood 06/28/2024 1:30 PM BEEKEEPER 06/28/2024 6:26 PM BEEKEEPER us Kali Moses MD LAB BLOOD ORDERABLES Final Resul t [facility] Department [place] [address] * CBC with auto differential (06/28/2024 1:30 PM BEEKEEPER) WBC 7.0 3.8 - 9.9 K/cumm Hgb 12.4 11.9 - 15.5 g/dL [facility] Hct 37.7 35.6 - 45.5 % [facility] Plt 338 150 - 400 K/cumm [facility] MPV 9.8 9.1 - 12.3 fL [facility] RBC 4.02 3.90 - 5.20 M/cumm [facility] MCV 93.8 81.3 - 96.4 fL [facility] MCH 30.8 27.1 - 33.3 pg [facility] MCHC 32.9 32.3 - 35.7 g/dL [facility] RDW CV 13.7 11.1 - 14.9 % [facility] RDW SD 46.8 35.7 - 48.1 fL [facility] NRBC abs 0.00 0.00 - 0.01 K/cumm [facility] Blood 06/28/2024 1:30 PM BEEKEEPER 06/28/2024 6:26 PM BEEKEEPER us Kali Moses MD LAB BLOOD ORDERABLES Final Resul t [facility] Department [place] [address] * Comprehensive metabolic panel (06/28/2024 1:30 PM BEEKEEPER) Sodium 141 135 - 145 mmol/L Potassium, pl 3.9 3.3 - 4.9 mmol/L [facility] Chloride 103 97 - 110 mmol/L [facility] CO2 28 22 - 32 mmol/L [facility] Anion gap 10 2 - 15 mmol/L [facility] BUN 12 6 - 25 mg/dL [facility] Creatinine 0.64 0.60 - 1.10 mg/dL [facility] Glucose 132 70 - 199 mg/dL [facility] Comment: Interpretive Data Fasting glucose >/= 126 mg/dl is diagnostic for diabetes. Fasting is defined as no caloric intake for at least 8 hours. Fasting glucose between 100 mg/dl to 125 mg/dl is diagnostic of prediabetes. In a patient with classic symptoms of hyperglycemia or hyperglycemic crisis, a random glucose >/= 200 mg/dl is diagnostic for diabetes. In the absence of unequivocal hyperglycemia, results should be confirmed by repeat testing. The classification and Diagnosis of Diabetes Diabetes Care 202; 46: S19-S40. Current interpretive data was last revised 2022. Calcium 9.4 8.5 - 10.3 mg/dL [facility] Bilirubin, total <0.2 0.1 - 1.2 mg/dL [facility] Protein, pl 7.7 6.5 - 8.5 g/dL [facility] Albumin 3.9 3.5 - 5.0 g/dL [facility] Alk phos 97 40 - 130 Units/L [facility] ALT 7 7 - 45 Units/L [facility] AST 20 10 - 45 Units/L [facility] Blood 06/28/2024 1:30 PM BEEKEEPER 06/28/2024 6:26 PM BEEKEEPER Kali Moses MD LAB BLOOD ORDERABLES Final Resul t Performing Organization Address [facility] de Phone Number [facility] [place] [address] * eGFR (06/22/2024 9:30 AM BEEKEEPER) Pathologist [facility] eGFR >90 >=60 mL/min/1. 73 m2 Comment: Interpretive Data Reference Interval Normal >/= 90 mL/min/1.73m2 Mildly decreased* 60 - 89 mL/min/1.73m2 Mildly to moderately decreased 45 - 59 mL/min/1.73m2 Moderately to severely decreased 30 - 44 mL/min/1.73m2 Severely decreased 15 - 29 mL/min/1.73m2 Kidney Failure < 15 mL/min/1.73m2 *Relative to young adult level Estimated glomerular filtration rate is determined by the 2020 CKD-EPI equation recommended by the National Kidney Foundation (A Unifying Approach to GFR Estimation: Recommendations of the NKF-ASK Task Force on Reassessing the Inclusion of Race in Diagnosing Kidney Disease, JASN 2020). The CKD-EPI equation should not be used for patients with unstable renal function and has not been validated in children and those over 70. Current interpretive data was last reviewed 2021. Blood 06/22/2024 9:30 AM BEEKEEPER 06/22/2024 1:47 PM BEEKEEPER Kali Moses MD LAB BLOOD ORDERABLES Final Resul t Performing Organization Address [facility] Co de Phone Number [facility] Department [place] [address] * (ABNORMAL) Differential, auto (06/22/2024 9:30 AM BEEKEEPER) Pathologist [facility] Neutrophil abs 6.9(H) 1.5 - 6.5 K/cumm Imm gran abs 0.0 0.0 - 0.1 K/cumm [facility] Lymphocyte abs 2.0 0.8 - 3.3 K/cumm [facility] Monocyte abs 0.6 0.2 - 0.8 K/cumm [facility] Eosinophil abs 0.2 0.0 - 0.5 K/cumm [facility] Basophil abs 0.1 0.0 - 0.1 K/cumm [facility] Neutrophil pct 69.7 % [facility] Comment: Interpretive Data Percent cell count reference ranges are not reported, since discordance with absolute values may lead to misinterpretation of CBC data. Current Interpretive Data was last revised on 2017. Imm gran pct 0.4 % [facility] Comment: Interpretive Data Percent cell count reference ranges are not reported, since discordance with absolute values may lead to misinterpretation of CBC data. Current Interpretive Data was last revised on 2017. Lymphocyte pct 20.5 % [facility] Comment: Interpretive Data Percent cell count reference ranges are not reported, since discordance with absolute values may lead to misinterpretation of CBC data. Current Interpretive Data was last revised on 2017. Monocyte pct 6.0 % [facility] Comment: Interpretive Data Percent cell count reference ranges are not reported, since discordance with absolute values may lead to misinterpretation of CBC data. Current Interpretive Data was last revised on 2017. Eosinophil pct 2.4 % [facility] Comment: Interpretive Data Percent cell count reference ranges are not reported, since discordance with absolute values may lead to misinterpretation of CBC data. Current Interpretive Data was last revised on 2017. Basophil pct 1.0 % [facility] Comment: Interpretive Data Percent cell count reference ranges are not reported, since discordance with absolute values may lead to misinterpretation of CBC data. Current Interpretive Data was last revised on 2017. Blood 06/22/2024 9:30 AM BEEKEEPER 06/22/2024 1:45 PM BEEKEEPER us Kali Moses MD LAB BLOOD ORDERABLES Final Resul t [facility] Department [place] [address] * CBC with auto differential (06/22/2024 9:30 AM BEEKEEPER) [facility] WBC 9.9 3.8 - 9.9 K/cumm Hgb 12.8 11.9 - 15.5 g/dL [facility] Hct 39.1 35.6 - 45.5 % [facility] Plt 350 150 - 400 K/cumm [facility] MPV 9.5 9.1 - 12.3 fL [facility] RBC 4.19 3.90 - 5.20 M/cumm [facility] MCV 93.3 81.3 - 96.4 fL [facility] MCH 30.5 27.1 - 33.3 pg [facility] MCHC 32.7 32.3 - 35.7 g/dL [facility] RDW CV 14.0 11.1 - 14.9 % [facility] RDW SD 48.1 35.7 - 48.1 fL [facility] NRBC abs 0.00 0.00 - 0.01 K/cumm [facility] Blood 06/22/2024 9:30 AM BEEKEEPER 06/22/2024 1:45 PM BEEKEEPER us Kali Moses MD LAB BLOOD ORDERABLES Final Resul t [facility] Department [place] [address] * Comprehensive metabolic panel (06/22/2024 9:30 AM BEEKEEPER) [facility] Sodium 136 135 - 145 mmol/L Potassium, pl 4.4 3.3 - 4.9 mmol/L [facility] Chloride 98 97 - 110 mmol/L [facility] CO2 28 22 - 32 mmol/L [facility] Anion gap 10 2 - 15 mmol/L [facility] BUN 14 6 - 25 mg/dL [facility] Creatinine 0.66 0.60 - 1.10 mg/dL [facility] Glucose 198 70 - 199 mg/dL [facility] Comment: Interpretive Data Fasting glucose >/= 126 mg/dl is diagnostic for diabetes. Fasting is defined as no caloric intake for at least 8 hours. Fasting glucose between 100 mg/dl to 125 mg/dl is diagnostic of prediabetes. In a patient with classic symptoms of hyperglycemia or hyperglycemic crisis, a random glucose >/= 200 mg/dl is diagnostic for diabetes. In the absence of unequivocal hyperglycemia, results should be confirmed by repeat testing. The classification and Diagnosis of Diabetes Diabetes Care 2021; 46: S19-S40. Current interpretive data was last revised 2022. Calcium 9.8 8.5 - 10.3 mg/dL [facility] Bilirubin, total 0.2 0.1 - 1.2 mg/dL [facility] Protein, pl 7.7 6.5 - 8.5 g/dL [facility] Albumin 3.9 3.5 - 5.0 g/dL [facility] Alk phos 109 40 - 130 Units/L [facility] ALT 13 7 - 45 Units/L [facility] AST 21 10 - 45 Units/L [facility] Blood 06/22/2024 9:30 AM BEEKEEPER 06/22/2024 1:45 PM BEEKEEPER Kali Moses MD LAB BLOOD ORDERABLES Final Resul t Performing Organization Address City/[facility]/ZIP Co de Phone Number [facility] [place] [address] * (ABNORMAL) POCT glucose (06/14/2024 11:44 AM BEEKEEPER) [facility] Glucose, POC 347(H) 70 - 199 mg/dL Comment: For Glucose values <35 mg/dl when Hematocrit is >60 mg/dl,the test may not accurately detect significant hypoglycemia,and testing in the Laboratory should be considered if clinically indicated. Glucose comment 1 Follow Protocol [facility] Blood 06/14/2024 11:4 4 AM BEEKEEPER 06/14/2024 11:44 AM BEEKEEPER David Garza MD LAB POCT ORDERABLES - DEVICE Fin al Result [facility] [address] Department [place] [address] * POCT glucose (06/14/2024 5:57 AM BEEKEEPER) Glucose, POC 134 70 - 199 mg/dL Comment: For Glucose values <35 mg/dl when Hematocrit is >60 mg/dl,the test may not accurately detect significant hypoglycemia,and testing in the Laboratory should be considered if clinically indicated. Blood 06/14/2024 5:57 AM BEEKEEPER 06/14/2024 5:57 AM BEEKEEPER David Garza MD LAB POCT ORDERABLES - DEVICE Fin al Result Performing Organization Address [facility] Co de Phone Number [facility] [address] [place] [address] * (ABNORMAL) POCT glucose (06/13/2024 9:43 PM BEEKEEPER) Glucose, POC 212(H) 70 - 199 mg/dL Comment: For Glucose values <35 mg/dl when Hematocrit is >60 mg/dl,the test may not accurately detect significant hypoglycemia,and testing in the Laboratory should be considered if clinically indicated. Blood 06/13/2024 9:43 PM BEEKEEPER 06/13/2024 9:43 PM BEEKEEPER David Garza MD LAB POCT ORDERABLES - DEVICE Fin al Result Performing Organization Address [facility] Co de Phone Number [facility] [address] Department [place] [address] * XR Chest 1 View (06/13/2024 5:20 PM BEEKEEPER) Anatomical Region Laterality Modality Body, Chest N/A Computed Radiogr aphy 06/13/2024 5:45 PM BEEKEEPER Impressions 06/13/2024 5:45 PM BEEKEEPER No prior study available for comparison. Left upper extremity approach peripherally inserted central catheter tip terminates in the superior vena cava. The lungs are clear, specifically there is no focal consolidation or pulmonary edema. There is no pleural effusion or pneumothorax. The heart and mediastinal contours are within normal limits. Electronically signed by: Juan F Rausch MD, PHD Narrative 06/13/2024 5:45 PM BEEKEEPER EXAMINATION: XR CHEST 1 VIEW Procedure Note Juan F Rausch MD PhD - 06/13/2024 EXAMINATION: XR CHEST 1 VIEW IMPRESSION: No prior study available for comparison. Left upper extremity approach peripherally inserted central catheter tip terminates in the superior vena cava. The lungs are clear, specifically there is no focal consolidation or pulmonary edema. There is no pleural effusion or pneumothorax. The heart and mediastinal contours are within normal limits. Electronically signed by: Juan F Rausch MD, PHD us Balaji [facility] IMG XR PROCEDURES Final Result * POCT glucose (06/13/2024 4:41 PM BEEKEEPER) [facility] Glucose, POC 122 70 - 199 mg/dL Comment: For Glucose values <35 mg/dl when Hematocrit is >60 mg/dl,the test may not accurately detect significant hypoglycemia,and testing in the Laboratory should be considered if clinically indicated. Blood 06/13/2024 4:41 PM BEEKEEPER 06/13/2024 4:41 PM BEEKEEPER David Garza MD LAB POCT ORDERABLES - DEVICE Fin al Result [facility] [address] Department [place] [address] * GENERAL (06/13/2024 4:36 PM BEEKEEPER) Narrative Balaji Joel PA - 06/13/2024 4:36 PM BEEKEEPER Balaji Joel PA 06/13/2024 4:39 PM PICC Line Placement Date/Time: 06/13/2024 4:36 PM Performed by: Balaji Joel PA Authorized by: Balaji Joel PA [place] Protocol: RN Notified of Procedure: yes Informed consent: Risks, benefits, alternatives discussed and patient/tax compliance representative/guardian agrees and accepts Patient's stated name/ matches armband: Yes and patient unable to verbalize - armband matched to name and within medical record Allergies confirmed: yes Consent form signed, dated, timed; matches correct patient, intended procedure and site: Yes and no consent form due to emergent status Supplies, devices and special equipment are available: yes Site/side marked: yes Immediately prior to the procedure a time out was called: a verbal verification by the procedure participants confirmed correct patient identity, correct site/side marked and visible (if applicable); agreement on procedure to be done; and correct patient positioning Anesthesia (see MAR for exact dosage) Anesthesia method: Local infiltration Local anesthetic: Lidocaine 1% Hand hygiene performed: Yes PPE (including eye protection) in place as appropriate to the procedure: Yes Preparation: Patient was prepped using appropriate disinfectant and draped using sterile technique as needed Procedure details: Time out performed with Robbie Calixto at bedside. Double lumen PICC cut 34cm and placed in the LUE, one attempt. All ports aspirated and flushed. Patient tolerance: Patient tolerated the procedure well with no immediate complications Post Procedure Debrief: All guidewires, needles, sponges or other items are accounted for: yes Any special post procedure monitoring, testing or other considerations: yes (enter/request order) All specimens identified, labeled and matched to patient identification: n/a Responsible republican for transporting specimen(s) to lab determined: n/a Balaji [facility]OS IN CLINIC/BEDSIDE ORDERABLES F inal Result * (ABNORMAL) POCT glucose (06/13/2024 11:19 AM BEEKEEPER) Glucose, POC 265(H) 70 - 199 mg/dL Comment: For Glucose values <35 mg/dl when Hematocrit is >60 mg/dl,the test may not accurately detect significant hypoglycemia,and testing in the Laboratory should be considered if clinically indicated. Blood 06/13/2024 11:1 9 AM BEEKEEPER 06/13/2024 11:19 AM BEEKEEPER David Garza MD LAB POCT ORDERABLES - DEVICE Fin al Result [facility] [address] Department [place] [address] * POCT glucose (06/13/2024 5:28 AM BEEKEEPER) Glucose, POC 154 70 - 199 mg/dL Comment: For Glucose values <35 mg/dl when Hematocrit is >60 mg/dl,the test may not accurately detect significant hypoglycemia,and testing in the Laboratory should be considered if clinically indicated. Blood 06/13/2024 5:28 AM BEEKEEPER 06/13/2024 5:28 AM BEEKEEPER David Garza MD LAB POCT ORDERABLES - DEVICE Fin al Result Performing Organization Address [facility] Co de Phone Number [facility] [address] [facility] [place] [address] * POCT glucose (06/12/2024 8:07 PM BEEKEEPER) Pathologist [facility] Glucose, POC 138 70 - 199 mg/dL Comment: For Glucose values <35 mg/dl when Hematocrit is >60 mg/dl,the test may not accurately detect significant hypoglycemia,and testing in the Laboratory should be considered if clinically indicated. Blood 06/12/2024 8:07 PM BEEKEEPER 06/12/2024 8:07 PM BEEKEEPER David Garza MD LAB POCT ORDERABLES - DEVICE Fin al Result Performing Organization Address [facility] [facility] Co de Phone Number [facility] [address] [place] [address] * Hepatitis panel, acute Blood (06/12/2024 7:39 PM BEEKEEPER) Pathologist [facility] Department Hep A IgM Nonreactive Nonreactive Comment: Interpretive Data: If Hep A IgM Ab is reported as Equivocal, a new sample should be drawn in two weeks for testing. Current interpretive data was last revised on 19. Hep B core IgM Nonreactive Nonreactive [facility] Comment: Interpretive Data If HepB Core IgM Ab is reported as Equivocal, a new sample should be drawn in two weeks for testing. Current interpretive data was last revised on 19. Hep C Ab Nonreactive Nonreactive [facility] Comment: Interpretive Data Nonreactive: Antibodies to HCV not detected. Does NOT exclude the possibility of recent exposure to HCV. Equivocal: Equivocal for HCV antibodies. Supplemental molecular testing will be automatically performed to determine infection status in accordance with current CDC screening recommendations. Reactive: Positive for HCV antibodies. This may represent current or past HCV infection. Supplemental molecular testing will be automatically performed to determine current infection status in accordance with current CDC screening recommendations. Interpretive data was last revised on 2019. HepBsAg Nonreactive Nonreactive [facility] Blood 06/12/2024 7:39 PM BEEKEEPER 06/12/2024 8:01 PM BEEKEEPER Ayan Lucas NP LAB MICROBIOLOGY - GENERAL ALBA LERMA Final Result Performing Organization Address [facility] Co de Phone Number [facility] [address] [place] [address] * POCT glucose (06/12/2024 4:49 PM BEEKEEPER) Glucose, POC 105 70 - 199 mg/dL Comment: For Glucose values <35 mg/dl when Hematocrit is >60 mg/dl,the test may not accurately detect significant hypoglycemia,and testing in the Laboratory should be considered if clinically indicated. Blood 06/12/2024 4:49 PM BEEKEEPER 06/12/2024 4:49 PM BEEKEEPER David Garza MD LAB POCT ORDERABLES - DEVICE Fin al Result Performing Organization Address [facility]/ZIP Co de Phone Number [facility] [address] [place] [address] * (ABNORMAL) POCT glucose (06/12/2024 11:30 AM BEEKEEPER) Glucose, POC 227(H) 70 - 199 mg/dL Comment: For Glucose values <35 mg/dl when Hematocrit is >60 mg/dl,the test may not accurately detect significant hypoglycemia,and testing in the Laboratory should be considered if clinically indicated. Blood 06/12/2024 11:3 0 AM BEEKEEPER 06/12/2024 11:30 AM BEEKEEPER David Garza MD LAB POCT ORDERABLES - DEVICE Fin al Result Performing Organization Address [facility] Co de Phone Number [facility] [address] Department [place] [address] * eGFR (06/12/2024 6:07 AM BEEKEEPER) eGFR >90 >=60 mL/min/1. 73 m2 Comment: Interpretive Data Reference Interval Normal >/= 90 mL/min/1.73m2 Mildly decreased* 60 - 89 mL/min/1.73m2 Mildly to moderately decreased 45 - 59 mL/min/1.73m2 Moderately to severely decreased 30 - 44 mL/min/1.73m2 Severely decreased 15 - 29 mL/min/1.73m2 Kidney Failure < 15 mL/min/1.73m2 *Relative to young adult level Estimated glomerular filtration rate is determined by the 2020 CKD-EPI equation recommended by the National Kidney Foundation (A Unifying Approach to GFR Estimation: Recommendations of the NKF-ASK Task Force on Reassessing the Inclusion of Race in Diagnosing Kidney Disease, JASN 2020). The CKD-EPI equation should not be used for patients with unstable renal function and has not been validated in children and those over 70. Current interpretive data was last reviewed 2021. Blood 06/12/2024 6:07 AM BEEKEEPER 06/12/2024 6:22 AM BEEKEEPER David Garza MD LAB BLOOD ORDERABLES Final Resul t Performing Organization Address City/[facility]/ZIP Co de Phone Number [facility] [address] Department [place], [place] [id number] * Differential, auto (06/12/2024 6:07 AM BEEKEEPER) Pathologist [facility] Department Neutrophil abs 2.4 1.5 - 6.5 K/cumm Imm gran abs 0.0 0.0 - 0.1 K/cumm [facility] Lymphocyte abs 1.7 0.8 - 3.3 K/cumm [facility] Monocyte abs 0.4 0.2 - 0.8 K/cumm [facility] Eosinophil abs 0.2 0.0 - 0.5 K/cumm [facility] Basophil abs 0.0 0.0 - 0.1 K/cumm [facility] Neutrophil pct 50.6 % [facility] Comment: Interpretive Data Percent cell count reference ranges are not reported, since discordance with absolute values may lead to misinterpretation of CBC data. Current Interpretive Data was last revised on 2017. Imm gran pct 0.6 % [facility] Comment: Interpretive Data Percent cell count reference ranges are not reported, since discordance with absolute values may lead to misinterpretation of CBC data. Current Interpretive Data was last revised on 2017. Lymphocyte pct 36.2 % [facility] Comment: Interpretive Data Percent cell count reference ranges are not reported, since discordance with absolute values may lead to misinterpretation of CBC data. Current Interpretive Data was last revised on 2017. Monocyte pct 7.6 % [facility] Comment: Interpretive Data Percent cell count reference ranges are not reported, since discordance with absolute values may lead to misinterpretation of CBC data. Current Interpretive Data was last revised on 2017. Eosinophil pct 4.2 % [facility] Comment: Interpretive Data Percent cell count reference ranges are not reported, since discordance with absolute values may lead to misinterpretation of CBC data. Current Interpretive Data was last revised on 2017. Basophil pct 0.8 % [facility] Comment: Interpretive Data Percent cell count reference ranges are not reported, since discordance with absolute values may lead to misinterpretation of CBC data. Current Interpretive Data was last revised on 2017. Blood 06/12/2024 6:07 AM BEEKEEPER 06/12/2024 6:22 AM BEEKEEPER us David Garza MD LAB BLOOD ORDERABLES Final Resul t [facility] [address] Department [place] [address] * (ABNORMAL) CBC with auto differential (06/12/2024 6:07 AM BEEKEEPER) [facility] WBC 4.8 3.8 - 9.9 K/cumm Hgb 12.2 11.9 - 15.5 g/dL [facility] Hct 38.0 35.6 - 45.5 % [facility] Plt 304 150 - 400 K/cumm [facility] MPV 8.9(L) 9.1 - 12.3 fL [facility] RBC 3.99 3.90 - 5.20 M/cumm [facility] MCV 95.2 81.3 - 96.4 fL [facility] MCH 30.6 27.1 - 33.3 pg [facility] MCHC 32.1(L) 32.3 - 35.7 g/dL [facility] RDW CV 12.9 11.1 - 14.9 % [facility] RDW SD 45.3 35.7 - 48.1 fL [facility] NRBC abs 0.00 0.00 - 0.01 K/cumm [facility] Blood 06/12/2024 6:07 AM BEEKEEPER 06/12/2024 6:22 AM BEEKEEPER us David Garza MD LAB BLOOD ORDERABLES Final Resul t [facility] [address] [place] [address] * Basic metabolic panel (06/12/2024 6:07 AM BEEKEEPER) [facility] Sodium 140 135 - 145 mmol/L Potassium, pl 4.2 3.3 - 4.9 mmol/L [facility] Chloride 103 97 - 110 mmol/L [facility] CO2 32 22 - 32 mmol/L [facility] Anion gap 5 2 - 15 mmol/L [facility] BUN 12 6 - 25 mg/dL [facility] Creatinine 0.62 0.60 - 1.10 mg/dL [facility] Glucose 119 70 - 199 mg/dL [facility] Comment: Interpretive Data Fasting glucose >/= 126 mg/dl is diagnostic for diabetes. Fasting is defined as no caloric intake for at least 8 hours. Fasting glucose between 100 mg/dl to 125 mg/dl is diagnostic of prediabetes. In a patient with classic symptoms of hyperglycemia or hyperglycemic crisis, a random glucose >/= 200 mg/dl is diagnostic for diabetes. In the absence of unequivocal hyperglycemia, results should be confirmed by repeat testing. The classification and Diagnosis of Diabetes Diabetes Care 2021; 46: S19-S40. Current interpretive data was last revised 2022. Calcium 8.7 8.5 - 10.3 mg/dL [facility] Blood 06/12/2024 6:07 AM BEEKEEPER 06/12/2024 6:22 AM BEEKEEPER David Garza MD LAB BLOOD ORDERABLES Final Resul t Performing Organization Address [facility] Co de Phone Number [facility] [address] Department [place] [address] * POCT glucose (06/12/2024 5:52 AM BEEKEEPER) Glucose, POC 126 70 - 199 mg/dL Comment: For Glucose values <35 mg/dl when Hematocrit is >60 mg/dl,the test may not accurately detect significant hypoglycemia,and testing in the Laboratory should be considered if clinically indicated. Blood 06/12/2024 5:52 AM BEEKEEPER 06/12/2024 5:52 AM BEEKEEPER David Garza MD LAB POCT ORDERABLES - DEVICE Fin al Result Performing Organization Address City/[facility] Co de Phone Number [facility] [address] [place] [address] * POCT glucose (2024 8:40 PM BEEKEEPER) Glucose, POC 180 70 - 199 mg/dL Comment: For Glucose values <35 mg/dl when Hematocrit is >60 mg/dl,the test may not accurately detect significant hypoglycemia,and testing in the Laboratory should be considered if clinically indicated. Blood 2024 8:40 PM BEEKEEPER 2024 8:40 PM BEEKEEPER David Garza MD LAB POCT ORDERABLES - DEVICE Fin al Result Performing Organization Address [facility] Co de Phone Number [facility] [address] [place] [address] * POCT glucose (2024 4:22 PM BEEKEEPER) [facility] Glucose, POC 177 70 - 199 mg/dL Comment: For Glucose values <35 mg/dl when Hematocrit is >60 mg/dl,the test may not accurately detect significant hypoglycemia,and testing in the Laboratory should be considered if clinically indicated. Blood 2024 4:22 PM BEEKEEPER 2024 4:22 PM BEEKEEPER David Garza MD LAB POCT ORDERABLES - DEVICE Fin al Result Performing Organization Address [facility] Co de Phone Number [facility] [address] Department [place] [address] * TRANSTHORACIC ECHO (TTE) COMPLETE W DOPPLER/CF WO CONTRAST (2024 1:09 PM BEEKEEPER) [facility] LV EF 55-65 % CONS SCIMAGE Anatomical Region Laterality Modality Ultrasound 2024 7:44 AM BEEKEEPER Narrative 2024 3:59 PM BEEKEEPER [place] [address] [place] [address] ECHOCARDIOGRAM Patient Name: KATERYNA MOYER : 1970 (54y ) Gender: F Study Date: 2024 07:44:00 AM Ht(Inch): 67 Wt(Lb): 134.04 BSA: 1.7 Watch Supervisor: Location: [id number] Order Provider: KALI MOSES BMI: 20.99 BP: 116/66 Ref Provider: KALI MOSES - PROCEDURES: Echocardiographic Report: Transthoracic Echocardiogram with complete 2D, M-Mode, Spectral and Color Flow Doppler examination. INDICATIONS: Bacteremia. MEASUREMENTS: 2D/MM Value Range Doppler Value Range IVSd 2D 1.01 cm [ 0.60 - 0.90 ] AV Peak Spencer 2 m/s [ 1 - 2 ] LVIDd 2D 4.21 cm [ 3.80 - 5.20 ] AV Peak PG 9 mmHg LVIDs 2D 2.48 cm [ 2.20 - 3.50 ] AV Mean PG 5 mmHg LVPWd 2D 0.91 cm [ 0.60 - 0.90 ] AV VTI 35.1 cm Estimated EF 55-65 % ANNETTE V max 2.0 cm2 LA Dimension 2D 3.20 cm [ 2.70 - 3.80 ] ANNETTE VTI 2.1 cm2 AoR Diam 2D 2.97 cm [ 2.70 - 3.70 ] LVOT Peak Spencer 0.87 m/s [ 0.70 - 1.10 ] AoR Diam 2D Index 1.75 LVOT Diam 2.1 cm RA Volume 23.00 ml LVOT Peak PG 3 mmHg LA Volume Index 19.31 ml/m2 [ 16.00 - 34.00 ] LVOT VTI 20.4 cm TAPSE 2.12 cm [ 1.71 - 5.00 ] MV Peak PG 5 mmHg MV Mean PG 1 mmHg MV E Peak Spencer 1.1 m/s [ 0.6 - 1.3 ] MV A Peak Spencer 0.6 m/s [ 1.0 - 1.2 ] MV PHT 44.2 ms [ 20.0 - 100.0 ] MV Decel Time 138.8 ms [ 104.0 - 258.0 ] MVA PHT 5.0 ms MV E/A Ratio 1.8 TR Peak Spencer 2.6 m/s [ 1.0 - 2.8 ] TR Peak PG 27 mmHg RVSP 30.1 mmHg [ 10.0 - 36.0 ] RA Pressure 3.0 mmHg PV Peak Spencer 0.6 m/s [ 0.4 - 0.8 ] PV Peak PG 2 mmHg Lat E` Spencer 0.15 m/s [ 0.10 - 0.15 ] Sept E' Spencer 0.12 m/s [ 0.08 - 0.15 ] E/E` 7.33 RV S' 0.11 m/s 2D/MM Value Range Doppler Value Range - FINDINGS: BP: Blood pressure: 116/66 mmHg. Left Ventricle: Normal global and regional left ventricular systolic function. Ejection Fraction is estimated at 55-65 %. Normal left ventricular diastolic function. Normal left ventricular cavity size. LV wall thickness is within normal limits. Right Ventricle: Normal right ventricular systolic function. Normal right ventricular size. Left Atrium: The left atrium is normal in size. Right Atrium: The right atrium is normal in size. Atrial Septum: Normal appearing atrial septum. Mitral Valve: Normal appearance of the mitral valve leaflets. Mitral stenosis is absent. There is no mitral regurgitation. Aortic Valve: Normal appearance of the aortic valve. There is no aortic stenosis. There is no aortic regurgitation. Tricuspid Valve: Normal appearance of the tricuspid leaflets. There is no tricuspid regurgitation. TR envelope inadequate to estimate RVSP. Pulmonic Valve: Normal appearance and function of the pulmonic valve. Pericardium: Normal appearing pericardial thickness. No significant pericardial effusion. Aortic Root and Aorta: Normal caliber aortic root. Aortic Arch: Normal caliber aortic arch. IVC: Normal appearance of the inferior vena cava. CONCLUSIONS: 1. Normal 2D/Doppler-echocardiographic study with normal left ventricular function and no significant valvular abnormalities. 2. There are no intracardiac masses or thrombi identified. Electronically Signed By: Petey Hylton MD [facility] 2024 3:59:21 PM BEEKEEPER Procedure Note Petey Hylton MD - 2024 [facility] [address] [place] [address] ECHOCARDIOGRAM Patient Name: KATERYNA MOYER : 1970 (54y ) Gender: F Study Date: 2024 07:44:00 AM Ht(Inch): 67 Wt(Lb): 134.04 BSA: 1.7 Watch Supervisor: BRYAN Location: [id number] Order Provider: KALI MOSES BMI: 20.99 BP: 116/66 Ref Provider: KALI MOSES - PROCEDURES: Echocardiographic Report: Transthoracic Echocardiogram with complete 2D,M-Mode, Spectral and Color Flow Doppler examination. INDICATIONS: Bacteremia. MEASUREMENTS: 2D/MM Value Range DopplerValue Range IVSd 2D 1.01 cm [ 0.60 - 0.90 ] AV Peak Vel2 m/s [ 1 - 2 ] LVIDd 2D 4.21 cm [ 3.80 - 5.20 ] AV Peak PG9 mmHg LVIDs 2D 2.48 cm [ 2.20 - 3.50 ] AV Mean PG5 mmHg LVPWd 2D 0.91 cm [ 0.60 - 0.90 ] AV VTI35.1 cm Estimated EF 55-65 % ANNETTE V max2.0 cm2 LA Dimension 2D 3.20 cm [ 2.70 - 3.80 ] ANNETTE VTI2.1 cm2 AoR Diam 2D 2.97 cm [ 2.70 - 3.70 ] LVOT Peak Vel0.87 m/s [ 0.70 - 1.10 ] AoR Diam 2D Index 1.75 LVOT Diam2.1 cm RA Volume 23.00 ml LVOT Peak PG3 mmHg LA Volume Index 19.31 ml/m2 [ 16.00 - 34.00 ] LVOT VTI20.4 cm TAPSE 2.12 cm [ 1.71 - 5.00 ] MV Peak PG5 mmHg MV Mean PG 1 mmHg MV E Peak Spencer 1.1 m/s [ 0.6 - 1.3 ] MV A Peak Spencer 0.6 m/s [ 1.0 - 1.2 ] MV PHT 44.2 ms [ 20.0 - 100.0 ] MV Decel Time 138.8 ms [ 104.0 - 258.0 ] MVA PHT 5.0 ms MV E/A Ratio 1.8 TR Peak Spencer 2.6 m/s [ 1.0 - 2.8 ] TR Peak PG 27 mmHg RVSP 30.1 mmHg [ 10.0 - 36.0 ] RA Pressure 3.0 mmHg PV Peak Spencer 0.6 m/s [ 0.4 - 0.8 ] PV Peak PG 2 mmHg Lat E` Spencer 0.15 m/s [ 0.10 - 0.15 ] Sept E' Spencer 0.12 m/s [ 0.08 - 0.15 ] E/E` 7.33 RV S' 0.11 m/s 2D/MM Value Range DopplerValue Range - FINDINGS: BP: Blood pressure: 116/66 mmHg. Left Ventricle: Normal global and regional left ventricular systolicfunction. Ejection Fraction is estimated at 55-65 %. Normal left ventricular diastolicfunction. Normal left ventricular cavity size. LV wall thickness is within normal limits. Right Ventricle: Normal right ventricular systolic function. Normal rightventricular size. Left Atrium: The left atrium is normal in size. Right Atrium: The right atrium is normal in size. Atrial Septum: Normal appearing atrial septum. Mitral Valve: Normal appearance of the mitral valve leaflets. Mitralstenosis is absent. There is no mitral regurgitation. Aortic Valve: Normal appearance of the aortic valve. There is no aorticstenosis. There is no aortic regurgitation. Tricuspid Valve: Normal appearance of the tricuspid leaflets. There is notricuspid regurgitation. TR envelope inadequate to estimate RVSP. Pulmonic Valve: Normal appearance and function of the pulmonic valve. Pericardium: Normal appearing pericardial thickness. No significantpericardial effusion. Aortic Root and Aorta: Normal caliber aortic root. Aortic Arch: Normal caliber aortic arch. IVC: Normal appearance of the inferior vena cava. CONCLUSIONS: 1. Normal 2D/Doppler-echocardiographic study with normal left ventricularfunction and no significant valvular abnormalities. 2. There are no intracardiac masses or thrombi identified. Electronically Signed By: Peety Hylton MD [facility] 2024 3:59:21 PM BEEKEEPER Kali Moses MD CV ECHO PROCEDURES Final Result * (ABNORMAL) Hepatic function panel (2024 1:01 PM BEEKEEPER) Pathologist [facility] Department Bilirubin, total 0.2 0.1 - 1.2 mg/dL Bilirubin, direct <0.2 0.1 - 0.3 mg/dL [facility] Protein, pl 7.2 6.5 - 8.5 g/dL [facility] Albumin 3.4(L) 3.5 - 5.0 g/dL [facility] Alk phos 172(H) 40 - 130 Units/L [facility] ALT 102(H) 7 - 45 Units/L [facility] AST 83(H) 10 - 45 Units/L [facility] Blood 2024 1:01 PM BEEKEEPER 2024 1:48 PM BEEKEEPER us Ayan Lucas SET ILLUSTRATOR LAB BLOOD ORDERABLES Final Resu lt Performing Organization Address [facility] Co de Phone Number [facility] [address] [employer] [place], [place] [id number] * POCT glucose (2024 11:26 AM BEEKEEPER) Pathologist [facility] Glucose, POC 118 70 - 199 mg/dL Comment: For Glucose values <35 mg/dl when Hematocrit is >60 mg/dl,the test may not accurately detect significant hypoglycemia,and testing in the Laboratory should be considered if clinically indicated. Blood 2024 11:2 6 AM BEEKEEPER 2024 11:26 AM BEEKEEPER us David Garza MD LAB POCT ORDERABLES - DEVICE Fin al Result Performing Organization Address [facility]/ZIP Co de Phone Number [facility] [address] [facility] [employer] [place] [address] * POCT glucose (2024 6:17 AM BEEKEEPER) Glucose, POC 118 70 - 199 mg/dL Comment: For Glucose values <35 mg/dl when Hematocrit is >60 mg/dl,the test may not accurately detect significant hypoglycemia,and testing in the Laboratory should be considered if clinically indicated. Blood 2024 6:17 AM BEEKEEPER 2024 6:17 AM BEEKEEPER David Garza MD LAB POCT ORDERABLES - DEVICE Fin al Result Performing Organization Address [facility] Co de Phone Number [facility] [address] [facility] [place] [address] * POCT glucose (06/10/2024 8:43 PM BEEKEEPER) Glucose, POC 153 70 - 199 mg/dL Comment: For Glucose values <35 mg/dl when Hematocrit is >60 mg/dl,the test may not accurately detect significant hypoglycemia,and testing in the Laboratory should be considered if clinically indicated. Blood 06/10/2024 8:43 PM BEEKEEPER 06/10/2024 8:43 PM BEEKEEPER David Garza MD LAB POCT ORDERABLES - DEVICE Fin al Result Performing Organization Address [facility] Co de Phone Number [facility] [address] [facility] [place] [address] * POCT glucose (06/10/2024 4:41 PM BEEKEEPER) Glucose, POC 148 70 - 199 mg/dL Comment: For Glucose values <35 mg/dl when Hematocrit is >60 mg/dl,the test may not accurately detect significant hypoglycemia,and testing in the Laboratory should be considered if clinically indicated. Blood 06/10/2024 4:41 PM BEEKEEPER 06/10/2024 4:41 PM BEEKEEPER David Garza MD LAB POCT ORDERABLES - DEVICE Fin al Result Performing Organization Address [facility] Co de Phone Number [facility] [address] [facility] [place] [address] * Blood culture Blood (06/10/2024 12:01 PM BEEKEEPER) Report Final Report: No growth Blood 06/10/2024 12:0 1 PM BEEKEEPER 06/10/2024 12:17 PM BEEKEEPER Narrative [facility] - 06/15/2024 1:00 PM BEEKEEPER From a different site than #1. Collection->Peripheral Interpretive Data 1. Blood cultures are incubated and monitored continuously for 5 days (120 hours). The first negative report is issued within 24 hours of receipt in the laboratory. 2. All positive cultures are resulted and called to physicians/care providers as soon as they are detected. 3. A rapid molecular test for organism identification may be performed using the [employer] Blood Culture Identification panel. This assay detects microbial DNA in a blood culture broth. This assay has been cleared by the [place] Food and Drug Administration and its performance characteristics have been verified by the [facility]. Interpretive data was last revised on June 19, 2022. David Garza MD LAB MICROBIOLOGY - GENERAL ORDER BIENVENIDO Final Result [facility] [address] Department [place] [address] * Blood culture Blood (06/10/2024 12:01 PM BEEKEEPER) Report Final Report: No growth Blood 06/10/2024 12:0 1 PM BEEKEEPER 06/10/2024 12:17 PM BEEKEEPER Narrative [facility] - 06/15/2024 1:00 PM BEEKEEPER Collection->Peripheral Interpretive Data 1. Blood cultures are incubated and monitored continuously for 5 days (120 hours). The first negative report is issued within 24 hours of receipt in the laboratory. 2. All positive cultures are resulted and called to physicians/care providers as soon as they are detected. 3. A rapid molecular test for organism identification may be performed using the [employer] Blood Culture Identification panel. This assay detects microbial DNA in a blood culture broth. This assay has been cleared by the [place] Food and Drug Administration and its performance characteristics have been verified by the [facility]. Interpretive data was last revised on June 19, 2022. David Garza MD LAB MICROBIOLOGY - GENERAL ORDER BIENVENIDO Final Result [facility] [address] Department [place] [address] * POCT glucose (06/10/2024 11:29 AM BEEKEEPER) Pathologist [facility] Glucose, POC 178 70 - 199 mg/dL Comment: For Glucose values <35 mg/dl when Hematocrit is >60 mg/dl,the test may not accurately detect significant hypoglycemia,and testing in the Laboratory should be considered if clinically indicated. Blood 06/10/2024 11:2 9 AM BEEKEEPER 06/10/2024 11:29 AM BEEKEEPER David Garza MD LAB POCT ORDERABLES - DEVICE Fin al Result Performing Organization Address City/[facility]/ZIP Co de Phone Number [facility] [address] Department [place] [address] * eGFR (06/10/2024 5:39 AM BEEKEEPER) [facility] eGFR >90 >=60 mL/min/1. 73 m2 Comment: Interpretive Data Reference Interval Normal >/= 90 mL/min/1.73m2 Mildly decreased* 60 - 89 mL/min/1.73m2 Mildly to moderately decreased 45 - 59 mL/min/1.73m2 Moderately to severely decreased 30 - 44 mL/min/1.73m2 Severely decreased 15 - 29 mL/min/1.73m2 Kidney Failure < 15 mL/min/1.73m2 *Relative to young adult level Estimated glomerular filtration rate is determined by the 2020 CKD-EPI equation recommended by the National Kidney Foundation (A Unifying Approach to GFR Estimation: Recommendations of the NKF-ASK Task Force on Reassessing the Inclusion of Race in Diagnosing Kidney Disease, JASN 2020). The CKD-EPI equation should not be used for patients with unstable renal function and has not been validated in children and those over 70. Current interpretive data was last reviewed 2021. Blood 06/10/2024 5:39 AM BEEKEEPER 06/10/2024 6:22 AM BEEKEEPER Anita Sung SET ILLUSTRATOR LAB BLOOD ORDERABLES Final Re sult Performing Organization Address [facility]/ZIP Co de Phone Number [facility] [address] Department [place] [address] * (ABNORMAL) Basic metabolic panel (06/10/2024 5:39 AM BEEKEEPER) [facility] Sodium 139 135 - 145 mmol/L Potassium, pl 4.0 3.3 - 4.9 mmol/L [facility] Chloride 105 97 - 110 mmol/L [facility] CO2 28 22 - 32 mmol/L [facility] Anion gap 6 2 - 15 mmol/L [facility] BUN 9 6 - 25 mg/dL [facility] Creatinine 0.59(L) 0.60 - 1.10 mg/dL [facility] Glucose 115 70 - 199 mg/dL [facility] Comment: Interpretive Data Fasting glucose >/= 126 mg/dl is diagnostic for diabetes. Fasting is defined as no caloric intake for at least 8 hours. Fasting glucose between 100 mg/dl to 125 mg/dl is diagnostic of prediabetes. In a patient with classic symptoms of hyperglycemia or hyperglycemic crisis, a random glucose >/= 200 mg/dl is diagnostic for diabetes. In the absence of unequivocal hyperglycemia, results should be confirmed by repeat testing. The classification and Diagnosis of Diabetes Diabetes Care 2021; 46: S19-S40. Current interpretive data was last revised 2022. Calcium 8.3(L) 8.5 - 10.3 mg/dL [facility] Blood 06/10/2024 5:39 AM BEEKEEPER 06/10/2024 6:22 AM BEEKEEPER us Anita Sung SET ILLUSTRATOR LAB BLOOD ORDERABLES Final Re sult Performing Organization Address [facility]/ZIP Co de Phone Number [facility] [address] [place] [address] * POCT glucose (06/09/2024 9:22 PM BEEKEEPER) Glucose, POC 152 70 - 199 mg/dL Comment: For Glucose values <35 mg/dl when Hematocrit is >60 mg/dl,the test may not accurately detect significant hypoglycemia,and testing in the Laboratory should be considered if clinically indicated. Blood 06/09/2024 9:22 PM BEEKEEPER 06/09/2024 9:22 PM BEEKEEPER David Garza MD LAB POCT ORDERABLES - DEVICE Fin al Result Performing Organization Address [facility] de Phone Number [facility] [address] [facility] [place] [address] * POCT glucose (06/09/2024 6:22 PM BEEKEEPER) Glucose, POC 133 70 - 199 mg/dL Comment: For Glucose values <35 mg/dl when Hematocrit is >60 mg/dl,the test may not accurately detect significant hypoglycemia,and testing in the Laboratory should be considered if clinically indicated. Blood 06/09/2024 6:22 PM BEEKEEPER 06/09/2024 6:22 PM BEEKEEPER David Garza MD LAB POCT ORDERABLES - DEVICE Fin al Result Performing Organization Address [facility] de Phone Number [facility] [address] [place] [address] * (ABNORMAL) POCT glucose (06/09/2024 2:12 PM BEEKEEPER) Glucose, POC 271(H) 70 - 199 mg/dL Comment: For Glucose values <35 mg/dl when Hematocrit is >60 mg/dl,the test may not accurately detect significant hypoglycemia,and testing in the Laboratory should be considered if clinically indicated. Blood 06/09/2024 2:12 PM BEEKEEPER 06/09/2024 2:12 PM BEEKEEPER David Garza MD LAB POCT ORDERABLES - DEVICE Fin al Result Performing Organization Address [facility] de Phone Number [facility] [address] Department [place], [place] [id number] * Vancomycin level trough Obtain level at 1400 on 06/09. (06/09/2024 2:00 PM BEEKEEPER) Vancomycin trough 10.9 10.0 - 20.0 mcg/mL Blood 06/09/2024 2:00 PM BEEKEEPER 06/09/2024 2:36 PM BEEKEEPER Narrative [facility] - 06/09/2024 3:56 PM BEEKEEPER Obtain level at 1400 on 06/09. us Anita Sung NP LAB BLOOD ORDERABLES Final Re sult Performing Organization Address [facility] de Phone Number [facility] [address] [place] [address] * POCT glucose (06/09/2024 7:53 AM BEEKEEPER) Glucose, POC 156 70 - 199 mg/dL Comment: For Glucose values <35 mg/dl when Hematocrit is >60 mg/dl,the test may not accurately detect significant hypoglycemia,and testing in the Laboratory should be considered if clinically indicated. Blood 06/09/2024 7:53 AM BEEKEEPER 06/09/2024 7:53 AM BEEKEEPER David Garza MD LAB POCT ORDERABLES - DEVICE Fin al Result Performing Organization Address [facility] Co de Phone Number [facility] [address] [place] [address] * (ABNORMAL) POCT glucose (06/09/2024 4:13 AM BEEKEEPER) Glucose, POC 305(H) 70 - 199 mg/dL Comment: For Glucose values <35 mg/dl when Hematocrit is >60 mg/dl,the test may not accurately detect significant hypoglycemia,and testing in the Laboratory should be considered if clinically indicated. Blood 06/09/2024 4:13 AM BEEKEEPER 06/09/2024 4:13 AM BEEKEEPER David Garza MD LAB POCT ORDERABLES - DEVICE Fin al Result Performing Organization Address [facility] de Phone Number [facility] [address] [place] [address] * (ABNORMAL) POCT glucose (06/09/2024 2:03 AM BEEKEEPER) Glucose, POC 274(H) 70 - 199 mg/dL Comment: For Glucose values <35 mg/dl when Hematocrit is >60 mg/dl,the test may not accurately detect significant hypoglycemia,and testing in the Laboratory should be considered if clinically indicated. Blood 06/09/2024 2:03 AM BEEKEEPER 06/09/2024 2:03 AM BEEKEEPER David Garza MD LAB POCT ORDERABLES - DEVICE Fin al Result Performing Organization Address [facility] de Phone Number [facility] [address] [place] [address] * (ABNORMAL) POCT glucose (06/08/2024 11:36 PM BEEKEEPER) Glucose, POC 349(H) 70 - 199 mg/dL Comment: For Glucose values <35 mg/dl when Hematocrit is >60 mg/dl,the test may not accurately detect significant hypoglycemia,and testing in the Laboratory should be considered if clinically indicated. Blood 06/08/2024 11:3 6 PM BEEKEEPER 06/08/2024 11:36 PM BEEKEEPER David Garza MD LAB POCT ORDERABLES - DEVICE Fin al Result Performing Organization Address [facility] de Phone Number [facility] [address] [place] [address] * (ABNORMAL) POCT glucose (06/08/2024 7:46 PM BEEKEEPER) Glucose, POC 250(H) 70 - 199 mg/dL Comment: For Glucose values <35 mg/dl when Hematocrit is >60 mg/dl,the test may not accurately detect significant hypoglycemia,and testing in the Laboratory should be considered if clinically indicated. Blood 06/08/2024 7:46 PM BEEKEEPER 06/08/2024 7:46 PM BEEKEEPER David Garza MD LAB POCT ORDERABLES - DEVICE Fin al Result Performing Organization Address [facility] Co de Phone Number [facility] [address] Department [place] [address] * POCT glucose (06/08/2024 4:34 PM BEEKEEPER) Glucose, POC 91 70 - 199 mg/dL Comment: For Glucose values <35 mg/dl when Hematocrit is >60 mg/dl,the test may not accurately detect significant hypoglycemia,and testing in the Laboratory should be considered if clinically indicated. Blood 06/08/2024 4:34 PM BEEKEEPER 06/08/2024 4:34 PM BEEKEEPER David Garza MD LAB POCT ORDERABLES - DEVICE Fin al Result Performing Organization Address [facility] Co de Phone Number [facility] [address] Department [place] [address] * Mycology (fungal) culture Wound Back, lower (06/08/2024 4:30 PM BEEKEEPER) Report Final Report: No fungus isolated Wound (Back, lower) 06/08/2024 4:30 PM BEEKEEPER 06/08/2024 5:09 PM BEEKEEPER Narrative [facility] - 07/07/2024 1:00 PM BEEKEEPER Deep 1 Mycology cultures are held for 4 weeks. Darío Ceron MD LAB MICROBIOLOGY - GENERA L ORDERABLES Final Result Performing Organization Address [facility] Co de Phone Number [facility] [address] [facility] [place] [address] * Mycology (fungal) culture Wound Back, lower (06/08/2024 4:30 PM BEEKEEPER) Report Final Report: No fungus isolated Wound (Back, lower) 06/08/2024 4:30 PM BEEKEEPER 06/08/2024 5:09 PM BEEKEEPER Narrative [facility] - 07/07/2024 1:00 PM BEEKEEPER Superficial 1 Mycology cultures are held for 4 weeks. Darío Ceron MD LAB MICROBIOLOGY - GENERA L ORDERABLES Final Result Performing Organization Address City/[facility]/ZIP Co de Phone Number [facility] [address] [place] [address] * (ABNORMAL) Aerobic and anaerobic culture and gram stain Wound Back, lower (06/08/2024 4:30 PM BEEKEEPER) Direct Specimen Exam Stain: Rare polymorphonuclear leukocytes seen. No organisms seen. Report Final Report: Heavy growth of: Staphylococcus aureus, methicillin susceptible (.) [facility] Organism STAPHYLOCOCCUS AUREUS, METHICILLIN SUSCEPTIBLE [facility] Wound (Back, lower) 06/08/2024 4:30 PM BEEKEEPER 06/08/2024 5:09 PM BEEKEEPER Narrative [facility] - 2024 7:55 AM BEEKEEPER Deep 1 Organism Antibiotic Method Susceptibility Staphylococcus aureus, methicillin susceptible Cefazolin (JAMES) INTERPRETATION Susceptible Staphylococcus aureus, methicillin susceptible Clindamycin (JAMES) INTERPRETATION Resistant Staphylococcus aureus, methicillin susceptible Erythromycin (JAMES) INTERPRETATION Resistant Staphylococcus aureus, methicillin susceptible Oxacillin (JAMES) INTERPRETATION Susceptible Staphylococcus aureus, methicillin susceptible Tetracycline (JAMES) INTERPRETATION Susceptible Staphylococcus aureus, methicillin susceptible Trimethoprim with Sulfamethoxazole (JAMES) INTERPRETATION Susceptible Staphylococcus aureus, methicillin susceptible Vancomycin (JAMES) INTERPRETATION <=0.5 mcg/mL: Susceptible Darío Ceron MD LAB MICROBIOLOGY - GENERA L ORDERABLES Final Result Performing Organization Address City/[facility]/ZIP Co de Phone Number [facility] [address] [address] * (ABNORMAL) Aerobic and anaerobic culture and gram stain Wound Back, lower (06/08/2024 4:30 PM BEEKEEPER) Direct Specimen Exam Stain: Rare polymorphonuclear leukocytes seen. No organisms seen. Report Final Report: Heavy growth of: Staphylococcus aureus, methicillin susceptible Susceptibility reported on this organism on previous culture [id number] (.) [facility] Organism STAPHYLOCOCCUS AUREUS, METHICILLIN SUSCEPTIBLE [facility] Wound (Back, lower) 06/08/2024 4:30 PM BEEKEEPER 06/08/2024 5:09 PM BEEKEEPER Narrative [facility] - 2024 7:56 AM BEEKEEPER Superficial 1 us Darío Ceron MD LAB MICROBIOLOGY - GENERA L ORDERABLES Final Result [facility] [address] Department [place] [address] * AL AN ELECTIVE ENDOTRACHEAL AIRWAY, AL AN PROCEDURE PLACEHOLDER (06/08/2024 3:17 PM BEEKEEPER) Narrative Jasmyn Ramos CRNA - 06/08/2024 3:17 PM BEEKEEPER Jasmyn Ramos CRNA 06/08/2024 3:17 PM Airway Patient location: OR Urgency: elective Indications for airway management: anesthesia Difficult airway: no Staff: Placed by: MANAGER DOCUMENT CONTROL: Jasmyn Ramos CRNA Airway prep: Preoxygenated: yes Patient position: sniffing Mask difficulty assessment: 1 - vent by mask Sedation level during airway: GA Final airway details: Final airway type: endotracheal airway Tube type: ETT ETT size: 7.0 mm Cuffed: yes Technique used for successful ETT placement: direct laryngoscopy Devices/Methods used in placement: stylet Insertion site: oral Blade type: Garrido Blade size: 2 Cormack-Lehane (direct): grade I - full view of glottis Cuff volume: 5 mL Cuff inflated with: air ETT to lips: 21 cm Placement verified by: auscultation and CO2 detection Airway secured with: silk tape Number of attempts: 1 us Jah Bowman MD ANESTHESIA ORDERABLES Final Res ult * POCT glucose (06/08/2024 1:33 PM BEEKEEPER) Glucose, POC 124 70 - 199 mg/dL Comment: For Glucose values <35 mg/dl when Hematocrit is >60 mg/dl,the test may not accurately detect significant hypoglycemia,and testing in the Laboratory should be considered if clinically indicated. Blood 06/08/2024 1:33 PM BEEKEEPER 06/08/2024 1:33 PM BEEKEEPER David Garza MD LAB POCT ORDERABLES - DEVICE Fin al Result Performing Organization Address [facility] Co de Phone Number [facility] [address] [facility] [place] [address] * POCT glucose (06/08/2024 12:35 PM BEEKEEPER) Glucose, POC 84 70 - 199 mg/dL Comment: For Glucose values <35 mg/dl when Hematocrit is >60 mg/dl,the test may not accurately detect significant hypoglycemia,and testing in the Laboratory should be considered if clinically indicated. Blood 06/08/2024 12:3 5 PM BEEKEEPER 06/08/2024 12:35 PM BEEKEEPER David Garza MD LAB POCT ORDERABLES - DEVICE Fin al Result Performing Organization Address [facility] Co de Phone Number [facility] [address] [place] [address] * POCT glucose (06/08/2024 8:39 AM BEEKEEPER) Glucose, POC 105 70 - 199 mg/dL Comment: For Glucose values <35 mg/dl when Hematocrit is >60 mg/dl,the test may not accurately detect significant hypoglycemia,and testing in the Laboratory should be considered if clinically indicated. Blood 06/08/2024 8:39 AM BEEKEEPER 06/08/2024 8:39 AM BEEKEEPER David Garza MD LAB POCT ORDERABLES - DEVICE Fin al Result Performing Organization Address [facility] Co de Phone Number [facility] [address] Department [place] [address] * eGFR (06/08/2024 6:21 AM BEEKEEPER) eGFR 82 >=60 mL/min/1. 73 m2 Comment: Interpretive Data Reference Interval Normal >/= 90 mL/min/1.73m2 Mildly decreased* 60 - 89 mL/min/1.73m2 Mildly to moderately decreased 45 - 59 mL/min/1.73m2 Moderately to severely decreased 30 - 44 mL/min/1.73m2 Severely decreased 15 - 29 mL/min/1.73m2 Kidney Failure < 15 mL/min/1.73m2 *Relative to young adult level Estimated glomerular filtration rate is determined by the 2020 CKD-EPI equation recommended by the National Kidney Foundation (A Unifying Approach to GFR Estimation: Recommendations of the NKF-ASK Task Force on Reassessing the Inclusion of Race in Diagnosing Kidney Disease, JASN 2020). The CKD-EPI equation should not be used for patients with unstable renal function and has not been validated in children and those over 70. Current interpretive data was last reviewed 2021. Blood 06/08/2024 6:21 AM BEEKEEPER 06/08/2024 6:27 AM BEEKEEPER us Abram Mcnair MD LAB BLOOD ORDERABLES Final Resul t Performing Organization Address [facility]/ZIP Co de Phone Number [facility] [address] Department [place] [address] * (ABNORMAL) CBC without differential (06/08/2024 6:21 AM BEEKEEPER) WBC 12.3(H) 3.8 - 9.9 K/cumm Hgb 12.5 11.9 - 15.5 g/dL [facility] Hct 37.9 35.6 - 45.5 % [facility] Plt 289 150 - 400 K/cumm [facility] MPV 8.9(L) 9.1 - 12.3 fL [facility] RBC 3.98 3.90 - 5.20 M/cumm [facility] MCV 95.2 81.3 - 96.4 fL [facility] MCH 31.4 27.1 - 33.3 pg [facility] MCHC 33.0 32.3 - 35.7 g/dL [facility] RDW CV 13.0 11.1 - 14.9 % [facility] RDW SD 45.7 35.7 - 48.1 fL [facility] NRBC abs 0.00 0.00 - 0.01 K/cumm [facility] Blood 06/08/2024 6:21 AM BEEKEEPER 06/08/2024 6:27 AM BEEKEEPER us Abram Mcnair MD LAB BLOOD ORDERABLES Final Resul t Performing Organization Address [facility] Co de Phone Number [facility] [address] [facility] [place] [address] * Phosphorus (06/08/2024 6:21 AM BEEKEEPER) Phosphorus, pl 3.6 2.3 - 4.5 mg/dL Blood 06/08/2024 6:21 AM BEEKEEPER 06/08/2024 6:27 AM BEEKEEPER us Abram Mcnair MD LAB BLOOD ORDERABLES Final Resul t Performing Organization Address City/[facility] Co de Phone Number [facility] [address] [place] [address] * Magnesium (06/08/2024 6:21 AM BEEKEEPER) Magnesium 2.0 1.4 - 2.5 mg/dL Blood 06/08/2024 6:21 AM BEEKEEPER 06/08/2024 6:27 AM BEEKEEPER us Abram Mcnair MD LAB BLOOD ORDERABLES Final Resul t Performing Organization Address City/[facility] Co de Phone Number [facility] [address] Department [place] [address] * Basic metabolic panel (06/08/2024 6:21 AM BEEKEEPER) Sodium 136 135 - 145 mmol/L Potassium, pl 4.0 3.3 - 4.9 mmol/L [facility] Chloride 101 97 - 110 mmol/L [facility] CO2 27 22 - 32 mmol/L [facility] Anion gap 8 2 - 15 mmol/L [facility] BUN 12 6 - 25 mg/dL [facility] Creatinine 0.85 0.60 - 1.10 mg/dL [facility] Glucose 138 70 - 199 mg/dL [facility] Comment: Interpretive Data Fasting glucose >/= 126 mg/dl is diagnostic for diabetes. Fasting is defined as no caloric intake for at least 8 hours. Fasting glucose between 100 mg/dl to 125 mg/dl is diagnostic of prediabetes. In a patient with classic symptoms of hyperglycemia or hyperglycemic crisis, a random glucose >/= 200 mg/dl is diagnostic for diabetes. In the absence of unequivocal hyperglycemia, results should be confirmed by repeat testing. The classification and Diagnosis of Diabetes Diabetes Care 202; 46: S19-S40. Current interpretive data was last revised 2022. Calcium 8.8 8.5 - 10.3 mg/dL [facility] Blood 06/08/2024 6:21 AM BEEKEEPER 06/08/2024 6:27 AM BEEKEEPER Abram Mcnair MD LAB BLOOD ORDERABLES Final Resul t [facility] [address] Department [place] [address] * POCT glucose (06/08/2024 4:21 AM BEEKEEPER) Glucose, POC 116 70 - 199 mg/dL Comment: For Glucose values <35 mg/dl when Hematocrit is >60 mg/dl,the test may not accurately detect significant hypoglycemia,and testing in the Laboratory should be considered if clinically indicated. Blood 06/08/2024 4:21 AM BEEKEEPER 06/08/2024 4:21 AM BEEKEEPER Abram Mcnair MD LAB POCT ORDERABLES - DEVICE Fin al Result Performing Organization Address [facility] de Phone Number [facility] [address] [place] [address] * Blood culture Blood Peripheral (06/08/2024 12:42 AM BEEKEEPER) Report Final Report: No growth Blood (Peripheral) 06/08/2024 12:42 AM BEEKEEPER 06/08/2024 12:50 AM BEEKEEPER Narrative [facility] - 06/13/2024 7:01 AM BEEKEEPER From a different site than #1. Draw Blood cultures before administration of Antibiotics Collection->Peripheral Interpretive Data 1. Blood cultures are incubated and monitored continuously for 5 days (120 hours). The first negative report is issued within 24 hours of receipt in the laboratory. 2. All positive cultures are resulted and called to physicians/care providers as soon as they are detected. 3. A rapid molecular test for organism identification may be performed using the [employer] Blood Culture Identification panel. This assay detects microbial DNA in a blood culture broth. This assay has been cleared by the [place] Food and Drug Administration and its performance characteristics have been verified by the [facility]. Interpretive data was last revised on June 19, 2022. Anita Sung NP LAB MICROBIOLOGY - GENERAL OR DERABLES Final Result Performing Organization Address [facility] de Phone Number [facility] [address] [place] [address] * POCT glucose (06/08/2024 12:38 AM BEEKEEPER) Glucose, POC 121 70 - 199 mg/dL Comment: For Glucose values <35 mg/dl when Hematocrit is >60 mg/dl,the test may not accurately detect significant hypoglycemia,and testing in the Laboratory should be considered if clinically indicated. Blood 06/08/2024 12:3 8 AM BEEKEEPER 06/08/2024 12:38 AM BEEKEEPER us Notinfile Unknown LAB POCT ORDERABLES - DEVICE F inal Result [facility] [address] Department [place] [address] * (ABNORMAL) Blood culture Blood Peripheral (06/08/2024 12:30 AM BEEKEEPER) Direct Specimen Exam Molecular Analysis: Staphylococcus aureus, methicillin-suscep tible (MSSA) detected by the [employer] Blood Culture Identification Panel. This test does not exclude the possibility of a mixed bacterial infection. Please consider this result in the context of clinical findings and evaluate the possibility of antimicrobial de-escalation. Test result called to and read back by CARMEN RONQUILLO RN on 06/10/2024 05:31:07 by [id number] Direct Specimen Exam Stain: Gram Positive Cocci in clusters [facility] Report Final Report: Staphylococcus aureus, methicillin susceptible (.) [facility] Organism STAPHYLOCOCCUS AUREUS, METHICILLIN SUSCEPTIBLE [facility] Blood (Peripheral) 06/08/2024 12:30 AM BEEKEEPER 06/08/2024 12:50 AM BEEKEEPER Narrative [facility] - 06/12/2024 7:20 AM BEEKEEPER Draw Blood cultures before administration of Antibiotics Collection->Peripheral Interpretive Data 1. Blood cultures are incubated and monitored continuously for 5 days (120 hours). The first negative report is issued within 24 hours of receipt in the laboratory. 2. All positive cultures are resulted and called to physicians/care providers as soon as they are detected. 3. A rapid molecular test for organism identification may be performed using the x.aiArray Blood Culture Identification panel. This assay detects microbial DNA in a blood culture broth. This assay has been cleared by the [place] Food and Drug Administration and its performance characteristics have been verified by the [facility]. Interpretive data was last revised on June 19, 2022. Organism Antibiotic Method Susceptibility Staphylococcus aureus, methicillin susceptible Cefazolin (JAMES) INTERPRETATION Susceptible Staphylococcus aureus, methicillin susceptible Clindamycin (JAMES) INTERPRETATION Resistant Staphylococcus aureus, methicillin susceptible Erythromycin (JAMES) INTERPRETATION Resistant Staphylococcus aureus, methicillin susceptible Oxacillin (JAMES) INTERPRETATION Susceptible Staphylococcus aureus, methicillin susceptible Tetracycline (JAMES) INTERPRETATION Susceptible Staphylococcus aureus, methicillin susceptible Trimethoprim with Sulfamethoxazole (JAMES) INTERPRETATION Susceptible Staphylococcus aureus, methicillin susceptible Vancomycin (JAMES) INTERPRETATION <=0.5 mcg/mL: Susceptible Anita Sung SET ILLUSTRATOR LAB MICROBIOLOGY - GENERAL OR DERABLES Final Result [facility] [address] Department [place] [address] * MRI Lumbar Spine W WO Contrast (06/07/2024 11:30 PM BEEKEEPER) Anatomical Region Laterality Modality Spine N/A Magnetic Resonan ce 06/07/2024 10:3 6 PM BEEKEEPER Impressions 06/08/2024 8:45 AM BEEKEEPER 1. Changes of prior L3-L5 posterior decompression with instrumented fusion and interbody spacers. Paraspinal subcutaneous thick walled peripherally enhancing fluid collection extending from L3 through S1 measuring up to 8.8 cm in maximum diameter. This findings is indeterminate for postoperative fluid collection versus infection. Consider fluid sampling. 2. L3-L5 Heterogeneous enhancement in the paraspinal tissue extending into epidural space, most likely postoperative change given surgery performed within 2 month but imaging unable to determine the sterility. 3. Multilevel lumbar spondylosis without high-grade spinal canal stenosis or neural foraminal stenosis. For the purposes of quality control assessor, this study was initially interpreted by teleradiology. There is no significant discrepancy. Dictated by: Manpreet Knox D.O. The radiology attending physician has personally reviewed this study, and had reviewed and/or edited this written report and agrees with it. Electronically signed by: Jose A Bhagat MD, PHD Narrative 06/08/2024 8:45 AM BEEKEEPER EXAMINATION: Magnetic resonance imaging (MRI) of the lumbar spine without and with contrast HISTORY: 53 years-old Female with Low back pain, cauda equina syndrome suspected Osteomyelitis, lumbar; post op parasthenia concern epineural space abscess discitis, cauda equina. TECHNIQUE: Multiplanar multi-weighted MRI of the lumbar spine was performed without and with intravenous contrast using the standard protocol. Contrast information: 10 mL Gadoterate Meglumine COMPARISON: MRI lumbar spine 02/14/2024. FINDINGS: Metallic susceptibility artifact from patient's hardware limits evaluation within the lower lumbar spine. Changes of prior L3-L5 posterior decompression with posterior instrumented fusion with interbody spacers at these levels. Within the posterior paraspinal subcutaneous tissues extending from the level of L3 inferiorly to the level of S1 is a thick walled T2 hyperintense peripherally enhancing fluid collection measuring approximately 2.9 x 4.0 x 8.8 cm. Inferiorly, this extends to the skin surface at the level of L5. Superiorly, this extends to the level of the L2 spinous process where it extends anteriorly towards the thecal sac without definitive communication. Associated adjacent inflammatory stranding and enhancement. The alignment of the lumbar spine is normal. Possible mild edema at the L3-L4 disc space. No definitive abnormal enhancement at this level. There are no compression fractures. The conus medullaris terminates at the level of L1-L2. The distal spinal cord signal intensity is normal. Mild multilevel degenerative disc dessication and height loss. Limited views of the abdomen and pelvis show no soft tissue abnormality. The aorta is normal. L1-L2: The disc is normal in configuration. There is no facet arthropathy. There is no neuroforaminal stenosis. There is no spinal canal stenosis. L2-L3: The disc is normal in configuration. There is no facet arthropathy. There is no neuroforaminal stenosis. There is no spinal canal stenosis. L3-L4: Discectomy. There is no facet arthropathy. There is mild bilateral neuroforaminal stenosis. There is no spinal canal stenosis. L4-L5: Discectomy. There is no facet arthropathy. There is mild bilateral neuroforaminal stenosis. There is no spinal canal stenosis. L5-S1: Discectomy. There is mild facet arthropathy. There is mild bilateral neuroforaminal stenosis. There is no spinal canal stenosis. Procedure Note Jose A Bhagat MD PhD - 06/08/2024 EXAMINATION: Magnetic resonance imaging (MRI) of the lumbar spine without and with contrast HISTORY: 53 years-old Female with Low back pain, cauda equina syndrome suspected Osteomyelitis, lumbar; post op parasthenia concern epineural space abscess discitis, cauda equina. TECHNIQUE: Multiplanar multi-weighted MRI of the lumbar spine was performed without and with intravenous contrast using the standard protocol. Contrast information: 10 mL Gadoterate Meglumine COMPARISON: MRI lumbar spine 02/14/2024. FINDINGS: Metallic susceptibility artifact from patient's hardware limits evaluation within the lower lumbar spine. Changes of prior L3-L5 posterior decompression with posterior instrumented fusion with interbody spacers at these levels. Within the posterior paraspinal subcutaneous tissues extending from the level of L3 inferiorly to the level of S1 is a thick walled T2 hyperintense peripherally enhancing fluid collection measuring approximately 2.9 x 4.0 x 8.8 cm. Inferiorly, this extends to the skin surface at the level of L5. Superiorly, this extends to the level of the L2 spinous process where it extends anteriorly towards the thecal sac without definitive communication. Associated adjacent inflammatory stranding and enhancement. The alignment of the lumbar spine is normal. Possible mild edema at the L3-L4 disc space. No definitive abnormal enhancement at this level. There are no compression fractures. The conus medullaris terminates at the level of L1-L2. The distal spinal cord signal intensity is normal. Mild multilevel degenerative disc dessication and height loss. Limited views of the abdomen and pelvis show no soft tissue abnormality. The aorta is normal. L1-L2: The disc is normal in configuration. There is no facet arthropathy. There is no neuroforaminal stenosis. There is no spinal canal stenosis. L2-L3: The disc is normal in configuration. There is no facet arthropathy. There is no neuroforaminal stenosis. There is no spinal canal stenosis. L3-L4: Discectomy. There is no facet arthropathy. There is mild bilateral neuroforaminal stenosis. There is no spinal canal stenosis. L4-L5: Discectomy. There is no facet arthropathy. There is mild bilateral neuroforaminal stenosis. There is no spinal canal stenosis. L5-S1: Discectomy. There is mild facet arthropathy. There is mild bilateral neuroforaminal stenosis. There is no spinal canal stenosis. IMPRESSION: 1. Changes of prior L3-L5 posterior decompression with instrumented fusion and interbody spacers. Paraspinal subcutaneous thick walled peripherally enhancing fluid collection extending from L3 through S1 measuring up to 8.8 cm in maximum diameter. This findings is indeterminate for postoperative fluid collection versus infection. Consider fluid sampling. 2. L3-L5 Heterogeneous enhancement in the paraspinal tissue extending into epidural space, most likely postoperative change given surgery performed within 2 month but imaging unable to determine the sterility. 3. Multilevel lumbar spondylosis without high-grade spinal canal stenosis or neural foraminal stenosis. For the purposes of quality control assessor, this study was initially interpreted by teleradiology. There is no significant discrepancy. Dictated by: Manpreet Knox D.O. The radiology attending physician has personally reviewed this study, and had reviewed and/or edited this written report and agrees with it. Electronically signed by: Jose A Bhagat MD, PHD us Anita Sung SET ILLUSTRATOR IMG MRI PROCEDURES Final Resu lt * Urinalysis reflex to microscopic and culture Urine (06/07/2024 9:41 PM BEEKEEPER) Color, ur Yellow Yellow Clarity, ur Clear Clear [facility] Specific gravity, ur 1.012 1.003 - 1.030 [facility] pH, urine 7.0 [facility] Comment: Interpretive Data U rine pH is affected by diet, medications, systemic acid-base disturbances, and renal tubular function. pH may affect urinary stone formation. For example, urine pH below 6.0 may help reduce the tendency for calcium phosphate stones and pH greater than 6.0 may reduce the tendency for uric acid stone formation. Source: [facility] [place] Current Interpretive Data was last revised on 2017 Protein, ur ql Negative Negative [facility] Glucose, ur ql Negative Negative [facility] Ketones, ur Negative Negative [facility] Bilirubin, ur Negative Negative [facility] Blood, ur Negative Negative [facility] Urobilinogen, ur <2.0 <2.0 mg/dL [facility] Nitrite, ur Negative Negative [facility] Leukocyte esterase, ur Negative Negative [facility] UA reflex comment Reflex conditions for microscopic UA and culture not met. [facility] Urine 06/07/2024 9:41 PM BEEKEEPER 06/07/2024 9:41 PM BEEKEEPER us Anita Sung SET ILLUSTRATOR LAB MICROBIOLOGY - GENERAL OR DERABLES Final Result [facility] [address] Department [place] [address] * Sepsis Lactate w/ Reflex (06/07/2024 9:39 PM BEEKEEPER) Pathologist [facility] Sepsis Lactate 1.0 0.7 - 2.0 mmol/L Blood 06/07/2024 9:39 PM BEEKEEPER 06/07/2024 9:44 PM BEEKEEPER Anita Sung SET ILLUSTRATOR LAB BLOOD ORDERABLES Final Re sult Performing Organization Address City/[facility]/ZIP Co de Phone Number [facility] [address] Department of [place], [place] [id number] * eGFR (06/07/2024 9:39 PM BEEKEEPER) [facility] eGFR 69 >=60 mL/min/1. 73 m2 Comment: Interpretive Data Reference Interval Normal >/= 90 mL/min/1.73m2 Mildly decreased* 60 - 89 mL/min/1.73m2 Mildly to moderately decreased 45 - 59 mL/min/1.73m2 Moderately to severely decreased 30 - 44 mL/min/1.73m2 Severely decreased 15 - 29 mL/min/1.73m2 Kidney Failure < 15 mL/min/1.73m2 *Relative to young adult level Estimated glomerular filtration rate is determined by the 2020 CKD-EPI equation recommended by the National Kidney Foundation (A Unifying Approach to GFR Estimation: Recommendations of the NKF-ASK Task Force on Reassessing the Inclusion of Race in Diagnosing Kidney Disease, JASN 2020). The CKD-EPI equation should not be used for patients with unstable renal function and has not been validated in children and those over 70. Current interpretive data was last reviewed 2021. Blood 06/07/2024 9:39 PM BEEKEEPER 06/07/2024 9:46 PM BEEKEEPER us Anita Shen Counts SET ILLUSTRATOR LAB BLOOD ORDERABLES Final Re sult [facility] [address] Department of Laboratories [place], [place] [id number] * (ABNORMAL) Differential, auto (06/07/2024 9:39 PM BEEKEEPER) Neutrophil abs 9.7(H) 1.5 - 6.5 K/cumm Imm gran abs 0.1 0.0 - 0.1 K/cumm [facility] Lymphocyte abs 2.3 0.8 - 3.3 K/cumm [facility] Monocyte abs 0.9(H) 0.2 - 0.8 K/cumm [facility] Eosinophil abs 0.1 0.0 - 0.5 K/cumm [facility] Basophil abs 0.1 0.0 - 0.1 K/cumm [facility] Neutrophil pct 73.9 % [facility] Comment: Interpretive Data Percent cell count reference ranges are not reported, since discordance with absolute values may lead to misinterpretation of CBC data. Current Interpretive Data was last revised on 2017. Imm gran pct 0.4 % [facility] Comment: Interpretive Data Percent cell count reference ranges are not reported, since discordance with absolute values may lead to misinterpretation of CBC data. Current Interpretive Data was last revised on 2017. Lymphocyte pct 17.4 % [facility] Comment: Interpretive Data Percent cell count reference ranges are not reported, since discordance with absolute values may lead to misinterpretation of CBC data. Current Interpretive Data was last revised on 2017. Monocyte pct 6.7 % [facility] Comment: Interpretive Data Percent cell count reference ranges are not reported, since discordance with absolute values may lead to misinterpretation of CBC data. Current Interpretive Data was last revised on 2017. Eosinophil pct 0.9 % [facility] Comment: Interpretive Data Percent cell count reference ranges are not reported, since discordance with absolute values may lead to misinterpretation of CBC data. Current Interpretive Data was last revised on 2017. Basophil pct 0.7 % [facility] Comment: Interpretive Data Percent cell count reference ranges are not reported, since discordance with absolute values may lead to misinterpretation of CBC data. Current Interpretive Data was last revised on 2017. Blood 06/07/2024 9:39 PM BEEKEEPER 06/07/2024 9:46 PM BEEKEEPER us Anita Sung SET ILLUSTRATOR LAB BLOOD ORDERABLES Final Re sult [facility] [address] Department [place] [address] * (ABNORMAL) CBC with auto differential (06/07/2024 9:39 PM BEEKEEPER) Pathologist [facility] WBC 13.1(H) 3.8 - 9.9 K/cumm Hgb 12.8 11.9 - 15.5 g/dL [facility] Hct 38.7 35.6 - 45.5 % [facility] Plt 312 150 - 400 K/cumm [facility] MPV 9.2 9.1 - 12.3 fL [facility] RBC 4.11 3.90 - 5.20 M/cumm [facility] MCV 94.2 81.3 - 96.4 fL [facility] MCH 31.1 27.1 - 33.3 pg [facility] MCHC 33.1 32.3 - 35.7 g/dL [facility] RDW CV 13.1 11.1 - 14.9 % [facility] RDW SD 45.1 35.7 - 48.1 fL [facility] NRBC abs 0.00 0.00 - 0.01 K/cumm [facility] Blood 06/07/2024 9:39 PM BEEKEEPER 06/07/2024 9:46 PM BEEKEEPER us Anita Shen Counts SET ILLUSTRATOR LAB BLOOD ORDERABLES Final Re sult Performing Organization Address [facility] Co de Phone Number [facility] [address] Department [place] [address] * (ABNORMAL) Erythrocyte sedimentation rate (06/07/2024 9:39 PM BEEKEEPER) Pathologist [facility] Erythrocyte sedimentation rate 39(H) 1 - 30 mm/hr Blood 06/07/2024 9:39 PM BEEKEEPER 06/07/2024 9:46 PM BEEKEEPER us Anita Shen Counts SET ILLUSTRATOR LAB BLOOD ORDERABLES Final Re sult Performing Organization Address [facility]/State/ZIP Co de Phone Number [facility] [address] Department [place] [address] * (ABNORMAL) CRP (acute phase) (06/07/2024 9:39 PM BEEKEEPER) [facility] CRP 82.7(H) <=10.0 mg/L Blood 06/07/2024 9:39 PM BEEKEEPER 06/07/2024 9:46 PM BEEKEEPER us Anita Sung SET ILLUSTRATOR LAB BLOOD ORDERABLES Final Re sult [facility] [address] Department [place] [address] * (ABNORMAL) Comprehensive metabolic panel (06/07/2024 9:39 PM BEEKEEPER) [facility] Sodium 137 135 - 145 mmol/L Potassium, pl 4.6 3.3 - 4.9 mmol/L [facility] Comment:Hemolyzed; potassium value may be falsely elevated by as much as 0.6 - 1.0 mmol/L. Suggest redraw and reanalysis Chloride 102 97 - 110 mmol/L [facility] CO2 25 22 - 32 mmol/L [facility] Anion gap 10 2 - 15 mmol/L [facility] BUN 12 6 - 25 mg/dL [facility] Creatinine 0.98 0.60 - 1.10 mg/dL [facility] Glucose 147 70 - 199 mg/dL [facility] Comment: Interpretive Data Fasting glucose >/= 126 mg/dl is diagnostic for diabetes. Fasting is defined as no caloric intake for at least 8 hours. Fasting glucose between 100 mg/dl to 125 mg/dl is diagnostic of prediabetes. In a patient with classic symptoms of hyperglycemia or hyperglycemic crisis, a random glucose >/= 200 mg/dl is diagnostic for diabetes. In the absence of unequivocal hyperglycemia, results should be confirmed by repeat testing. The classification and Diagnosis of Diabetes Diabetes Care 2021; 46: S19-S40. Current interpretive data was last revised 2022. Calcium 9.0 8.5 - 10.3 mg/dL [facility] Bilirubin, total 0.3 0.1 - 1.2 mg/dL [facility] Protein, pl 7.1 6.5 - 8.5 g/dL [facility] Albumin 3.4(L) 3.5 - 5.0 g/dL [facility] Alk phos 83 40 - 130 Units/L [facility] ALT 15 7 - 45 Units/L [facility] Comment:Moderately Hemolyzed Specimen AST 27 10 - 45 Units/L [facility] Comment:Moderately Hemolyzed Specimen Blood 06/07/2024 9:39 PM BEEKEEPER 06/07/2024 9:46 PM BEEKEEPER us Anita Sung SET ILLUSTRATOR LAB BLOOD ORDERABLES Final Re sult Performing Organization Address [facility] Co de Phone Number [facility] [address] [place] [address] * (ABNORMAL) Hemoglobin A1c (03/21/2024 10:40 AM BEEKEEPER) Hgb A1C 6.4(H) 4.0 - 5.6 % Estimated Average Glucose 137 mg/dL [facility] Comment: The ADA recommends reporting an estimated Average Glucose (eAG) with all Hemoglobin A1c results using the equation derived from a study of 507 normal and diabetic adults. Minority populations were underrepresented and children were not included. (Diabetes Care 31:3404-2079, 2008). The eAG is not equivalent to a fasting glucose. Blood 03/21/2024 10:4 0 AM BEEKEEPER 03/21/2024 10:40 AM BEEKEEPER us Brigida Ledesma SET ILLUSTRATOR LAB BLOOD ORDERABLES Fin al Result Performing Organization Address [facility]/ZIP Co de Phone Number [facility] [address] Department [place] [address] * (ABNORMAL) POCT lipid panel (12/09/2021 10:27 AM CDT) Cholesterol, POC 138 30 - 200 mg/dL HDL, POC 35 0 - 40 mg/dL Triglycerides, POC 170(A) 0 - 149 mg/dL LDL Cholesterol POC 69 0 - 129 mg/dL Chol/HDL Ratio, POC 4.0 Non-HDL Cholesterol, POC 103 mg/dL Cholesterol Total, POC 138 30 - 200 mg/dL Capillary blood 12/09/2021 1 0:27 AM CDT us Libia Angelo NP POINT OF CARE TEST ORDERABLES F inal Result * Diagnostic Mammogram Bilateral W Hai (06/10/2021 10:10 AM BEEKEEPER) Anatomical Region Laterality Modality Breast Bilateral Mammography 06/10/2021 11:4 8 AM BEEKEEPER Impressions 06/10/2021 1:28 PM BEEKEEPER 1. No suspicious mammographic or sonographic correlate for the palpable areas of concern in the right breast or left axilla. 2. Incidental mass in the inner left breast which corresponds with a likely cluster cysts on sonography at the 10 o'clock position 4 cm from the nipple measuring up to 1.2 cm. There is central echogenicity with no associated vascular flow within the mass which may represent debris or a mildly thickened septation. A six-month follow-up left breast ultrasound is recommended. OVERALL FINAL ASSESSMENT: BI-RADS Category 3: Probably Benign. RECOMMENDATION: Recommend follow-up diagnostic breast imaging in 6 months with left breast sonography. Dictated by: Sravan Jernigan M.D. The radiology attending physician has personally reviewed this study, and had reviewed and/or edited this written report and agrees with it. Electronically signed by: Maryse Dowling M.D. Narrative 06/10/2021 1:28 PM BEEKEEPER EXAMINATION: BILATERAL DIGITAL DIAGNOSTIC MAMMOGRAM INCLUDING CAD AND BILATERAL DIGITAL BREAST TOMOSYNTHESIS; LEFT BREAST SONOGRAM HISTORY: 50-year-old female with a palpable area of concern in the lower inner right breast which was initially felt approximately 2 months ago. The patient no longer is able to palpate the findings, however, on today's physical examination there is a physician detected lump at this site. There is also a physician detected area of concern in the left axilla. COMPARISON: Right breast mammogram 11/05/2016 TECHNIQUE: Full field digital mammographic views of BOTH breasts were performed, including computer aided detection (CAD) and BILATERAL digital breast tomosynthesis (DBT). Directed ultrasound evaluation of the LEFT breast was performed. BREAST PARENCHYMAL COMPOSITION: There are scattered areas of fibroglandular density. MAMMOGRAM FINDINGS: A triangle skin marker demarcates the patient's physician detected palpable area of concern in the lower inner right breast. There is no suspicious mammographic finding subjacent the skin marker. A triangle shape skin marker demarcates the patient's physician detected palpable area of concern in the left axilla. There is no suspicious mammographic finding subjacent the skin marker. There is a predominantly circumscribed oval equal density mass with possibly some microlobulated margins in the slightly inner left breast at anterior depth measuring 1.2 cm x 0.8 cm. SONOGRAM FINDINGS: Targeted sonographic evaluation of the right breast at the palpable area of concern at the 3 o'clock position 10 cm from the nipple demonstrates no suspicious cystic or solid mass. Targeted sonographic evaluation of the left axilla at the patient's palpable area of concern demonstrates no suspicious cystic or solid mass. Normal appearing LEFT axillary lymph nodes are noted. Targeted sonographic evaluation of the left breast at the 10 o'clock position 4 cm from the nipple demonstrates a likely cluster of cysts with central echogenicity represent either debris or a mildly thickened septation. There is mild peripheral vascularity. No significant posterior acoustic features. This measures 0.9 cm x 1.2 cm x 0.4 cm and corresponds with the mass seen on mammography. Procedure Note Maryse Dowling MD - 06/10/2021 EXAMINATION: BILATERAL DIGITAL DIAGNOSTIC MAMMOGRAM INCLUDING CAD AND BILATERAL DIGITAL BREAST TOMOSYNTHESIS; LEFT BREAST SONOGRAM HISTORY: 50-year-old female with a palpable area of concern in the lower inner right breast which was initially felt approximately 2 months ago. The patient no longer is able to palpate the findings, however, on today's physical examination there is a physician detected lump at this site. There is also a physician detected area of concern in the left axilla. COMPARISON: Right breast mammogram 11/05/2016 TECHNIQUE: Full field digital mammographic views of BOTH breasts were performed, including computer aided detection (CAD) and BILATERAL digital breast tomosynthesis (DBT). Directed ultrasound evaluation of the LEFT breast was performed. BREAST PARENCHYMAL COMPOSITION: There are scattered areas of fibroglandular density. MAMMOGRAM FINDINGS: A triangle skin marker demarcates the patient's physician detected palpable area of concern in the lower inner right breast. There is no suspicious mammographic finding subjacent the skin marker. A triangle shape skin marker demarcates the patient's physician detected palpable area of concern in the left axilla. There is no suspicious mammographic finding subjacent the skin marker. There is a predominantly circumscribed oval equal density mass with possibly some microlobulated margins in the slightly inner left breast at anterior depth measuring 1.2 cm x 0.8 cm. SONOGRAM FINDINGS: Targeted sonographic evaluation of the right breast at the palpable area of concern at the 3 o'clock position 10 cm from the nipple demonstrates no suspicious cystic or solid mass. Targeted sonographic evaluation of the left axilla at the patient's palpable area of concern demonstrates no suspicious cystic or solid mass. Normal appearing LEFT axillary lymph nodes are noted. Targeted sonographic evaluation of the left breast at the 10 o'clock position 4 cm from the nipple demonstrates a likely cluster of cysts with central echogenicity represent either debris or a mildly thickened septation. There is mild peripheral vascularity. No significant posterior acoustic features. This measures 0.9 cm x 1.2 cm x 0.4 cm and corresponds with the mass seen on mammography. IMPRESSION: 1. No suspicious mammographic or sonographic correlate for the palpable areas of concern in the right breast or left axilla. 2. Incidental mass in the inner left breast which corresponds with a likely cluster cysts on sonography at the 10 o'clock position 4 cm from the nipple measuring up to 1.2 cm. There is central echogenicity with no associated vascular flow within the mass which may represent debris or a mildly thickened septation. A six-month follow-up left breast ultrasound is recommended. OVERALL FINAL ASSESSMENT: BI-RADS Category 3: Probably Benign. RECOMMENDATION: Recommend follow-up diagnostic breast imaging in 6 months with left breast sonography. Dictated by: Sravan Jernigan M.D. The radiology attending physician has personally reviewed this study, and had reviewed and/or edited this written report and agrees with it. Electronically signed by: Maryse E Josey, M.D. us Denise Allen MD PhD IMG MAMMO PROCEDURES Final Result from Last 3 Months or Most Recently Relevant to Health Maintenance Insurance [employer] [facility] CHOICE PLUS MEDICARE [employer] [facility] CHOICE PLUS [facility] CHOICE PLUS [employer] MEDICARE [facility] CHOICE PLUS Advance Directives For more information, please contact: [phone] * Full Code (Latest Code Status on File) Date Activated Date Inactivated Comments 06/08/2024 3:56 AM 06/14/2024 8:35 PM * Full Code Date Activated Date Inactivated Comments 04/05/2024 9:24 PM 04/06/2024 2:12 PM * Full Code Date Activated Date Inactivated Comments 04/05/2024 8:19 PM 04/05/2024 9:24 PM * Full Code Date Activated Date Inactivated Comments 12/24/2021 12:49 PM 12/25/2021 4:30 PM Care Teams Asparagus Buncher Relationship Specialty Start Date End Date Christos Coon MD [address] [place] [id number] PCP - General 10/31/16 Darío Ceron MD [address] [place] [address] Consulting Physician Neurosurgery 06/14/24 Kali Moses MD [address] [place] [address] Consulting Physician Infectious Diseases 06/14/24
--- OUTSIDE RECORDS SUMMARY | 2024-07-11 09:12 | XMS_ITS | Patient Health Summary ---
Author Organization [facility] Address [address] [place] [address] Care Team Providers Care Gullet Slitter Name Role Phone Christos Coon MD Primary Care Provider [phone] Note from [facility],non-owned Affiliates and Associated Physician Practices is amultiple site organization consisting of ambulatory clinics and hospital sitesin [place], [place] and [place]. This disclosure is being madepursuant to the Care Everywhere program and may not contain all information available regarding this patient. Last updated 18.[facility] Allergies No known active allergies Medications * Be aware that medications may not be up to date on this document. Alwaysverify current medications with the patient. * fluconazole (DIFLUCAN) 150 MG tablet(Started 11/03/2019) TAKE 1 TABLET BY MOUTH EVERY DAY FOR 2 DAYS * ACCU-CHEK GUIDE test strip(Started 07/05/2019) USE TO TEST ONCE DAILY * HYDROcodone-acetaminophen (NORCO) 5-325 MG tablet(Started 11/12/2019) Take 1 tablet by mouth every 6 hours as needed * VICTOZA 18 MG/3ML pen(Started 11/23/2019) INJECT 1.8MG SUBCUTANEOUSLY ONCE DAILY * VYVANSE 50 MG capsule(Started 11/23/2019) TAKE 1 CAPSULE BY MOUTH EVERY DAY IN THE MORNING * metroNIDAZOLE (FLAGYL) 500 MG tablet(Started 11/13/2019) TAKE 1 TABLET BY MOUTH TWICE A DAY FOR 7 DAYS * prazosin (MINIPRESS) 1 MG capsule(Started 11/23/2019) Take 1 mg by mouth at bedtime * predniSONE (DELTASONE) 10 MG tablet(Started 11/11/2019) TAKE 4 TABS DAILY X 3 DAYS, 3 TABS DAILY X 3 DAYS, 2 TABS DAILY X 3 DAYS, THEN 1 TAB DAILY X 3 DAYS Active Problems No known active problems Social [...] Mass Index 28.98 12/08/2019 2:18 PM CDT Care Teams Gullet Slitter Relationship Specialty Start Date End Date Christos Coon MD PCP - General 11/05/17
--- OUTSIDE RECORDS SUMMARY | 2024-07-11 09:12 | XMS_ITS | Clinical Summary ---
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 Encouraged to take medications as prescribed. Encounters Date Type Department Care Team Description 07/06/2024 2:00 PM BOWLING BALL MOLD ASSEMBLER - 07/06/2024 11:59 PM BOWLING BALL MOLD ASSEMBLER Hospital Encounter [address] [address] Discharge Disposition: Discharge to home or self care 07/06/2024 2:00 PM B[employer]LING BALL MOLD ASSEMBLER Home Care Visit [facility] Home Health - [address] [address] [address] [place] [address] Marcello Hurtado SHANEL SN HOME VISIT 07/06/2024 11:30 AM B[employer]LING BALL MOLD ASSEMBLER Home Care Visit [address] [place] [address] Mary Juarez PTA PT HOME VISIT 07/01/2024 4:15 PM B[employer]LING BALL MOLD ASSEMBLER Home Care Visit [address] [place] [address] Mili White SN HOME VISIT 07/01/2024 Home Care Visit [address] [place] [address] Alexia Ta, SHANEL SN TRIAGE ENCOUNTER 06/30/2024 Orders Only [facility] Home Care Services [address] [place] [address] Gina Pisano, [facility] 06/28/2024 6:27 PM BOWLING BALL MOLD ASSEMBLER - 06/28/2024 11:59 PM BOWLING BALL MOLD ASSEMBLER Hospital Encounter [address] [address] Discharge Disposition: Discharge to home or self care 06/28/2024 1:30 PM B[employer]LING BALL MOLD ASSEMBLER Home Care Visit [address] [place] [address] Marcello Hurtado RN SN HOME VISIT 06/22/2024 9:30 AM B[employer]LING BALL MOLD ASSEMBLER - 06/22/2024 11:59 PM BOWLING BALL MOLD ASSEMBLER Hospital Encounter [address] [address] Discharge Disposition: Discharge to home or self care 06/22/2024 9:30 AM B[employer]LING BALL MOLD ASSEMBLER Home Care Visit [address] [place] [address] Marcello Hurtado, SHANEL SN HOME VISIT 06/20/2024 1:30 PM B[employer]LING BALL MOLD ASSEMBLER Home Care Visit [address] [place] [address] Mili Isidro, PT PT INITIAL EVALUATION 06/20/2024 Home Care Visit [address] [place] [address] Mili Isidro, PT CARE CONFERENCE 06/20/2024 Home Care Visit [address] [place] [address] Georgina Mauricio, SHANEL SN TRIAGE ENCOUNTER 06/18/2024 Home Care Visit [address] [place] [address] Leslie Contreras, SHANEL TELEPHONE ENCOUNTER 06/18/2024 Home Care Visit [address] [place] [address] Marcia Cho, RN SN TRIAGE ENCOUNTER 06/17/2024 Home Care Visit [address] [place] [address] Georgina Mauricio, SHANEL SN TRIAGE ENCOUNTER 06/15/2024 8:15 AM B[employer]LING BALL MOLD ASSEMBLER Home Care Visit [address] [place] [address] Marcello Hurtado, SHANEL SN OASIS START OF CARE 06/15/2024 Plan of Care Documentation [address] [place] [address] 06/14/2024 Orders Only [facility] Home Care Services [address] [place] [address] Gina Pisano, [facility] 06/08/2024 2:58 PM BOWLING BALL MOLD ASSEMBLER Anesthesia Event [facility] Operating Room [address] [place] [phone] Jah Bowman MD Grither, Christine D., EXTENSION CLERK 06/08/2024 2:02 PM B[employer]LING BALL MOLD ASSEMBLER - 06/08/2024 4:07 PM BOWLING BALL MOLD ASSEMBLER Surgery [facility] Operating Room [address] [place] [phone] Darío Ceron MD INCISION AND DRAINAGE - LUMBAR WOUND 06/07/2024 8:19 PM BOWLING BALL MOLD ASSEMBLER - 06/14/2024 4:29 PM BOWLING BALL MOLD ASSEMBLER Hospital Encounter [facility] [address] [place] [address] Abram Mcnair MD Jain, Anshu, MD moth exterminator current use of antibiotics (Primary Dx); Spinal abscess (CMS/HCC) (HCC); Acute low back pain due to spinal disorder Discharge Disposition: Discharge to home, home health skilled care from Last 3 Months Immunizations Immunization Administration Dates Next Due Influenza, Quadrivalent, Split, Intramuscular ,02/21/2017 Influenza, Trivalent, IM (MDV) 05/04/2013 Influenza, Unspecified 05/04/2013 Tdap 05/06/2013 Surgical History Surgery Date Site/Laterality Comments SECTION 05/18/2005 - 05/17/2006 CHOLECYSTECTOMY 05/18/2000 - 05/17/2001 MICRODISCECTOMY 05/18/2019 - 05/17/2020 POSTERIOR FUSION LUMBAR SPINE 05/18/2020 - 05/17/2021 L5-S1 Medical History Medical History Date Comments Anxiety and depression Diabetes mellitus (HCC) Herniated nucleus pulposus, lumbar Osteoarthritis Migraines none in > 1 year PONV (postoperative nausea and vomiting) Social History Tobacco Use Types Packs/Day Years [...] materials from doctor or pharmacy Sometimes 06/15/[address] [facility] Utilities Answer Date Recorded In the past 12 months has th e electric, gas, oil, or water company threatened to shut off services in your home? Patient declined 06/08/2024 Social Connection and Isolation Panel [NHANES] A nswer Date Recorded In a typical week, how many times do you talk on the phone with family, friends, or neighbors? Patient declined 06/08/2024 How often do you get togethe r with friends or relatives? Patient declined 06/08/2024 How often do you attend hinduism or church serv ices? Patient declined 06/08/2024 Do you belong to any clubs o r organizations such as hinduism groups, unions, fraternal or athletic groups, or [...] any time in the past 12 m [facility], were you homeless or living in a [place] health care facility (including now)? Patient declined 06/08/2024 Personal Safety Answer Date Recorded Have you ever been in or are you currently in a harmful physical or emotional relationship or is someone making you feel afraid or unsafe? Denies 06/08/2024 Comments No Sex and Gender Information Value Date Recorded Sex Assigned at Not on file Legal Sex Female 12:29 PM BOWLING BALL MOLD ASSEMBLER Gender Identity Not on file Sexual Orientation Not on file Obstetrics History Last Filed Vital Signs Vital Sign Reading Time Taken Comments Blood Pressure 108/64 07/06/2024 12:04 PM BOWLING BALL MOLD ASSEMBLER Pulse 86 07/06/2024 12:04 PM BOWLING BALL MOLD ASSEMBLER Temperature 36.9 C (98.5 F) 07/06/2024 12:04 PM BOWLING BALL MOLD ASSEMBLER Respiratory Rate 18 07/06/2024 12:04 PM BOWLING BALL MOLD ASSEMBLER Oxygen Saturation 98% 07/06/2024 12:04 PM BOWLING BALL MOLD ASSEMBLER Inhaled Oxygen Concentration - - Weight 60.9 kg (134 lb 3.2 oz) 06/08/2024 4:00 A M BOWLING BALL MOLD ASSEMBLER Height 170.2 cm (5' 7 ) 06/08/2024 4:00 AM BOWLING BALL MOLD ASSEMBLER Body Mass Index 21.02 06/08/2024 4:00 AM BOWLING BALL MOLD ASSEMBLER Plan of Treatment Health Maintenance Due Date Last Done Comments Albumin Creatinine Ratio, Urine 1971 Colon Cancer Screening-Colonoscopy 1971 Depression Screening 1971 Dilated Eye Exam 1971 Regular Well Visit/Exam 18-64 1989 Pneumococcal vaccine <65 (1 of 2 - PCV) 1990 Zoster Vaccine (1 of 2) 2021 Breast Cancer Screening-Mammogram 06/10/2022 022, 11/05/2016 Foot Exam 12/09/2022 12/09/2021 Lipid Panel 12/09/2022 12/09/2021 Covid-19 Vaccine (2023-2 5 season) 2024 02/19/2021, 07/27/2020, 07/06/2020 Influenza Vaccine (#1) 2024 , 02/08/2020, 02/21/2017, Additional history exists Hemoglobin A1C 09/18/2024 03/21/2024, 11/16, 10/11/2021 eGFR 07/06/2025 07/06/2024, 06/18, 06/22/2024, Additional history exists DTaP/Tdap/Td Vaccine (3 - Td or Tdap) 05/07/2031 05/07/2021, 05/06/2013 Hepatitis B Screening Completed 06/21/2021, 022 Hepatitis C Screening Completed 06/12/2024 Medical Devices Implanted Type Area Theatrical Performer Device Identifier Shelf Expiration Date Model / Serial / Lot [place] Spine Lawrence L22 Mm X W8.5 Mm X H10 Mm Convex Cage Spinal Titanium P Latex Free [id number] - Sn/A - [id number] Implanted:Qty: 1 on 12/24/2021 by Darío Ceron MD at [facility] Cage N/A: Lumbar-Sa cral Spine Stuart Spine [id number] 06/03/2026 9548-1036 210NC-G2 / N/A / [id number] Stuart Spine Lawrence L22 Mm X W8.5 Mm X H10 Mm Convex Cage Spinal Titanium P Latex Free [id number] - Sn/A - [id number] Implanted:Qty: 1 on 12/24/2021 by Darío Ceron MD at [facility] Cage N/A: Lumbar-Sa cral Spine Stuart Spine [id number] 06/03/2026 2502-4081 210NC-G2 / N/A / [id number] Screws,Rods N/A: Spine Lumbar Stuart Spine 4mm 30mm Polyaxial Spine Screw Bone Deformity [id number] - [id number] Implanted:Qty: 2 on 12/24/2021 by Darío Ceron MD at [facility] N/A: Lumbar-Sa cral Spine [place] Spine [id number] 0 / / [place] Spine 4.5mm 30mm Polyaxial Spine Screw Bone Deformity 3008-85117 - [id number] Implanted:Qty: 2 on 12/24/2021 by Darío Ceron MD at [facility] N/A: Lumbar-Sa cral Spine Stuart Spine [id number] 0 / / [place] Spine 4.5mm 40mm Contour Praful Spinal Cocr 3011-18720 - [id number] Implanted:Qty: 2 on 12/24/2021 by Darío Ceron MD at [facility] N/A: Lumbar-Sa cral Spine Stuart Spine 6474-1734 0 / / [place] Spine 29mm Semiadjustable Transverse Spine Connector Praful Posterior 3001-52060w - [id number] Implanted:Qty: 1 on 12/24/2021 by Darío Ceron MD at [facility] N/A: Lumbar-Sa cral Spine [place] Spine [id number] 9A / / [place] Spine 26mm Semiadjustable Transverse Spine Connector Praful Posterior 3001-43105q - [id number] Implanted:Qty: 1 on 04/05/2024 by Darío Ceron MD at [facility] N/A: Spine Lumbar Stuart Spine [id number] 6A / / [place] Spine 29mm Semiadjustable Transverse Spine Connector Praful Posterior 3001-07212y - [id number] Implanted:Qty: 1 on 04/05/2024 by Darío Ceron MD at [facility] N/A: Spine Lumbar [place] Spine 9876-2900 9A / / Stuart Spine 4mm 30mm Polyaxial Spine Screw Bone Deformity 3001-91144 - [id number] Implanted:Qty: 2 on 04/05/2024 by Darío Ceron MD at [facility] N/A: Spine Lumbar [place] Spine 4624-5546 0 / / [place] Spine 4.5mm 70mm Contour Praful Spinal Cocr 3011-01087 - [id number] Implanted:Qty: 2 on 04/05/2024 by Darío Ceron MD at [facility] N/A: Spine Lumbar [place] Spine 6410-8237 0 / / [employer] Cage Spinal Lumbar 10 Degree Tlif Expandable 7-11.5mm Titanium [id number] - [id number] Implanted:Qty: 2 on 04/05/2024 by Darío Ceron MD at [facility] N/A: Spine Lumbar [employer] 360-[id number] 10 / / Biocomposites Stimulan Rapid Cure Kit Paste Customer Assistance Associate 5cc 12.5cc Bone Void 620-005 - [id number] Implanted:Qty: 1 on 04/05/2024 by Darío Ceron MD at [facility] N/A: Spine Lumbar Biocom[employer]ites [id number] 12/15/2026 620-005 / / [id number] Procedures Procedure Name Priority Date/Time Associated Diagnosis Comments EGFR Routine 07/06/2024 2:00 PM BOWLING BALL MOLD ASSEMBLER DIFFERENTIAL AUTO Routine 07/06/2024 2:0 0 PM BOWLING BALL MOLD ASSEMBLER CBC WITH AUTO DIFFERENTIAL Routine 07/06/2024 2:00 PM BOWLING BALL MOLD ASSEMBLER COMPREHENSIVE METABOLIC PANEL Routine 07/06/2024 2:00 PM B[employer]LING BALL MOLD ASSEMBLER EGFR Routine 06/28/2024 1:30 PM BOWLING BALL MOLD ASSEMBLER DIFFERENTIAL AUTO Routine 06/28/2024 1:3 0 PM BOWLING BALL MOLD ASSEMBLER CBC WITH AUTO DIFFERENTIAL Routine 06/28/2024 1:30 PM BOWLING BALL MOLD ASSEMBLER COMPREHENSIVE METABOLIC PANEL Routine 06/28/2024 1:30 PM BOWLING BALL MOLD ASSEMBLER EGFR STAT 06/22/2024 9:30 AM BOWLING BALL MOLD ASSEMBLER DIFFERENTIAL AUTO STAT 06/22/2024 9:3 0 AM BOWLING BALL MOLD ASSEMBLER CBC WITH AUTO DIFFERENTIAL STAT 06/22/2024 9:30 AM BOWLING BALL MOLD ASSEMBLER COMPREHENSIVE METABOLIC PANEL STAT 06/22/2024 9:30 AM BOWLING BALL MOLD ASSEMBLER POCT GLUCOSE DEVICE Routine 06/14/2024 1 1:44 AM BOWLING BALL MOLD ASSEMBLER POCT GLUCOSE DEVICE Routine 06/14/2024 5 :57 AM BOWLING BALL MOLD ASSEMBLER POCT GLUCOSE DEVICE Routine 06/13/2024 9 :43 PM BOWLING BALL MOLD ASSEMBLER XR CHEST 1 VIEW ED Urgent/IP Urgent 06/13/2024 5:20 PM BOWLING BALL MOLD ASSEMBLER POCT GLUCOSE DEVICE Routine 06/13/2024 4 :41 PM BOWLING BALL MOLD ASSEMBLER GENERAL Routine 06/13/2024 4:36 PM BOWLING BALL MOLD ASSEMBLER alf current use of antibiotics POCT GLUCOSE DEVICE Routine 06/13/2024 1 1:19 AM BOWLING BALL MOLD ASSEMBLER POCT GLUCOSE DEVICE Routine 06/13/2024 5 :28 AM BOWLING BALL MOLD ASSEMBLER POCT GLUCOSE DEVICE Routine 06/12/2024 8 :07 PM BOWLING BALL MOLD ASSEMBLER HEPATITIS PANEL, ACUTE Routine 06/12/2024 7:39 PM BOWLING BALL MOLD ASSEMBLER POCT GLUCOSE DEVICE Routine 06/12/2024 4 :49 PM BOWLING BALL MOLD ASSEMBLER POCT GLUCOSE DEVICE Routine 06/12/2024 1 1:30 AM BOWLING BALL MOLD ASSEMBLER EGFR Routine 06/12/2024 6:07 AM BOWLING BALL MOLD ASSEMBLER DIFFERENTIAL AUTO Routine 06/12/2024 6:0 7 AM BOWLING BALL MOLD ASSEMBLER CBC WITH AUTO DIFFERENTIAL Routine 06/12/2024 6:07 AM BOWLING BALL MOLD ASSEMBLER BASIC METABOLIC PANEL Routine 06/12/2024 6:07 AM BOWLING BALL MOLD ASSEMBLER POCT GLUCOSE DEVICE Routine 06/12/2024 5 :52 AM BOWLING BALL MOLD ASSEMBLER POCT GLUCOSE DEVICE Routine 2024 8 :40 PM BOWLING BALL MOLD ASSEMBLER POCT GLUCOSE DEVICE Routine 2024 4 :22 PM BOWLING BALL MOLD ASSEMBLER TRANSTHORACIC ECHO (TTE) COMPLETE W DOPPLER/CF WO CONTRAST Routine 2024 1:09 PM BOWLING BALL MOLD ASSEMBLER HEPATIC FUNCTION PANEL Routine 2024 1:01 PM BOWLING BALL MOLD ASSEMBLER POCT GLUCOSE DEVICE Routine 2024 1 1:26 AM BOWLING BALL MOLD ASSEMBLER POCT GLUCOSE DEVICE Routine 2024 6 :17 AM BOWLING BALL MOLD ASSEMBLER POCT GLUCOSE DEVICE Routine 06/10/2024 8 :43 PM BOWLING BALL MOLD ASSEMBLER POCT GLUCOSE DEVICE Routine 06/10/2024 4 :41 PM BOWLING BALL MOLD ASSEMBLER BLOOD CULTURE Routine 06/10/2024 12:01 PM BOWLING BALL MOLD ASSEMBLER BLOOD CULTURE Routine 06/10/2024 12:01 PM BOWLING BALL MOLD ASSEMBLER POCT GLUCOSE DEVICE Routine 06/10/2024 1 1:29 AM BOWLING BALL MOLD ASSEMBLER EGFR Routine 06/10/2024 5:39 AM BOWLING BALL MOLD ASSEMBLER BASIC METABOLIC PANEL Routine 06/10/2024 5:39 AM BOWLING BALL MOLD ASSEMBLER POCT GLUCOSE DEVICE Routine 06/09/2024 9 :22 PM BOWLING BALL MOLD ASSEMBLER POCT GLUCOSE DEVICE Routine 06/09/2024 6 :22 PM BOWLING BALL MOLD ASSEMBLER POCT GLUCOSE DEVICE Routine 06/09/2024 2 :12 PM BOWLING BALL MOLD ASSEMBLER VANCOMYCIN LEVEL TROUGH Timed 06/09/2024 2:00 PM BOWLING BALL MOLD ASSEMBLER POCT GLUCOSE DEVICE Routine 06/09/2024 7 :53 AM BOWLING BALL MOLD ASSEMBLER POCT GLUCOSE DEVICE Routine 06/09/2024 4 :13 AM BOWLING BALL MOLD ASSEMBLER POCT GLUCOSE DEVICE Routine 06/09/2024 2 :03 AM BOWLING BALL MOLD ASSEMBLER POCT GLUCOSE DEVICE Routine 06/08/2024 1 1:36 PM BOWLING BALL MOLD ASSEMBLER POCT GLUCOSE DEVICE Routine 06/08/2024 7 :46 PM BOWLING BALL MOLD ASSEMBLER POCT GLUCOSE DEVICE Routine 06/08/2024 4 :34 PM BOWLING BALL MOLD ASSEMBLER MYCOLOGY (FUNGAL) CULTURE Routine 06/08/2024 4:30 PM BOWLING BALL MOLD ASSEMBLER AEROBIC AND ANAEROBIC CULTURE AND GRAM STAIN Routine 06/08/2024 4:30 PM BOWLING BALL MOLD ASSEMBLER MYCOLOGY (FUNGAL) CULTURE Routine 06/08/2024 4:30 PM BOWLING BALL MOLD ASSEMBLER AEROBIC AND ANAEROBIC CULTURE AND GRAM STAIN Routine 06/08/2024 4:30 PM BOWLING BALL MOLD ASSEMBLER DE AN PROCEDURE PLACEHOLDER Routine 06/08/2024 3:17 PM BOWLING BALL MOLD ASSEMBLER DE AN ELECTIVE ENDOTRACHEAL AIRWAY Routine 06/08/2024 3:17 PM BOWLING BALL MOLD ASSEMBLER INCISION AND DRAINAGE - BACK 06/08/2024 2:55 PM BOWLING BALL MOLD ASSEMBLER PAIN/ INFECTION POCT GLUCOSE DEVICE Routine 06/08/2024 1 :33 PM BOWLING BALL MOLD ASSEMBLER POCT GLUCOSE DEVICE Routine 06/08/2024 1 2:35 PM BOWLING BALL MOLD ASSEMBLER POCT GLUCOSE DEVICE Routine 06/08/2024 8 :39 AM BOWLING BALL MOLD ASSEMBLER EGFR Routine 06/08/2024 6:21 AM BOWLING BALL MOLD ASSEMBLER CBC WITHOUT DIFFERENTIAL Routine 06/08/2024 6:21 AM BOWLING BALL MOLD ASSEMBLER PHOSPHORUS Routine 06/08/2024 6:21 AM BOWLING BALL MOLD ASSEMBLER MAGNESIUM Routine 06/08/2024 6:21 AM BOWLING BALL MOLD ASSEMBLER BASIC METABOLIC PANEL Routine 06/08/2024 6:21 AM BOWLING BALL MOLD ASSEMBLER POCT GLUCOSE DEVICE Routine 06/08/2024 4 :21 AM BOWLING BALL MOLD ASSEMBLER BLOOD CULTURE STAT 06/08/2024 12:42 AM BOWLING BALL MOLD ASSEMBLER POCT GLUCOSE DEVICE Routine 06/08/2024 1 2:38 AM BOWLING BALL MOLD ASSEMBLER BLOOD CULTURE STAT 06/08/2024 12:30 AM BOWLING BALL MOLD ASSEMBLER MRI LUMBAR SPINE W WO CONTRAST ED 06/07/2024 11:30 PM BOWLING BALL MOLD ASSEMBLER URINALYSIS AND REFLEX TO MICROSCOPIC AND CULTURE STAT 06/07/2024 9:41 PM BOWLING BALL MOLD ASSEMBLER EGFR STAT 06/07/2024 9:39 PM BOWLING BALL MOLD ASSEMBLER DIFFERENTIAL AUTO STAT 06/07/2024 9:3 9 PM BOWLING BALL MOLD ASSEMBLER CBC WITH AUTO DIFFERENTIAL STAT 06/07/2024 9:39 PM BOWLING BALL MOLD ASSEMBLER COMPREHENSIVE METABOLIC PANEL STAT 06/07/2024 9:39 PM BOWLING BALL MOLD ASSEMBLER SEPSIS LACTATE WITH REFLEX STAT 06/07/2024 9:39 PM BOWLING BALL MOLD ASSEMBLER CRP (ACUTE PHASE) STAT 06/07/2024 9:3 9 PM BOWLING BALL MOLD ASSEMBLER ERYTHROCYTE SEDIMENTATION RATE STAT 06/07/2024 9:39 PM BOWLING BALL MOLD ASSEMBLER HEMOGLOBIN A1C Routine 03/21/2024 10:40 AM BOWLING BALL MOLD ASSEMBLER Preoperative examination POCT LIPID PANEL Routine 12/09/2021 10:2 7 AM CDT Type 2 diabetes mellitus with hyperglycemia, with long-term current use of insulin ([facility]/HCC) (HCC) DIAGNOSTIC MAMMOGRAM BILATERAL W HAI Schedule Routine, Read Routine (OP Routine) 06/10/2021 10:10 AM BOWLING BALL MOLD ASSEMBLER Breast mass from Last 3 Months or Most Recently Relevant to Health Maintenance Results * eGFR (07/06/2024 2:00 PM BOWLING BALL MOLD ASSEMBLER) eGFR >90 >=60 mL/min/1. 73 m2 Comment: [...] last reviewed 2021. Blood 07/06/2024 2:00 PM BOWLING BALL MOLD ASSEMBLER 07/06/2024 4:57 PM BOWLING BALL MOLD ASSEMBLER us Kali Moses MD LAB BLOOD ORDERABLES Final Resul t [facility] [place] [address] * Differential, auto (07/06/2024 2:00 PM BOWLING BALL MOLD ASSEMBLER) Neutrophil abs 4.0 1.5 - 6.5 K/cumm Imm gran abs 0.0 0.0 - 0.1 K/cumm [facility] Lymphocyte abs 2.1 0.8 - 3.3 K/cumm [facility] Monocyte abs 0.5 0.2 - 0.8 K/cumm [facility] Eosinophil abs 0.3 0.0 - 0.5 K/cumm [facility] Basophil abs 0.1 0.0 - 0.1 K/cumm [facility] Neutrophil pct 57.4 % [facility] Comment: Interpretive Data Percent cell count reference ranges are not reported, since discordance with absolute values may lead to misinterpretation of CBC data. Current Interpretive Data was last revised on 2017. Imm gran pct 0.4 % [facility] Comment: Interpretive Data Percent cell count reference ranges are not reported, since discordance with absolute values may lead to misinterpretation of CBC data. Current Interpretive Data was last revised on 2017. Lymphocyte pct 30.5 % [facility] Comment: Interpretive Data Percent cell count reference ranges are not reported, since discordance with absolute values may lead to misinterpretation of CBC data. Current Interpretive Data was last revised on 2017. Monocyte pct 6.8 % [facility] Comment: Interpretive Data Percent cell count reference ranges are not reported, since discordance with absolute values may lead to misinterpretation of CBC data. Current Interpretive Data was last revised on 2017. Eosinophil pct 3.9 % [facility] Comment: Interpretive Data Percent cell count reference ranges are not reported, since discordance with absolute values may lead to misinterpretation of CBC data. Current Interpretive Data was last revised on 2017. Basophil pct 1.0 % [facility] Comment: Interpretive Data Percent cell count reference ranges are not reported, since discordance with absolute values may lead to misinterpretation of CBC data. Current Interpretive Data was last revised on 2017. Blood 07/06/2024 2:00 PM BOWLING BALL MOLD ASSEMBLER 07/06/2024 4:54 PM BOWLING BALL MOLD ASSEMBLER us Kali Moses MD LAB BLOOD ORDERABLES Final Resul t [facility] Department [place] [address] * CBC with auto differential (07/06/2024 2:00 PM BOWLING BALL MOLD ASSEMBLER) WBC 6.9 3.8 - 9.9 K/cumm Hgb 11.9 11.9 - 15.5 g/dL [facility] Hct 36.7 35.6 - 45.5 % [facility] Plt 267 150 - 400 K/cumm [facility] MPV 9.6 9.1 - 12.3 fL [facility] RBC 3.95 3.90 - 5.20 M/cumm [facility] MCV 92.9 81.3 - 96.4 fL [facility] MCH 30.1 27.1 - 33.3 pg [facility] MCHC 32.4 32.3 - 35.7 g/dL [facility] RDW CV 13.3 11.1 - 14.9 % [facility] RDW SD 45.5 35.7 - 48.1 fL [facility] NRBC abs 0.00 0.00 - 0.01 K/cumm [facility] Blood 07/06/2024 2:00 PM BOWLING BALL MOLD ASSEMBLER 07/06/2024 4:54 PM BOWLING BALL MOLD ASSEMBLER Kali Moses MD LAB BLOOD ORDERABLES Final Resul t [facility] [place] [address] * Comprehensive metabolic panel (07/06/2024 2:00 PM BOWLING BALL MOLD ASSEMBLER) Sodium 140 135 - 145 mmol/L Potassium, pl 4.2 3.3 - 4.9 mmol/L [facility] Chloride 103 97 - 110 mmol/L [facility] CO2 29 22 - 32 mmol/L [facility] Anion gap 8 2 - 15 mmol/L [facility] BUN 11 6 - 25 mg/dL [facility] Creatinine 0.62 0.60 - 1.10 mg/dL [facility] Glucose 175 70 - 199 mg/dL [facility] Comment: Interpretive Data Fasting glucose >/= 126 [...] Calcium 9.4 8.5 - 10.3 mg/dL [facility] Bilirubin, total <0.2 0.1 - 1.2 mg/dL [facility] Protein, pl 7.4 6.5 - 8.5 g/dL [facility] Albumin 4.0 3.5 - 5.0 g/dL [facility] Alk phos 86 40 - 130 Units/L [facility] ALT 9 7 - 45 Units/L [facility] AST 15 10 - 45 Units/L [facility] Blood 07/06/2024 2:00 PM [employer] 07/06/2024 4:53 PM [employer] Kali Moses MD LAB BLOOD ORDERABLES Final Resul t [facility] [place] [address] * eGFR (06/28/2024 1:30 PM [employer]) eGFR >90 >=60 mL/min/1. 73 m2 Comment: [...] last reviewed 2021. Blood 06/28/2024 1:30 PM [employer] 06/28/2024 6:37 PM [employer] us Kali Moses MD LAB BLOOD ORDERABLES Final Resul t [facility] [place] [address] * Differential, auto (06/28/2024 1:30 PM [employer]) Neutrophil abs 4.2 1.5 - 6.5 K/cumm Imm gran abs 0.0 0.0 - 0.1 K/cumm [facility] Lymphocyte abs 2.1 0.8 - 3.3 K/cumm [facility] Monocyte abs 0.4 0.2 - 0.8 K/cumm [facility] Eosinophil abs 0.3 0.0 - 0.5 K/cumm [facility] Basophil abs 0.1 0.0 - 0.1 K/cumm [facility] Neutrophil pct 59.4 % [facility] Comment: Interpretive Data Percent cell count reference ranges are not reported, since discordance with absolute values may lead to misinterpretation of CBC data. Current Interpretive Data was last revised on 2017. Imm gran pct 0.3 % [facility] Comment: Interpretive Data Percent cell count reference ranges are not reported, since discordance with absolute values may lead to misinterpretation of CBC data. Current Interpretive Data was last revised on 2017. Lymphocyte pct 29.9 % [facility] Comment: Interpretive Data Percent cell count reference ranges are not reported, since discordance with absolute values may lead to misinterpretation of CBC data. Current Interpretive Data was last revised on 2017. Monocyte pct 5.4 % [facility] Comment: Interpretive Data Percent cell count reference ranges are not reported, since discordance with absolute values may lead to misinterpretation of CBC data. Current Interpretive Data was last revised on 2017. Eosinophil pct 3.6 % [facility] Comment: Interpretive Data Percent cell count reference ranges are not reported, since discordance with absolute values may lead to misinterpretation of CBC data. Current Interpretive Data was last revised on 2017. Basophil pct 1.4 % [facility] Comment: Interpretive Data Percent cell count reference ranges are not reported, since discordance with absolute values may lead to misinterpretation of CBC data. Current Interpretive Data was last revised on 2017. Blood 06/28/2024 1:30 PM [employer] 06/28/2024 6:26 PM [employer] Kali Moses MD LAB BLOOD ORDERABLES Final Resul t Performing Organization Address City/[facility]/ZIP Co de Phone Number [facility] [place] [address] * CBC with auto differential (06/28/2024 1:30 PM [employer]) WBC 7.0 3.8 - 9.9 K/cumm Hgb 12.4 11.9 - 15.5 g/dL [facility] Hct 37.7 35.6 - 45.5 % [facility] Plt 338 150 - 400 K/cumm [facility] MPV 9.8 9.1 - 12.3 fL [facility] RBC 4.02 3.90 - 5.20 M/cumm [facility] MCV 93.8 81.3 - 96.4 fL [facility] MCH 30.8 27.1 - 33.3 pg [facility] MCHC 32.9 32.3 - 35.7 g/dL [facility] RDW CV 13.7 11.1 - 14.9 % [facility] RDW SD 46.8 35.7 - 48.1 fL [facility] NRBC abs 0.00 0.00 - 0.01 K/cumm [facility] Blood 06/28/2024 1:30 PM [employer] 06/28/2024 6:26 PM [employer] Kali Moses MD LAB BLOOD ORDERABLES Final [facility]ul t [facility] [place] [address] * Comprehensive metabolic panel (06/28/2024 1:30 PM [employer]) Sodium 141 135 - 145 mmol/L Potassium, pl 3.9 3.3 - 4.9 mmol/L [facility] Chloride 103 97 - 110 mmol/L [facility] CO2 28 22 - 32 mmol/L [facility] Anion gap 10 2 - 15 mmol/L [facility] BUN 12 6 - 25 mg/dL [facility] Creatinine 0.64 0.60 - 1.10 mg/dL [facility] Glucose 132 70 - 199 mg/dL [facility] Comment: Interpretive Data Fasting glucose >/= 126 [...] 2022. Calcium 9.4 8.5 - 10.3 mg/dL [facility] Bilirubin, total <0.2 0.1 - 1.2 mg/dL [facility] Protein, pl 7.7 6.5 - 8.5 g/dL [facility] Albumin 3.9 3.5 - 5.0 g/dL [facility] Alk phos 97 40 - 130 Units/L [facility] ALT 7 7 - 45 Units/L [facility] AST 20 10 - 45 Units/L [facility] Blood 06/28/2024 1:30 PM [employer] 06/28/2024 6:26 PM [employer] us Kali Moses MD LAB BLOOD ORDERABLES Final Resul t [facility] [place] [address] * eGFR (06/22/2024 9:30 AM [employer]) Pathologist [facility] eGFR >90 >=60 mL/min/1. 73 m2 Comment: [...] last reviewed 2021. Blood 06/22/2024 9:30 AM [employer] 06/22/2024 1:47 PM [employer] Kali Moses MD LAB BLOOD ORDERABLES Final Resul t [facility] [place] [address] * (ABNORMAL) Differential, auto (06/22/2024 9:30 AM [employer]) Pathologist [facility] Neutrophil abs 6.9(H) 1.5 - 6.5 K/cumm Imm gran abs 0.0 0.0 - 0.1 K/cumm [facility] Lymphocyte abs 2.0 0.8 - 3.3 K/cumm [facility] Monocyte abs 0.6 0.2 - 0.8 K/cumm [facility] Eosinophil abs 0.2 0.0 - 0.5 K/cumm [facility] Basophil abs 0.1 0.0 - 0.1 K/cumm [facility] Neutrophil pct 69.7 % [facility] Comment: Interpretive Data Percent cell count reference ranges are not reported, since discordance with absolute values may lead to misinterpretation of CBC data. Current Interpretive Data was last revised on 2017. Imm gran pct 0.4 % [facility] Comment: Interpretive Data Percent cell count reference ranges are not reported, since discordance with absolute values may lead to misinterpretation of CBC data. Current Interpretive Data was last revised on 2017. Lymphocyte pct 20.5 % [facility] Comment: Interpretive Data Percent cell count reference ranges are not reported, since discordance with absolute values may lead to misinterpretation of CBC data. Current Interpretive Data was last revised on 2017. Monocyte pct 6.0 % [facility] Comment: Interpretive Data Percent cell count reference ranges are not reported, since discordance with absolute values may lead to misinterpretation of CBC data. Current Interpretive Data was last revised on 2017. Eosinophil pct 2.4 % [facility] Comment: Interpretive Data Percent cell count reference ranges are not reported, since discordance with absolute values may lead to misinterpretation of CBC data. Current Interpretive Data was last revised on 2017. Basophil pct 1.0 % [facility] Comment: Interpretive Data Percent cell count reference ranges are not reported, since discordance with absolute values may lead to misinterpretation of CBC data. Current Interpretive Data was last revised on 2017. Blood 06/22/2024 9:30 AM [employer] 06/22/2024 1:45 PM [employer] us Kali Moses MD LAB BLOOD ORDERABLES Final Resul t [facility] Department of Laboratories [place], [place] [id number] * CBC with auto differential (06/22/2024 9:30 AM [employer]) WBC 9.9 3.8 - 9.9 K/cumm Hgb 12.8 11.9 - 15.5 g/dL [facility] Hct 39.1 35.6 - 45.5 % [facility] Plt 350 150 - 400 K/cumm [facility] MPV 9.5 9.1 - 12.3 fL [facility] RBC 4.19 3.90 - 5.20 M/cumm [facility] MCV 93.3 81.3 - 96.4 fL [facility] MCH 30.5 27.1 - 33.3 pg [facility] MCHC 32.7 32.3 - 35.7 g/dL [facility] RDW CV 14.0 11.1 - 14.9 % [facility] RDW SD 48.1 35.7 - 48.1 fL [facility] NRBC abs 0.00 0.00 - 0.01 K/cumm [facility] Blood 06/22/2024 9:30 AM [employer] 06/22/2024 1:45 PM [employer] Kali Moses MD LAB BLOOD ORDERABLES Final Resul t Performing Organization Address City/State/[facility] Co de Phone Number [facility] [place] [address] * Comprehensive metabolic panel (06/22/2024 9:30 AM [employer]) Sodium 136 135 - 145 mmol/L Potassium, pl 4.4 3.3 - 4.9 mmol/L [facility] Chloride 98 97 - 110 mmol/L [facility] CO2 28 22 - 32 mmol/L [facility] Anion gap 10 2 - 15 mmol/L [facility] BUN 14 6 - 25 mg/dL [facility] Creatinine 0.66 0.60 - 1.10 mg/dL [facility] Glucose 198 70 - 199 mg/dL [facility] Comment: Interpretive Data Fasting glucose >/= 126 [...] classification and Diagnosis of Diabetes Diabetes Care 2022; 46: [id number]. Current interpretive data was last revised 2022. Calcium 9.8 8.5 - 10.3 mg/dL [facility] Bilirubin, total 0.2 0.1 - 1.2 mg/dL [facility] Protein, pl 7.7 6.5 - 8.5 g/dL [facility] Albumin 3.9 3.5 - 5.0 g/dL [facility] Alk phos 109 40 - 130 Units/L [facility] ALT 13 7 - 45 Units/L [facility] AST 21 10 - 45 Units/L [facility] Blood 06/22/2024 9:30 AM [employer] 06/22/2024 1:45 PM [employer] Kali Moses MD LAB BLOOD ORDERABLES Final Resul t Performing Organization Address [facility]/ZIP Co de Phone Number [facility] [place] [address] * (ABNORMAL) POCT glucose (06/14/2024 11:44 AM [employer]) Glucose, POC 347(H) 70 - 199 mg/dL Comment: For Glucose values <35 mg/dl when Hematocrit is >60 mg/dl,the test may not accurately detect significant hypoglycemia,and testing in the Laboratory should be considered if clinically indicated. Glucose comment 1 Follow Protocol [facility] Blood 06/14/2024 11:4 4 AM [employer] 06/14/2024 11:44 AM [employer] David Garza MD LAB POCT ORDERABLES - DEVICE Fin al Result [facility] [address] [place] [address] * POCT glucose (06/14/2024 5:57 AM [employer]) Glucose, POC 134 70 - 199 mg/dL Comment: For Glucose values <35 mg/dl when Hematocrit is >60 mg/dl,the test may not accurately detect significant hypoglycemia,and testing in the Laboratory should be considered if clinically indicated. Blood 06/14/2024 5:57 AM [employer] 06/14/2024 5:57 AM [employer] David Garza MD LAB POCT ORDERABLES - DEVICE Fin al Result Performing Organization Address [facility] de Phone Number [facility] [address] [facility] [place] [address] * (ABNORMAL) POCT glucose (06/13/2024 9:43 PM [employer]) [facility] Signature Glucose, POC 212(H) 70 - 199 mg/dL Comment: For Glucose values <35 mg/dl when Hematocrit is >60 mg/dl,the test may not accurately detect significant hypoglycemia,and testing in the Laboratory should be considered if clinically indicated. Blood 06/13/2024 9:43 PM [employer] 06/13/2024 9:43 PM [employer] David Garza MD LAB POCT ORDERABLES - DEVICE Fin al Result Performing Organization Address [facility] de Phone Number [facility] [address] [facility] [place] [address] * XR Chest 1 View (06/13/2024 5:20 PM [employer]) Anatomical Region Laterality Modality Body, Chest N/A Computed Radiogr aphy 06/13/2024 5:45 PM [employer] Impressions 06/13/2024 5:45 PM [employer] No prior study available for comparison. Left upper extremity approach peripherally inserted central catheter tip terminates in the superior vena cava. The lungs are clear, specifically there is no focal consolidation or pulmonary edema. There is no pleural effusion or pneumothorax. The heart and mediastinal contours are within normal limits. Electronically signed by: Juan F Rausch MD, PHD Narrative 06/13/2024 5:45 PM [employer] EXAMINATION: XR CHEST 1 VIEW Procedure Note [...] signed by: Juan F Rausch MD, PHD Balaji BARRIOS IMG XR PROCEDURES Final Result * POCT glucose (06/13/2024 4:41 PM [employer]) [facility] Signature Glucose, POC 122 70 - 199 mg/dL Comment: For Glucose values <35 mg/dl when Hematocrit is >60 mg/dl,the test may not accurately detect significant hypoglycemia,and testing in the Laboratory should be considered if clinically indicated. Blood 06/13/2024 4:41 PM [employer] 06/13/2024 4:41 PM [employer] David Garza MD LAB POCT ORDERABLES - DEVICE Fin al Result [facility] [address] [place] [address] * GENERAL (06/13/2024 4:36 PM [employer]) Narrative Balaji Joel PA - 06/13/2024 4:36 PM [employer] Balaji Joel PA 06/13/2024 4:39 PM PICC Line Placement Date/Time: 06/13/2024 4:36 PM Performed by: Balaji Joel PA Authorized by: Balaji Joel PA [place] Protocol: RN Notified of Procedure: yes Informed consent: Risks, benefits, alternatives discussed and patient/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 Blood 06/13/2024 11:1 9 AM [employer] 06/13/2024 11:19 AM [employer] David Garza MD LAB POCT ORDERABLES - DEVICE Fin al Result [facility] [address] [place] [address] * POCT glucose (06/13/2024 5:28 AM [employer]) Glucose, POC 154 70 - 199 mg/dL Comment: For Glucose values <35 mg/dl when Hematocrit is >60 mg/dl,the test may not accurately detect significant hypoglycemia,and testing in the Laboratory should be considered if clinically indicated. Blood 06/13/2024 5:28 AM [employer] 06/13/2024 5:28 AM [employer] David Garza MD LAB POCT ORDERABLES - DEVICE Fin al Result Performing Organization Address [facility] Co de Phone Number [facility] [address] Department [place] [address] * POCT glucose (06/12/2024 8:07 PM B[employer]) Pathologist [facility] Glucose, POC 138 70 - 199 mg/dL Comment: For Glucose values <35 mg/dl when Hematocrit is >60 mg/dl,the test may not accurately detect significant hypoglycemia,and testing in the Laboratory should be considered if clinically indicated. Blood 06/12/2024 8:07 PM [employer]ER 06/12/2024 8:07 PM [employer] David Garza MD LAB POCT ORDERABLES - DEVICE Fin al Result Performing Organization Address [facility] Co de Phone Number [facility] [address] Department [place] [address] * Hepatitis panel, acute Blood (06/12/2024 7:39 PM [employer]ER) [facility] Hep A IgM Nonreactive Nonreactive Comment: Interpretive Data: If Hep A IgM Ab is reported as Equivocal, a new sample should be drawn in two weeks for testing. Current interpretive data was last revised on 19. Hep B core IgM Nonreactive Nonreactive [facility] Comment: Interpretive Data If HepB Core IgM Ab is reported as Equivocal, a new sample should be drawn in two weeks for testing. Current interpretive data was last revised on 19. Hep C Ab Nonreactive Nonreactive [facility] Comment: Interpretive Data Nonreactive: Antibodies [...] last revised on 2019. HepBsAg Nonreactive Nonreactive [facility] Blood 06/12/2024 7:39 PM [employer] 06/12/2024 8:01 PM [employer] Ayan Lucas NP LAB MICROBIOLOGY - GENERAL ALBA LERMA Final Result Performing Organization Address [facility] de Phone Number [facility] [address] [place] [address] * POCT glucose (06/12/2024 4:49 PM [employer]) Glucose, POC 105 70 - 199 mg/dL Comment: For Glucose values <35 mg/dl when Hematocrit is >60 mg/dl,the test may not accurately detect significant hypoglycemia,and testing in the Laboratory should be considered if clinically indicated. Blood 06/12/2024 4:49 PM [employer]ER 06/12/2024 4:49 PM [employer] David Garza MD LAB POCT ORDERABLES - DEVICE Fin al Result Performing Organization Address [facility] de Phone Number [facility] [address] [place] [address] * (ABNORMAL) POCT glucose (06/12/2024 11:30 AM B[employer]) Glucose, POC 227(H) 70 - 199 mg/dL Comment: For Glucose values <35 mg/dl when Hematocrit is >60 mg/dl,the test may not accurately detect significant hypoglycemia,and testing in the Laboratory should be considered if clinically indicated. Blood 06/12/2024 11:3 0 AM [employer]ER 06/12/2024 11:30 AM [employer] David Garza MD LAB POCT ORDERABLES - DEVICE Fin al Result Performing Organization Address [facility]/State/ZIP Co de Phone Number [facility] [address] [place] [address] * eGFR (06/12/2024 6:07 AM B[employer]) Pathologist [facility] eGFR >90 >=60 mL/min/1. 73 m2 Comment: [...] last reviewed 2021. Blood 06/12/2024 6:07 AM [employer] 06/12/2024 6:22 AM [employer] us David Garza MD LAB BLOOD ORDERABLES Final Resul t [facility] [address] [place] [address] * Differential, auto (06/12/2024 6:07 AM B[employer]) Pathologist [facility] Neutrophil abs 2.4 1.5 - 6.5 K/cumm Imm gran abs 0.0 0.0 - 0.1 K/cumm [facility] Lymphocyte abs 1.7 0.8 - 3.3 K/cumm [facility] Monocyte abs 0.4 0.2 - 0.8 K/cumm [facility] Eosinophil abs 0.2 0.0 - 0.5 K/cumm [facility] Basophil abs 0.0 0.0 - 0.1 K/cumm [facility] Neutrophil pct 50.6 % [facility] Comment: Interpretive Data Percent cell count reference ranges are not reported, since discordance with absolute values may lead to misinterpretation of CBC data. Current Interpretive Data was last revised on 2017. Imm gran pct 0.6 % [facility] Comment: Interpretive Data Percent cell count reference ranges are not reported, since discordance with absolute values may lead to misinterpretation of CBC data. Current Interpretive Data was last revised on 2017. Lymphocyte pct 36.2 % [facility] Comment: Interpretive Data Percent cell count reference ranges are not reported, since discordance with absolute values may lead to misinterpretation of CBC data. Current Interpretive Data was last revised on 2017. Monocyte pct 7.6 % [facility] Comment: Interpretive Data Percent cell count reference ranges are not reported, since discordance with absolute values may lead to misinterpretation of CBC data. Current Interpretive Data was last revised on 2017. Eosinophil pct 4.2 % [facility] Comment: Interpretive Data Percent cell count reference ranges are not reported, since discordance with absolute values may lead to misinterpretation of CBC data. Current Interpretive Data was last revised on 2017. Basophil pct 0.8 % [facility] Comment: Interpretive Data Percent cell count reference ranges are not reported, since discordance with absolute values may lead to misinterpretation of CBC data. Current Interpretive Data was last revised on 2017. Blood 06/12/2024 6:07 AM [employer] 06/12/2024 6:22 AM [employer] us David Garza MD LAB BLOOD ORDERABLES Final Resul t [facility] [address] [place] [address] * (ABNORMAL) CBC with auto differential (06/12/2024 6:07 AM B[employer]ER) WBC 4.8 3.8 - 9.9 K/cumm Hgb 12.2 11.9 - 15.5 g/dL [facility] Hct 38.0 35.6 - 45.5 % [facility] Plt 304 150 - 400 K/cumm [facility] MPV 8.9(L) 9.1 - 12.3 fL [facility] RBC 3.99 3.90 - 5.20 M/cumm [facility] MCV 95.2 81.3 - 96.4 fL [facility] MCH 30.6 27.1 - 33.3 pg [facility] MCHC 32.1(L) 32.3 - 35.7 g/dL [facility] RDW CV 12.9 11.1 - 14.9 % [facility] RDW SD 45.3 35.7 - 48.1 fL [facility] NRBC abs 0.00 0.00 - 0.01 K/cumm [facility] Blood 06/12/2024 6:07 AM [employer]ER 06/12/2024 6:22 AM [employer] David Garza MD LAB BLOOD ORDERABLES Final Resul t [facility] [address] [place] [address] * Basic metabolic panel (06/12/2024 6:07 AM B[employer]ER) Sodium 140 135 - 145 mmol/L Potassium, pl 4.2 3.3 - 4.9 mmol/L [facility] Chloride 103 97 - 110 mmol/L [facility] CO2 32 22 - 32 mmol/L [facility] Anion gap 5 2 - 15 mmol/L [facility] BUN 12 6 - 25 mg/dL [facility] Creatinine 0.62 0.60 - 1.10 mg/dL [facility] Glucose 119 70 - 199 mg/dL [facility] Comment: Interpretive Data Fasting glucose [...] 2022. Calcium 8.7 8.5 - 10.3 mg/dL [facility] Blood 06/12/2024 6:07 AM [employer]ER 06/12/2024 6:22 AM [employer]ER David Garza MD LAB BLOOD ORDERABLES Final Resul t Performing Organization Address [facility] de Phone Number [facility] [address] [place] [address] * POCT glucose (06/12/2024 5:52 AM B[employer]ER) Glucose, POC 126 70 - 199 mg/dL Comment: For Glucose values <35 mg/dl when Hematocrit is >60 mg/dl,the test may not accurately detect significant hypoglycemia,and testing in the Laboratory should be considered if clinically indicated. Blood 06/12/2024 5:52 AM [employer]ER 06/12/2024 5:52 AM [employer]ER David Garza MD LAB POCT ORDERABLES - DEVICE Fin al Result Performing Organization Address [facility] de Phone Number [facility] [address] [place] [address] * POCT glucose (2024 8:40 PM B[employer]ER) Glucose, POC 180 70 - 199 mg/dL Comment: For Glucose values <35 mg/dl when Hematocrit is >60 mg/dl,the test may not accurately detect significant hypoglycemia,and testing in the Laboratory should be considered if clinically indicated. Blood 2024 8:40 PM BOWLING BALL MOLD ASSEMBLER 2024 8:40 PM BOWLING BALL MOLD ASSEMBLER David Garza MD LAB POCT ORDERABLES - DEVICE Fin al Result Performing Organization Address [facility] de Phone Number [facility] [address] [place] [address] * POCT glucose (2024 4:22 PM BOWLING BALL MOLD ASSEMBLER) Pathologist [facility] Glucose, POC 177 70 - 199 mg/dL Comment: For Glucose values <35 mg/dl when Hematocrit is >60 mg/dl,the test may not accurately detect significant hypoglycemia,and testing in the Laboratory should be considered if clinically indicated. Blood 2024 4:22 PM BOWLING BALL MOLD ASSEMBLER 2024 4:22 PM BOWLING BALL MOLD ASSEMBLER us David Garza MD LAB POCT ORDERABLES - DEVICE Fin al Result [facility] [address] [place] [address] * TRANSTHORACIC ECHO (TTE) COMPLETE W DOPPLER/CF WO CONTRAST (2024 1:09 PM BOWLING BALL MOLD ASSEMBLER) [facility] LV EF 55-65 % CONS SCIMAGE Anatomical Region Laterality Modality Ultrasound 2024 7:44 AM BOWLING BALL MOLD ASSEMBLER Narrative 2024 3:59 PM BOWLING BALL MOLD ASSEMBLER [place] [address] [place] [address] ECHOCARDIOGRAM Patient Name: KATERYNA MOYER : 1970 (54y ) Gender: F Study Date: 2024 07:44:00 AM Ht(Inch): 67 Wt(Lb): 134.04 BSA: 1.7 Facility Rehab Director: Location: [id number] Order Provider: KALI MOSES BMI: 20.99 BP: [...] identified. Electronically Signed By: Petey Hylton MD [facility] 2024 3:59:21 PM BOWLING BALL MOLD ASSEMBLER Procedure Note Petey Hylton MD - 2024 [facility] [address] [place] [address] ECHOCARDIOGRAM Patient Name: KATERYNA MOYER : 1970 (54y ) Gender: F Study Date: 2024 07:44:00 AM Ht(Inch): 67 Wt(Lb): 134.04 BSA: 1.7 Facility Rehab Director: Location: [address] Order Provider: KALI MOSES BMI: 20.99 BP: [...] masses or thrombi identified. Electronically Signed By: MD SE[facility] [place] 2024 3:59:21 PM BOWLING BALL MOLD ASSEMBLER Kali Moses MD CV ECHO PROCEDURES Final Result * (ABNORMAL) Hepatic function panel (2024 1:01 PM BOWLING BALL MOLD ASSEMBLER) Bilirubin, total 0.2 0.1 - 1.2 mg/dL Bilirubin, direct <0.2 0.1 - 0.3 mg/dL [facility] Protein, pl 7.2 6.5 - 8.5 g/dL [facility] Albumin 3.4(L) 3.5 - 5.0 g/dL [facility] Alk phos 172(H) 40 - 130 Units/L [facility] ALT 102(H) 7 - 45 Units/L [facility] AST 83(H) 10 - 45 Units/L [facility] Blood 2024 1:01 PM B[employer]LING BALL MOLD ASSEMBLER 2024 1:48 PM BOWLING BALL MOLD ASSEMBLER Ayan Lucas EXTENSION CLERK LAB BLOOD ORDERABLES Final Resu lt Performing Organization Address [facility] Co de Phone Number [facility] [address] [place] [address] * POCT glucose (2024 11:26 AM BOWLING BALL MOLD ASSEMBLER) Glucose, POC 118 70 - 199 mg/dL Comment: For Glucose values <35 mg/dl when Hematocrit is >60 mg/dl,the test may not accurately detect significant hypoglycemia,and testing in the Laboratory should be considered if clinically indicated. Blood 2024 11:2 6 AM BOWLING BALL MOLD ASSEMBLER 2024 11:26 AM BOWLING BALL MOLD ASSEMBLER us David Garza MD LAB POCT ORDERABLES - DEVICE Fin al Result Performing Organization Address [facility] Co de Phone Number [facility] [address] [place] [address] * POCT glucose (2024 6:17 AM BOWLING BALL MOLD ASSEMBLER) Glucose, POC 118 70 - 199 mg/dL Comment: For Glucose values <35 mg/dl when Hematocrit is >60 mg/dl,the test may not accurately detect significant hypoglycemia,and testing in the Laboratory should be considered if clinically indicated. Blood 2024 6:17 AM BOWLING BALL MOLD ASSEMBLER 2024 6:17 AM BOWLING BALL MOLD ASSEMBLER us David Garza MD LAB POCT ORDERABLES - DEVICE Fin al Result Performing Organization Address [facility] de Phone Number [facility] [address] [facility] [employer] [place], [place] [id number] * POCT glucose (06/10/2024 8:43 PM BOWLING BALL MOLD ASSEMBLER) Glucose, POC 153 70 - 199 mg/dL Comment: For Glucose values <35 mg/dl when Hematocrit is >60 mg/dl,the test may not accurately detect significant hypoglycemia,and testing in the Laboratory should be considered if clinically indicated. Blood 06/10/2024 8:43 PM BOWLING BALL MOLD ASSEMBLER 06/10/2024 8:43 PM BOWLING BALL MOLD ASSEMBLER David Garza MD LAB POCT ORDERABLES - DEVICE Fin al Result Performing Organization Address [facility] de Phone Number [facility] [address] [facility] [place] [address] * POCT glucose (06/10/2024 4:41 PM BOWLING BALL MOLD ASSEMBLER) Glucose, POC 148 70 - 199 mg/dL Comment: For Glucose values <35 mg/dl when Hematocrit is >60 mg/dl,the test may not accurately detect significant hypoglycemia,and testing in the Laboratory should be considered if clinically indicated. Blood 06/10/2024 4:41 PM BOWLING BALL MOLD ASSEMBLER 06/10/2024 4:41 PM BOWLING BALL MOLD ASSEMBLER David Garza MD LAB POCT ORDERABLES - DEVICE Fin al Result Performing Organization Address [facility] de Phone Number [facility] [address] [facility] [employer] [place], [place] [id number] * Blood culture Blood (06/10/2024 12:01 PM BOWLING BALL MOLD ASSEMBLER) Report Final Report: No growth Blood 06/10/2024 12:0 1 PM BOWLING BALL MOLD ASSEMBLER 06/10/2024 12:17 PM BOWLING BALL MOLD ASSEMBLER Narrative [facility] - 06/15/2024 1:00 PM BOWLING BALL MOLD ASSEMBLER From a different site than #1. Collection->Peripheral [...] organism identification may be performed using the LETSGROOPArray Blood Culture Identification panel. This assay detects microbial DNA in a blood culture broth. This assay has been cleared by the [facility] Food and Drug Administration and its performance characteristics have been verified by the [facility] Microbiology Laboratory. Interpretive data was last revised on June 19, 2022. David Garza MD [facility] MICROBIOLOGY - GENERAL ORDER BIENVENIDO Final Result Performing Organization Address [facility]/ZIP Co de Phone Number [facility] [address] [place] [address] * Blood culture Blood (06/10/2024 12:01 PM BOWLING BALL MOLD ASSEMBLER) Report Final Report: No growth Blood 06/10/2024 12:0 1 PM BOWLING BALL MOLD ASSEMBLER 06/10/2024 12:17 PM BOWLING BALL MOLD ASSEMBLER Narrative [facility] - 06/15/2024 1:00 PM BOWLING BALL MOLD ASSEMBLER Collection->Peripheral Interpretive Data 1. Blood cultures are incubated and monitored continuously for 5 days (120 hours). The first negative report is issued within 24 hours of receipt in the laboratory. 2. All positive cultures are resulted and called to physicians/care providers as soon as they are detected. 3. A rapid molecular test for organism identification may be performed using the LETSGROOPArray Blood Culture Identification panel. This assay detects microbial DNA in a blood culture broth. This assay has been cleared by the [employer] [place] Food and Drug Administration and its performance characteristics have been verified by the [facility] Microbiology Laboratory. Interpretive data was last revised on June 19, 2022. David Garza MD LAB MICROBIOLOGY - GENERAL ORDER BIENVENIDO Final Result Performing Organization Address City/[facility]/ZIP Co de Phone Number [facility] [address] [place] [address] * POCT glucose (06/10/2024 11:29 AM BOWLING BALL MOLD ASSEMBLER) Glucose, POC 178 70 - 199 mg/dL Comment: For Glucose values <35 mg/dl when Hematocrit is >60 mg/dl,the test may not accurately detect significant hypoglycemia,and testing in the Laboratory should be considered if clinically indicated. Blood 06/10/2024 11:2 9 AM BOWLING BALL MOLD ASSEMBLER 06/10/2024 11:29 AM BOWLING BALL MOLD ASSEMBLER us David Garza MD LAB POCT ORDERABLES - DEVICE Fin al Result Performing Organization Address City/State/[facility] Co de Phone Number [facility] [address] [place] [address] * eGFR (06/10/2024 5:39 AM BOWLING BALL MOLD ASSEMBLER) [facility] eGFR >90 >=60 mL/min/1. 73 m2 Comment: [...] last reviewed 2021. Blood 06/10/2024 5:39 AM BOWLING BALL MOLD ASSEMBLER 06/10/2024 6:22 AM BOWLING BALL MOLD ASSEMBLER us Anita Sung NP LAB BLOOD ORDERABLES Final Re sult [facility] [address] [place] [address] * (ABNORMAL) Basic metabolic panel (06/10/2024 5:39 AM BOWLING BALL MOLD ASSEMBLER) Pathologist [facility] Sodium 139 135 - 145 mmol/L Potassium, pl 4.0 3.3 - 4.9 mmol/L [facility] Chloride 105 97 - 110 mmol/L [facility] CO2 28 22 - 32 mmol/L [facility] Anion gap 6 2 - 15 mmol/L [facility] BUN 9 6 - 25 mg/dL [facility] Creatinine 0.59(L) 0.60 - 1.10 mg/dL [facility] Glucose 115 70 - 199 mg/dL [facility] Comment: Interpretive Data Fasting glucose [...] 2022. Calcium 8.3(L) 8.5 - 10.3 mg/dL [facility] Blood 06/10/2024 5:39 AM BOWLING BALL MOLD ASSEMBLER 06/10/2024 6:22 AM BOWLING BALL MOLD ASSEMBLER Anita Sung NP LAB BLOOD ORDERABLES Final Re sult Performing Organization Address [facility]/ZIP Co de Phone Number [facility] [address] [place] [address] * POCT glucose (06/09/2024 9:22 PM BOWLING BALL MOLD ASSEMBLER) Glucose, POC 152 70 - 199 mg/dL Comment: For Glucose values <35 mg/dl when Hematocrit is >60 mg/dl,the test may not accurately detect significant hypoglycemia,and testing in the Laboratory should be considered if clinically indicated. Blood 06/09/2024 9:22 PM BOWLING BALL MOLD ASSEMBLER 06/09/2024 9:22 PM BOWLING BALL MOLD ASSEMBLER David Garza MD LAB POCT ORDERABLES - DEVICE Fin al Result Performing Organization Address [facility] Co de Phone Number [facility] [address] [place] [address] * POCT glucose (06/09/2024 6:22 PM BOWLING BALL MOLD ASSEMBLER) Glucose, POC 133 70 - 199 mg/dL Comment: For Glucose values <35 mg/dl when Hematocrit is >60 mg/dl,the test may not accurately detect significant hypoglycemia,and testing in the Laboratory should be considered if clinically indicated. Blood 06/09/2024 6:22 PM BOWLING BALL MOLD ASSEMBLER 06/09/2024 6:22 PM BOWLING BALL MOLD ASSEMBLER David Garza MD LAB POCT ORDERABLES - DEVICE Fin al Result Performing Organization Address [facility] Co de Phone Number [facility] [address] [place] [address] * (ABNORMAL) POCT glucose (06/09/2024 2:12 PM BOWLING BALL MOLD ASSEMBLER) Glucose, POC 271(H) 70 - 199 mg/dL Comment: For Glucose values <35 mg/dl when Hematocrit is >60 mg/dl,the test may not accurately detect significant hypoglycemia,and testing in the Laboratory should be considered if clinically indicated. Blood 06/09/2024 2:12 PM BOWLING BALL MOLD ASSEMBLER 06/09/2024 2:12 PM BOWLING BALL MOLD ASSEMBLER David Garza MD LAB POCT ORDERABLES - DEVICE Fin al Result Performing Organization Address [facility] Co de Phone Number [facility] [address] [place] [address] * Vancomycin level trough Obtain level at 1400 on 06/09. (06/09/2024 2:00 PM BOWLING BALL MOLD ASSEMBLER) [facility] Vancomycin trough 10.9 10.0 - 20.0 mcg/mL Blood 06/09/2024 2:00 PM BOWLING BALL MOLD ASSEMBLER 06/09/2024 2:36 PM BOWLING BALL MOLD ASSEMBLER Narrative [facility] - 06/09/2024 3:56 PM BOWLING BALL MOLD ASSEMBLER Obtain level at 1400 on 06/09. us Anita Sung EXTENSION CLERK LAB BLOOD ORDERABLES Final Re sult Performing Organization Address [facility] de Phone Number [facility] [address] [place] [address] * POCT glucose (06/09/2024 7:53 AM BOWLING BALL MOLD ASSEMBLER) [facility] Glucose, POC 156 70 - 199 mg/dL Comment: For Glucose values <35 mg/dl when Hematocrit is >60 mg/dl,the test may not accurately detect significant hypoglycemia,and testing in the Laboratory should be considered if clinically indicated. Blood 06/09/2024 7:53 AM BOWLING BALL MOLD ASSEMBLER 06/09/2024 7:53 AM BOWLING BALL MOLD ASSEMBLER David Garza MD LAB POCT ORDERABLES - DEVICE Fin al Result Performing Organization Address [facility] de Phone Number [facility] [address] [place] [address] * (ABNORMAL) POCT glucose (06/09/2024 4:13 AM BOWLING BALL MOLD ASSEMBLER) [facility] Glucose, POC 305(H) 70 - 199 mg/dL Comment: For Glucose values <35 mg/dl when Hematocrit is >60 mg/dl,the test may not accurately detect significant hypoglycemia,and testing in the Laboratory should be considered if clinically indicated. Blood 06/09/2024 4:13 AM BOWLING BALL MOLD ASSEMBLER 06/09/2024 4:13 AM BOWLING BALL MOLD ASSEMBLER David Garza MD LAB POCT ORDERABLES - DEVICE Fin al Result Performing Organization Address [facility]/State/ZIP Co de Phone Number [facility] [address] [place] [address] * (ABNORMAL) POCT glucose (06/09/2024 2:03 AM BOWLING BALL MOLD ASSEMBLER) Glucose, POC 274(H) 70 - 199 mg/dL Comment: For Glucose values <35 mg/dl when Hematocrit is >60 mg/dl,the test may not accurately detect significant hypoglycemia,and testing in the Laboratory should be considered if clinically indicated. Blood 06/09/2024 2:03 AM BOWLING BALL MOLD ASSEMBLER 06/09/2024 2:03 AM BOWLING BALL MOLD ASSEMBLER David Garza MD LAB POCT ORDERABLES - DEVICE Fin al Result Performing Organization Address [facility] Co de Phone Number [facility] [address] [place] [address] * (ABNORMAL) POCT glucose (06/08/2024 11:36 PM BOWLING BALL MOLD ASSEMBLER) Glucose, POC 349(H) 70 - 199 mg/dL Comment: For Glucose values <35 mg/dl when Hematocrit is >60 mg/dl,the test may not accurately detect significant hypoglycemia,and testing in the Laboratory should be considered if clinically indicated. Blood 06/08/2024 11:3 6 PM BOWLING BALL MOLD ASSEMBLER 06/08/2024 11:36 PM BOWLING BALL MOLD ASSEMBLER David Garza MD LAB POCT ORDERABLES - DEVICE Fin al Result Performing Organization Address City/[facility]/ZIP Co de Phone Number [facility] [address] [place] [address] * (ABNORMAL) POCT glucose (06/08/2024 7:46 PM BOWLING BALL MOLD ASSEMBLER) Glucose, POC 250(H) 70 - 199 mg/dL Comment: For Glucose values <35 mg/dl when Hematocrit is >60 mg/dl,the test may not accurately detect significant hypoglycemia,and testing in the Laboratory should be considered if clinically indicated. Blood 06/08/2024 7:46 PM BOWLING BALL MOLD ASSEMBLER 06/08/2024 7:46 PM BOWLING BALL MOLD ASSEMBLER David Garza MD LAB POCT ORDERABLES - DEVICE Fin al Result Performing Organization Address [facility] Co de Phone Number [facility] [address] [place] [address] * POCT glucose (06/08/2024 4:34 PM BOWLING BALL MOLD ASSEMBLER) Glucose, POC 91 70 - 199 mg/dL Comment: For Glucose values <35 mg/dl when Hematocrit is >60 mg/dl,the test may not accurately detect significant hypoglycemia,and testing in the Laboratory should be considered if clinically indicated. Blood 06/08/2024 4:34 PM BOWLING BALL MOLD ASSEMBLER 06/08/2024 4:34 PM BOWLING BALL MOLD ASSEMBLER David Garza MD LAB POCT ORDERABLES - DEVICE Fin al Result Performing Organization Address [facility] Co de Phone Number [facility] [address] Department of [employer] [place], [place] [id number] * Mycology (fungal) culture Wound Back, lower (06/08/2024 4:30 PM BOWLING BALL MOLD ASSEMBLER) Report Final Report: No fungus isolated Wound (Back, lower) 06/08/2024 4:30 PM BOWLING BALL MOLD ASSEMBLER 06/08/2024 5:09 PM BOWLING BALL MOLD ASSEMBLER Narrative [facility] - 07/07/2024 1:00 PM BOWLING BALL MOLD ASSEMBLER Deep 1 Mycology cultures are held for 4 weeks. Darío Ceron MD LAB MICROBIOLOGY - GENERA L ORDERABLES Final Result Performing Organization Address [facility] Co de Phone Number [facility] [address] Department [employer] [place], [place] [id number] * Mycology (fungal) culture Wound Back, lower (06/08/2024 4:30 PM BOWLING BALL MOLD ASSEMBLER) Report Final Report: No fungus isolated Wound (Back, lower) 06/08/2024 4:30 PM BOWLING BALL MOLD ASSEMBLER 06/08/2024 5:09 PM BOWLING BALL MOLD ASSEMBLER Narrative [facility] - 07/07/2024 1:00 PM BOWLING BALL MOLD ASSEMBLER Superficial 1 Mycology cultures are held for 4 weeks. Darío Ceron MD LAB MICROBIOLOGY - GENERA L ORDERABLES Final Result Performing Organization Address [facility]/ZIP Co de Phone Number [facility] [address] [place] [address] * (ABNORMAL) Aerobic and anaerobic culture and gram stain Wound Back, lower (06/08/2024 4:30 PM BOWLING BALL MOLD ASSEMBLER) Direct Specimen Exam Stain: Rare polymorphonuclear leukocytes seen. No organisms seen. Report Final Report: Heavy growth of: Staphylococcus aureus, methicillin susceptible (.) [facility] Organism STAPHYLOCOCCUS AUREUS, METHICILLIN SUSCEPTIBLE [facility] Wound (Back, lower) 06/08/2024 4:30 PM BOWLING BALL MOLD ASSEMBLER 06/08/2024 5:09 PM BOWLING BALL MOLD ASSEMBLER Narrative [facility] - 2024 7:55 AM BOWLING BALL MOLD ASSEMBLER Deep 1 Organism Antibiotic Method Susceptibility Staphylococcus [...] L ORDERABLES Final Result Performing Organization Address City/[facility]/ZIP Co de Phone Number [facility] [address] Department [employer] [place] [address] * (ABNORMAL) Aerobic and anaerobic culture and gram stain Wound Back, lower (06/08/2024 4:30 PM BOWLING BALL MOLD ASSEMBLER) Direct Specimen Exam Stain: Rare polymorphonuclear leukocytes seen. No organisms seen. Report Final Report: Heavy growth of: Staphylococcus aureus, methicillin susceptible Susceptibility reported on this organism on previous culture [id number] (.) [facility] Organism STAPHYLOCOCCUS AUREUS, METHICILLIN SUSCEPTIBLE [facility] Wound (Back, lower) 06/08/2024 4:30 PM BOWLING BALL MOLD ASSEMBLER 06/08/2024 5:09 PM BOWLING BALL MOLD ASSEMBLER Narrative [facility] - 2024 7:56 AM BOWLING BALL MOLD ASSEMBLER Superficial 1 us Darío Ceron MD LAB MICROBIOLOGY - GENERA L ORDERABLES Final Result [facility] [address] [place] [address] * DE AN ELECTIVE ENDOTRACHEAL AIRWAY, DE AN PROCEDURE PLACEHOLDER (06/08/2024 3:17 PM BOWLING BALL MOLD ASSEMBLER) Narrative Jasmyn Ramos CRNA - 06/08/2024 3:17 PM BOWLING BALL MOLD ASSEMBLER Jasmyn Ramos CRNA 06/08/2024 3:17 PM Airway Patient location: OR Urgency: elective Indications for airway management: anesthesia Difficult airway: no Staff: Placed by: HAIR SPINNING MACHINE OPERATOR: Jasmyn Ramos CRNA Airway prep: Preoxygenated: yes [...] ult * POCT glucose (06/08/2024 1:33 PM BOWLING BALL MOLD ASSEMBLER) Glucose, POC 124 70 - 199 mg/dL Comment: For Glucose values <35 mg/dl when Hematocrit is >60 mg/dl,the test may not accurately detect significant hypoglycemia,and testing in the Laboratory should be considered if clinically indicated. Blood 06/08/2024 1:33 PM BOWLING BALL MOLD ASSEMBLER 06/08/2024 1:33 PM BOWLING BALL MOLD ASSEMBLER David Garza MD LAB POCT ORDERABLES - DEVICE Fin al Result Performing Organization Address [facility] Co de Phone Number [facility] [address] [facility] [place] [address] * POCT glucose (06/08/2024 12:35 PM BOWLING BALL MOLD ASSEMBLER) Glucose, POC 84 70 - 199 mg/dL Comment: For Glucose values <35 mg/dl when Hematocrit is >60 mg/dl,the test may not accurately detect significant hypoglycemia,and testing in the Laboratory should be considered if clinically indicated. Blood 06/08/2024 12:3 5 PM BOWLING BALL MOLD ASSEMBLER 06/08/2024 12:35 PM BOWLING BALL MOLD ASSEMBLER David Garza MD LAB POCT ORDERABLES - DEVICE Fin al Result Performing Organization Address [facility] Co de Phone Number [facility] [address] [facility] [place] [address] * POCT glucose (06/08/2024 8:39 AM BOWLING BALL MOLD ASSEMBLER) Glucose, POC 105 70 - 199 mg/dL Comment: For Glucose values <35 mg/dl when Hematocrit is >60 mg/dl,the test may not accurately detect significant hypoglycemia,and testing in the Laboratory should be considered if clinically indicated. Blood 06/08/2024 8:39 AM BOWLING BALL MOLD ASSEMBLER 06/08/2024 8:39 AM BOWLING BALL MOLD ASSEMBLER David Garza MD LAB POCT ORDERABLES - DEVICE Fin al Result Performing Organization Address [facility]/ZIP Co de Phone Number [facility] [address] [facility] [place] [address] * eGFR (06/08/2024 6:21 AM BOWLING BALL MOLD ASSEMBLER) eGFR 82 >=60 mL/min/1. 73 m2 Comment: [...] last reviewed 2021. Blood 06/08/2024 6:21 AM BOWLING BALL MOLD ASSEMBLER 06/08/2024 6:27 AM BOWLING BALL MOLD ASSEMBLER us Abram Mcnair MD LAB BLOOD ORDERABLES Final Resul t [facility] [address] [place] [address] * (ABNORMAL) CBC without differential (06/08/2024 6:21 AM BOWLING BALL MOLD ASSEMBLER) Pathologist [facility] WBC 12.3(H) 3.8 - 9.9 K/cumm Hgb 12.5 11.9 - 15.5 g/dL [facility] Hct 37.9 35.6 - 45.5 % [facility] [facility] Plt 289 150 - 400 K/cumm [facility] MPV 8.9(L) 9.1 - 12.3 fL [facility] RBC 3.98 3.90 - 5.20 M/cumm [facility] MCV 95.2 81.3 - 96.4 fL [facility] MCH 31.4 27.1 - 33.3 pg [facility] MCHC 33.0 32.3 - 35.7 g/dL [facility] RDW CV 13.0 11.1 - 14.9 % [facility] RDW SD 45.7 35.7 - 48.1 fL [facility] NRBC abs 0.00 0.00 - 0.01 K/cumm [facility] Blood 06/08/2024 6:21 AM [employer] M[employer] ASSEMBLER 06/08/2024 6:27 AM B[employer] ASSEMBLER us Abram Mcnair MD LAB BLOOD ORDERABLES Final Resul t Performing Organization Address City/[facility]/ZIP Co de Phone Number [facility] [address] [facility] [employer] [place], [place] [id number] * Phosphorus (06/08/2024 6:21 AM B[employer]LING BALL MOLD ASSEMBLER) Phosphorus, pl 3.6 2.3 - 4.5 mg/dL Blood 06/08/2024 6:21 AM [employer] M[employer] ASSEMBLER 06/08/2024 6:27 AM B[employer] B[employer] M[employer] ASSEMBLER us Abram Mcnair MD LAB BLOOD ORDERABLES Final Resul t Performing Organization Address [facility] Co de Phone Number [facility] [address] [place] [address] * Magnesium (06/08/2024 6:21 AM B[employer]LING BALL MOLD ASSEMBLER) Magnesium 2.0 1.4 - 2.5 mg/dL Blood 06/08/2024 6:21 AM B[employer] BALL MOLD ASSEMBLER 06/08/2024 6:27 AM B[employer] M[employer] ASSEMBLER us Abram Mcnair MD LAB BLOOD ORDERABLES Final Resul t Performing Organization Address City/[facility] Co de Phone Number [facility] [address] [facility] [place] [address] * Basic metabolic panel (06/08/2024 6:21 AM B[employer]LING BALL M[employer] ASSEMBLER) Sodium 136 135 - 145 mmol/L Potassium, pl 4.0 3.3 - 4.9 mmol/L [facility] Chloride 101 97 - 110 mmol/L [facility] CO2 27 22 - 32 mmol/L [facility] Anion gap 8 2 - 15 mmol/L [facility] BUN 12 6 - 25 mg/dL [facility] Creatinine 0.85 0.60 - 1.10 mg/dL [facility] Glucose 138 70 - 199 mg/dL [facility] Comment: Interpretive Data Fasting glucose [...] 2022. Calcium 8.8 8.5 - 10.3 mg/dL [facility] Blood 06/08/2024 6:21 AM B[employer]ALL MOLD ASSEMBLER 06/08/2024 6:27 AM B[employer] MOLD ASSEMBLER Abram Mcnair MD LAB BLOOD ORDERABLES Final Resul t Performing Organization Address [facility] Co de Phone Number [facility] [address] [place] [address] * POCT glucose (06/08/2024 4:21 AM B[employer]LING BALL MOLD ASSEMBLER) [facility] Signature Glucose, POC 116 70 - 199 mg/dL Comment: For Glucose values <35 mg/dl when Hematocrit is >60 mg/dl,the test may not accurately detect significant hypoglycemia,and testing in the Laboratory should be considered if clinically indicated. Blood 06/08/2024 4:21 AM B[employer]ING BALL MOLD ASSEMBLER 06/08/2024 4:21 AM B[employer] M[employer] ASSEMBLER us Abram Mcnair MD LAB POCT ORDERABLES - DEVICE Fin al Result Performing Organization Address [facility] Co de Phone Number [facility] [address] [place] [address] * Blood culture Blood Peripheral (06/08/2024 12:42 AM B[employer]ALL M[employer] ASSEMBLER) Report Final Report: No growth Blood (Peripheral) 06/08/2024 12:42 AM B[employer]ALL MOLD ASSEMBLER 06/08/2024 12:50 AM B[employer]LING BALL MOLD ASSEMBLER Narrative JEFFREY AMEZCUA - 06/13/2024 7:01 AM B[employer]LING BALL MOLD ASSEMBLER From a different site than #1. Draw [...] organism identification may be performed using the [employer] Blood Culture Identification panel. This assay detects microbial DNA in a blood culture broth. This assay has been cleared by the [place] Food and Drug Administration and its performance characteristics have been verified by the [facility]. Interpretive data was last revised on June 19, 2022. us Anita Sung EXTENSION CLERK LAB MICROBIOLOGY - GENERAL OR DERABLES Final Result [facility] [address] [place] [address] * POCT glucose (06/08/2024 12:38 AM B[employer] B[employer] M[employer] ASSEMBLER) Glucose, POC 121 70 - 199 mg/dL Comment: For Glucose values <35 mg/dl when Hematocrit is >60 mg/dl,the test may not accurately detect significant hypoglycemia,and testing in the Laboratory should be considered if clinically indicated. Blood 06/08/2024 12:3 8 AM B[employer]ALL MOLD ASSEMBLER 06/08/2024 12:38 AM B[employer]ING BALL M[employer] ASSEMBLER us Notinfile Unknown LAB POCT ORDERABLES - DEVICE F inal Result Performing Organization Address City/[facility]/ZIP Co de Phone Number [facility] [address] [place] [address] * (ABNORMAL) Blood culture Blood Peripheral (06/08/2024 12:30 AM B[employer]LING BALL MOLD ASSEMBLER) Pathologist [facility] Direct Specimen Exam Molecular Analysis: Staphylococcus aureus, methicillin-suscep tible (MSSA) detected by the Film[employer] Blood Culture Identification Panel. This test does not exclude the possibility of a mixed bacterial infection. Please consider this result in the context of clinical findings and evaluate the possibility of antimicrobial de-escalation. Test result called to and read back by CARMEN RONQUILLO RN on 06/10/2024 05:31:07 by [id number] Direct Specimen Exam Stain: Gram Positive Cocci in clusters [facility] Report Final Report: Staphylococcus aureus, methicillin susceptible (.) [facility] Organism STAPHYLOCOCCUS AUREUS, METHICILLIN SUSCEPTIBLE [facility] Blood (Peripheral) 06/08/2024 12:30 AM B[employer]LING BALL MOLD ASSEMBLER 06/08/2024 12:50 AM B[employer]LING BALL MOLD ASSEMBLER Narrative [facility] - 06/12/2024 7:20 AM B[employer] BALL MOLD ASSEMBLER Draw Blood cultures before administration of Antibiotics [...] organism identification may be performed using the [employer] Blood Culture Identification panel. This assay detects microbial DNA in a blood culture broth. This assay has been cleared by the [place] Food and Drug Administration and its performance characteristics have been verified by the [facility]. Interpretive data was last revised [...] (JAMES) INTERPRETATION <=0.5 mcg/mL: Susceptible Anita Sung EXTENSION CLERK LAB MICROBIOLOGY - GENERAL OR DERABLES Final Result [facility] [address] [place] [address] * MRI Lumbar Spine W WO Contrast (06/07/2024 11:30 PM B[employer] M[employer] ASSEMBLER) Anatomical Region Laterality Modality Spine N/A Magnetic Resonan ce 06/07/2024 10:3 6 PM [employer] M[employer] ASSEMBLER Impressions 06/08/2024 8:45 AM [employer] M[employer] ASSEMBLER 1. Changes of prior L3-L5 posterior decompression [...] stenosis. For the purposes of quality control analyst, this study was initially interpreted by teleradiology. There is no significant discrepancy. Dictated by: Manpreet Knox D.O. The radiology attending physician has personally reviewed this study, and had reviewed and/or edited this written report and agrees with it. Electronically signed by: Jose A Bhagat MD, PHD Narrative 06/08/2024 8:45 AM B[employer] M[employer] ASSEMBLER EXAMINATION: Magnetic resonance imaging (MRI) of the [...] stenosis. For the purposes of quality control analyst, this study was initially interpreted by teleradiology. There is no significant discrepancy. Dictated by: Manpreet Knox D.O. The radiology attending physician has personally reviewed this study, and had reviewed and/or edited this written report and agrees with it. Electronically signed by: Jose A Bhagat MD, PHD us Anita Sung EXTENSION CLERK IMG MRI PROCEDURES Final Resu lt * Urinalysis reflex to microscopic and culture Urine (06/07/2024 9:41 PM B[employer] M[employer] ASSEMBLER) Color, ur Yellow Yellow Clarity, ur Clear Clear [facility] Specific gravity, ur 1.012 1.003 - 1.030 [facility] pH, urine 7.0 [facility] Comment: Interpretive Data U rine pH is affected by diet, medications, systemic acid-base disturbances, and renal tubular function. pH may affect urinary stone formation. For example, urine pH below 6.0 may help reduce the tendency for calcium phosphate stones and pH greater than 6.0 may reduce the tendency for uric acid stone formation. Source: [facility] Current Interpretive Data was last revised on 2017 Protein, ur ql Negative Negative [facility] Glucose, ur ql Negative Negative [facility] Ketones, ur Negative Negative [facility] Bilirubin, ur Negative Negative [facility] Blood, ur Negative Negative [facility] Urobilinogen, ur <2.0 <2.0 mg/dL [facility] Nitrite, ur Negative Negative [facility] Leukocyte esterase, ur Negative Negative [facility] UA reflex comment Reflex conditions for microscopic UA and culture not met. [facility] Urine 06/07/2024 9:41 PM B[employer]ALL MOLD ASSEMBLER 06/07/2024 9:41 PM B[employer] BALL MOLD ASSEMBLER us Anita Sung NP LAB MICROBIOLOGY - GENERAL OR DERABLES Final Result [facility] [address] Department [place] [address] * Sepsis Lactate w/ Reflex (06/07/2024 9:39 PM B[employer] M[employer] ASSEMBLER) Sepsis Lactate 1.0 0.7 - 2.0 mmol/L Blood 06/07/2024 9:39 PM B[employer]ING BALL MOLD ASSEMBLER 06/07/2024 9:44 PM B[employer] MOLD ASSEMBLER Anita Shen Counts EXTENSION CLERK LAB BLOOD ORDERABLES Final Re sult Performing Organization Address [facility] Co de Phone Number [facility] [address] Department of Laboratories [place], [place] [id number] * eGFR (06/07/2024 9:39 PM B[employer]LING BALL M[employer] ASSEMBLER) Pathologist [facility] eGFR 69 >=60 mL/min/1. 73 m2 Comment: [...] last reviewed 2021. Blood 06/07/2024 9:39 PM B[employer]ING BALL MOLD ASSEMBLER 06/07/2024 9:46 PM B[employer] BALL MOLD ASSEMBLER Anita Shen Counts EXTENSION CLERK LAB BLOOD ORDERABLES Final Re sult Performing Organization Address [facility] Co de Phone Number [facility] [address] [place] [address] * (ABNORMAL) Differential, auto (06/07/2024 9:39 PM B[employer]LING BALL MOLD ASSEMBLER) Pathologist [facility] Neutrophil abs 9.7(H) 1.5 - 6.5 K/cumm Imm gran abs 0.1 0.0 - 0.1 K/cumm [facility] Lymphocyte abs 2.3 0.8 - 3.3 K/cumm [facility] Monocyte abs 0.9(H) 0.2 - 0.8 K/cumm [facility] Eosinophil abs 0.1 0.0 - 0.5 K/cumm [facility] Basophil abs 0.1 0.0 - 0.1 K/cumm [facility] Neutrophil pct 73.9 % [facility] Comment: Interpretive Data Percent cell count reference ranges are not reported, since discordance with absolute values may lead to misinterpretation of CBC data. Current Interpretive Data was last revised on 2017. Imm gran pct 0.4 % [facility] Comment: Interpretive Data Percent cell count reference ranges are not reported, since discordance with absolute values may lead to misinterpretation of CBC data. Current Interpretive Data was last revised on 2017. Lymphocyte pct 17.4 % [facility] Comment: Interpretive Data Percent cell count reference ranges are not reported, since discordance with absolute values may lead to misinterpretation of CBC data. Current Interpretive Data was last revised on 2017. Monocyte pct 6.7 % [facility] Comment: Interpretive Data Percent cell count reference ranges are not reported, since discordance with absolute values may lead to misinterpretation of CBC data. Current Interpretive Data was last revised on 2017. Eosinophil pct 0.9 % [facility] Comment: Interpretive Data Percent cell count reference ranges are not reported, since discordance with absolute values may lead to misinterpretation of CBC data. Current Interpretive Data was last revised on 2017. Basophil pct 0.7 % [facility] Comment: Interpretive Data Percent cell count reference ranges are not reported, since discordance with absolute values may lead to misinterpretation of CBC data. Current Interpretive Data was last revised on 2017. Blood 06/07/2024 9:39 PM B[employer] MOLD ASSEMBLER 06/07/2024 9:46 PM B[employer] BALL MOLD ASSEMBLER us Anita Sung EXTENSION CLERK LAB BLOOD ORDERABLES Final Re sult [facility] [address] [place] [address] * (ABNORMAL) CBC with auto differential (06/07/2024 9:39 PM BOWLING BALL MOLD ASSEMBLER) [facility] WBC 13.1(H) 3.8 - 9.9 K/cumm Hgb 12.8 11.9 - 15.5 g/dL [facility] Hct 38.7 35.6 - 45.5 % [facility] Plt 312 150 - 400 K/cumm [facility] MPV 9.2 9.1 - 12.3 fL [facility] RBC 4.11 3.90 - 5.20 M/cumm [facility] MCV 94.2 81.3 - 96.4 fL [facility] MCH 31.1 27.1 - 33.3 pg [facility] MCHC 33.1 32.3 - 35.7 g/dL [facility] RDW CV 13.1 11.1 - 14.9 % [facility] RDW SD 45.1 35.7 - 48.1 fL [facility] NRBC abs 0.00 0.00 - 0.01 K/cumm [facility] Blood 06/07/2024 9:3 9 PM B[employer]ING BALL MOLD ASSEMBLER 06/07/2024 9:46 PM B[employer] BALL MOLD ASSEMBLER Anita Shen Counts EXTENSION CLERK LAB BLOOD ORDERABLES Final Re sult Performing Organization Address City/[facility] Co de Phone Number [facility] [address] [employer] [place], [place] [id number] * (ABNORMAL) Erythrocyte sedimentation rate (06/07/2024 9:39 PM BOWLING BALL MOLD ASSEMBLER) [facility] Erythrocyte sedimentation rate 39(H) 1 - 30 mm/hr Blood 06/07/2024 9:39 PM B[employer]LING BALL MOLD ASSEMBLER 06/07/2024 9:46 PM B[employer] B[employer] MOLD ASSEMBLER Anita Shen Counts EXTENSION CLERK LAB BLOOD ORDERABLES Final Re sult Performing Organization Address City/[facility] Co de Phone Number [facility] [address] [facility] [place] [address] * (ABNORMAL) CRP (acute phase) (06/07/2024 9:39 PM BOWLING BALL MOLD ASSEMBLER) [facility] CRP 82.7(H) <=10.0 mg/L Blood 06/07/2024 9:39 PM B[employer]LING BALL MOLD ASSEMBLER 06/07/2024 9:46 PM B[employer]LING BALL MOLD ASSEMBLER us Anita Sung EXTENSION CLERK LAB BLOOD ORDERABLES Final Re sult [facility] [address] [place] [address] * (ABNORMAL) Comprehensive metabolic panel (06/07/2024 9:39 PM BOWLING BALL MOLD ASSEMBLER) [facility] Sodium 137 135 - 145 mmol/L Potassium, pl 4.6 3.3 - 4.9 mmol/L [facility] Comment:Hemolyzed; potassium value may be falsely elevated by as much as 0.6 - 1.0 mmol/L. Suggest redraw and reanalysis Chloride 102 97 - 110 mmol/L [facility] CO2 25 22 - 32 mmol/L [facility] Anion gap 10 2 - 15 mmol/L [facility] BUN 12 6 - 25 mg/dL [facility] Creatinine 0.98 0.60 - 1.10 mg/dL [facility] Glucose 147 70 - 199 mg/dL [facility] Comment: Interpretive Data Fasting glucose [...] 2022. Calcium 9.0 8.5 - 10.3 mg/dL [facility] Bilirubin, total 0.3 0.1 - 1.2 mg/dL [facility] Protein, pl 7.1 6.5 - 8.5 g/dL [facility] Albumin 3.4(L) 3.5 - 5.0 g/dL [facility] Alk phos 83 40 - 130 Units/L [facility] ALT 15 7 - 45 Units/L [facility] Comment:Moderately Hemolyzed Specimen AST 27 10 - 45 Units/L [facility] Comment:Moderately Hemolyzed Specimen Blood 06/07/2024 9:39 PM BOWLING BALL MOLD ASSEMBLER 06/07/2024 9:46 PM BOWLING BALL MOLD ASSEMBLER Anita Sung EXTENSION CLERK LAB BLOOD ORDERABLES Final Re sult Performing Organization Address [facility] Co de Phone Number [facility] [address] Department of Laboratories [place], [place] [id number] * (ABNORMAL) Hemoglobin A1c (03/21/2024 10:40 AM BOWLING BALL MOLD ASSEMBLER) Hgb A1C 6.4(H) 4.0 - 5.6 % Estimated Average Glucose 137 mg/dL [facility] Comment: The ADA recommends reporting an estimated Average Glucose (eAG) with all Hemoglobin A1c results using the equation derived from a study of 507 normal and diabetic adults. Minority populations were underrepresented and children were not included. (Diabetes Care 31:9923-3752, 2008). The eAG is not equivalent to a fasting glucose. Blood 03/21/2024 10:4 0 AM BOWLING BALL MOLD ASSEMBLER 03/21/2024 10:40 AM BOWLING BALL MOLD ASSEMBLER Brigida Ledesma EXTENSION CLERK LAB BLOOD ORDERABLES Fin al Result Performing Organization Address [facility] Co de Phone Number [facility] [address] Department [place] [address] * (ABNORMAL) POCT lipid panel (12/09/2021 10:27 [...] Mammogram Bilateral W Hai (06/10/2021 10:10 AM BOWLING BALL MOLD ASSEMBLER) Anatomical Region Laterality Modality Breast Bilateral Mammography 06/10/2021 11:4 8 AM BOWLING BALL MOLD ASSEMBLER Impressions 06/10/2021 1:28 PM BOWLING BALL MOLD ASSEMBLER 1. No suspicious mammographic or sonographic correlate [...] and agrees with it. Electronically signed by: Mrayse Dowling M.D. Narrative 06/10/2021 1:28 PM BOWLING BALL MOLD ASSEMBLER EXAMINATION: BILATERAL DIGITAL DIAGNOSTIC MAMMOGRAM INCLUDING CAD [...] it. Electronically signed by: Maryse Dowling M.D. Denise Allen MD PhD IMG MAMMO PROCEDURES Final Result from Last 3 Months or Most Recently Relevant to Health Maintenance Insurance IDPA [facility] CHOICE [facility] HMO/PPO Address: [address] [address] [place] [address] MEDICARE [facility] Address: [address] [address] [place] [address] IDPA [facility] CHOICE [facility]US [facility] HMO/PPO Address: [address] [address] [place] [address] [facility] CHOICE PL[facility] HMO/PPO Address: [address] [address] [place] [address] IDPA MEDICARE [facility] CHOICE PLUS [facility] HMO/PPO Address: [address] [address] [place] [address] Advance Directives For more information, please contact: [phone] * Full Code (Latest Code Status on File) Date Activated Date Inactivated Comments 06/08/2024 3:56 AM 06/14/2024 8:35 PM * Full Code Date Activated Date Inactivated Comments 04/05/2024 9:24 PM 04/06/2024 2:12 PM * Full Code Date Activated Date Inactivated Comments 04/05/2024 8:19 PM 04/05/2024 9:24 PM * Full Code Date Activated Date Inactivated Comments 12/24/2021 12:49 PM 12/25/2021 4:30 PM Care Teams Tying In Machine Operator Relationship Specialty Start Date End Date Christos Coon MD [address] [place] [address] PCP - General 10/31/16 Darío Ceron MD [id number] [place] [address] Consulting Physician Neurosurgery 06/14/24 Kali Moses MD [address] [place] [address] Consulting Physician Infectious Diseases 06/14/24
--- OUTSIDE RECORDS SUMMARY | 2024-07-11 09:12 | XMS_ITS | Clinical Summary ---
Author Organization [employer] Steffi ardon 2021 [address] [facility] [address] [place] [address] Phone Care Team Providers Care Shade Hanger Name Role Phone Unavailable Primary Care Provider Unavailabl e Social History Tobacco Use Types Packs/Day Years Used Date Smoking Tobacco: Never Assessed Comments Unknown Sex and Gender Information Value Date Recorded Sex Assigned at Not on file Legal Sex Female 4:21 PM CDT Gender Identity Not on file Sexual Orientation Not on file Plan of Treatment Health Maintenance Due Date Last Done Comments DTAP/TDAP/TD VACCINES (1 - Tdap) 1990 HEPATITIS B VACCINES (1 of 3 - 19+ 3-dose series) 05/19 CERVICAL CANCER SCREENING 2001 BREAST CANCER SCREENING 2011 COLORECTAL SCREENING 2016 Colorectal Cancer Screening 2016 FIT-DNA Q 3 years 2016 FIT/FOBT Q 1 year 2016 Flex Sig/CT Colonography Q 5 years 2016 ZOSTER VACCINE (1 of 2) 2021 INFLUENZA VACCINE (#1) 2023 Insurance [facility] [id number]
== END 2024-07-11 08:45 | disposition home or self-care (01) ==
LOC: CHSIMG 08:47
PROVIDERS: PCP Family Medicine; Visit Provider Neurological Surgery
DX: Z98.1 Arthrodesis status (principal)
CPT/HCPCS: 72100

== ENCOUNTER 2024-08-24 10:26 | Outpatient (CLI) | payer OTHER, MEDICARE, MEDICAID, SELFPAY ==
--- NOTE | ~2024-08-24 | XR_ITS ---
Lumbosacral Spine: AP and lateral views Clinical History: Postlaminectomy, infection COMPARISON: 07/11/2024 Findings: Stable posterior and interbody fusion changes from L3 through S1. Osseous and orthopedic lugo rdware alignment is stable. Stable minimal degenerative changes of the upper lumbar spine. The sacroi liac joints are normally outlined. Impression: Stable postoperative change. No change from prior exam. Reviewed, dictated and finalized at location M. Impression: Stable postoperative change. No change from prior exam.
--- OUTSIDE RECORDS SUMMARY | 2024-08-24 12:01 | XMS_ITS | Clinical Summary ---
Author Organization [facility] Address [address] [place] [address] Care Team Providers Care Export Documents Clerk Name Role Phone Christos Coon MD Primary Care Provider Darío Ceron MD Unavailable [phone] Kali Moses MD Unavailable Allergies Active Allergy [...] findings here Medications ezetimibe (ZETIA) 10 mg tabletIndications: hyperlipidemia Take 1 tablet by mouth nightly 04/04/20 21 Active blood-glucose sensor (Dexcom G6 Sensor) deviceIndications: type 2 diabetes mellitus 1 Device continuously Use to check glucose level continuously; change every 10 days. e11.65 12 each 3 12/10/19 22 Active blood-glucose transmitter (Dexcom G6 Transmitter) deviceIndications: type 2 diabetes mellitus 1 Device continuously Use to monitor blood sugar continuously, change every 90 days e11.65 1 each 3 12/10/19 22 Active BD Ultra-Fine Orig Pen Needle 29 gauge x 1/2 needleIndications: type 2 diabetes mellitus Use to deliver insulin 4x/day e11.65 150 each 5 12/12/[address] (CYMBALTA) 60 mg capsuleIndications :Generalized Anxiety Disorder Take 1 capsule by mouth nightly Active insulin aspart (NovoLOG) 100 unit/mL (3 mL) pen for injectionIndicatio ns:type 2 diabetes mellitus Inject 3-5 Units under the skin 3 (three) times a day as needed (sliding scale with meals) Active lidocaine (LIDODERM) 5 %Indications:Posth erpetic Neuralgia Place 1 patch on the skin daily Remove & discard patch within 12 hours or as directed by MD. Active semaglutide (Ozempic) 2 mg/dose (8 mg/3 mL) pen injector injectionIndicatio ns:type 2 diabetes mellitus Inject 2 mg under the skin every 30 (thirty) days Active TiZANidine (ZANAFLEX) 4 mg capsuleIndications :Muscle Spasm Take 1 capsule by mouth 3 (three) times a day as needed for muscle spasms Active ondansetron (ZOFRAN) 4 mg tabletIndications: Prevention of Post-Operative Nausea and Vomiting Take 1 tablet by mouth every 8 (eight) hours as needed for nausea or vomiting Active ALPRAZolam (XANAX) 0.25 mg tabletIndications: anxiety Take 0.5-1 tablets by mouth daily as needed for anxiety Active fluticasone propionate (FLONASE) 50 mcg/actuation nasal sprayIndications:A llergic Conjunctivitis Administer 1 spray into each nostril daily Active pregabalin (LYRICA) 25 mg capsuleIndications :Postherpetic Neuralgia Take 1 capsule (25 mg total) by mouth 3 (three) times a day 06/14/19 Active oxyCODONE (ROXICODONE) 5 mg immediate release tabletIndications: Pain Take 1 tablet (5 mg total) by mouth every 8 (eight) hours as needed for pain 12 tablet 06/14/19 Active Active Problems Problem Noted Date Diagnosed Date Intractable pain 06/08/2024 Spinal abscess 06/08/2024 Lumbar disc herniation with radiculopathy 2021 [...] Encounters Date Type Department Care Team Description 07/22/2024 10:30 AM GAS REGULATOR REPAIRER HELPER Home Care Visit [address] [place] [address] Marcello Hurtado, RN SN OASIS DISCHARGE 07/20/2024 12:00 PM GAS REGULATOR REPAIRER HELPER Home Care Visit [address] [place] [address] Marcello Hurtado, RN SN HOME VISIT 07/20/2024 11:30 AM GAS REGULATOR REPAIRER HELPER - 07/20/2024 11:59 PM GAS REGULATOR REPAIRER HELPER Hospital Encounter [place] [id number] Discharge Disposition: Discharge to home or self care 07/15/2024 Orders Only [facility] Home Care Services [address] [facility] [address] [place] [phone] Mary Lentz [facility] 07/13/2024 1:30 PM GAS REGULATOR REPAIRER HELPER Home Care Visit [address] [place] [address] Mili Isidro, PT PT REASSESSMENT 07/13/2024 Home Care Visit [address] [place] [address] Mili Isidro, PT PT DISCIPLINE DISCHARGE 07/12/2024 2:30 PM GAS REGULATOR REPAIRER HELPER Home Care Visit [address] [place] [address] Marcello Hurtado, SHANEL SN HOME VISIT 07/12/2024 2:00 PM GAS REGULATOR REPAIRER HELPER - 07/12/2024 11:59 PM GAS REGULATOR REPAIRER HELPER Hospital Encounter [address] [address] Discharge Disposition: Discharge to home or self care 07/06/2024 2:00 PM GAS REGULATOR REPAIRER HELPER - 07/06/2024 11:59 PM GAS REGULATOR REPAIRER HELPER Hospital Encounter [address] [address] Discharge Disposition: Discharge to home or self care 07/06/2024 2:00 PM GAS REGULATOR REPAIRER HELPER Home Care Visit [address] [place] [address] Marcello Hurtado, RN SN HOME VISIT 07/06/2024 11:30 AM GAS REGULATOR REPAIRER HELPER Home Care Visit [address] [place] [address] Mary Juarez PTA PT HOME VISIT 07/01/2024 4:15 PM GAS REGULATOR REPAIRER HELPER Home Care Visit [address] [place] [address] Mili White SN HOME VISIT 07/01/2024 Home Care Visit [address] [place] [address] Alexia Kelley, SHANEL SN TRIAGE ENCOUNTER 06/30/2024 Orders Only [facility] Home Care Services [address] [facility] [address] [place] [address] Gina Pisano, [facility] 06/28/2024 6:27 PM GAS REGULATOR REPAIRER HELPER - 06/28/2024 11:59 PM GAS REGULATOR REPAIRER HELPER Hospital Encounter [address] [address] Discharge Disposition: Discharge to home or self care 06/28/2024 1:30 PM GAS REGULATOR REPAIRER HELPER Home Care Visit [address] [place] [address] Marcello Hurtado RN SN HOME VISIT 06/22/2024 9:30 AM GAS REGULATOR REPAIRER HELPER - 06/22/2024 11:59 PM GAS REGULATOR REPAIRER HELPER Hospital Encounter [address] [address] Discharge Disposition: Discharge to home or self care 06/22/2024 9:30 AM GAS REGULATOR REPAIRER HELPER Home Care Visit [address] [place] [address] Marcello Hurtado RN SN HOME VISIT 06/20/2024 1:30 PM GAS REGULATOR REPAIRER HELPER Home Care Visit [address] [place] [address] Mili Isidro, PT PT INITIAL EVALUATION 06/20/2024 Home Care Visit [address] [place] [address] Mili Isidro, PT CARE CONFERENCE 06/20/2024 Home Care Visit [address] [place] [address] Georgina Mauricio, SHANEL SN TRIAGE ENCOUNTER 06/18/2024 Home Care Visit [address] [place] [address] Leslie Contreras, SHANEL TELEPHONE ENCOUNTER 06/18/2024 Home Care Visit [address] [place] [address] Marcia Cho, SHANEL SN TRIAGE ENCOUNTER 06/17/2024 Home Care Visit [address] [place] [address] Georgina Mauricio, SHANEL SN TRIAGE ENCOUNTER 06/15/2024 8:15 AM GAS REGULATOR REPAIRER HELPER Home Care Visit [address] [address] [address] [place] [address] Marcello Hurtado RN SN OASIS START OF CARE 06/15/2024 Plan of Care Documentation [address] [address] [place] [address] 06/14/2024 Orders Only [facility] Home Care Services [address] [place] [address] [address] [place] [phone] Gina Pisano, [facility] 06/08/2024 2:58 PM GAS REGULATOR REPAIRER HELPER Anesthesia Event [facility] Operating Room [address] [place] [phone] Jah Bowman MD Grither, Christine D., [employer] SALES REP 06/08/2024 2:02 PM GAS REGULATOR REPAIRER HELPER - 06/08/2024 4:07 PM GAS REGULATOR REPAIRER HELPER Surgery [facility] Operating Room [address] [place] [phone] Darío Ceron MD INCISION AND DRAINAGE - LUMBAR WOUND 06/07/2024 8:19 PM GAS REGULATOR REPAIRER HELPER - 06/14/2024 4:29 PM GAS REGULATOR REPAIRER HELPER Hospital Encounter [address] [phone] Abram Mcnair MD Jain, Anshu, MD long term care pharmacist current use of antibiotics (Primary Dx); Spinal abscess (HCC); Acute low back pain due to [...] of experiencing loneliness or isolatio n Never 07/22/2024 OASIS [id number]: Transportation Answer Date Recorded Lack of Transportation (Medical) No 07/22/2024 Lack of Transportation (Non-Medical) No 07/22/2024 Patient Unable or Declines to Respond No 07/22/2024 OASIS [id number]: Health Literacy Answer Too e Recorded Frequency of needing help to read materials from doctor or pharmacy Sometimes 07/22/2024 [facility] Utilities Answer Date Recorded In the past 12 months has e [employer], oil, or water [employer] threatened to shut off services in your home? Patient declined 06/08/2024 Social Connection and Isolation Panel [NHANES] A nswer Date Recorded In a typical week, how many times do you talk on the phone with family, friends, or neighbors? Patient declined 06/08/2024 How often do you get togethe r with friends or relatives? Patient declined 06/08/2024 How often do you attend worship or tenriism serv ices? Patient declined 06/08/2024 Do you belong to any clubs o r organizations such as worship groups, unions, fraternal or athletic groups, or [...] any time in the past 12 m [facility], were you homeless or living in a [facility] (including now)? Patient declined 06/08/2024 Personal Safety Answer Date Recorded Have you ever been in or are you currently in a harmful physical or emotional relationship or is someone making you feel afraid or unsafe? Denies 06/08/2024 Comments No Sex and Gender Information Value Date Recorded Sex Assigned at Not on file Legal Sex Female 12:29 PM GAS REGULATOR REPAIRER HELPER Gender Identity Not on file Sexual Orientation Not on file Obstetrics History Last Filed Vital Signs Vital Sign Reading Time Taken Comments Blood Pressure 122/60 07/20/2024 1:00 AM GAS REGULATOR REPAIRER HELPER Pulse 60 07/20/2024 1:00 AM GAS REGULATOR REPAIRER HELPER Temperature 36.2 C (97.1 F) 07/20/2024 1:00 AM GAS REGULATOR REPAIRER HELPER Respiratory Rate 18 07/20/2024 1:00 AM GAS REGULATOR REPAIRER HELPER Oxygen Saturation 98% 07/20/2024 1:00 AM GAS REGULATOR REPAIRER HELPER Inhaled Oxygen Concentration - - Weight 60.9 kg (134 lb 3.2 oz) 06/08/2024 4:00 A M GAS REGULATOR REPAIRER HELPER Height 170.2 cm (5' 7 ) 06/08/2024 4:00 AM GAS REGULATOR REPAIRER HELPER Body Mass Index 21.02 06/08/2024 4:00 AM GAS REGULATOR REPAIRER HELPER Plan of Treatment Health Maintenance Due [...] (2023-2 5 season) 2024 02/19/2021, 07/27/2020, 07/06/2020 Hemoglobin A1C 09/18/2024 03/21/2024, 11/16, 10/11/2021 Influenza Vaccine (Season Ended) 2025 02/14/2021, 02/08/2020, 02/21/2017, Additional history exists eGFR 07/20/2025 07/20/2024, 06/19, 07/06/2024, Additional history exists DTaP/Tdap/Td Vaccine (3 - Td or Tdap) 05/07/2031 05/07/2021, 05/06/2013 Hepatitis B Screening Completed 06/21/2021, 022 Hepatitis C Screening Completed 06/12/2024 Medical Devices Implanted Type Area Children'S Aide Device Identifier Shelf Expiration Date Model / Serial / Lot [place] Spine [place] L22 Mm X W8.5 Mm X H10 Mm Convex Cage Spinal Titanium P Latex Free [id number] - Sn/A - [id number] Implanted:Qty: 1 on 12/24/2021 by Darío Ceron MD at [facility] Cage N/A: Lumbar-Sa cral Spine [place] Spine [id number] 06/03/2026 [id number] 210NC-G2 / N/A / [id number] Stuart Spine Brunswick L22 Mm X W8.5 Mm X H10 Mm Convex Cage Spinal Titanium P Latex Free [id number] - Sn/A - [id number] Implanted:Qty: 1 on 12/24/2021 by Darío Ceron MD at [facility] Cage N/A: Lumbar-Sa cral Spine Stuart Spine [id number] 06/03/2026 1975-1523 210NC-G2 / N/A / [id number] Screws,Rods N/A: Spine Lumbar [place] Spine 4mm 30mm Polyaxial Spine Screw Bone Deformity [id number] - [id number] Implanted:Qty: 2 on 12/24/2021 by Darío Ceron MD at [facility] N/A: Lumbar-Sa cral Spine Stuart Spine [id number] 0 / / Stuart Spine 4.5mm 30mm Polyaxial Spine Screw Bone Deformity [id number] - [id number] Implanted:Qty: 2 on 12/24/2021 by Darío Ceron MD at [facility] N/A: Lumbar-Sa cral Spine [place] Spine [id number] 0 / / Stuart Spine 4.5mm 40mm Contour Praful Spinal Cocr [id number] - [id number] Implanted:Qty: 2 on 12/24/2021 by Darío Ceron MD at [facility] N/A: Lumbar-Sa cral Spine [place] Spine 9100-9892 0 / / [place] Spine 29mm Semiadjustable Transverse Spine Connector Praful Posterior 3001-06582f - [id number] Implanted:Qty: 1 on 12/24/2021 by Darío Ceron MD at [facility] N/A: Lumbar-Sa cral Spine [place] Spine 6460-0721 9A / / Stuart Spine 26mm Semiadjustable Transverse Spine Connector Praful Posterior [id number] - [id number] Implanted:Qty: 1 on 04/05/2024 by Darío Ceron MD at [facility] N/A: Spine Lumbar [place] Spine 9980-4008 6A / / Stuart Spine 29mm Semiadjustable Transverse Spine Connector Praful Posterior [id number] - [id number] Implanted:Qty: 1 on 04/05/2024 by Darío Ceron MD at [facility] N/A: Spine Lumbar [place] Spine [id number] 9A / / [place] Spine 4mm 30mm Polyaxial Spine Screw Bone Deformity 3001-23410 - [id number] Implanted:Qty: 2 on 04/05/2024 by Darío Ceron MD at [facility] N/A: Spine Lumbar Stuart Spine [id number] 0 / / [place] Spine 4.5mm 70mm Contour Praful Spinal Cocr [id number] - [id number] Implanted:Qty: 2 on 04/05/2024 by Darío Ceron MD at [facility] N/A: Spine Lumbar Stuart Spine 6547-9958 0 / / [employer] Cage Spinal Lumbar 10 Degree Tlif Expandable 7-11.5mm Titanium [id number] - [id number] Implanted:Qty: 2 on 04/05/2024 by Darío Ceron MD at [facility] N/A: Spine Lumbar [employer] [id number] / / Biocomposites Stimulan Rapid Cure Kit Paste Oracle Hyperion Consultant 5cc 12.5cc Bone Void 620-005 - [id number] Implanted:Qty: 1 on 04/05/2024 by Darío Ceron MD at [facility] N/A: Spine Lumbar Bi[employer]ites [id number] 12/15/2026 620-005 / / [id number] Procedures Procedure Name Priority Date/Time Associated Diagnosis Comments EGFR STAT 07/20/2024 11:30 AM GAS REGULATOR REPAIRER HELPER DIFFERENTIAL AUTO STAT 07/20/2024 11: 30 AM GAS REGULATOR REPAIRER HELPER CBC WITH AUTO DIFFERENTIAL STAT 07/20/2024 11:30 AM GAS REGULATOR REPAIRER HELPER COMPREHENSIVE METABOLIC PANEL STAT 07/20/2024 11:30 AM GAS REGULATOR REPAIRER HELPER EGFR Routine 07/12/2024 2:00 PM GAS REGULATOR REPAIRER HELPER DIFFERENTIAL AUTO Routine 07/12/2024 2:0 0 PM GAS REGULATOR REPAIRER HELPER CBC WITH AUTO DIFFERENTIAL Routine 07/12/2024 2:00 PM GAS REGULATOR REPAIRER HELPER COMPREHENSIVE METABOLIC PANEL Routine 07/12/2024 2:00 PM GAS REGULATOR REPAIRER HELPER EGFR Routine 07/06/2024 2:00 PM GAS REGULATOR REPAIRER HELPER DIFFERENTIAL AUTO Routine 07/06/2024 2:0 0 PM GAS REGULATOR REPAIRER HELPER CBC WITH AUTO DIFFERENTIAL Routine 07/06/2024 2:00 PM GAS REGULATOR REPAIRER HELPER COMPREHENSIVE METABOLIC PANEL Routine 07/06/2024 2:00 PM GAS REGULATOR REPAIRER HELPER EGFR Routine 06/28/2024 1:30 PM GAS REGULATOR REPAIRER HELPER DIFFERENTIAL AUTO Routine 06/28/2024 1:3 0 PM GAS REGULATOR REPAIRER HELPER CBC WITH AUTO DIFFERENTIAL Routine 06/28/2024 1:30 PM GAS REGULATOR REPAIRER HELPER COMPREHENSIVE METABOLIC PANEL Routine 06/28/2024 1:30 PM GAS REGULATOR REPAIRER HELPER EGFR STAT 06/22/2024 9:30 AM GAS REGULATOR REPAIRER HELPER DIFFERENTIAL AUTO STAT 06/22/2024 9:3 0 AM GAS REGULATOR REPAIRER HELPER CBC WITH AUTO DIFFERENTIAL STAT 06/22/2024 9:30 AM GAS REGULATOR REPAIRER HELPER COMPREHENSIVE METABOLIC PANEL STAT 06/22/2024 9:30 AM GAS REGULATOR REPAIRER HELPER POCT GLUCOSE DEVICE Routine 06/14/2024 1 1:44 AM GAS REGULATOR REPAIRER HELPER POCT GLUCOSE DEVICE Routine 06/14/2024 5 :57 AM GAS REGULATOR REPAIRER HELPER POCT GLUCOSE DEVICE Routine 06/13/2024 9 :43 PM GAS REGULATOR REPAIRER HELPER XR CHEST 1 VIEW ED Urgent/IP Urgent 06/13/2024 5:20 PM GAS REGULATOR REPAIRER HELPER POCT GLUCOSE DEVICE Routine 06/13/2024 4 :41 PM GAS REGULATOR REPAIRER HELPER GENERAL Routine 06/13/2024 4:36 PM GAS REGULATOR REPAIRER HELPER alf current use of antibiotics POCT GLUCOSE DEVICE Routine 06/13/2024 1 1:19 AM GAS REGULATOR REPAIRER HELPER POCT GLUCOSE DEVICE Routine 06/13/2024 5 :28 AM GAS REGULATOR REPAIRER HELPER POCT GLUCOSE DEVICE Routine 06/12/2024 8 :07 PM GAS REGULATOR REPAIRER HELPER HEPATITIS PANEL, ACUTE Routine 06/12/2024 7:39 PM GAS REGULATOR REPAIRER HELPER POCT GLUCOSE DEVICE Routine 06/12/2024 4 :49 PM GAS REGULATOR REPAIRER HELPER POCT GLUCOSE DEVICE Routine 06/12/2024 1 1:30 AM GAS REGULATOR REPAIRER HELPER EGFR Routine 06/12/2024 6:07 AM GAS REGULATOR REPAIRER HELPER DIFFERENTIAL AUTO Routine 06/12/2024 6:0 7 AM GAS REGULATOR REPAIRER HELPER CBC WITH AUTO DIFFERENTIAL Routine 06/12/2024 6:07 AM GAS REGULATOR REPAIRER HELPER BASIC METABOLIC PANEL Routine 06/12/2024 6:07 AM GAS REGULATOR REPAIRER HELPER POCT GLUCOSE DEVICE Routine 06/12/2024 5 :52 AM GAS REGULATOR REPAIRER HELPER POCT GLUCOSE DEVICE Routine 2024 8 :40 PM GAS REGULATOR REPAIRER HELPER POCT GLUCOSE DEVICE Routine 2024 4 :22 PM GAS REGULATOR REPAIRER HELPER TRANSTHORACIC ECHO (TTE) COMPLETE W DOPPLER/CF WO CONTRAST Routine 2024 1:09 PM GAS REGULATOR REPAIRER HELPER HEPATIC FUNCTION PANEL Routine 2024 1:01 PM GAS REGULATOR REPAIRER HELPER POCT GLUCOSE DEVICE Routine 2024 1 1:26 AM GAS REGULATOR REPAIRER HELPER POCT GLUCOSE DEVICE Routine 2024 6 :17 AM GAS REGULATOR REPAIRER HELPER POCT GLUCOSE DEVICE Routine 06/10/2024 8 :43 PM GAS REGULATOR REPAIRER HELPER POCT GLUCOSE DEVICE Routine 06/10/2024 4 :41 PM GAS REGULATOR REPAIRER HELPER BLOOD CULTURE Routine 06/10/2024 12:01 PM GAS REGULATOR REPAIRER HELPER BLOOD CULTURE Routine 06/10/2024 12:01 PM GAS REGULATOR REPAIRER HELPER POCT GLUCOSE DEVICE Routine 06/10/2024 1 1:29 AM GAS REGULATOR REPAIRER HELPER EGFR Routine 06/10/2024 5:39 AM GAS REGULATOR REPAIRER HELPER BASIC METABOLIC PANEL Routine 06/10/2024 5:39 AM GAS REGULATOR REPAIRER HELPER POCT GLUCOSE DEVICE Routine 06/09/2024 9 :22 PM GAS REGULATOR REPAIRER HELPER POCT GLUCOSE DEVICE Routine 06/09/2024 6 :22 PM GAS REGULATOR REPAIRER HELPER POCT GLUCOSE DEVICE Routine 06/09/2024 2 :12 PM GAS REGULATOR REPAIRER HELPER VANCOMYCIN LEVEL TROUGH Timed 06/09/2024 2:00 PM GAS REGULATOR REPAIRER HELPER POCT GLUCOSE DEVICE Routine 06/09/2024 7 :53 AM GAS REGULATOR REPAIRER HELPER POCT GLUCOSE DEVICE Routine 06/09/2024 4 :13 AM GAS REGULATOR REPAIRER HELPER POCT GLUCOSE DEVICE Routine 06/09/2024 2 :03 AM GAS REGULATOR REPAIRER HELPER POCT GLUCOSE DEVICE Routine 06/08/2024 1 1:36 PM GAS REGULATOR REPAIRER HELPER POCT GLUCOSE DEVICE Routine 06/08/2024 7 :46 PM GAS REGULATOR REPAIRER HELPER POCT GLUCOSE DEVICE Routine 06/08/2024 4 :34 PM GAS REGULATOR REPAIRER HELPER MYCOLOGY (FUNGAL) CULTURE Routine 06/08/2024 4:30 PM GAS REGULATOR REPAIRER HELPER AEROBIC AND ANAEROBIC CULTURE AND GRAM STAIN Routine 06/08/2024 4:30 PM GAS REGULATOR REPAIRER HELPER MYCOLOGY (FUNGAL) CULTURE Routine 06/08/2024 4:30 PM GAS REGULATOR REPAIRER HELPER AEROBIC AND ANAEROBIC CULTURE AND GRAM STAIN Routine 06/08/2024 4:30 PM GAS REGULATOR REPAIRER HELPER OK AN PROCEDURE PLACEHOLDER Routine 06/08/2024 3:17 PM GAS REGULATOR REPAIRER HELPER OK AN ELECTIVE ENDOTRACHEAL AIRWAY Routine 06/08/2024 3:17 PM GAS REGULATOR REPAIRER HELPER INCISION AND DRAINAGE - BACK 06/08/2024 2:55 PM GAS REGULATOR REPAIRER HELPER PAIN/ INFECTION POCT GLUCOSE DEVICE Routine 06/08/2024 1 :33 PM GAS REGULATOR REPAIRER HELPER POCT GLUCOSE DEVICE Routine 06/08/2024 1 2:35 PM GAS REGULATOR REPAIRER HELPER POCT GLUCOSE DEVICE Routine 06/08/2024 8 :39 AM GAS REGULATOR REPAIRER HELPER EGFR Routine 06/08/2024 6:21 AM GAS REGULATOR REPAIRER HELPER CBC WITHOUT DIFFERENTIAL Routine 06/08/2024 6:21 AM GAS REGULATOR REPAIRER HELPER PHOSPHORUS Routine 06/08/2024 6:21 AM GAS REGULATOR REPAIRER HELPER MAGNESIUM Routine 06/08/2024 6:21 AM GAS REGULATOR REPAIRER HELPER BASIC METABOLIC PANEL Routine 06/08/2024 6:21 AM GAS REGULATOR REPAIRER HELPER POCT GLUCOSE DEVICE Routine 06/08/2024 4 :21 AM GAS REGULATOR REPAIRER HELPER BLOOD CULTURE STAT 06/08/2024 12:42 AM GAS REGULATOR REPAIRER HELPER POCT GLUCOSE DEVICE Routine 06/08/2024 1 2:38 AM GAS REGULATOR REPAIRER HELPER BLOOD CULTURE STAT 06/08/2024 12:30 AM GAS REGULATOR REPAIRER HELPER MRI LUMBAR SPINE W WO CONTRAST ED 06/07/2024 11:30 PM GAS REGULATOR REPAIRER HELPER URINALYSIS AND REFLEX TO MICROSCOPIC AND CULTURE STAT 06/07/2024 9:41 PM GAS REGULATOR REPAIRER HELPER EGFR STAT 06/07/2024 9:39 PM GAS REGULATOR REPAIRER HELPER DIFFERENTIAL AUTO STAT 06/07/2024 9:3 9 PM GAS REGULATOR REPAIRER HELPER CBC WITH AUTO DIFFERENTIAL STAT 06/07/2024 9:39 PM GAS REGULATOR REPAIRER HELPER COMPREHENSIVE METABOLIC PANEL STAT 06/07/2024 9:39 PM GAS REGULATOR REPAIRER HELPER SEPSIS LACTATE WITH REFLEX STAT 06/07/2024 9:39 PM GAS REGULATOR REPAIRER HELPER CRP (ACUTE PHASE) STAT 06/07/2024 9:3 9 PM GAS REGULATOR REPAIRER HELPER ERYTHROCYTE SEDIMENTATION RATE STAT 06/07/2024 9:39 PM GAS REGULATOR REPAIRER HELPER HEMOGLOBIN A1C Routine 03/21/2024 10:40 AM GAS REGULATOR REPAIRER HELPER Preoperative examination POCT LIPID PANEL Routine 12/09/2021 10:2 7 AM CDT Type 2 diabetes mellitus with hyperglycemia, with long-term current use of insulin (HCC) DIAGNOSTIC MAMMOGRAM BILATERAL W HAI Schedule Routine, Read Routine (OP Routine) 06/10/2021 10:10 AM GAS REGULATOR REPAIRER HELPER Breast mass from Last 3 Months or Most Recently Relevant to Health Maintenance Results * eGFR (07/20/2024 11:30 AM GAS REGULATOR REPAIRER HELPER) eGFR >90 >=60 mL/min/1. 73 m2 Comment: [...] interpretive data was last reviewed 2021. Blood 07/20/2024 11:3 0 AM GAS REGULATOR REPAIRER HELPER 07/20/2024 2:25 PM GAS REGULATOR REPAIRER HELPER us Kali Moses MD LAB BLOOD ORDERABLES Final Resul t [facility] Department [place] [address] * Differential, auto (07/20/2024 11:30 AM GAS REGULATOR REPAIRER HELPER) Neutrophil abs 5.9 1.5 - 6.5 K/cumm Imm gran abs 0.0 0.0 - 0.1 K/cumm [facility] Lymphocyte abs 2.0 0.8 - 3.3 K/cumm [facility] Monocyte abs 0.5 0.2 - 0.8 K/cumm [facility] Eosinophil abs 0.2 0.0 - 0.5 K/cumm [facility] Basophil abs 0.1 0.0 - 0.1 K/cumm [facility] Neutrophil pct 67.7 % [facility] Comment: Interpretive Data Percent cell count reference ranges are not reported, since discordance with absolute values may lead to misinterpretation of CBC data. Current Interpretive Data was last revised on 2017. Imm gran pct 0.5 % [facility] Comment: Interpretive Data Percent cell count reference ranges are not reported, since discordance with absolute values may lead to misinterpretation of CBC data. Current Interpretive Data was last revised on 2017. Lymphocyte pct 23.2 % [facility] Comment: Interpretive Data Percent cell count reference ranges are not reported, since discordance with absolute values may lead to misinterpretation of CBC data. Current Interpretive Data was last revised on 2017. Monocyte pct 5.6 % [facility] Comment: Interpretive Data Percent cell count reference ranges are not reported, since discordance with absolute values may lead to misinterpretation of CBC data. Current Interpretive Data was last revised on 2017. Eosinophil pct 2.1 % [facility] Comment: Interpretive Data Percent cell count reference ranges are not reported, since discordance with absolute values may lead to misinterpretation of CBC data. Current Interpretive Data was last revised on 2017. Basophil pct 0.9 % [facility] Comment: Interpretive Data Percent cell count reference ranges are not reported, since discordance with absolute values may lead to misinterpretation of CBC data. Current Interpretive Data was last revised on 2017. Blood 07/20/2024 11:3 0 AM GAS REGULATOR REPAIRER HELPER 07/20/2024 2:16 PM GAS REGULATOR REPAIRER HELPER us Sumbul Vianneyaj MD LAB BLOOD ORDERABLES Final Resul t Performing Organization Address City/[facility] Co de Phone Number [facility] [place] [address] * CBC with auto differential (07/20/2024 11:30 AM GAS REGULATOR REPAIRER HELPER) [facility] WBC 8.6 3.8 - 9.9 K/cumm Hgb 12.4 11.9 - 15.5 g/dL [facility] Hct 37.5 35.6 - 45.5 % [facility] Plt 218 150 - 400 K/cumm [facility] MPV 10.0 9.1 - 12.3 fL [facility] RBC 4.06 3.90 - 5.20 M/cumm [facility] MCV 92.4 81.3 - 96.4 fL [facility] MCH 30.5 27.1 - 33.3 pg [facility] MCHC 33.1 32.3 - 35.7 g/dL [facility] RDW CV 13.7 11.1 - 14.9 % [facility] RDW SD 47.4 35.7 - 48.1 fL [facility] NRBC abs 0.00 0.00 - 0.01 K/cumm [facility] Blood 07/20/2024 11:3 0 AM GAS REGULATOR REPAIRER HELPER 07/20/2024 2:16 PM GAS REGULATOR REPAIRER HELPER Kali Moses MD LAB BLOOD ORDERABLES Final Resul t Performing Organization Address City/[facility]/ZIP Co de Phone Number [facility] [place] [address] * Comprehensive metabolic panel (07/20/2024 11:30 AM GAS REGULATOR REPAIRER HELPER) Pathologist [facility] Sodium 140 135 - 145 mmol/L Potassium, pl 4.1 3.3 - 4.9 mmol/L [facility] Chloride 104 97 - 110 mmol/L [facility] CO2 27 22 - 32 mmol/L [facility] Anion gap 9 2 - 15 mmol/L [facility] BUN 15 6 - 25 mg/dL [facility] Creatinine 0.60 0.60 - 1.10 mg/dL [facility] Glucose 193 70 - 199 mg/dL [facility] Comment: Interpretive Data Fasting glucose >/= [...] interpretive data was last revised 2022. Calcium 9.5 8.5 - 10.3 mg/dL [facility] Bilirubin, total 0.2 0.1 - 1.2 mg/dL [facility] Protein, pl 7.2 6.5 - 8.5 g/dL [facility] Albumin 4.1 3.5 - 5.0 g/dL [facility] Alk phos 80 40 - 130 Units/L [facility] ALT 9 7 - 45 Units/L [facility] AST 24 10 - 45 Units/L [facility] Blood 07/20/2024 11:3 0 AM GAS REGULATOR REPAIRER HELPER 07/20/2024 2:16 PM GAS REGULATOR REPAIRER HELPER us Kali Moses MD LAB BLOOD ORDERABLES Final Resul t [facility] Department [place] [address] * eGFR (07/12/2024 2:00 PM GAS REGULATOR REPAIRER HELPER) eGFR >90 >=60 mL/min/1. 73 m2 Comment: [...] interpretive data was last reviewed 2021. Blood 07/12/2024 2:00 PM GAS REGULATOR REPAIRER HELPER 07/12/2024 6:10 PM GAS REGULATOR REPAIRER HELPER us Kali Moses MD LAB BLOOD ORDERABLES Final Resul t [facility] Department [place] [address] * Differential, auto (07/12/2024 2:00 PM GAS REGULATOR REPAIRER HELPER) Neutrophil abs 3.8 1.5 - 6.5 K/cumm Imm gran abs 0.0 0.0 - 0.1 K/cumm [facility] Lymphocyte abs 1.9 0.8 - 3.3 K/cumm [facility] Monocyte abs 0.4 0.2 - 0.8 K/cumm [facility] Eosinophil abs 0.2 0.0 - 0.5 K/cumm [facility] Basophil abs 0.1 0.0 - 0.1 K/cumm [facility] Neutrophil pct 60.1 % [facility] Comment: Interpretive Data Percent cell count reference ranges are not reported, since discordance with absolute values may lead to misinterpretation of CBC data. Current Interpretive Data was last revised on 2017. Imm gran pct 0.5 % [facility] Comment: Interpretive Data Percent cell count reference ranges are not reported, since discordance with absolute values may lead to misinterpretation of CBC data. Current Interpretive Data was last revised on 2017. Lymphocyte pct 29.5 % [facility] Comment: Interpretive Data Percent cell count reference ranges are not reported, since discordance with absolute values may lead to misinterpretation of CBC data. Current Interpretive Data was last revised on 2017. Monocyte pct 5.6 % [facility] Comment: Interpretive Data Percent cell count reference ranges are not reported, since discordance with absolute values may lead to misinterpretation of CBC data. Current Interpretive Data was last revised on 2017. Eosinophil pct 3.0 % [facility] Comment: Interpretive Data Percent cell count reference ranges are not reported, since discordance with absolute values may lead to misinterpretation of CBC data. Current Interpretive Data was last revised on 2017. Basophil pct 1.3 % [facility] Comment: Interpretive Data Percent cell count reference ranges are not reported, since discordance with absolute values may lead to misinterpretation of CBC data. Current Interpretive Data was last revised on 2017. Blood 07/12/2024 2:00 PM GAS REGULATOR REPAIRER HELPER 07/12/2024 6:07 PM GAS REGULATOR REPAIRER HELPER us Kali Moses MD LAB BLOOD ORDERABLES Final Resul t [facility] Department [place] [address] * CBC with auto differential (07/12/2024 2:00 PM GAS REGULATOR REPAIRER HELPER) WBC 6.3 3.8 - 9.9 K/cumm Hgb 12.1 11.9 - 15.5 g/dL [facility] Hct 37.0 35.6 - 45.5 % [facility] Plt 217 150 - 400 K/cumm [facility] MPV 9.6 9.1 - 12.3 fL [facility] RBC 3.97 3.90 - 5.20 M/cumm [facility] MCV 93.2 81.3 - 96.4 fL [facility] MCH 30.5 27.1 - 33.3 pg [facility] MCHC 32.7 32.3 - 35.7 g/dL [facility] RDW CV 13.8 11.1 - 14.9 % [facility] RDW SD 46.9 35.7 - 48.1 fL [facility] NRBC abs 0.00 0.00 - 0.01 K/cumm [facility] Blood 07/12/2024 2:00 PM GAS REGULATOR REPAIRER HELPER 07/12/2024 6:07 PM GAS REGULATOR REPAIRER HELPER us Kali Moses MD LAB BLOOD ORDERABLES Final Resul t [facility] Department [place] [address] * (ABNORMAL) Comprehensive metabolic panel (07/12/2024 2:00 PM GAS REGULATOR REPAIRER HELPER) Sodium 140 135 - 145 mmol/L Potassium, pl 4.2 3.3 - 4.9 mmol/L [facility] Chloride 101 97 - 110 mmol/L [facility] CO2 29 22 - 32 mmol/L [facility] Anion gap 10 2 - 15 mmol/L [facility] BUN 11 6 - 25 mg/dL [facility] Creatinine 0.76 0.60 - 1.10 mg/dL [facility] Glucose 202(H) 70 - 199 mg/dL [facility] Comment: Interpretive Data Fasting glucose >/= [...] 2022. Calcium 9.4 8.5 - 10.3 mg/dL [facility] Bilirubin, total 0.2 0.1 - 1.2 mg/dL [facility] Protein, pl 7.3 6.5 - 8.5 g/dL [facility] Albumin 3.9 3.5 - 5.0 g/dL [facility] Alk phos 87 40 - 130 Units/L [facility] ALT 17 7 - 45 Units/L [facility] AST 33 10 - 45 Units/L [facility] Blood 07/12/2024 2:00 PM GAS REGULATOR REPAIRER HELPER 07/12/2024 6:07 PM GAS REGULATOR REPAIRER HELPER Kali Moses MD LAB BLOOD ORDERABLES Final Resul t Performing Organization Address [facility] Co de Phone Number [facility] [place] [address] * eGFR (07/06/2024 2:00 PM GAS REGULATOR REPAIRER HELPER) eGFR >90 >=60 mL/min/1. 73 m2 Comment: [...] last reviewed 2021. Blood 07/06/2024 2:00 PM GAS REGULATOR REPAIRER HELPER 07/06/2024 4:57 PM GAS REGULATOR REPAIRER HELPER Kali Moses MD LAB BLOOD ORDERABLES Final Resul t Performing Organization Address City/[facility] Co de Phone Number [facility] Department [place] [address] * Differential, auto (07/06/2024 2:00 PM GAS REGULATOR REPAIRER HELPER) Neutrophil abs 4.0 1.5 - 6.5 K/cumm Imm gran abs 0.0 0.0 - 0.1 K/cumm [facility] Lymphocyte abs 2.1 0.8 - 3.3 K/cumm [facility] Monocyte abs 0.5 0.2 - 0.8 K/cumm [facility] Eosinophil abs 0.3 0.0 - 0.5 K/cumm [facility] Basophil abs 0.1 0.0 - 0.1 K/cumm [facility] Neutrophil pct 57.4 % [facility] Comment: Interpretive Data Percent cell count reference ranges are not reported, since discordance with absolute values may lead to misinterpretation of CBC data. Current Interpretive Data was last revised on 2017. Imm gran pct 0.4 % [facility] Comment: Interpretive Data Percent cell count reference ranges are not reported, since discordance with absolute values may lead to misinterpretation of CBC data. Current Interpretive Data was last revised on 2017. Lymphocyte pct 30.5 % [facility] Comment: Interpretive Data Percent cell count reference ranges are not reported, since discordance with absolute values may lead to misinterpretation of CBC data. Current Interpretive Data was last revised on 2017. Monocyte pct 6.8 % [facility] Comment: Interpretive Data Percent cell count reference ranges are not reported, since discordance with absolute values may lead to misinterpretation of CBC data. Current Interpretive Data was last revised on 2017. Eosinophil pct 3.9 % [facility] Comment: Interpretive Data Percent cell count reference ranges are not reported, since discordance with absolute values may lead to misinterpretation of CBC data. Current Interpretive Data was last revised on 2017. Basophil pct 1.0 % [facility] Comment: Interpretive Data Percent cell count reference ranges are not reported, since discordance with absolute values may lead to misinterpretation of CBC data. Current Interpretive Data was last revised on 2017. Blood 07/06/2024 2:00 PM GAS REGULATOR REPAIRER HELPER 07/06/2024 4:54 PM GAS REGULATOR REPAIRER HELPER us Kali Moses MD LAB BLOOD ORDERABLES Final Resul t [facility] Department [place] [address] * CBC with auto differential (07/06/2024 2:00 PM GAS REGULATOR REPAIRER HELPER) [facility] WBC 6.9 3.8 - 9.9 K/cumm Hgb 11.9 11.9 - 15.5 g/dL [facility] Hct 36.7 35.6 - 45.5 % [facility] Plt 267 150 - 400 K/cumm [facility] MPV 9.6 9.1 - 12.3 fL [facility] RBC 3.95 3.90 - 5.20 M/cumm [facility] MCV 92.9 81.3 - 96.4 fL [facility] MCH 30.1 27.1 - 33.3 pg [facility] MCHC 32.4 32.3 - 35.7 g/dL [facility] RDW CV 13.3 11.1 - 14.9 % [facility] RDW SD 45.5 35.7 - 48.1 fL [facility] NRBC abs 0.00 0.00 - 0.01 K/cumm [facility] Blood 07/06/2024 2:00 PM GAS REGULATOR REPAIRER HELPER 07/06/2024 4:54 PM GAS REGULATOR REPAIRER HELPER Kali Moses MD LAB BLOOD ORDERABLES Final Resul t [facility] Department [place] [address] * Comprehensive metabolic panel (07/06/2024 2:00 PM GAS REGULATOR REPAIRER HELPER) [facility] Sodium 140 135 - 145 mmol/L Potassium, pl 4.2 3.3 - 4.9 mmol/L [facility] Chloride 103 97 - 110 mmol/L [facility] CO2 29 22 - 32 mmol/L [facility] Anion gap 8 2 - 15 mmol/L [facility] BUN 11 6 - 25 mg/dL [facility] Creatinine 0.62 0.60 - 1.10 mg/dL [facility] Glucose 175 70 - 199 mg/dL [facility] Comment: Interpretive Data Fasting glucose >/= [...] Calcium 9.4 8.5 - 10.3 mg/dL [facility] Bilirubin, total <0.2 0.1 - 1.2 mg/dL [facility] Protein, pl 7.4 6.5 - 8.5 g/dL [facility] Albumin 4.0 3.5 - 5.0 g/dL [facility] Alk phos 86 40 - 130 Units/L [facility] ALT 9 7 - 45 Units/L [facility] AST 15 10 - 45 Units/L [facility] Blood 07/06/2024 2:00 PM GAS REGULATOR REPAIRER HELPER 07/06/2024 4:53 PM GAS REGULATOR REPAIRER HELPER Kali Moses MD LAB BLOOD ORDERABLES Final Resul t [facility] [place] [address] * eGFR (06/28/2024 1:30 PM GAS REGULATOR REPAIRER HELPER) eGFR >90 >=60 mL/min/1. 73 m2 Comment: [...] last reviewed 2021. Blood 06/28/2024 1:30 PM GAS REGULATOR REPAIRER HELPER 06/28/2024 6:37 PM GAS REGULATOR REPAIRER HELPER us Kali Moses MD LAB BLOOD ORDERABLES Final Resul t [facility] Department [place] [address] * Differential, auto (06/28/2024 1:30 PM GAS REGULATOR REPAIRER HELPER) Neutrophil abs 4.2 1.5 - 6.5 K/cumm Imm gran abs 0.0 0.0 - 0.1 K/cumm [facility] Lymphocyte abs 2.1 0.8 - 3.3 K/cumm [facility] Monocyte abs 0.4 0.2 - 0.8 K/cumm [facility] Eosinophil abs 0.3 0.0 - 0.5 K/cumm [facility] Basophil abs 0.1 0.0 - 0.1 K/cumm [facility] Neutrophil pct 59.4 % [facility] Comment: Interpretive Data Percent cell count reference ranges are not reported, since discordance with absolute values may lead to misinterpretation of CBC data. Current Interpretive Data was last revised on 2017. Imm gran pct 0.3 % [facility] Comment: Interpretive Data Percent cell count reference ranges are not reported, since discordance with absolute values may lead to misinterpretation of CBC data. Current Interpretive Data was last revised on 2017. Lymphocyte pct 29.9 % [facility] Comment: Interpretive Data Percent cell count reference ranges are not reported, since discordance with absolute values may lead to misinterpretation of CBC data. Current Interpretive Data was last revised on 2017. Monocyte pct 5.4 % [facility] Comment: Interpretive Data Percent cell count reference ranges are not reported, since discordance with absolute values may lead to misinterpretation of CBC data. Current Interpretive Data was last revised on 2017. Eosinophil pct 3.6 % [facility] Comment: Interpretive Data Percent cell count reference ranges are not reported, since discordance with absolute values may lead to misinterpretation of CBC data. Current Interpretive Data was last revised on 2017. Basophil pct 1.4 % [facility] Comment: Interpretive Data Percent cell count reference ranges are not reported, since discordance with absolute values may lead to misinterpretation of CBC data. Current Interpretive Data was last revised on 2017. Blood 06/28/2024 1:30 PM GAS REGULATOR REPAIRER HELPER 06/28/2024 6:26 PM GAS REGULATOR REPAIRER HELPER us Kali Moses MD LAB BLOOD ORDERABLES Final Resul t [facility] Department [place] [address] * CBC with auto differential (06/28/2024 1:30 PM GAS REGULATOR REPAIRER HELPER) WBC 7.0 3.8 - 9.9 K/cumm Hgb 12.4 11.9 - 15.5 g/dL [facility] Hct 37.7 35.6 - 45.5 % [facility] Plt 338 150 - 400 K/cumm [facility] MPV 9.8 9.1 - 12.3 fL [facility] RBC 4.02 3.90 - 5.20 M/cumm [facility] MCV 93.8 81.3 - 96.4 fL [facility] MCH 30.8 27.1 - 33.3 pg [facility] MCHC 32.9 32.3 - 35.7 g/dL [facility] RDW CV 13.7 11.1 - 14.9 % [facility] RDW SD 46.8 35.7 - 48.1 fL [facility] NRBC abs 0.00 0.00 - 0.01 K/cumm [facility] Blood 06/28/2024 1:30 PM GAS REGULATOR REPAIRER HELPER 06/28/2024 6:26 PM GAS REGULATOR REPAIRER HELPER us Kali Moses MD LAB BLOOD ORDERABLES Final Resul t [facility] Department [place] [address] * Comprehensive metabolic panel (06/28/2024 1:30 PM GAS REGULATOR REPAIRER HELPER) Sodium 141 135 - 145 mmol/L Potassium, pl 3.9 3.3 - 4.9 mmol/L [facility] Chloride 103 97 - 110 mmol/L [facility] CO2 28 22 - 32 mmol/L [facility] Anion gap 10 2 - 15 mmol/L [facility] BUN 12 6 - 25 mg/dL [facility] Creatinine 0.64 0.60 - 1.10 mg/dL [facility] Glucose 132 70 - 199 mg/dL [facility] Comment: Interpretive Data Fasting glucose >/= [...] 2022. Calcium 9.4 8.5 - 10.3 mg/dL [facility] Bilirubin, total <0.2 0.1 - 1.2 mg/dL [facility] Protein, pl 7.7 6.5 - 8.5 g/dL [facility] Albumin 3.9 3.5 - 5.0 g/dL [facility] Alk phos 97 40 - 130 Units/L [facility] ALT 7 7 - 45 Units/L [facility] AST 20 10 - 45 Units/L [facility] Blood 06/28/2024 1:30 PM GAS REGULATOR REPAIRER HELPER 06/28/2024 6:26 PM GAS REGULATOR REPAIRER HELPER Kali Moses MD LAB BLOOD ORDERABLES Final Resul t Performing Organization Address [facility] de Phone Number [facility] Department [place] [address] * eGFR (06/22/2024 9:30 AM GAS REGULATOR REPAIRER HELPER) Pathologist [facility] eGFR >90 >=60 mL/min/1. 73 m2 Comment: [...] last reviewed 2021. Blood 06/22/2024 9:30 AM GAS REGULATOR REPAIRER HELPER 06/22/2024 1:47 PM GAS REGULATOR REPAIRER HELPER Kali Moses MD LAB BLOOD ORDERABLES Final Resul t Performing Organization Address [facility] Co de Phone Number [facility] Department [place] [address] * (ABNORMAL) Differential, auto (06/22/2024 9:30 AM GAS REGULATOR REPAIRER HELPER) Pathologist [facility] Neutrophil abs 6.9(H) 1.5 - 6.5 K/cumm Imm gran abs 0.0 0.0 - 0.1 K/cumm [facility] Lymphocyte abs 2.0 0.8 - 3.3 K/cumm [facility] Monocyte abs 0.6 0.2 - 0.8 K/cumm [facility] Eosinophil abs 0.2 0.0 - 0.5 K/cumm [facility] Basophil abs 0.1 0.0 - 0.1 K/cumm [facility] Neutrophil pct 69.7 % [facility] Comment: Interpretive Data Percent cell count reference ranges are not reported, since discordance with absolute values may lead to misinterpretation of CBC data. Current Interpretive Data was last revised on 2017. Imm gran pct 0.4 % [facility] Comment: Interpretive Data Percent cell count reference ranges are not reported, since discordance with absolute values may lead to misinterpretation of CBC data. Current Interpretive Data was last revised on 2017. Lymphocyte pct 20.5 % [facility] Comment: Interpretive Data Percent cell count reference ranges are not reported, since discordance with absolute values may lead to misinterpretation of CBC data. Current Interpretive Data was last revised on 2017. Monocyte pct 6.0 % [facility] Comment: Interpretive Data Percent cell count reference ranges are not reported, since discordance with absolute values may lead to misinterpretation of CBC data. Current Interpretive Data was last revised on 2017. Eosinophil pct 2.4 % [facility] Comment: Interpretive Data Percent cell count reference ranges are not reported, since discordance with absolute values may lead to misinterpretation of CBC data. Current Interpretive Data was last revised on 2017. Basophil pct 1.0 % [facility] Comment: Interpretive Data Percent cell count reference ranges are not reported, since discordance with absolute values may lead to misinterpretation of CBC data. Current Interpretive Data was last revised on 2017. Blood 06/22/2024 9:30 AM GAS REGULATOR REPAIRER HELPER 06/22/2024 1:45 PM GAS REGULATOR REPAIRER HELPER us Kali Moses MD LAB BLOOD ORDERABLES Final Resul t [facility] Department [place] [address] * CBC with auto differential (06/22/2024 9:30 AM GAS REGULATOR REPAIRER HELPER) [facility] WBC 9.9 3.8 - 9.9 K/cumm Hgb 12.8 11.9 - 15.5 g/dL [facility] Hct 39.1 35.6 - 45.5 % [facility] Plt 350 150 - 400 K/cumm [facility] MPV 9.5 9.1 - 12.3 fL [facility] RBC 4.19 3.90 - 5.20 M/cumm [facility] MCV 93.3 81.3 - 96.4 fL [facility] MCH 30.5 27.1 - 33.3 pg [facility] MCHC 32.7 32.3 - 35.7 g/dL [facility] RDW CV 14.0 11.1 - 14.9 % [facility] RDW SD 48.1 35.7 - 48.1 fL [facility] NRBC abs 0.00 0.00 - 0.01 K/cumm [facility] Blood 06/22/2024 9:30 AM GAS REGULATOR REPAIRER HELPER 06/22/2024 1:45 PM GAS REGULATOR REPAIRER HELPER us Kali Moses MD LAB BLOOD ORDERABLES Final Resul t [facility] [place] [address] * Comprehensive metabolic panel (06/22/2024 9:30 AM GAS REGULATOR REPAIRER HELPER) [facility] Sodium 136 135 - 145 mmol/L Potassium, pl 4.4 3.3 - 4.9 mmol/L [facility] Chloride 98 97 - 110 mmol/L [facility] CO2 28 22 - 32 mmol/L [facility] Anion gap 10 2 - 15 mmol/L [facility] BUN 14 6 - 25 mg/dL [facility] Creatinine 0.66 0.60 - 1.10 mg/dL [facility] Glucose 198 70 - 199 mg/dL [facility] Comment: Interpretive Data Fasting glucose >/= [...] Calcium 9.8 8.5 - 10.3 mg/dL [facility] Bilirubin, total 0.2 0.1 - 1.2 mg/dL [facility] Protein, pl 7.7 6.5 - 8.5 g/dL [facility] Albumin 3.9 3.5 - 5.0 g/dL [facility] Alk phos 109 40 - 130 Units/L [facility] ALT 13 7 - 45 Units/L [facility] AST 21 10 - 45 Units/L [facility] Blood 06/22/2024 9:30 AM GAS REGULATOR REPAIRER HELPER 06/22/2024 1:45 PM GAS REGULATOR REPAIRER HELPER Kali Moses MD LAB BLOOD ORDERABLES Final Resul t Performing Organization Address City/[facility]/ZIP Co de Phone Number [facility] [place] [address] * (ABNORMAL) POCT glucose (06/14/2024 11:44 AM GAS REGULATOR REPAIRER HELPER) [facility] Glucose, POC 347(H) 70 - 199 mg/dL Comment: For Glucose values <35 mg/dl when Hematocrit is >60 mg/dl,the test may not accurately detect significant hypoglycemia,and testing in the Laboratory should be considered if clinically indicated. Glucose comment 1 Follow Protocol [facility] Blood 06/14/2024 11:4 4 AM GAS REGULATOR REPAIRER HELPER 06/14/2024 11:44 AM GAS REGULATOR REPAIRER HELPER David Garza MD LAB POCT ORDERABLES - DEVICE Fin al Result [facility] [address] Department [place] [address] * POCT glucose (06/14/2024 5:57 AM GAS REGULATOR REPAIRER HELPER) Glucose, POC 134 70 - 199 mg/dL Comment: For Glucose values <35 mg/dl when Hematocrit is >60 mg/dl,the test may not accurately detect significant hypoglycemia,and testing in the Laboratory should be considered if clinically indicated. Blood 06/14/2024 5:57 AM GAS REGULATOR REPAIRER HELPER 06/14/2024 5:57 AM GAS REGULATOR REPAIRER HELPER David Garza MD LAB POCT ORDERABLES - DEVICE Fin al Result Performing Organization Address [facility] Co de Phone Number [facility] [address] [place] [address] * (ABNORMAL) POCT glucose (06/13/2024 9:43 PM GAS REGULATOR REPAIRER HELPER) Glucose, POC 212(H) 70 - 199 mg/dL Comment: For Glucose values <35 mg/dl when Hematocrit is >60 mg/dl,the test may not accurately detect significant hypoglycemia,and testing in the Laboratory should be considered if clinically indicated. Blood 06/13/2024 9:43 PM GAS REGULATOR REPAIRER HELPER 06/13/2024 9:43 PM GAS REGULATOR REPAIRER HELPER David Garza MD LAB POCT ORDERABLES - DEVICE Fin al Result Performing Organization Address [facility] Co de Phone Number [facility] [address] Department [place] [address] * XR Chest 1 View (06/13/2024 5:20 PM GAS REGULATOR REPAIRER HELPER) Anatomical Region Laterality Modality Body, Chest N/A Computed Radiogr aphy 06/13/2024 5:45 PM GAS REGULATOR REPAIRER HELPER Impressions 06/13/2024 5:45 PM GAS REGULATOR REPAIRER HELPER No prior study available for comparison. Left upper extremity approach peripherally inserted central catheter tip terminates in the superior vena cava. The lungs are clear, specifically there is no focal consolidation or pulmonary edema. There is no pleural effusion or pneumothorax. The heart and mediastinal contours are within normal limits. Electronically signed by: Juan F Rausch MD, PHD Narrative 06/13/2024 5:45 PM GAS REGULATOR REPAIRER HELPER EXAMINATION: XR CHEST 1 VIEW Procedure Note [...] Result * POCT glucose (06/13/2024 4:41 PM GAS REGULATOR REPAIRER HELPER) [facility] Glucose, POC 122 70 - 199 mg/dL Comment: For Glucose values <35 mg/dl when Hematocrit is >60 mg/dl,the test may not accurately detect significant hypoglycemia,and testing in the Laboratory should be considered if clinically indicated. Blood 06/13/2024 4:41 PM GAS REGULATOR REPAIRER HELPER 06/13/2024 4:41 PM GAS REGULATOR REPAIRER HELPER David Garza MD LAB POCT ORDERABLES - DEVICE Fin al Result [facility] [address] Department [place] [address] * GENERAL (06/13/2024 4:36 PM GAS REGULATOR REPAIRER HELPER) Narrative Balaji Joel PA - 06/13/2024 4:36 PM GAS REGULATOR REPAIRER HELPER Balaji Joel PA 06/13/2024 4:39 PM PICC Line Placement Date/Time: 06/13/2024 4:36 PM Performed by: Balaji Joel PA Authorized by: Balaji Joel PA [place] Protocol: RN Notified of Procedure: yes Informed consent: Risks, benefits, alternatives discussed and patient/retail representative/guardian agrees and accepts Patient's stated name/ [...] and matched to patient identification: n/a Responsible libertarian for transporting specimen(s) to lab determined: n/a Balaji [facility]BEDSIDE ORDERABLES F inal Result * (ABNORMAL) POCT glucose (06/13/2024 11:19 AM GAS REGULATOR REPAIRER HELPER) Glucose, POC 265(H) 70 - 199 mg/dL Comment: For Glucose values <35 mg/dl when Hematocrit is >60 mg/dl,the test may not accurately detect significant hypoglycemia,and testing in the Laboratory should be considered if clinically indicated. Blood 06/13/2024 11:1 9 AM GAS REGULATOR REPAIRER HELPER 06/13/2024 11:19 AM GAS REGULATOR REPAIRER HELPER David Garza MD LAB POCT ORDERABLES - DEVICE Fin al Result [facility] [address] Department [place] [address] * POCT glucose (06/13/2024 5:28 AM GAS REGULATOR REPAIRER HELPER) Glucose, POC 154 70 - 199 mg/dL Comment: For Glucose values <35 mg/dl when Hematocrit is >60 mg/dl,the test may not accurately detect significant hypoglycemia,and testing in the Laboratory should be considered if clinically indicated. Blood 06/13/2024 5:28 AM GAS REGULATOR REPAIRER HELPER 06/13/2024 5:28 AM GAS REGULATOR REPAIRER HELPER David Garza MD LAB POCT ORDERABLES - DEVICE Fin al Result Performing Organization Address [facility] Co de Phone Number [facility] [address] [facility] [place] [address] * POCT glucose (06/12/2024 8:07 PM GAS REGULATOR REPAIRER HELPER) Pathologist [facility] Glucose, POC 138 70 - 199 mg/dL Comment: For Glucose values <35 mg/dl when Hematocrit is >60 mg/dl,the test may not accurately detect significant hypoglycemia,and testing in the Laboratory should be considered if clinically indicated. Blood 06/12/2024 8:07 PM GAS REGULATOR REPAIRER HELPER 06/12/2024 8:07 PM GAS REGULATOR REPAIRER HELPER David Garza MD LAB POCT ORDERABLES - DEVICE Fin al Result Performing Organization Address [facility] Co de Phone Number [facility] [address] [place] [address] * Hepatitis panel, acute Blood (06/12/2024 7:39 PM GAS REGULATOR REPAIRER HELPER) Pathologist [facility] Hep A IgM Nonreactive Nonreactive Comment: Interpretive Data: If Hep A IgM Ab is reported as Equivocal, a new sample should be drawn in two weeks for testing. Current interpretive data was last revised on 19. Hep B core IgM Nonreactive Nonreactive [facility] Comment: Interpretive Data If HepB Core IgM Ab is reported as Equivocal, a new sample should be drawn in two weeks for testing. Current interpretive data was last revised on 19. Hep C Ab Nonreactive Nonreactive [facility] Comment: Interpretive Data Nonreactive: Antibodies [...] last revised on 2019. HepBsAg Nonreactive Nonreactive [facility] Blood 06/12/2024 7:39 PM GAS REGULATOR REPAIRER HELPER 06/12/2024 8:01 PM GAS REGULATOR REPAIRER HELPER Ayan Lucas NP LAB MICROBIOLOGY - GENERAL ALBA LERMA Final Result Performing Organization Address [facility] Co de Phone Number [facility] [address] Department [place] [address] * POCT glucose (06/12/2024 4:49 PM GAS REGULATOR REPAIRER HELPER) Glucose, POC 105 70 - 199 mg/dL Comment: For Glucose values <35 mg/dl when Hematocrit is >60 mg/dl,the test may not accurately detect significant hypoglycemia,and testing in the Laboratory should be considered if clinically indicated. Blood 06/12/2024 4:49 PM GAS REGULATOR REPAIRER HELPER 06/12/2024 4:49 PM GAS REGULATOR REPAIRER HELPER David Garza MD LAB POCT ORDERABLES - DEVICE Fin al Result Performing Organization Address [facility]/ZIP Co de Phone Number [facility] [address] Department [place] [address] * (ABNORMAL) POCT glucose (06/12/2024 11:30 AM GAS REGULATOR REPAIRER HELPER) Glucose, POC 227(H) 70 - 199 mg/dL Comment: For Glucose values <35 mg/dl when Hematocrit is >60 mg/dl,the test may not accurately detect significant hypoglycemia,and testing in the Laboratory should be considered if clinically indicated. Blood 06/12/2024 11:3 0 AM GAS REGULATOR REPAIRER HELPER 06/12/2024 11:30 AM GAS REGULATOR REPAIRER HELPER David Garza MD LAB POCT ORDERABLES - DEVICE Fin al Result Performing Organization Address [facility] Co de Phone Number [facility] [address] Department [place] [address] * eGFR (06/12/2024 6:07 AM GAS REGULATOR REPAIRER HELPER) eGFR >90 >=60 mL/min/1. 73 m2 Comment: [...] last reviewed 2021. Blood 06/12/2024 6:07 AM GAS REGULATOR REPAIRER HELPER 06/12/2024 6:22 AM GAS REGULATOR REPAIRER HELPER David Garza MD LAB BLOOD ORDERABLES Final Resul t Performing Organization Address City/[facility]/ZIP Co de Phone Number [facility] [address] Department [employer] [place], [place] [id number] * Differential, auto (06/12/2024 6:07 AM GAS REGULATOR REPAIRER HELPER) Pathologist [facility] Neutrophil abs 2.4 1.5 - 6.5 K/cumm Imm gran abs 0.0 0.0 - 0.1 K/cumm [facility] Lymphocyte abs 1.7 0.8 - 3.3 K/cumm [facility] Monocyte abs 0.4 0.2 - 0.8 K/cumm [facility] Eosinophil abs 0.2 0.0 - 0.5 K/cumm [facility] Basophil abs 0.0 0.0 - 0.1 K/cumm [facility] Neutrophil pct 50.6 % [facility] Comment: Interpretive Data Percent cell count reference ranges are not reported, since discordance with absolute values may lead to misinterpretation of CBC data. Current Interpretive Data was last revised on 2017. Imm gran pct 0.6 % [facility] Comment: Interpretive Data Percent cell count reference ranges are not reported, since discordance with absolute values may lead to misinterpretation of CBC data. Current Interpretive Data was last revised on 2017. Lymphocyte pct 36.2 % [facility] Comment: Interpretive Data Percent cell count reference ranges are not reported, since discordance with absolute values may lead to misinterpretation of CBC data. Current Interpretive Data was last revised on 2017. Monocyte pct 7.6 % [facility] Comment: Interpretive Data Percent cell count reference ranges are not reported, since discordance with absolute values may lead to misinterpretation of CBC data. Current Interpretive Data was last revised on 2017. Eosinophil pct 4.2 % [facility] Comment: Interpretive Data Percent cell count reference ranges are not reported, since discordance with absolute values may lead to misinterpretation of CBC data. Current Interpretive Data was last revised on 2017. Basophil pct 0.8 % [facility] Comment: Interpretive Data Percent cell count reference ranges are not reported, since discordance with absolute values may lead to misinterpretation of CBC data. Current Interpretive Data was last revised on 2017. Blood 06/12/2024 6:07 AM GAS REGULATOR REPAIRER HELPER 06/12/2024 6:22 AM GAS REGULATOR REPAIRER HELPER us David Garza MD LAB BLOOD ORDERABLES Final Resul t [facility] [address] Department [place] [address] * (ABNORMAL) CBC with auto differential (06/12/2024 6:07 AM GAS REGULATOR REPAIRER HELPER) [facility] WBC 4.8 3.8 - 9.9 K/cumm Hgb 12.2 11.9 - 15.5 g/dL [facility] Hct 38.0 35.6 - 45.5 % [facility] Plt 304 150 - 400 K/cumm [facility] MPV 8.9(L) 9.1 - 12.3 fL [facility] RBC 3.99 3.90 - 5.20 M/cumm [facility] MCV 95.2 81.3 - 96.4 fL [facility] MCH 30.6 27.1 - 33.3 pg [facility] MCHC 32.1(L) 32.3 - 35.7 g/dL [facility] RDW CV 12.9 11.1 - 14.9 % [facility] RDW SD 45.3 35.7 - 48.1 fL [facility] NRBC abs 0.00 0.00 - 0.01 K/cumm [facility] Blood 06/12/2024 6:07 AM GAS REGULATOR REPAIRER HELPER 06/12/2024 6:22 AM GAS REGULATOR REPAIRER HELPER us David Garza MD LAB BLOOD ORDERABLES Final Resul t [facility] [address] Department [place] [address] * Basic metabolic panel (06/12/2024 6:07 AM GAS REGULATOR REPAIRER HELPER) [facility] Sodium 140 135 - 145 mmol/L Potassium, pl 4.2 3.3 - 4.9 mmol/L [facility] Chloride 103 97 - 110 mmol/L [facility] CO2 32 22 - 32 mmol/L [facility] Anion gap 5 2 - 15 mmol/L [facility] BUN 12 6 - 25 mg/dL [facility] Creatinine 0.62 0.60 - 1.10 mg/dL [facility] Glucose 119 70 - 199 mg/dL [facility] Comment: Interpretive Data Fasting glucose [...] 2022. Calcium 8.7 8.5 - 10.3 mg/dL [facility] Blood 06/12/2024 6:07 AM GAS REGULATOR REPAIRER HELPER 06/12/2024 6:22 AM GAS REGULATOR REPAIRER HELPER David Garza MD LAB BLOOD ORDERABLES Final Resul t Performing Organization Address [facility] Co de Phone Number [facility] [address] Department [place] [address] * POCT glucose (06/12/2024 5:52 AM GAS REGULATOR REPAIRER HELPER) Glucose, POC 126 70 - 199 mg/dL Comment: For Glucose values <35 mg/dl when Hematocrit is >60 mg/dl,the test may not accurately detect significant hypoglycemia,and testing in the Laboratory should be considered if clinically indicated. Blood 06/12/2024 5:52 AM GAS REGULATOR REPAIRER HELPER 06/12/2024 5:52 AM GAS REGULATOR REPAIRER HELPER David Garza MD LAB POCT ORDERABLES - DEVICE Fin al Result Performing Organization Address City/[facility] Co de Phone Number [facility] [address] Department [place] [address] * POCT glucose (2024 8:40 PM GAS REGULATOR REPAIRER HELPER) Glucose, POC 180 70 - 199 mg/dL Comment: For Glucose values <35 mg/dl when Hematocrit is >60 mg/dl,the test may not accurately detect significant hypoglycemia,and testing in the Laboratory should be considered if clinically indicated. Blood 2024 8:40 PM GAS REGULATOR REPAIRER HELPER 2024 8:40 PM GAS REGULATOR REPAIRER HELPER David Garza MD LAB POCT ORDERABLES - DEVICE Fin al Result Performing Organization Address [facility] Co de Phone Number [facility] [address] Department [place] [address] * POCT glucose (2024 4:22 PM GAS REGULATOR REPAIRER HELPER) [facility] Glucose, POC 177 70 - 199 mg/dL Comment: For Glucose values <35 mg/dl when Hematocrit is >60 mg/dl,the test may not accurately detect significant hypoglycemia,and testing in the Laboratory should be considered if clinically indicated. Blood 2024 4:22 PM GAS REGULATOR REPAIRER HELPER 2024 4:22 PM GAS REGULATOR REPAIRER HELPER David Garza MD LAB POCT ORDERABLES - DEVICE Fin al Result Performing Organization Address [facility] Co de Phone Number [facility] [address] Department [place] [address] * TRANSTHORACIC ECHO (TTE) COMPLETE W DOPPLER/CF WO CONTRAST (2024 1:09 PM GAS REGULATOR REPAIRER HELPER) [facility] LV EF 55-65 % CONS SCIMAGE Anatomical Region Laterality Modality Ultrasound 2024 7:44 AM GAS REGULATOR REPAIRER HELPER Narrative 2024 3:59 PM GAS REGULATOR REPAIRER HELPER [place] [address] [place] [address] ECHOCARDIOGRAM Patient Name: KATERYNA MOYER : 1970 (54y ) Gender: F Study Date: 2024 07:44:00 AM Ht(Inch): 67 Wt(Lb): 134.04 BSA: 1.7 M48 M60 Armor Crewman: Location: [id number] Order Provider: KALI MOSES BMI: 20.99 BP: [...] identified. Electronically Signed By: Petey Hylton MD [facility] 2024 3:59:21 PM GAS REGULATOR REPAIRER HELPER Procedure Note Petey Hylton MD - 2024 [facility] [address] [place] [address] ECHOCARDIOGRAM Patient Name: KATERYNA MOYER : 1970 (54y ) Gender: F Study Date: 2024 07:44:00 AM Ht(Inch): 67 Wt(Lb): 134.04 BSA: 1.7 M48 M60 Armor Crewman: BRYAN Location: [id number] Order Provider: KALI MOSES BMI: 20.99 BP: [...] identified. Electronically Signed By: Petey Hylton MD [facility] 2024 3:59:21 PM GAS REGULATOR REPAIRER HELPER Kali Moses MD CV ECHO PROCEDURES Final Result * (ABNORMAL) Hepatic function panel (2024 1:01 PM GAS REGULATOR REPAIRER HELPER) Pathologist [facility] Bilirubin, total 0.2 0.1 - 1.2 mg/dL Bilirubin, direct <0.2 0.1 - 0.3 mg/dL [facility] Protein, pl 7.2 6.5 - 8.5 g/dL [facility] Albumin 3.4(L) 3.5 - 5.0 g/dL [facility] Alk phos 172(H) 40 - 130 Units/L [facility] ALT 102(H) 7 - 45 Units/L [facility] AST 83(H) 10 - 45 Units/L [facility] Blood 2024 1:01 PM GAS REGULATOR REPAIRER HELPER 2024 1:48 PM GAS REGULATOR REPAIRER HELPER us Ayan Lucas SOLAR SALES REP LAB BLOOD ORDERABLES Final Resu lt Performing Organization Address [facility] Co de Phone Number [facility] [address] [employer] [place], [place] [id number] * POCT glucose (2024 11:26 AM GAS REGULATOR REPAIRER HELPER) Pathologist [facility] Glucose, POC 118 70 - 199 mg/dL Comment: For Glucose values <35 mg/dl when Hematocrit is >60 mg/dl,the test may not accurately detect significant hypoglycemia,and testing in the Laboratory should be considered if clinically indicated. Blood 2024 11:2 6 AM GAS REGULATOR REPAIRER HELPER 2024 11:26 AM GAS REGULATOR REPAIRER HELPER us David Garza MD LAB POCT ORDERABLES - DEVICE Fin al Result Performing Organization Address [facility]/ZIP Co de Phone Number [facility] [address] [facility] [employer] [place] [address] * POCT glucose (2024 6:17 AM GAS REGULATOR REPAIRER HELPER) Glucose, POC 118 70 - 199 mg/dL Comment: For Glucose values <35 mg/dl when Hematocrit is >60 mg/dl,the test may not accurately detect significant hypoglycemia,and testing in the Laboratory should be considered if clinically indicated. Blood 2024 6:17 AM GAS REGULATOR REPAIRER HELPER 2024 6:17 AM GAS REGULATOR REPAIRER HELPER David Garza MD LAB POCT ORDERABLES - DEVICE Fin al Result Performing Organization Address [facility] Co de Phone Number [facility] [address] [facility] [place] [address] * POCT glucose (06/10/2024 8:43 PM GAS REGULATOR REPAIRER HELPER) Glucose, POC 153 70 - 199 mg/dL Comment: For Glucose values <35 mg/dl when Hematocrit is >60 mg/dl,the test may not accurately detect significant hypoglycemia,and testing in the Laboratory should be considered if clinically indicated. Blood 06/10/2024 8:43 PM GAS REGULATOR REPAIRER HELPER 06/10/2024 8:43 PM GAS REGULATOR REPAIRER HELPER David Garza MD LAB POCT ORDERABLES - DEVICE Fin al Result Performing Organization Address [facility] Co de Phone Number [facility] [address] [facility] [place] [address] * POCT glucose (06/10/2024 4:41 PM GAS REGULATOR REPAIRER HELPER) Glucose, POC 148 70 - 199 mg/dL Comment: For Glucose values <35 mg/dl when Hematocrit is >60 mg/dl,the test may not accurately detect significant hypoglycemia,and testing in the Laboratory should be considered if clinically indicated. Blood 06/10/2024 4:41 PM GAS REGULATOR REPAIRER HELPER 06/10/2024 4:41 PM GAS REGULATOR REPAIRER HELPER David Garza MD LAB POCT ORDERABLES - DEVICE Fin al Result Performing Organization Address [facility] Co de Phone Number [facility] [address] [facility] [place] [address] * Blood culture Blood (06/10/2024 12:01 PM GAS REGULATOR REPAIRER HELPER) Report Final Report: No growth Blood 06/10/2024 12:0 1 PM GAS REGULATOR REPAIRER HELPER 06/10/2024 12:17 PM GAS REGULATOR REPAIRER HELPER Narrative [facility] - 06/15/2024 1:00 PM GAS REGULATOR REPAIRER HELPER From a different site than #1. Collection->Peripheral [...] organism identification may be performed using the Optini Blood Culture Identification panel. This assay detects microbial DNA in a blood culture broth. This assay has been cleared by the [place] Food and Drug Administration and its performance characteristics have been verified by the [facility]. Interpretive data was last revised on June 19, 2022. David Garza MD LAB MICROBIOLOGY - GENERAL ORDER BIENVENIDO Final Result [facility] [address] Department [place] [address] * Blood culture Blood (06/10/2024 12:01 PM GAS REGULATOR REPAIRER HELPER) Report Final Report: No growth Blood 06/10/2024 12:0 1 PM GAS REGULATOR REPAIRER HELPER 06/10/2024 12:17 PM GAS REGULATOR REPAIRER HELPER Narrative [facility] - 06/15/2024 1:00 PM GAS REGULATOR REPAIRER HELPER Collection->Peripheral Interpretive Data 1. Blood cultures are incubated and monitored continuously for 5 days (120 hours). The first negative report is issued within 24 hours of receipt in the laboratory. 2. All positive cultures are resulted and called to physicians/care providers as soon as they are detected. 3. A rapid molecular test for organism identification may be performed using the [employer] Blood Culture Identification panel. This assay detects microbial DNA in a blood culture broth. This assay has been cleared by the [place] Food and Drug Administration and its performance characteristics have been verified by the [facility]. Interpretive data was last revised on June 19, 2022. David Garza MD LAB MICROBIOLOGY - GENERAL ORDER BIENVENIDO Final Result [facility] [address] Department [place] [address] * POCT glucose (06/10/2024 11:29 AM GAS REGULATOR REPAIRER HELPER) Pathologist [facility] Glucose, POC 178 70 - 199 mg/dL Comment: For Glucose values <35 mg/dl when Hematocrit is >60 mg/dl,the test may not accurately detect significant hypoglycemia,and testing in the Laboratory should be considered if clinically indicated. Blood 06/10/2024 11:2 9 AM GAS REGULATOR REPAIRER HELPER 06/10/2024 11:29 AM GAS REGULATOR REPAIRER HELPER David Garza MD LAB POCT ORDERABLES - DEVICE Fin al Result Performing Organization Address City/[facility]/ZIP Co de Phone Number [facility] [address] Department [place] [address] * eGFR (06/10/2024 5:39 AM GAS REGULATOR REPAIRER HELPER) [facility] eGFR >90 >=60 mL/min/1. 73 m2 Comment: [...] last reviewed 2021. Blood 06/10/2024 5:39 AM GAS REGULATOR REPAIRER HELPER 06/10/2024 6:22 AM GAS REGULATOR REPAIRER HELPER Anita Sung SOLAR SALES REP LAB BLOOD ORDERABLES Final Re sult Performing Organization Address [facility]/ZIP Co de Phone Number [facility] [address] Department [place] [address] * (ABNORMAL) Basic metabolic panel (06/10/2024 5:39 AM GAS REGULATOR REPAIRER HELPER) [facility] Sodium 139 135 - 145 mmol/L Potassium, pl 4.0 3.3 - 4.9 mmol/L [facility] Chloride 105 97 - 110 mmol/L [facility] CO2 28 22 - 32 mmol/L [facility] Anion gap 6 2 - 15 mmol/L [facility] BUN 9 6 - 25 mg/dL [facility] Creatinine 0.59(L) 0.60 - 1.10 mg/dL [facility] Glucose 115 70 - 199 mg/dL [facility] Comment: Interpretive Data Fasting glucose [...] 2022. Calcium 8.3(L) 8.5 - 10.3 mg/dL [facility] Blood 06/10/2024 5:39 AM GAS REGULATOR REPAIRER HELPER 06/10/2024 6:22 AM GAS REGULATOR REPAIRER HELPER us Anita Sung SOLAR SALES REP LAB BLOOD ORDERABLES Final Re sult Performing Organization Address [facility]/ZIP Co de Phone Number [facility] [address] Department [place] [address] * POCT glucose (06/09/2024 9:22 PM GAS REGULATOR REPAIRER HELPER) Glucose, POC 152 70 - 199 mg/dL Comment: For Glucose values <35 mg/dl when Hematocrit is >60 mg/dl,the test may not accurately detect significant hypoglycemia,and testing in the Laboratory should be considered if clinically indicated. Blood 06/09/2024 9:22 PM GAS REGULATOR REPAIRER HELPER 06/09/2024 9:22 PM GAS REGULATOR REPAIRER HELPER David Garza MD LAB POCT ORDERABLES - DEVICE Fin al Result Performing Organization Address [facility] de Phone Number [facility] [address] [facility] [place] [address] * POCT glucose (06/09/2024 6:22 PM GAS REGULATOR REPAIRER HELPER) Glucose, POC 133 70 - 199 mg/dL Comment: For Glucose values <35 mg/dl when Hematocrit is >60 mg/dl,the test may not accurately detect significant hypoglycemia,and testing in the Laboratory should be considered if clinically indicated. Blood 06/09/2024 6:22 PM GAS REGULATOR REPAIRER HELPER 06/09/2024 6:22 PM GAS REGULATOR REPAIRER HELPER David Garza MD LAB POCT ORDERABLES - DEVICE Fin al Result Performing Organization Address [facility] de Phone Number [facility] [address] [place] [address] * (ABNORMAL) POCT glucose (06/09/2024 2:12 PM GAS REGULATOR REPAIRER HELPER) Glucose, POC 271(H) 70 - 199 mg/dL Comment: For Glucose values <35 mg/dl when Hematocrit is >60 mg/dl,the test may not accurately detect significant hypoglycemia,and testing in the Laboratory should be considered if clinically indicated. Blood 06/09/2024 2:12 PM GAS REGULATOR REPAIRER HELPER 06/09/2024 2:12 PM GAS REGULATOR REPAIRER HELPER David Garza MD LAB POCT ORDERABLES - DEVICE Fin al Result Performing Organization Address [facility] de Phone Number [facility] [address] Department [employer] [place], [place] [id number] * Vancomycin level trough Obtain level at 1400 on 06/09. (06/09/2024 2:00 PM GAS REGULATOR REPAIRER HELPER) Vancomycin trough 10.9 10.0 - 20.0 mcg/mL Blood 06/09/2024 2:00 PM GAS REGULATOR REPAIRER HELPER 06/09/2024 2:36 PM GAS REGULATOR REPAIRER HELPER Narrative [facility] - 06/09/2024 3:56 PM GAS REGULATOR REPAIRER HELPER Obtain level at 1400 on 06/09. us Anita Sung NP LAB BLOOD ORDERABLES Final Re sult Performing Organization Address [facility] de Phone Number [facility] [address] [place] [address] * POCT glucose (06/09/2024 7:53 AM GAS REGULATOR REPAIRER HELPER) Glucose, POC 156 70 - 199 mg/dL Comment: For Glucose values <35 mg/dl when Hematocrit is >60 mg/dl,the test may not accurately detect significant hypoglycemia,and testing in the Laboratory should be considered if clinically indicated. Blood 06/09/2024 7:53 AM GAS REGULATOR REPAIRER HELPER 06/09/2024 7:53 AM GAS REGULATOR REPAIRER HELPER David Garza MD LAB POCT ORDERABLES - DEVICE Fin al Result Performing Organization Address [facility] Co de Phone Number [facility] [address] Department [place] [address] * (ABNORMAL) POCT glucose (06/09/2024 4:13 AM GAS REGULATOR REPAIRER HELPER) Glucose, POC 305(H) 70 - 199 mg/dL Comment: For Glucose values <35 mg/dl when Hematocrit is >60 mg/dl,the test may not accurately detect significant hypoglycemia,and testing in the Laboratory should be considered if clinically indicated. Blood 06/09/2024 4:13 AM GAS REGULATOR REPAIRER HELPER 06/09/2024 4:13 AM GAS REGULATOR REPAIRER HELPER David Garza MD LAB POCT ORDERABLES - DEVICE Fin al Result Performing Organization Address [facility] de Phone Number [facility] [address] [place] [address] * (ABNORMAL) POCT glucose (06/09/2024 2:03 AM GAS REGULATOR REPAIRER HELPER) Glucose, POC 274(H) 70 - 199 mg/dL Comment: For Glucose values <35 mg/dl when Hematocrit is >60 mg/dl,the test may not accurately detect significant hypoglycemia,and testing in the Laboratory should be considered if clinically indicated. Blood 06/09/2024 2:03 AM GAS REGULATOR REPAIRER HELPER 06/09/2024 2:03 AM GAS REGULATOR REPAIRER HELPER David Garza MD LAB POCT ORDERABLES - DEVICE Fin al Result Performing Organization Address [facility] de Phone Number [facility] [address] [place] [address] * (ABNORMAL) POCT glucose (06/08/2024 11:36 PM GAS REGULATOR REPAIRER HELPER) Glucose, POC 349(H) 70 - 199 mg/dL Comment: For Glucose values <35 mg/dl when Hematocrit is >60 mg/dl,the test may not accurately detect significant hypoglycemia,and testing in the Laboratory should be considered if clinically indicated. Blood 06/08/2024 11:3 6 PM GAS REGULATOR REPAIRER HELPER 06/08/2024 11:36 PM GAS REGULATOR REPAIRER HELPER David Garza MD LAB POCT ORDERABLES - DEVICE Fin al Result Performing Organization Address [facility] de Phone Number [facility] [address] [place] [address] * (ABNORMAL) POCT glucose (06/08/2024 7:46 PM GAS REGULATOR REPAIRER HELPER) Glucose, POC 250(H) 70 - 199 mg/dL Comment: For Glucose values <35 mg/dl when Hematocrit is >60 mg/dl,the test may not accurately detect significant hypoglycemia,and testing in the Laboratory should be considered if clinically indicated. Blood 06/08/2024 7:46 PM GAS REGULATOR REPAIRER HELPER 06/08/2024 7:46 PM GAS REGULATOR REPAIRER HELPER David Garza MD LAB POCT ORDERABLES - DEVICE Fin al Result Performing Organization Address [facility] Co de Phone Number [facility] [address] Department [place] [address] * POCT glucose (06/08/2024 4:34 PM GAS REGULATOR REPAIRER HELPER) Glucose, POC 91 70 - 199 mg/dL Comment: For Glucose values <35 mg/dl when Hematocrit is >60 mg/dl,the test may not accurately detect significant hypoglycemia,and testing in the Laboratory should be considered if clinically indicated. Blood 06/08/2024 4:34 PM GAS REGULATOR REPAIRER HELPER 06/08/2024 4:34 PM GAS REGULATOR REPAIRER HELPER David Garza MD LAB POCT ORDERABLES - DEVICE Fin al Result Performing Organization Address [facility] Co de Phone Number [facility] [address] Department [place] [address] * Mycology (fungal) culture Wound Back, lower (06/08/2024 4:30 PM GAS REGULATOR REPAIRER HELPER) Report Final Report: No fungus isolated Wound (Back, lower) 06/08/2024 4:30 PM GAS REGULATOR REPAIRER HELPER 06/08/2024 5:09 PM GAS REGULATOR REPAIRER HELPER [facility]ative [facility] 07/07/2024 1:00 PM GAS REGULATOR REPAIRER HELPER Deep 1 Mycology cultures are held for 4 weeks. Darío Ceron MD LAB MICROBIOLOGY - GENERA L ORDERABLES Final Result Performing Organization Address [facility] Co de Phone Number [facility] [address] [facility] [place] [address] * Mycology (fungal) culture Wound Back, lower (06/08/2024 4:30 PM GAS REGULATOR REPAIRER HELPER) Report Final Report: No fungus isolated Wound (Back, lower) 06/08/2024 4:30 PM GAS REGULATOR REPAIRER HELPER 06/08/2024 5:09 PM GAS REGULATOR REPAIRER HELPER Narrative [facility] - 07/07/2024 1:00 PM GAS REGULATOR REPAIRER HELPER Superficial 1 Mycology cultures are held for 4 weeks. Darío Ceron MD LAB MICROBIOLOGY - GENERA L ORDERABLES Final Result Performing Organization Address City/[facility]/ZIP Co de Phone Number [facility] [address] [place] [address] * (ABNORMAL) Aerobic and anaerobic culture and gram stain Wound Back, lower (06/08/2024 4:30 PM GAS REGULATOR REPAIRER HELPER) Direct Specimen Exam Stain: Rare polymorphonuclear leukocytes seen. No organisms seen. Report Final Report: Heavy growth of: Staphylococcus aureus, methicillin susceptible (.) [facility] Organism STAPHYLOCOCCUS AUREUS, METHICILLIN SUSCEPTIBLE [facility] Wound (Back, lower) 06/08/2024 4:30 PM GAS REGULATOR REPAIRER HELPER 06/08/2024 5:09 PM GAS REGULATOR REPAIRER HELPER Narrative [facility] - 2024 7:55 AM GAS REGULATOR REPAIRER HELPER Deep 1 Organism Antibiotic Method Susceptibility Staphylococcus [...] L ORDERABLES Final Result Performing Organization Address City/[facility]/ZIP Co de Phone Number [facility] [address] [address] * (ABNORMAL) Aerobic and anaerobic culture and gram stain Wound Back, lower (06/08/2024 4:30 PM GAS REGULATOR REPAIRER HELPER) Direct Specimen Exam Stain: Rare polymorphonuclear leukocytes seen. No organisms seen. Report Final Report: Heavy growth of: Staphylococcus aureus, methicillin susceptible Susceptibility reported on this organism on previous culture [id number] (.) [facility] Organism STAPHYLOCOCCUS AUREUS, METHICILLIN SUSCEPTIBLE [facility] Wound (Back, lower) 06/08/2024 4:30 PM GAS REGULATOR REPAIRER HELPER 06/08/2024 5:09 PM GAS REGULATOR REPAIRER HELPER Narrative [facility] - 2024 7:56 AM GAS REGULATOR REPAIRER HELPER Superficial 1 us Darío Ceron MD LAB MICROBIOLOGY - GENERA L ORDERABLES Final Result [facility] [address] Department [place] [address] * OK AN ELECTIVE ENDOTRACHEAL AIRWAY, OK AN PROCEDURE PLACEHOLDER (06/08/2024 3:17 PM GAS REGULATOR REPAIRER HELPER) Narrative Jasmyn Ramos CRNA - 06/08/2024 3:17 PM GAS REGULATOR REPAIRER HELPER Jasmyn Ramos CRNA 06/08/2024 3:17 PM Airway Patient location: OR Urgency: elective Indications for airway management: anesthesia Difficult airway: no Staff: Placed by: JOB ANALYSIS MANAGER: Jasmyn Ramos CRNA Airway prep: Preoxygenated: yes [...] ult * POCT glucose (06/08/2024 1:33 PM GAS REGULATOR REPAIRER HELPER) Glucose, POC 124 70 - 199 mg/dL Comment: For Glucose values <35 mg/dl when Hematocrit is >60 mg/dl,the test may not accurately detect significant hypoglycemia,and testing in the Laboratory should be considered if clinically indicated. Blood 06/08/2024 1:33 PM GAS REGULATOR REPAIRER HELPER 06/08/2024 1:33 PM GAS REGULATOR REPAIRER HELPER David Garza MD LAB POCT ORDERABLES - DEVICE Fin al Result Performing Organization Address [facility] Co de Phone Number [facility] [address] [facility] [place] [address] * POCT glucose (06/08/2024 12:35 PM GAS REGULATOR REPAIRER HELPER) Glucose, POC 84 70 - 199 mg/dL Comment: For Glucose values <35 mg/dl when Hematocrit is >60 mg/dl,the test may not accurately detect significant hypoglycemia,and testing in the Laboratory should be considered if clinically indicated. Blood 06/08/2024 12:3 5 PM GAS REGULATOR REPAIRER HELPER 06/08/2024 12:35 PM GAS REGULATOR REPAIRER HELPER David Garza MD LAB POCT ORDERABLES - DEVICE Fin al Result Performing Organization Address [facility] Co de Phone Number [facility] [address] Department [place] [address] * POCT glucose (06/08/2024 8:39 AM GAS REGULATOR REPAIRER HELPER) Glucose, POC 105 70 - 199 mg/dL Comment: For Glucose values <35 mg/dl when Hematocrit is >60 mg/dl,the test may not accurately detect significant hypoglycemia,and testing in the Laboratory should be considered if clinically indicated. Blood 06/08/2024 8:39 AM GAS REGULATOR REPAIRER HELPER 06/08/2024 8:39 AM GAS REGULATOR REPAIRER HELPER David Garza MD LAB POCT ORDERABLES - DEVICE Fin al Result Performing Organization Address [facility] Co de Phone Number [facility] [address] Department [place] [address] * eGFR (06/08/2024 6:21 AM GAS REGULATOR REPAIRER HELPER) eGFR 82 >=60 mL/min/1. 73 m2 Comment: [...] last reviewed 2021. Blood 06/08/2024 6:21 AM GAS REGULATOR REPAIRER HELPER 06/08/2024 6:27 AM GAS REGULATOR REPAIRER HELPER us Abram Mcnair MD LAB BLOOD ORDERABLES Final Resul t Performing Organization Address [facility]/ZIP Co de Phone Number [facility] [address] Department [place] [address] * (ABNORMAL) CBC without differential (06/08/2024 6:21 AM GAS REGULATOR REPAIRER HELPER) WBC 12.3(H) 3.8 - 9.9 K/cumm Hgb 12.5 11.9 - 15.5 g/dL [facility] Hct 37.9 35.6 - 45.5 % [facility] Plt 289 150 - 400 K/cumm [facility] MPV 8.9(L) 9.1 - 12.3 fL [facility] RBC 3.98 3.90 - 5.20 M/cumm [facility] MCV 95.2 81.3 - 96.4 fL [facility] MCH 31.4 27.1 - 33.3 pg [facility] MCHC 33.0 32.3 - 35.7 g/dL [facility] RDW CV 13.0 11.1 - 14.9 % [facility] RDW SD 45.7 35.7 - 48.1 fL [facility] NRBC abs 0.00 0.00 - 0.01 K/cumm [facility] Blood 06/08/2024 6:21 AM GAS REGULATOR REPAIRER HELPER 06/08/2024 6:27 AM GAS REGULATOR REPAIRER HELPER us Abram Mcnair MD LAB BLOOD ORDERABLES Final Resul t Performing Organization Address [facility] Co de Phone Number [facility] [address] [facility] [place] [address] * Phosphorus (06/08/2024 6:21 AM GAS REGULATOR REPAIRER HELPER) Phosphorus, pl 3.6 2.3 - 4.5 mg/dL Blood 06/08/2024 6:21 AM GAS REGULATOR REPAIRER HELPER 06/08/2024 6:27 AM GAS REGULATOR REPAIRER HELPER us Abram Mcnair MD LAB BLOOD ORDERABLES Final Resul t Performing Organization Address City/[facility] Co de Phone Number [facility] [address] [place] [address] * Magnesium (06/08/2024 6:21 AM GAS REGULATOR REPAIRER HELPER) Magnesium 2.0 1.4 - 2.5 mg/dL Blood 06/08/2024 6:21 AM GAS REGULATOR REPAIRER HELPER 06/08/2024 6:27 AM GAS REGULATOR REPAIRER HELPER us Abram Mcnair MD LAB BLOOD ORDERABLES Final Resul t Performing Organization Address City/[facility] Co de Phone Number [facility] [address] [place] [address] * Basic metabolic panel (06/08/2024 6:21 AM GAS REGULATOR REPAIRER HELPER) Sodium 136 135 - 145 mmol/L Potassium, pl 4.0 3.3 - 4.9 mmol/L [facility] Chloride 101 97 - 110 mmol/L [facility] CO2 27 22 - 32 mmol/L [facility] Anion gap 8 2 - 15 mmol/L [facility] BUN 12 6 - 25 mg/dL [facility] Creatinine 0.85 0.60 - 1.10 mg/dL [facility] Glucose 138 70 - 199 mg/dL [facility] Comment: Interpretive Data Fasting glucose [...] 2022. Calcium 8.8 8.5 - 10.3 mg/dL [facility] Blood 06/08/2024 6:21 AM GAS REGULATOR REPAIRER HELPER 06/08/2024 6:27 AM GAS REGULATOR REPAIRER HELPER Abram Mcnair MD LAB BLOOD ORDERABLES Final Resul t [facility] [address] Department [place] [address] * POCT glucose (06/08/2024 4:21 AM GAS REGULATOR REPAIRER HELPER) Glucose, POC 116 70 - 199 mg/dL Comment: For Glucose values <35 mg/dl when Hematocrit is >60 mg/dl,the test may not accurately detect significant hypoglycemia,and testing in the Laboratory should be considered if clinically indicated. Blood 06/08/2024 4:21 AM GAS REGULATOR REPAIRER HELPER 06/08/2024 4:21 AM GAS REGULATOR REPAIRER HELPER Abram Mcnair MD LAB POCT ORDERABLES - DEVICE Fin al Result Performing Organization Address [facility] de Phone Number [facility] [address] Department [place] [address] * Blood culture Blood Peripheral (06/08/2024 12:42 AM GAS REGULATOR REPAIRER HELPER) Report Final Report: No growth Blood (Peripheral) 06/08/2024 12:42 AM GAS REGULATOR REPAIRER HELPER 06/08/2024 12:50 AM GAS REGULATOR REPAIRER HELPER Narrative [facility] - 06/13/2024 7:01 AM GAS REGULATOR REPAIRER HELPER From a different site than #1. Draw [...] organism identification may be performed using the Optini Blood Culture Identification panel. This assay detects microbial DNA in a blood culture broth. This assay has been cleared by the [place] Food and Drug Administration and its performance characteristics have been verified by the [facility]. Interpretive data was last revised on June 19, 2022. Anita Sung NP LAB MICROBIOLOGY - GENERAL OR DERABLES Final Result Performing Organization Address [facility] de Phone Number [facility] [address] Department [place] [address] * POCT glucose (06/08/2024 12:38 AM GAS REGULATOR REPAIRER HELPER) Glucose, POC 121 70 - 199 mg/dL Comment: For Glucose values <35 mg/dl when Hematocrit is >60 mg/dl,the test may not accurately detect significant hypoglycemia,and testing in the Laboratory should be considered if clinically indicated. Blood 06/08/2024 12:3 8 AM GAS REGULATOR REPAIRER HELPER 06/08/2024 12:38 AM GAS REGULATOR REPAIRER HELPER us Notinfile Unknown LAB POCT ORDERABLES - DEVICE F inal Result [facility] [address] Department [place] [address] * (ABNORMAL) Blood culture Blood Peripheral (06/08/2024 12:30 AM GAS REGULATOR REPAIRER HELPER) Direct Specimen Exam Molecular Analysis: Staphylococcus aureus, methicillin-suscep tible (MSSA) detected by the [employer] Blood Culture Identification Panel. This test does not exclude the possibility of a mixed bacterial infection. Please consider this result in the context of clinical findings and evaluate the possibility of antimicrobial de-escalation. Test result called to and read back by CARMEN RONQUILLO RN on 06/10/2024 05:31:07 by [id number] Direct Specimen Exam Stain: Gram Positive Cocci in clusters [facility] Report Final Report: Staphylococcus aureus, methicillin susceptible (.) [facility] Organism STAPHYLOCOCCUS AUREUS, METHICILLIN SUSCEPTIBLE [facility] Blood (Peripheral) 06/08/2024 12:30 AM GAS REGULATOR REPAIRER HELPER 06/08/2024 12:50 AM GAS REGULATOR REPAIRER HELPER Narrative [facility] - 06/12/2024 7:20 AM GAS REGULATOR REPAIRER HELPER Draw Blood cultures before administration of Antibiotics [...] organism identification may be performed using the [employer] [place] [employer] Blood Culture Identification panel. This assay detects microbial DNA in a blood culture broth. This assay has been cleared by the [place] Food and Drug Administration and its performance characteristics have been verified by the [facility]. Interpretive data was last revised [...] (JAMES) INTERPRETATION <=0.5 mcg/mL: Susceptible Anita Sung SOLAR SALES REP LAB MICROBIOLOGY - GENERAL OR DERABLES Final Result [facility] [address] Department [place] [address] * MRI Lumbar Spine W WO Contrast (06/07/2024 11:30 PM GAS REGULATOR REPAIRER HELPER) Anatomical Region Laterality Modality Spine N/A Magnetic Resonan ce 06/07/2024 10:3 6 PM GAS REGULATOR REPAIRER HELPER Impressions 06/08/2024 8:45 AM GAS REGULATOR REPAIRER HELPER 1. Changes of prior L3-L5 posterior decompression [...] foraminal stenosis. For the purposes of quality assurance assessor, this study was initially interpreted by teleradiology. There is no significant discrepancy. Dictated by: Manpreet Knox D.O. The radiology attending physician has personally reviewed this study, and had reviewed and/or edited this written report and agrees with it. Electronically signed by: Jose A Bhagat MD, PHD Narrative 06/08/2024 8:45 AM GAS REGULATOR REPAIRER HELPER EXAMINATION: Magnetic resonance imaging (MRI) of the [...] foraminal stenosis. For the purposes of quality assurance assessor, this study was initially interpreted by teleradiology. There is no significant discrepancy. Dictated by: Manpreet Knox D.O. The radiology attending physician has personally reviewed this study, and had reviewed and/or edited this written report and agrees with it. Electronically signed by: Jose A Bhagat MD, PHD us Anita Sung SOLAR SALES REP IMG MRI PROCEDURES Final Resu lt * Urinalysis reflex to microscopic and culture Urine (06/07/2024 9:41 PM GAS REGULATOR REPAIRER HELPER) Color, ur Yellow Yellow Clarity, ur Clear Clear [facility] Specific gravity, ur 1.012 1.003 - 1.030 [facility] pH, urine 7.0 [facility] Comment: Interpretive Data U rine pH is affected by diet, medications, systemic acid-base disturbances, and renal tubular function. pH may affect urinary stone formation. For example, urine pH below 6.0 may help reduce the tendency for calcium phosphate stones and pH greater than 6.0 may reduce the tendency for uric acid stone formation. Source: [facility] [employer] Current Interpretive Data was last revised on 2017 Protein, ur ql Negative Negative [facility] Glucose, ur ql Negative Negative [facility] Ketones, ur Negative Negative [facility] Bilirubin, ur Negative Negative [facility] Blood, ur Negative Negative [facility] Urobilinogen, ur <2.0 <2.0 mg/dL [facility] Nitrite, ur Negative Negative [facility] Leukocyte esterase, ur Negative Negative [facility] UA reflex comment Reflex conditions for microscopic UA and culture not met. [facility] Urine 06/07/2024 9:41 PM GAS REGULATOR REPAIRER HELPER 06/07/2024 9:41 PM GAS REGULATOR REPAIRER HELPER us Anita Sung SOLAR SALES REP LAB MICROBIOLOGY - GENERAL OR DERABLES Final Result [facility] [address] Department [place] [address] * Sepsis Lactate w/ Reflex (06/07/2024 9:39 PM GAS REGULATOR REPAIRER HELPER) Pathologist [facility] Sepsis Lactate 1.0 0.7 - 2.0 mmol/L Blood 06/07/2024 9:39 PM GAS REGULATOR REPAIRER HELPER 06/07/2024 9:44 PM GAS REGULATOR REPAIRER HELPER Anita Sung SOLAR SALES REP LAB BLOOD ORDERABLES Final Re sult Performing Organization Address City/[facility]/ZIP Co de Phone Number [facility] [address] Department of [employer] [place], [place] [id number] * eGFR (06/07/2024 9:39 PM GAS REGULATOR REPAIRER HELPER) [facility] eGFR 69 >=60 mL/min/1. 73 m2 Comment: [...] last reviewed 2021. Blood 06/07/2024 9:39 PM GAS REGULATOR REPAIRER HELPER 06/07/2024 9:46 PM GAS REGULATOR REPAIRER HELPER us Anita Shen Counts SOLAR SALES REP LAB BLOOD ORDERABLES Final Re sult [facility] [address] Department of Laboratories [place], [place] [id number] * (ABNORMAL) Differential, auto (06/07/2024 9:39 PM GAS REGULATOR REPAIRER HELPER) Neutrophil abs 9.7(H) 1.5 - 6.5 K/cumm Imm gran abs 0.1 0.0 - 0.1 K/cumm [facility] Lymphocyte abs 2.3 0.8 - 3.3 K/cumm [facility] Monocyte abs 0.9(H) 0.2 - 0.8 K/cumm [facility] Eosinophil abs 0.1 0.0 - 0.5 K/cumm [facility] Basophil abs 0.1 0.0 - 0.1 K/cumm [facility] Neutrophil pct 73.9 % [facility] Comment: Interpretive Data Percent cell count reference ranges are not reported, since discordance with absolute values may lead to misinterpretation of CBC data. Current Interpretive Data was last revised on 2017. Imm gran pct 0.4 % [facility] Comment: Interpretive Data Percent cell count reference ranges are not reported, since discordance with absolute values may lead to misinterpretation of CBC data. Current Interpretive Data was last revised on 2017. Lymphocyte pct 17.4 % [facility] Comment: Interpretive Data Percent cell count reference ranges are not reported, since discordance with absolute values may lead to misinterpretation of CBC data. Current Interpretive Data was last revised on 2017. Monocyte pct 6.7 % [facility] Comment: Interpretive Data Percent cell count reference ranges are not reported, since discordance with absolute values may lead to misinterpretation of CBC data. Current Interpretive Data was last revised on 2017. Eosinophil pct 0.9 % [facility] Comment: Interpretive Data Percent cell count reference ranges are not reported, since discordance with absolute values may lead to misinterpretation of CBC data. Current Interpretive Data was last revised on 2017. Basophil pct 0.7 % [facility] Comment: Interpretive Data Percent cell count reference ranges are not reported, since discordance with absolute values may lead to misinterpretation of CBC data. Current Interpretive Data was last revised on 2017. Blood 06/07/2024 9:39 PM GAS REGULATOR REPAIRER HELPER 06/07/2024 9:46 PM GAS REGULATOR REPAIRER HELPER us Anita Sung SOLAR SALES REP LAB BLOOD ORDERABLES Final Re sult [facility] [address] Department [place] [address] * (ABNORMAL) CBC with auto differential (06/07/2024 9:39 PM GAS REGULATOR REPAIRER HELPER) Pathologist [facility] WBC 13.1(H) 3.8 - 9.9 K/cumm Hgb 12.8 11.9 - 15.5 g/dL [facility] Hct 38.7 35.6 - 45.5 % [facility] Plt 312 150 - 400 K/cumm [facility] MPV 9.2 9.1 - 12.3 fL [facility] RBC 4.11 3.90 - 5.20 M/cumm [facility] MCV 94.2 81.3 - 96.4 fL [facility] MCH 31.1 27.1 - 33.3 pg [facility] MCHC 33.1 32.3 - 35.7 g/dL [facility] RDW CV 13.1 11.1 - 14.9 % [facility] RDW SD 45.1 35.7 - 48.1 fL [facility] NRBC abs 0.00 0.00 - 0.01 K/cumm [facility] Blood 06/07/2024 9:39 PM GAS REGULATOR REPAIRER HELPER 06/07/2024 9:46 PM GAS REGULATOR REPAIRER HELPER us Anita Shen Counts SOLAR SALES REP LAB BLOOD ORDERABLES Final Re sult Performing Organization Address [facility] Co de Phone Number [facility] [address] Department [place] [address] * (ABNORMAL) Erythrocyte sedimentation rate (06/07/2024 9:39 PM GAS REGULATOR REPAIRER HELPER) Pathologist [facility] Erythrocyte sedimentation rate 39(H) 1 - 30 mm/hr Blood 06/07/2024 9:39 PM GAS REGULATOR REPAIRER HELPER 06/07/2024 9:46 PM GAS REGULATOR REPAIRER HELPER us Anita Shen Counts SOLAR SALES REP LAB BLOOD ORDERABLES Final Re sult Performing Organization Address [facility]/State/ZIP Co de Phone Number [facility] [address] Department [place] [address] * (ABNORMAL) CRP (acute phase) (06/07/2024 9:39 PM GAS REGULATOR REPAIRER HELPER) [facility] CRP 82.7(H) <=10.0 mg/L Blood 06/07/2024 9:3 9 PM GAS REGULATOR REPAIRER HELPER 06/07/2024 9:46 PM GAS REGULATOR REPAIRER HELPER us Anita Sung SOLAR SALES REP LAB BLOOD ORDERABLES Final Re sult [facility] [address] Department [place] [address] * (ABNORMAL) Comprehensive metabolic panel (06/07/2024 9:39 PM GAS REGULATOR REPAIRER HELPER) [facility] Sodium 137 135 - 145 mmol/L Potassium, pl 4.6 3.3 - 4.9 mmol/L [facility] Comment:Hemolyzed; potassium value may be falsely elevated by as much as 0.6 - 1.0 mmol/L. Suggest redraw and reanalysis Chloride 102 97 - 110 mmol/L [facility] CO2 25 22 - 32 mmol/L [facility] Anion gap 10 2 - 15 mmol/L [facility] BUN 12 6 - 25 mg/dL [facility] Creatinine 0.98 0.60 - 1.10 mg/dL [facility] Glucose 147 70 - 199 mg/dL [facility] Comment: Interpretive Data Fasting glucose [...] 2022. Calcium 9.0 8.5 - 10.3 mg/dL [facility] Bilirubin, total 0.3 0.1 - 1.2 mg/dL [facility] Protein, pl 7.1 6.5 - 8.5 g/dL [facility] Albumin 3.4(L) 3.5 - 5.0 g/dL [facility] Alk phos 83 40 - 130 Units/L [facility] ALT 15 7 - 45 Units/L [facility] Comment:Moderately Hemolyzed Specimen AST 27 10 - 45 Units/L [facility] Comment:Moderately Hemolyzed Specimen Blood 06/07/2024 9:39 PM GAS REGULATOR REPAIRER HELPER 06/07/2024 9:46 PM GAS REGULATOR REPAIRER HELPER us Anita Sung SOLAR SALES REP LAB BLOOD ORDERABLES Final Re sult Performing Organization Address [facility] Co de Phone Number [facility] [address] [place] [address] * (ABNORMAL) Hemoglobin A1c (03/21/2024 10:40 AM GAS REGULATOR REPAIRER HELPER) Hgb A1C 6.4(H) 4.0 - 5.6 % Estimated Average Glucose 137 mg/dL [facility] Comment: The ADA recommends reporting an estimated Average Glucose (eAG) with all Hemoglobin A1c results using the equation derived from a study of 507 normal and diabetic adults. Minority populations were underrepresented and children were not included. (Diabetes Care 31:5825-4004, 2008). The eAG is not equivalent to a fasting glucose. Blood 03/21/2024 10:4 0 AM GAS REGULATOR REPAIRER HELPER 03/21/2024 10:40 AM GAS REGULATOR REPAIRER HELPER us Brigida Ledesma SOLAR SALES REP LAB BLOOD ORDERABLES Fin al Result Performing Organization Address [facility]/ZIP Co de Phone Number [facility] [address] [facility] [employer] [place] [address] * (ABNORMAL) POCT lipid panel [...] Mammogram Bilateral W Hai (06/10/2021 10:10 AM GAS REGULATOR REPAIRER HELPER) Anatomical Region Laterality Modality Breast Bilateral Mammography 06/10/2021 11:4 8 AM GAS REGULATOR REPAIRER HELPER Impressions 06/10/2021 1:28 PM GAS REGULATOR REPAIRER HELPER 1. No suspicious mammographic or sonographic correlate [...] Maryse Dowling M.D. Narrative 06/10/2021 1:28 PM GAS REGULATOR REPAIRER HELPER EXAMINATION: BILATERAL DIGITAL DIAGNOSTIC MAMMOGRAM INCLUDING CAD [...] it. Electronically signed by: Maryse Dowling M.D. us Denise Allen MD PhD IMG MAMMO PROCEDURES Final Result from Last 3 Months or Most Recently Relevant to Health Maintenance Insurance IDPA [facility] CHOICE PLUS [facility] HMO/PPO Address: [address] [address] [place] [address] MEDICARE IDPA [facility] CHOICE PLUS [facility] HMO/PPO Address: [address] [address] [place] [address] [facility] CHOICE PLUS [facility] HMO/PPO Address: [address] [address] [place] [address] IDPA MEDICARE [facility] CHOICE PLUS [facility] HMO/PPO Address: [address] [address] [place] [address] Advance Directives For more information, please contact: [phone] * Full Code (Latest Code Status on File) Date Activated Date Inactivated Comments 06/08/2024 3:56 AM 06/14/2024 8:35 PM * Full Code Date Activated Date Inactivated Comments 04/05/2024 9:24 PM 04/06/2024 2:12 PM * Full Code Date Activated Date Inactivated Comments 04/05/2024 8:19 PM 04/05/2024 9:24 PM * Full Code Date Activated Date Inactivated Comments 12/24/2021 12:49 PM 12/25/2021 4:30 PM Care Teams Export Documents Clerk Relationship Specialty Start Date End Date Christos Coon MD [address] [place] [id number] PCP - General 6/16/17 Darío Ceron MD [address] [place] [address] Consulting Physician Neurosurgery 06/14/24 Kali Moses MD [address] [place] [address] Consulting Physician Infectious Diseases 06/14/24
--- OUTSIDE RECORDS SUMMARY | 2024-08-24 12:02 | XMS_ITS | Clinical Summary ---
Author Organization [facility] Address [address] [place] [address] Care Team Providers Care Equipment Specialist Name Role Phone Christos Coon MD Primary Care Provider [phone] Allergies Active Allergy Reactions Criticality Noted Date [...] on file Legal Sex Female 5:47 PM INDUSTRIAL ORGANIZATIONAL PSYCHOLOGIST Gender Identity Not on file Sexual Orientation Not on file Last Filed Vital Signs Vital Sign Reading Time Taken Comments Blood Pressure 136/85 05/11/2020 11:20 PM INDUSTRIAL ORGANIZATIONAL PSYCHOLOGIST Pulse 85 05/11/2020 11:20 PM INDUSTRIAL ORGANIZATIONAL PSYCHOLOGIST Temperature 36.8 C (98.2 F) 05/11/2020 11:20 PM INDUSTRIAL ORGANIZATIONAL PSYCHOLOGIST Respiratory Rate 20 05/11/2020 11:20 PM INDUSTRIAL ORGANIZATIONAL PSYCHOLOGIST Oxygen Saturation 99% 05/11/2020 11:20 PM INDUSTRIAL ORGANIZATIONAL PSYCHOLOGIST Inhaled Oxygen Concentration - - Weight 76.7 kg (169 lb) 05/11/2020 11:20 PM INDUSTRIAL ORGANIZATIONAL PSYCHOLOGIST Height 170.2 cm (5' 7 ) 05/11/2020 11:20 PM INDUSTRIAL ORGANIZATIONAL PSYCHOLOGIST Body Mass Index 26.47 05/11/2020 11:20 PM INDUSTRIAL ORGANIZATIONAL PSYCHOLOGIST Plan of Treatment Health Maintenance Due Date [...] Vaccines (1 of 2) 2021 COVID-19 Vaccine (1 - 2023-2 5 season) 2024 Meningococcal B Vaccine Aged Out No l onger eligible based on patient's age to complete this topic Meningococcal Vaccine Aged Out No kusum david eligible based on patient's age to complete this topic RSV Immunizations Under 20 Months Aged Out No longer eligible based on patient's age to complete this topic Insurance [facility] MEDICAID Care Teams Equipment Specialist Relationship Specialty Start Date End Date Christos Coon MD [address] [place] [id number] PCP - General FAMILY PRACTICE 05/11/20
--- OUTSIDE RECORDS SUMMARY | 2024-08-24 12:02 | XMS_ITS | Clinical Summary ---
Author Organization [facility] Address [address] [place] [address] Care Team Providers Care Stoper Name Role Phone Christos Coon MD Primary Care Provider [phone] Source Comments [facility],non-owned Affiliates and Associated Physician Practices is amultiple site organization consisting of ambulatory clinics and hospital sitesin [place], [place], [place] and [place]. This disclosure is being madepursuant to the Care Everywhere program and may not contain all information available regarding this patient. Last updated 18.[facility] Allergies No known active allergies Medications * [...] COLON CA SCREENING 1971 LIPID TESTING 1971 HIV SCREENING 1986 HEPATITIS C SCREENING 06/06/1989 DTAP/TDAP/TD VACCINES (1 - Tdap) 1990 HEPATITIS B VACCINE (1 of 3 - 19+ 3-dose series) 1990 MAMMOGRAM 03/22/2015 03/22/2013 SCREENING FOR DIABETES 12/08/2019 PNEUMOCOCCAL VACCINE 50+ (1 of 1 - PCV) 2021 ZOSTER VACCINE (1 of 2) 2021 COVID-19 VACCINE ( - 2023-2 5 season) 2024 DEPRESSION SCREENING 05/18/2024 INFLUENZA VACCINE (Season Ended) 2025 HIB VACCINE Aged Out No longer eligi ble based on patient's age to complete this topic HPV VACCINE Aged Out No longer eligi ble based on patient's age to complete this topic MENINGOCOCCAL (Group B) VACC INE SHARED DECISION-MAKING Aged Out No longer eligibl e based on patient's age to complete this topic MENINGOCOCCAL GROUPS A/C/Y/W VACCINE Aged Out No longer eligible b ased on patient's age to complete this topic Care Teams Stoper Relationship Specialty Start Date End Date Christos Coon MD PCP - General 11/05/17
--- OUTSIDE RECORDS SUMMARY | 2024-08-24 12:02 | XMS_ITS | Clinical Summary ---
Author Organization [employer] [address] - [address] [facility] [address] [place] [address] Phone Care Team Providers Care Event Sales Representative Name Role Phone Unavailable Primary Care Provider [...] of 3 - 19+ 3-dose series) 05/19 HPV/Cotest (21-29) 1992 PAP SMEAR 1992 CERVICAL CANCER SCREENING 2001 HPV/Cotest (30-65) 2001 PAP SMEAR 2001 BREAST CANCER SCREENING 2011 COLORECTAL SCREENING 2016 Colorectal Cancer Screening 2016 FIT-DNA Q 3 years 2016 FIT/FOBT Q 1 year 2016 Flex Sig/CT Colonography Q 5 years 2016 ZOSTER VACCINE (1 of 2) 2021 INFLUENZA VACCINE (#1) 2023 Insurance [facility] [id number]
--- OUTSIDE RECORDS SUMMARY | 2024-08-24 12:02 | XMS_ITS | Continuity of Care Document ---
Author Organization [facility] Address [address] [place] [address] Phone Care Team Providers Care Green Building Architect Name Role Phone Unavailable Unavailable Unavailable Advance Directives Directive Yes / No Effective Date File Name No Information Encounters Encounter Description Practice Location Reason(s) For Visit Diagnoses Date Provider Providers Copied on Encounter [facility], [address] [facility], [place], [place], [id number], tel:[phone] [facility] No Information 3 No Information Referring Provider: DEION Lawton, [address], [place], [address]. tel:[phone] Family History Family Member Type Diagnosis Age At Onset No Information Payers Payer name Insurance type Covered democrat ID juliet yevidal(s) [facility] POS [id number] [facility] INDEMNITY [id number] Social History Type Description Quantity Date Captured Comments Sex Female Smoking Status No Information Chief Complaint And Reason For Visit No Information History Of Present Illness Encounter Date Complaint History Of Prese nt Illness No Information Instructions Date Instruction Additional Infor mation No Information Assessments Type Assessment Date No Information
--- OUTSIDE RECORDS SUMMARY | 2024-08-24 12:02 | XMS_ITS | Referral Summary ---
Author Organization [facility] Address [address] [place] [address] Care Team Providers Care Career Professional Name Role Phone Christos Coon MD Primary Care Provider Darío Ceron MD Unavailable [phone] Kali Moses MD Unavailable Encounters Date Type Department Care Team Description 07/22/2024 10:30 AM SENIOR DENTIST Home Care Visit [address] [place] [address] Marcello Hurtado, RN SN OASIS DISCHARGE 07/20/2024 11:30 AM SENIOR DENTIST - 07/20/2024 11:59 PM SENIOR DENTIST Hospital Encounter [facility] [address] [place] [address] Discharge Disposition: Discharge to home or self care 07/20/2024 12:00 PM SENIOR DENTIST Home Care Visit [address] [place] [address] Marcello Hurtado, RN SN HOME VISIT 07/15/2024 Orders Only [facility] Home Care Services [address] [place] [address] Mary Lentz [facility] 07/13/2024 Home Care Visit [address] [place] [address] Mili Isidro, PT PT DISCIPLINE DISCHARGE 07/13/2024 1:30 PM SENIOR DENTIST Home Care Visit [address] [place] [address] Mili Isidro, PT PT REASSESSMENT 07/12/2024 2:00 PM SENIOR DENTIST - 07/12/2024 11:59 PM SENIOR DENTIST Hospital Encounter [address] [address] Discharge Disposition: Discharge to home or self care 07/12/2024 2:30 PM SENIOR DENTIST Home Care Visit [address] [place] [address] Marcello Hurtado, SHANEL SN HOME VISIT 07/06/2024 2:00 PM SENIOR DENTIST - 07/06/2024 11:59 PM SENIOR DENTIST Hospital Encounter [address] [address] Discharge Disposition: Discharge to home or self care 07/06/2024 11:30 AM SENIOR DENTIST Home Care Visit [address] [place] [address] Mary Juarez PTA PT HOME VISIT 07/06/2024 2:00 PM SENIOR DENTIST Home Care Visit [address] [place] [address] Marcello Hurtado, SHANEL SN HOME VISIT 07/01/2024 Home Care Visit [address] [place] [address] Alexia Kelley, SHANEL SN TRIAGE ENCOUNTER 07/01/2024 4:15 PM SENIOR DENTIST Home Care Visit [address] [place] [address] Mili White SN HOME VISIT 06/30/2024 Orders Only [facility] Home Care Services [address] [place] [address] [address] [place] [address] Gina Pisano [facility] 06/28/2024 6:27 PM SENIOR DENTIST - 06/28/2024 11:59 PM SENIOR DENTIST Hospital Encounter [address] [address] Discharge Disposition: Discharge to home or self care 06/28/2024 1:30 PM SENIOR DENTIST Home Care Visit [address] [place] [address] Marcello Hurtado, RN SN HOME VISIT 06/22/2024 9:30 AM SENIOR DENTIST - 06/22/2024 11:59 PM SENIOR DENTIST Hospital Encounter [facility] [address] [place] [address] Discharge Disposition: Discharge to home or self care 06/22/2024 9:30 AM SENIOR DENTIST Home Care Visit [address] [place] [address] Marcello Hurtado, SHANEL SN HOME VISIT 06/20/2024 Home Care Visit [address] [place] [address] Mili Isidro, PT CARE CONFERENCE 06/20/2024 Home Care Visit [address] [place] [address] Georgina Mauricio, SHANEL SN TRIAGE ENCOUNTER 06/20/2024 1:30 PM SENIOR DENTIST Home Care Visit [address] [place] [address] Mili Isidro, PT PT INITIAL EVALUATION 06/18/2024 Home Care Visit [address] [place] [address] Leslie Contreras, RN TELEPHONE ENCOUNTER 06/18/2024 Home Care Visit [address] [place] [address] Marcia Cho, SHANEL SN TRIAGE ENCOUNTER 06/17/2024 Home Care Visit [address] [place] [address] Georgina Mauricio, SHANEL SN TRIAGE ENCOUNTER 06/15/2024 Plan of Care Documentation [address] [place] [address] 06/15/2024 8:15 AM SENIOR DENTIST Home Care Visit [address] [place] [address] Marcello Hurtado, SHANEL SN OASIS START OF CARE 06/14/2024 Orders Only [facility] Home Care Services [address] [place] [address] [address] [place] [address] Gina Pisano, [facility] 06/07/2024 8:19 PM SENIOR DENTIST - 06/14/2024 4:29 PM SENIOR DENTIST Hospital Encounter [address] [address] Abram Mcnair MD Jain, Anshu, MD tobacco prevention health educator current use of antibiotics (Primary Dx); Spinal abscess (HCC); Acute low back pain due to spinal disorder Discharge Disposition: Discharge to home, home health skilled care 06/08/2024 2:58 PM SENIOR DENTIST Anesthesia Event [facility] Operating Room [address] [place] [phone] Jah Bowman MD Grither, Christine D., ICER MACHINE OPERATOR 06/08/2024 2:02 PM SENIOR DENTIST - 06/08/2024 4:07 PM SENIOR DENTIST Surgery [facility] Operating Room [address] [place] [phone] Darío Ceron MD INCISION AND DRAINAGE [...] glucose level continuously; change every 10 days. e11. 12 each 12/10/19 22 Active blood-glucose transmitter (Dexcom G6 Transmitter) deviceIndications: type 2 diabetes mellitus 1 Device continuously Use to monitor blood sugar continuously, change every 90 days e11 1 each 12/10/19 22 Active BD Ultra-Fine Orig Pen Needle 29 gauge x 1/2 needleIndications: type 2 diabetes mellitus Use to deliver insulin 4x/day 150 each 12/12/[address] (CYMBALTA) 60 mg capsuleIndications [...] for pain 12 tablet 06/14/19 25 Active Active Problems Problem Noted Date Diagnosed [...] materials from doctor or pharmacy Sometimes 07/22/2024 [facility] Utilities Answer Date Recorded In the past 12 months has th e [employer], oil, or water [employer] threatened to shut off services in your home? Patient declined 06/08/2024 Social Connection and Isolation Panel [NHANES] A nswer Date Recorded In a typical week, how many times do you talk on the phone with family, friends, or neighbors? Patient declined 06/08/2024 How often do you get togethe r with friends or relatives? Patient declined 06/08/2024 How often do you attend anabaptism or jehovah's witness serv ices? Patient declined 06/08/2024 Do you belong to any clubs o r organizations such as anabaptism groups, unions, fraternal or athletic groups, or [...] you are drinking? Patient does not drink 11/19/202 4 Q3: How often do you have si [...] any time in the past 12 m [facility], were you homeless or living in a assisted (including now)? Patient declined 06/08/2024 Personal Safety Answer Date Recorded Have you ever been in or are you currently in a harmful physical or emotional relationship or is someone making you feel afraid or unsafe? Denies 06/08/2024 Comments No Sex and Gender Information Value Date Recorded Sex Assigned at Not on file Legal Sex Female 12:29 PM SENIOR DENTIST Gender Identity Not on file Sexual Orientation Not on file Last Filed Vital Signs Vital Sign Reading Time Taken Comments Blood Pressure 122/60 07/20/2024 1:00 AM SENIOR DENTIST Pulse 60 07/20/2024 1:00 AM SENIOR DENTIST Temperature 36.2 C (97.1 F) 07/20/2024 1:00 AM SENIOR DENTIST Respiratory Rate 18 07/20/2024 1:00 AM SENIOR DENTIST Oxygen Saturation 98% 07/20/2024 1:00 AM SENIOR DENTIST Inhaled Oxygen Concentration - - Weight 60.9 kg (134 lb 3.2 oz) 06/08/2024 4:00 A M SENIOR DENTIST Height 170.2 cm (5' 7 ) 06/08/2024 4:00 AM SENIOR DENTIST Body Mass Index 21.02 06/08/2024 4:00 AM SENIOR DENTIST Plan of Treatment Not on file Medical Devices Implanted Type Area Branch Banker Device Identifier Shelf Expiration Date Model / Serial / Lot [place] Spine Easton L22 Mm X W8.5 Mm X H10 Mm Convex Cage Spinal Titanium P Latex Free [id number] - Sn/A - [id number] Implanted:Qty: 1 on 12/24/2021 by Darío Ceron MD at [facility] Cage N/A: Lumbar-Sa cral Spine Stuart Spine [id number] 06/03/2026 3782-1270 210NC-G2 / N/A / [id number] [place] Spine [place]on L22 Mm X W8.5 Mm X H10 Mm Convex Cage Spinal Titanium P Latex Free [id number] - Sn/A - [id number] Implanted:Qty: 1 on 12/24/2021 by Darío Ceron MD at [facility] Cage N/A: Lumbar-Sa cral Spine [place] Spine [id number] 06/03/2026 5906-7865 210NC-G2 / N/A / [id number] Screws,Rods N/A: Spine Lumbar Stuart Spine 4mm 30mm Polyaxial Spine Screw Bone Deformity [id number] - [id number] Implanted:Qty: 2 on 12/24/2021 by Darío Ceron MD at [facility] N/A: Lumbar-Sa cral Spine [employer] [place] Spine [id number] 0 / / [place] Spine 4.5mm 30mm Polyaxial Spine Screw Bone Deformity 3001-08815 - [id number] Implanted:Qty: 2 on 12/24/2021 by aDrío Ceron MD at [facility] N/A: Lumbar-Sa cral Spine [employer] [place] Spine 6854-2252 0 / / [place] Spine 4.5mm 40mm Contour Praful Spinal Cocr [id number] - [id number] Implanted:Qty: 2 on 12/24/2021 by Darío Ceron MD at [facility] N/A: Lumbar-Sa cral Spine Stuart Spine 0897-0840 0 / / Stuart Spine 29mm Semiadjustable Transverse Spine Connector Praful Posterior [id number] - [id number] Implanted:Qty: 1 on 12/24/2021 by Darío Ceron MD at [facility] N/A: Lumbar-Sa cral Spine [place] Spine [id number] 9A / / Stuart Spine 26mm Semiadjustable Transverse Spine Connector Praful Posterior [id number] - [id number] Implanted:Qty: 1 on 04/05/2024 by Darío Ceron MD at [facility] N/A: Spine Lumbar [place] Spine [id number] 6A / / [place] Spine 29mm Semiadjustable Transverse Spine Connector Praful Posterior [id number] - [id number] Implanted:Qty: 1 on 04/05/2024 by Darío Ceron MD at [facility] N/A: Spine Lumbar [place] Spine [id number] 9A / / Stuart Spine 4mm 30mm Polyaxial Spine Screw Bone Deformity [id number] - [id number] Implanted:Qty: 2 on 04/05/2024 by Darío Ceron MD at [facility] N/A: Spine Lumbar [place] Spine [id number] 0 / / Stuart Spine 4.5mm 70mm Contour Praful Spinal Cocr [id number] - [id number] Implanted:Qty: 2 on 04/05/2024 by Darío Ceron MD at [facility] N/A: Spine Lumbar Stuart Spine [id number] 0 / / [employer] Cage Spinal Lumbar 10 Degree Tlif Expandable 7-11.5mm Titanium [id number] - [id number] Implanted:Qty: 2 on 04/05/2024 by Darío Ceron MD at [facility] N/A: Spine Lumbar [employer] [id number] / / Biocomposites Stimulan Rapid Cure Kit Paste Sanitary Chemist 5cc 12.5cc Bone Void 620-005 - [id number] Implanted:Qty: 1 on 04/05/2024 by Darío Ceron MD at [facility] N/A: Spine Lumbar Biocom[employer]ites [id number] 12/15/2026 620-005 / / [id number] Procedures Procedure Name Priority Date/Time Associated Diagnosis Comments EGFR STAT 07/20/2024 11:30 AM SENIOR DENTIST DIFFERENTIAL AUTO STAT 07/20/2024 11: 30 AM SENIOR DENTIST CBC WITH AUTO DIFFERENTIAL STAT 07/20/2024 11:30 AM SENIOR DENTIST COMPREHENSIVE METABOLIC PANEL STAT 07/20/2024 11:30 AM SENIOR DENTIST EGFR Routine 07/12/2024 2:00 PM SENIOR DENTIST DIFFERENTIAL AUTO Routine 07/12/2024 2:0 0 PM SENIOR DENTIST CBC WITH AUTO DIFFERENTIAL Routine 07/12/2024 2:00 PM SENIOR DENTIST COMPREHENSIVE METABOLIC PANEL Routine 07/12/2024 2:00 PM SENIOR DENTIST EGFR Routine 07/06/2024 2:00 PM SENIOR DENTIST DIFFERENTIAL AUTO Routine 07/06/2024 2:0 0 PM SENIOR DENTIST CBC WITH AUTO DIFFERENTIAL Routine 07/06/2024 2:00 PM SENIOR DENTIST COMPREHENSIVE METABOLIC PANEL Routine 07/06/2024 2:00 PM SENIOR DENTIST EGFR Routine 06/28/2024 1:30 PM SENIOR DENTIST DIFFERENTIAL AUTO Routine 06/28/2024 1:3 0 PM SENIOR DENTIST CBC WITH AUTO DIFFERENTIAL Routine 06/28/2024 1:30 PM SENIOR DENTIST COMPREHENSIVE METABOLIC PANEL Routine 06/28/2024 1:30 PM SENIOR DENTIST EGFR STAT 06/22/2024 9:30 AM SENIOR DENTIST DIFFERENTIAL AUTO STAT 06/22/2024 9:3 0 AM SENIOR DENTIST CBC WITH AUTO DIFFERENTIAL STAT 06/22/2024 9:30 AM SENIOR DENTIST COMPREHENSIVE METABOLIC PANEL STAT 06/22/2024 9:30 AM SENIOR DENTIST POCT GLUCOSE DEVICE Routine 06/14/2024 1 1:44 AM SENIOR DENTIST POCT GLUCOSE DEVICE Routine 06/14/2024 5 :57 AM SENIOR DENTIST POCT GLUCOSE DEVICE Routine 06/13/2024 9 :43 PM SENIOR DENTIST XR CHEST 1 VIEW ED Urgent/IP Urgent 06/13/2024 5:20 PM SENIOR DENTIST POCT GLUCOSE DEVICE Routine 06/13/2024 4 :41 PM SENIOR DENTIST GENERAL Routine 06/13/2024 4:36 PM SENIOR DENTIST retirement current use of antibiotics POCT GLUCOSE DEVICE Routine 06/13/2024 1 1:19 AM SENIOR DENTIST POCT GLUCOSE DEVICE Routine 06/13/2024 5 :28 AM SENIOR DENTIST POCT GLUCOSE DEVICE Routine 06/12/2024 8 :07 PM SENIOR DENTIST HEPATITIS PANEL, ACUTE Routine 06/12/2024 7:39 PM SENIOR DENTIST POCT GLUCOSE DEVICE Routine 06/12/2024 4 :49 PM SENIOR DENTIST POCT GLUCOSE DEVICE Routine 06/12/2024 1 1:30 AM SENIOR DENTIST EGFR Routine 06/12/2024 6:07 AM SENIOR DENTIST DIFFERENTIAL AUTO Routine 06/12/2024 6:0 7 AM SENIOR DENTIST CBC WITH AUTO DIFFERENTIAL Routine 06/12/2024 6:07 AM SENIOR DENTIST BASIC METABOLIC PANEL Routine 06/12/2024 6:07 AM SENIOR DENTIST POCT GLUCOSE DEVICE Routine 06/12/2024 5 :52 AM SENIOR DENTIST POCT GLUCOSE DEVICE Routine 2024 8 :40 PM SENIOR DENTIST POCT GLUCOSE DEVICE Routine 2024 4 :22 PM SENIOR DENTIST TRANSTHORACIC ECHO (TTE) COMPLETE W DOPPLER/CF WO CONTRAST Routine 2024 1:09 PM SENIOR DENTIST HEPATIC FUNCTION PANEL Routine 2024 1:01 PM SENIOR DENTIST POCT GLUCOSE DEVICE Routine 2024 1 1:26 AM SENIOR DENTIST POCT GLUCOSE DEVICE Routine 2024 6 :17 AM SENIOR DENTIST POCT GLUCOSE DEVICE Routine 06/10/2024 8 :43 PM SENIOR DENTIST POCT GLUCOSE DEVICE Routine 06/10/2024 4 :41 PM SENIOR DENTIST BLOOD CULTURE Routine 06/10/2024 12:01 PM SENIOR DENTIST BLOOD CULTURE Routine 06/10/2024 12:01 PM SENIOR DENTIST POCT GLUCOSE DEVICE Routine 06/10/2024 1 1:29 AM SENIOR DENTIST EGFR Routine 06/10/2024 5:39 AM SENIOR DENTIST BASIC METABOLIC PANEL Routine 06/10/2024 5:39 AM SENIOR DENTIST POCT GLUCOSE DEVICE Routine 06/09/2024 9 :22 PM SENIOR DENTIST POCT GLUCOSE DEVICE Routine 06/09/2024 6 :22 PM SENIOR DENTIST POCT GLUCOSE DEVICE Routine 06/09/2024 2 :12 PM SENIOR DENTIST VANCOMYCIN LEVEL TROUGH Timed 06/09/2024 2:00 PM SENIOR DENTIST POCT GLUCOSE DEVICE Routine 06/09/2024 7 :53 AM SENIOR DENTIST POCT GLUCOSE DEVICE Routine 06/09/2024 4 :13 AM SENIOR DENTIST POCT GLUCOSE DEVICE Routine 06/09/2024 2 :03 AM SENIOR DENTIST POCT GLUCOSE DEVICE Routine 06/08/2024 1 1:36 PM SENIOR DENTIST POCT GLUCOSE DEVICE Routine 06/08/2024 7 :46 PM SENIOR DENTIST POCT GLUCOSE DEVICE Routine 06/08/2024 4 :34 PM SENIOR DENTIST MYCOLOGY (FUNGAL) CULTURE Routine 06/08/2024 4:30 PM SENIOR DENTIST AEROBIC AND ANAEROBIC CULTURE AND GRAM STAIN Routine 06/08/2024 4:30 PM SENIOR DENTIST MYCOLOGY (FUNGAL) CULTURE Routine 06/08/2024 4:30 PM SENIOR DENTIST AEROBIC AND ANAEROBIC CULTURE AND GRAM STAIN Routine 06/08/2024 4:30 PM SENIOR DENTIST MS AN PROCEDURE PLACEHOLDER Routine 06/08/2024 3:17 PM SENIOR DENTIST MS AN ELECTIVE ENDOTRACHEAL AIRWAY Routine 06/08/2024 3:17 PM SENIOR DENTIST INCISION AND DRAINAGE - BACK 06/08/2024 2:55 PM SENIOR DENTIST PAIN/ INFECTION POCT GLUCOSE DEVICE Routine 06/08/2024 1 :33 PM SENIOR DENTIST POCT GLUCOSE DEVICE Routine 06/08/2024 1 2:35 PM SENIOR DENTIST POCT GLUCOSE DEVICE Routine 06/08/2024 8 :39 AM SENIOR DENTIST EGFR Routine 06/08/2024 6:21 AM SENIOR DENTIST CBC WITHOUT DIFFERENTIAL Routine 06/08/2024 6:21 AM SENIOR DENTIST PHOSPHORUS Routine 06/08/2024 6:21 AM SENIOR DENTIST MAGNESIUM Routine 06/08/2024 6:21 AM SENIOR DENTIST BASIC METABOLIC PANEL Routine 06/08/2024 6:21 AM SENIOR DENTIST POCT GLUCOSE DEVICE Routine 06/08/2024 4 :21 AM SENIOR DENTIST BLOOD CULTURE STAT 06/08/2024 12:42 AM SENIOR DENTIST POCT GLUCOSE DEVICE Routine 06/08/2024 1 2:38 AM SENIOR DENTIST BLOOD CULTURE STAT 06/08/2024 12:30 AM SENIOR DENTIST MRI LUMBAR SPINE W WO CONTRAST ED 06/07/2024 11:30 PM SENIOR DENTIST URINALYSIS AND REFLEX TO MICROSCOPIC AND CULTURE STAT 06/07/2024 9:41 PM SENIOR DENTIST EGFR STAT 06/07/2024 9:39 PM SENIOR DENTIST DIFFERENTIAL AUTO STAT 06/07/2024 9:3 9 PM SENIOR DENTIST CBC WITH AUTO DIFFERENTIAL STAT 06/07/2024 9:39 PM SENIOR DENTIST COMPREHENSIVE METABOLIC PANEL STAT 06/07/2024 9:39 PM SENIOR DENTIST SEPSIS LACTATE WITH REFLEX STAT 06/07/2024 9:39 PM SENIOR DENTIST CRP (ACUTE PHASE) STAT 06/07/2024 9:3 9 PM SENIOR DENTIST ERYTHROCYTE SEDIMENTATION RATE STAT 06/07/2024 9:39 PM SENIOR DENTIST HEMOGLOBIN A1C Routine 03/21/2024 10:40 AM SENIOR DENTIST Preoperative examination POCT LIPID PANEL Routine 12/09/2021 10:2 7 AM CDT Type 2 diabetes mellitus with hyperglycemia, with long-term current use of insulin (HCC) DIAGNOSTIC MAMMOGRAM BILATERAL W HAI Schedule Routine, Read Routine (OP Routine) 06/10/2021 10:10 AM SENIOR DENTIST Breast mass from Last 3 Months or Most Recently Relevant to Health Maintenance Results * eGFR (07/20/2024 11:30 AM SENIOR DENTIST) eGFR >90 >=60 mL/min/1. 73 m2 Comment: [...] reviewed 2021. Blood 07/20/2024 11:3 0 AM SENIOR DENTIST 07/20/2024 2:25 PM SENIOR DENTIST us Kali Moses MD LAB BLOOD ORDERABLES Final Resul t [facility] Department [place] [address] * Differential, auto (07/20/2024 11:30 AM SENIOR DENTIST) Neutrophil abs 5.9 1.5 - 6.5 K/cumm Imm gran abs 0.0 0.0 - 0.1 K/cumm [facility] Lymphocyte abs 2.0 0.8 - 3.3 K/cumm [facility] Monocyte abs 0.5 0.2 - 0.8 K/cumm [facility] Eosinophil abs 0.2 0.0 - 0.5 K/cumm [facility] Basophil abs 0.1 0.0 - 0.1 K/cumm [facility] Neutrophil pct 67.7 % [facility] Comment: Interpretive Data Percent cell count reference ranges are not reported, since discordance with absolute values may lead to misinterpretation of CBC data. Current Interpretive Data was last revised on 2017. Imm gran pct 0.5 % [facility] Comment: Interpretive Data Percent cell count reference ranges are not reported, since discordance with absolute values may lead to misinterpretation of CBC data. Current Interpretive Data was last revised on 2017. Lymphocyte pct 23.2 % [facility] Comment: Interpretive Data Percent cell count reference ranges are not reported, since discordance with absolute values may lead to misinterpretation of CBC data. Current Interpretive Data was last revised on 2017. Monocyte pct 5.6 % [facility] Comment: Interpretive Data Percent cell count reference ranges are not reported, since discordance with absolute values may lead to misinterpretation of CBC data. Current Interpretive Data was last revised on 2017. Eosinophil pct 2.1 % [facility] Comment: Interpretive Data Percent cell count reference ranges are not reported, since discordance with absolute values may lead to misinterpretation of CBC data. Current Interpretive Data was last revised on 2017. Basophil pct 0.9 % [facility] Comment: Interpretive Data Percent cell count reference ranges are not reported, since discordance with absolute values may lead to misinterpretation of CBC data. Current Interpretive Data was last revised on 2017. Blood 07/20/2024 11:3 0 AM SENIOR DENTIST 07/20/2024 2:16 PM SENIOR DENTIST Kali Moses MD LAB BLOOD ORDERABLES Final Resul t Performing Organization Address [facility] Co de Phone Number [facility] [place] [address] * CBC with auto differential (07/20/2024 11:30 AM SENIOR DENTIST) WBC 8.6 3.8 - 9.9 K/cumm Hgb 12.4 11.9 - 15.5 g/dL [facility] Hct 37.5 35.6 - 45.5 % [facility] Plt 218 150 - 400 K/cumm [facility] MPV 10.0 9.1 - 12.3 fL [facility] RBC 4.06 3.90 - 5.20 M/cumm [facility] MCV 92.4 81.3 - 96.4 fL [facility] MCH 30.5 27.1 - 33.3 pg [facility] MCHC 33.1 32.3 - 35.7 g/dL [facility] RDW CV 13.7 11.1 - 14.9 % [facility] RDW SD 47.4 35.7 - 48.1 fL [facility] NRBC abs 0.00 0.00 - 0.01 K/cumm [facility] Blood 07/20/2024 11:3 0 AM SENIOR DENTIST 07/20/2024 2:16 PM SENIOR DENTIST Kali Moses MD LAB BLOOD ORDERABLES Final Resul t Performing Organization Address [facility] Co de Phone Number [facility] Department [place] [address] * Comprehensive metabolic panel (07/20/2024 11:30 AM SENIOR DENTIST) Sodium 140 135 - 145 mmol/L Potassium, pl 4.1 3.3 - 4.9 mmol/L [facility] Chloride 104 97 - 110 mmol/L [facility] CO2 27 22 - 32 mmol/L [facility] Anion gap 9 2 - 15 mmol/L [facility] BUN 15 6 - 25 mg/dL [facility] Creatinine 0.60 0.60 - 1.10 mg/dL [facility] Glucose 193 70 - 199 mg/dL [facility] Comment: Interpretive Data Fasting glucose >/= 126 [...] 2022. Calcium 9.5 8.5 - 10.3 mg/dL [facility] Bilirubin, total 0.2 0.1 - 1.2 mg/dL [facility] Protein, pl 7.2 6.5 - 8.5 g/dL [facility] Albumin 4.1 3.5 - 5.0 g/dL [facility] Alk phos 80 40 - 130 Units/L [facility] ALT 9 7 - 45 Units/L [facility] AST 24 10 - 45 Units/L [facility] Blood 07/20/2024 11:3 0 AM SENIOR DENTIST 07/20/2024 2:16 PM SENIOR DENTIST us Kali Moses MD LAB BLOOD ORDERABLES Final Resul t [facility] Department of Laboratories [place], [place] [id number] * eGFR (07/12/2024 2:00 PM SENIOR DENTIST) eGFR >90 >=60 mL/min/1. 73 m2 Comment: [...] last reviewed 2021. Blood 07/12/2024 2:00 PM SENIOR DENTIST 07/12/2024 6:10 PM SENIOR DENTIST us Kali Moses MD LAB BLOOD ORDERABLES Final Resul t [facility] Department [place] [address] * Differential, auto (07/12/2024 2:00 PM SENIOR DENTIST) Neutrophil abs 3.8 1.5 - 6.5 K/cumm Imm gran abs 0.0 0.0 - 0.1 K/cumm [facility] Lymphocyte abs 1.9 0.8 - 3.3 K/cumm [facility] Monocyte abs 0.4 0.2 - 0.8 K/cumm [facility] Eosinophil abs 0.2 0.0 - 0.5 K/cumm [facility] Basophil abs 0.1 0.0 - 0.1 K/cumm [facility] Neutrophil pct 60.1 % [facility] Comment: Interpretive Data Percent cell count reference ranges are not reported, since discordance with absolute values may lead to misinterpretation of CBC data. Current Interpretive Data was last revised on 2017. Imm gran pct 0.5 % [facility] Comment: Interpretive Data Percent cell count reference ranges are not reported, since discordance with absolute values may lead to misinterpretation of CBC data. Current Interpretive Data was last revised on 2017. Lymphocyte pct 29.5 % [facility] Comment: Interpretive Data Percent cell count reference ranges are not reported, since discordance with absolute values may lead to misinterpretation of CBC data. Current Interpretive Data was last revised on 2017. Monocyte pct 5.6 % [facility] Comment: Interpretive Data Percent cell count reference ranges are not reported, since discordance with absolute values may lead to misinterpretation of CBC data. Current Interpretive Data was last revised on 2017. Eosinophil pct 3.0 % [facility] Comment: Interpretive Data Percent cell count reference ranges are not reported, since discordance with absolute values may lead to misinterpretation of CBC data. Current Interpretive Data was last revised on 2017. Basophil pct 1.3 % [facility] Comment: Interpretive Data Percent cell count reference ranges are not reported, since discordance with absolute values may lead to misinterpretation of CBC data. Current Interpretive Data was last revised on 2017. Blood 07/12/2024 2:00 PM SENIOR DENTIST 07/12/2024 6:07 PM SENIOR DENTIST us Kali Moses MD LAB BLOOD ORDERABLES Final Resul t [facility] Department [place] [address] * CBC with auto differential (07/12/2024 2:00 PM SENIOR DENTIST) WBC 6.3 3.8 - 9.9 K/cumm Hgb 12.1 11.9 - 15.5 g/dL [facility] Hct 37.0 35.6 - 45.5 % [facility] Plt 217 150 - 400 K/cumm [facility] MPV 9.6 9.1 - 12.3 fL [facility] RBC 3.97 3.90 - 5.20 M/cumm [facility] MCV 93.2 81.3 - 96.4 fL [facility] MCH 30.5 27.1 - 33.3 pg [facility] MCHC 32.7 32.3 - 35.7 g/dL [facility] RDW CV 13.8 11.1 - 14.9 % [facility] RDW SD 46.9 35.7 - 48.1 fL [facility] NRBC abs 0.00 0.00 - 0.01 K/cumm [facility] Blood 07/12/2024 2:00 PM SENIOR DENTIST 07/12/2024 6:07 PM SENIOR DENTIST us Kali Moses MD LAB BLOOD ORDERABLES Final Resul t [facility] Department [place] [address] * (ABNORMAL) Comprehensive metabolic panel (07/12/2024 2:00 PM SENIOR DENTIST) Sodium 140 135 - 145 mmol/L Potassium, pl 4.2 3.3 - 4.9 mmol/L [facility] Chloride 101 97 - 110 mmol/L [facility] CO2 29 22 - 32 mmol/L [facility] Anion gap 10 2 - 15 mmol/L [facility] BUN 11 6 - 25 mg/dL [facility] Creatinine 0.76 0.60 - 1.10 mg/dL [facility] Glucose 202(H) 70 - 199 mg/dL [facility] Comment: Interpretive Data Fasting glucose >/= 126 [...] 2022. Calcium 9.4 8.5 - 10.3 mg/dL [facility] Bilirubin, total 0.2 0.1 - 1.2 mg/dL [facility] Protein, pl 7.3 6.5 - 8.5 g/dL [facility] Albumin 3.9 3.5 - 5.0 g/dL [facility] Alk phos 87 40 - 130 Units/L [facility] ALT 17 7 - 45 Units/L [facility] AST 33 10 - 45 Units/L [facility] Blood 07/12/2024 2:00 PM SENIOR DENTIST 07/12/2024 6:07 PM SENIOR DENTIST Kali Moses MD LAB BLOOD ORDERABLES Final Resul t Performing Organization Address [facility] Co de Phone Number [facility] [place] [address] * eGFR (07/06/2024 2:00 PM SENIOR DENTIST) eGFR >90 >=60 mL/min/1. 73 m2 Comment: [...] last reviewed 2021. Blood 07/06/2024 2:00 PM SENIOR DENTIST 07/06/2024 4:57 PM SENIOR DENTIST Kali Moses MD LAB BLOOD ORDERABLES Final Resul t Performing Organization Address City/[facility]/ZIP Co de Phone Number [facility] Department [place] [address] * Differential, auto (07/06/2024 2:00 PM SENIOR DENTIST) Neutrophil abs 4.0 1.5 - 6.5 K/cumm Imm gran abs 0.0 0.0 - 0.1 K/cumm [facility] Lymphocyte abs 2.1 0.8 - 3.3 K/cumm [facility] Monocyte abs 0.5 0.2 - 0.8 K/cumm [facility] Eosinophil abs 0.3 0.0 - 0.5 K/cumm [facility] Basophil abs 0.1 0.0 - 0.1 K/cumm [facility] Neutrophil pct 57.4 % [facility] Comment: Interpretive Data Percent cell count reference ranges are not reported, since discordance with absolute values may lead to misinterpretation of CBC data. Current Interpretive Data was last revised on 2017. Imm gran pct 0.4 % [facility] Comment: Interpretive Data Percent cell count reference ranges are not reported, since discordance with absolute values may lead to misinterpretation of CBC data. Current Interpretive Data was last revised on 2017. Lymphocyte pct 30.5 % [facility] Comment: Interpretive Data Percent cell count reference ranges are not reported, since discordance with absolute values may lead to misinterpretation of CBC data. Current Interpretive Data was last revised on 2017. Monocyte pct 6.8 % [facility] Comment: Interpretive Data Percent cell count reference ranges are not reported, since discordance with absolute values may lead to misinterpretation of CBC data. Current Interpretive Data was last revised on 2017. Eosinophil pct 3.9 % [facility] Comment: Interpretive Data Percent cell count reference ranges are not reported, since discordance with absolute values may lead to misinterpretation of CBC data. Current Interpretive Data was last revised on 2017. Basophil pct 1.0 % [facility] Comment: Interpretive Data Percent cell count reference ranges are not reported, since discordance with absolute values may lead to misinterpretation of CBC data. Current Interpretive Data was last revised on 2017. Blood 07/06/2024 2:00 PM SENIOR DENTIST 07/06/2024 4:54 PM SENIOR DENTIST Kali Moses MD LAB BLOOD ORDERABLES Final Resul t Performing Organization Address [facility] Co de Phone Number [facility] Department of [facility] [place] [address] * CBC with auto differential (07/06/2024 2:00 PM SENIOR DENTIST) WBC 6.9 3.8 - 9.9 K/cumm Hgb 11.9 11.9 - 15.5 g/dL [facility] Hct 36.7 35.6 - 45.5 % [facility] Plt 267 150 - 400 K/cumm [facility] MPV 9.6 9.1 - 12.3 fL [facility] RBC 3.95 3.90 - 5.20 M/cumm [facility] MCV 92.9 81.3 - 96.4 fL [facility] MCH 30.1 27.1 - 33.3 pg [facility] MCHC 32.4 32.3 - 35.7 g/dL [facility] RDW CV 13.3 11.1 - 14.9 % [facility] RDW SD 45.5 35.7 - 48.1 fL [facility] NRBC abs 0.00 0.00 - 0.01 K/cumm [facility] Blood 07/06/2024 2:00 PM SENIOR DENTIST 07/06/2024 4:54 PM SENIOR DENTIST Kali Moses MD LAB BLOOD ORDERABLES Final Resul t Performing Organization Address City/[facility]/ZIP Co de Phone Number [facility] Department [place] [address] * Comprehensive metabolic panel (07/06/2024 2:00 PM SENIOR DENTIST) Pathologist [facility] Sodium 140 135 - 145 mmol/L Potassium, pl 4.2 3.3 - 4.9 mmol/L [facility] Chloride 103 97 - 110 mmol/L [facility] CO2 29 22 - 32 mmol/L [facility] Anion gap 8 2 - 15 mmol/L [facility] BUN 11 6 - 25 mg/dL [facility] Creatinine 0.62 0.60 - 1.10 mg/dL [facility] Glucose 175 70 - 199 mg/dL [facility] Comment: Interpretive Data Fasting glucose >/= 126 [...] 2022. Calcium 9.4 8.5 - 10.3 mg/dL [facility] Bilirubin, total <0.2 0.1 - 1.2 mg/dL [facility] Protein, pl 7.4 6.5 - 8.5 g/dL [facility] Albumin 4.0 3.5 - 5.0 g/dL [facility] Alk phos 86 40 - 130 Units/L [facility] ALT 9 7 - 45 Units/L [facility] AST 15 10 - 45 Units/L [facility] Blood 07/06/2024 2:00 PM SENIOR DENTIST 07/06/2024 4:53 PM SENIOR DENTIST Kali Moses MD LAB BLOOD ORDERABLES Final Resul t [facility] [place] [address] * eGFR (06/28/2024 1:30 PM SENIOR DENTIST) eGFR >90 >=60 mL/min/1. 73 m2 Comment: [...] last reviewed 2021. Blood 06/28/2024 1:30 PM SENIOR DENTIST 06/28/2024 6:37 PM SENIOR DENTIST us Kali Moses MD LAB BLOOD ORDERABLES Final Resul t [facility] Department [place] [address] * Differential, auto (06/28/2024 1:30 PM SENIOR DENTIST) Neutrophil abs 4.2 1.5 - 6.5 K/cumm Imm gran abs 0.0 0.0 - 0.1 K/cumm [facility] Lymphocyte abs 2.1 0.8 - 3.3 K/cumm [facility] Monocyte abs 0.4 0.2 - 0.8 K/cumm [facility] Eosinophil abs 0.3 0.0 - 0.5 K/cumm [facility] Basophil abs 0.1 0.0 - 0.1 K/cumm [facility] Neutrophil pct 59.4 % [facility] Comment: Interpretive Data Percent cell count reference ranges are not reported, since discordance with absolute values may lead to misinterpretation of CBC data. Current Interpretive Data was last revised on 2017. Imm gran pct 0.3 % [facility] Comment: Interpretive Data Percent cell count reference ranges are not reported, since discordance with absolute values may lead to misinterpretation of CBC data. Current Interpretive Data was last revised on 2017. Lymphocyte pct 29.9 % [facility] Comment: Interpretive Data Percent cell count reference ranges are not reported, since discordance with absolute values may lead to misinterpretation of CBC data. Current Interpretive Data was last revised on 2017. Monocyte pct 5.4 % [facility] Comment: Interpretive Data Percent cell count reference ranges are not reported, since discordance with absolute values may lead to misinterpretation of CBC data. Current Interpretive Data was last revised on 2017. Eosinophil pct 3.6 % [facility] Comment: Interpretive Data Percent cell count reference ranges are not reported, since discordance with absolute values may lead to misinterpretation of CBC data. Current Interpretive Data was last revised on 2017. Basophil pct 1.4 % [facility] Comment: Interpretive Data Percent cell count reference ranges are not reported, since discordance with absolute values may lead to misinterpretation of CBC data. Current Interpretive Data was last revised on 2017. Blood 06/28/2024 1:30 PM SENIOR DENTIST 06/28/2024 6:26 PM SENIOR DENTIST us Kali Moses MD LAB BLOOD ORDERABLES Final Resul t [facility] Department [place] [address] * CBC with auto differential (06/28/2024 1:30 PM SENIOR DENTIST) WBC 7.0 3.8 - 9.9 K/cumm Hgb 12.4 11.9 - 15.5 g/dL [facility] Hct 37.7 35.6 - 45.5 % [facility] Plt 338 150 - 400 K/cumm [facility] MPV 9.8 9.1 - 12.3 fL [facility] RBC 4.02 3.90 - 5.20 M/cumm [facility] MCV 93.8 81.3 - 96.4 fL [facility] MCH 30.8 27.1 - 33.3 pg [facility] MCHC 32.9 32.3 - 35.7 g/dL [facility] RDW CV 13.7 11.1 - 14.9 % [facility] RDW SD 46.8 35.7 - 48.1 fL [facility] NRBC abs 0.00 0.00 - 0.01 K/cumm [facility] Blood 06/28/2024 1:30 PM SENIOR DENTIST 06/28/2024 6:26 PM SENIOR DENTIST Kali Moses MD LAB BLOOD ORDERABLES Final Resul t [facility] Department [place] [address] * Comprehensive metabolic panel (06/28/2024 1:30 PM SENIOR DENTIST) Sodium 141 135 - 145 mmol/L Potassium, pl 3.9 3.3 - 4.9 mmol/L [facility] Chloride 103 97 - 110 mmol/L [facility] CO2 28 22 - 32 mmol/L [facility] Anion gap 10 2 - 15 mmol/L [facility] BUN 12 6 - 25 mg/dL [facility] Creatinine 0.64 0.60 - 1.10 mg/dL [facility] Glucose 132 70 - 199 mg/dL [facility] Comment: Interpretive Data Fasting glucose >/= 126 [...] 2022. Calcium 9.4 8.5 - 10.3 mg/dL [facility] Bilirubin, total <0.2 0.1 - 1.2 mg/dL [facility] Protein, pl 7.7 6.5 - 8.5 g/dL [facility] Albumin 3.9 3.5 - 5.0 g/dL [facility] Alk phos 97 40 - 130 Units/L [facility] ALT 7 7 - 45 Units/L [facility] AST 20 10 - 45 Units/L [facility] Blood 06/28/2024 1:30 PM SENIOR DENTIST 06/28/2024 6:26 PM SENIOR DENTIST Kali Moses MD LAB BLOOD ORDERABLES Final Resul t Performing Organization Address City/[facility] Co de Phone Number [facility] Department [place] [address] * eGFR (06/22/2024 9:30 AM SENIOR DENTIST) eGFR >90 >=60 mL/min/1. 73 m2 Comment: [...] last reviewed 2021. Blood 06/22/2024 9:30 AM SENIOR DENTIST 06/22/2024 1:47 PM SENIOR DENTIST Kali Moses MD LAB BLOOD ORDERABLES Final Resul t Performing Organization Address City/[facility] Co de Phone Number [facility] Department [place] [address] * (ABNORMAL) Differential, auto (06/22/2024 9:30 AM SENIOR DENTIST) Neutrophil abs 6.9(H) 1.5 - 6.5 K/cumm Imm gran abs 0.0 0.0 - 0.1 K/cumm [facility] Lymphocyte abs 2.0 0.8 - 3.3 K/cumm [facility] Monocyte abs 0.6 0.2 - 0.8 K/cumm [facility] Eosinophil abs 0.2 0.0 - 0.5 K/cumm [facility] Basophil abs 0.1 0.0 - 0.1 K/cumm [facility] Neutrophil pct 69.7 % [facility] Comment: Interpretive Data Percent cell count reference ranges are not reported, since discordance with absolute values may lead to misinterpretation of CBC data. Current Interpretive Data was last revised on 2017. Imm gran pct 0.4 % [facility] Comment: Interpretive Data Percent cell count reference ranges are not reported, since discordance with absolute values may lead to misinterpretation of CBC data. Current Interpretive Data was last revised on 2017. Lymphocyte pct 20.5 % [facility] Comment: Interpretive Data Percent cell count reference ranges are not reported, since discordance with absolute values may lead to misinterpretation of CBC data. Current Interpretive Data was last revised on 2017. Monocyte pct 6.0 % [facility] Comment: Interpretive Data Percent cell count reference ranges are not reported, since discordance with absolute values may lead to misinterpretation of CBC data. Current Interpretive Data was last revised on 2017. Eosinophil pct 2.4 % [facility] Comment: Interpretive Data Percent cell count reference ranges are not reported, since discordance with absolute values may lead to misinterpretation of CBC data. Current Interpretive Data was last revised on 2017. Basophil pct 1.0 % [facility] Comment: Interpretive Data Percent cell count reference ranges are not reported, since discordance with absolute values may lead to misinterpretation of CBC data. Current Interpretive Data was last revised on 2017. Blood 06/22/2024 9:30 AM SENIOR DENTIST 06/22/2024 1:45 PM SENIOR DENTIST us Kali Moses MD LAB BLOOD ORDERABLES Final Resul t Performing Organization Address [facility] Co de Phone Number [facility] Department [place] [address] * CBC with auto differential (06/22/2024 9:30 AM SENIOR DENTIST) [facility] WBC 9.9 3.8 - 9.9 K/cumm Hgb 12.8 11.9 - 15.5 g/dL [facility] Hct 39.1 35.6 - 45.5 % [facility] Plt 350 150 - 400 K/cumm [facility] MPV 9.5 9.1 - 12.3 fL [facility] RBC 4.19 3.90 - 5.20 M/cumm [facility] MCV 93.3 81.3 - 96.4 fL [facility] MCH 30.5 27.1 - 33.3 pg [facility] MCHC 32.7 32.3 - 35.7 g/dL [facility] RDW CV 14.0 11.1 - 14.9 % [facility] RDW SD 48.1 35.7 - 48.1 fL [facility] NRBC abs 0.00 0.00 - 0.01 K/cumm [facility] Blood 06/22/2024 9:30 AM SENIOR DENTIST 06/22/2024 1:45 PM SENIOR DENTIST Kali Moses MD LAB BLOOD ORDERABLES Final Resul t Performing Organization Address [facility] Co de Phone Number [facility] Department [place] [address] * Comprehensive metabolic panel (06/22/2024 9:30 AM SENIOR DENTIST) [facility] Sodium 136 135 - 145 mmol/L Potassium, pl 4.4 3.3 - 4.9 mmol/L [facility] Chloride 98 97 - 110 mmol/L [facility] CO2 28 22 - 32 mmol/L [facility] Anion gap 10 2 - 15 mmol/L [facility] BUN 14 6 - 25 mg/dL [facility] Creatinine 0.66 0.60 - 1.10 mg/dL [facility] Glucose 198 70 - 199 mg/dL [facility] Comment: Interpretive Data Fasting glucose >/= 126 [...] 2022. Calcium 9.8 8.5 - 10.3 mg/dL [facility] Bilirubin, total 0.2 0.1 - 1.2 mg/dL [facility] Protein, pl 7.7 6.5 - 8.5 g/dL [facility] Albumin 3.9 3.5 - 5.0 g/dL [facility] Alk phos 109 40 - 130 Units/L [facility] ALT 13 7 - 45 Units/L [facility] AST 21 10 - 45 Units/L [facility] Blood 06/22/2024 9:30 AM SENIOR DENTIST 06/22/2024 1:45 PM SENIOR DENTIST Kali Moses MD LAB BLOOD ORDERABLES Final Resul t [facility] Department [place] [address] * (ABNORMAL) POCT glucose (06/14/2024 11:44 AM SENIOR DENTIST) Pathologist [facility] Glucose, POC 347(H) 70 - 199 mg/dL Comment: For Glucose values <35 mg/dl when Hematocrit is >60 mg/dl,the test may not accurately detect significant hypoglycemia,and testing in the Laboratory should be considered if clinically indicated. Glucose comment 1 Follow Protocol [facility] Blood 06/14/2024 11:4 4 AM SENIOR DENTIST 06/14/2024 11:44 AM SENIOR DENTIST David Garza MD LAB POCT ORDERABLES - DEVICE Fin al Result Performing Organization Address [facility] Co de Phone Number [facility] [address] [facility] [place], [place] [id number] * POCT glucose (06/14/2024 5:57 AM SENIOR DENTIST) Glucose, POC 134 70 - 199 mg/dL Comment: For Glucose values <35 mg/dl when Hematocrit is >60 mg/dl,the test may not accurately detect significant hypoglycemia,and testing in the Laboratory should be considered if clinically indicated. Blood 06/14/2024 5:57 AM SENIOR DENTIST 06/14/2024 5:57 AM SENIOR DENTIST David Garza MD LAB POCT ORDERABLES - DEVICE Fin al Result Performing Organization Address [facility] de Phone Number [facility] [address] [facility] [place] [address] * (ABNORMAL) POCT glucose (06/13/2024 9:43 PM SENIOR DENTIST) Glucose, POC 212(H) 70 - 199 mg/dL Comment: For Glucose values <35 mg/dl when Hematocrit is >60 mg/dl,the test may not accurately detect significant hypoglycemia,and testing in the Laboratory should be considered if clinically indicated. Blood 06/13/2024 9:43 PM SENIOR DENTIST 06/13/2024 9:43 PM SENIOR DENTIST David Garza MD LAB POCT ORDERABLES - DEVICE Fin al Result Performing Organization Address [facility] Co de Phone Number [facility] [address] [facility] [place], [place] [id number] * XR Chest 1 View (06/13/2024 5:20 PM SENIOR DENTIST) Anatomical Region Laterality Modality Body, Chest N/A Computed Radiogr aphy 06/13/2024 5:45 PM SENIOR DENTIST Impressions 06/13/2024 5:45 PM SENIOR DENTIST No prior study available for comparison. Left upper extremity approach peripherally inserted central catheter tip terminates in the superior vena cava. The lungs are clear, specifically there is no focal consolidation or pulmonary edema. There is no pleural effusion or pneumothorax. The heart and mediastinal contours are within normal limits. Electronically signed by: Juan F Rausch MD, PHD Narrative 06/13/2024 5:45 PM SENIOR DENTIST EXAMINATION: XR CHEST 1 VIEW Procedure Note [...] Result * POCT glucose (06/13/2024 4:41 PM SENIOR DENTIST) [facility] Glucose, POC 122 70 - 199 mg/dL Comment: For Glucose values <35 mg/dl when Hematocrit is >60 mg/dl,the test may not accurately detect significant hypoglycemia,and testing in the Laboratory should be considered if clinically indicated. Blood 06/13/2024 4:41 PM SENIOR DENTIST 06/13/2024 4:41 PM SENIOR DENTIST David Garza MD LAB POCT ORDERABLES - DEVICE Fin al Result [facility] [address] [place] [address] * GENERAL (06/13/2024 4:36 PM SENIOR DENTIST) Narrative Balaji Joel PA - 06/13/2024 4:36 PM SENIOR DENTIST Balaji Joel PA 06/13/2024 4:39 PM PICC Line Placement Date/Time: 06/13/2024 4:36 PM Performed by: Balaji Joel PA Authorized by: Balaji Joel PA Brilliant Protocol: RN Notified of Procedure: yes Informed consent: Risks, benefits, alternatives discussed and patient/client relations representative/guardian agrees and accepts Patient's stated name/ [...] and matched to patient identification: n/a Responsible constitution party for transporting specimen(s) to lab determined: n/a Balaji [facility] ORDERABLES F inal Result * (ABNORMAL) POCT glucose (06/13/2024 11:19 AM SENIOR DENTIST) Glucose, POC 265(H) 70 - 199 mg/dL Comment: For Glucose values <35 mg/dl when Hematocrit is >60 mg/dl,the test may not accurately detect significant hypoglycemia,and testing in the Laboratory should be considered if clinically indicated. Blood 06/13/2024 11:1 9 AM SENIOR DENTIST 06/13/2024 11:19 AM SENIOR DENTIST David Garza MD LAB POCT ORDERABLES - DEVICE Fin al Result Performing Organization Address [facility] de Phone Number [facility] [address] [facility] [place] [address] * POCT glucose (06/13/2024 5:28 AM SENIOR DENTIST) Glucose, POC 154 70 - 199 mg/dL Comment: For Glucose values <35 mg/dl when Hematocrit is >60 mg/dl,the test may not accurately detect significant hypoglycemia,and testing in the Laboratory should be considered if clinically indicated. Blood 06/13/2024 5:28 AM SENIOR DENTIST 06/13/2024 5:28 AM SENIOR DENTIST David Garza MD LAB POCT ORDERABLES - DEVICE Fin al Result Performing Organization Address [facility] de Phone Number [facility] [address] [facility] [place] [address] * POCT glucose (06/12/2024 8:07 PM SENIOR DENTIST) Glucose, POC 138 70 - 199 mg/dL Comment: For Glucose values <35 mg/dl when Hematocrit is >60 mg/dl,the test may not accurately detect significant hypoglycemia,and testing in the Laboratory should be considered if clinically indicated. Blood 06/12/2024 8:07 PM SENIOR DENTIST 06/12/2024 8:07 PM SENIOR DENTIST David Garza MD LAB POCT ORDERABLES - DEVICE Fin al Result Performing Organization Address [facility] de Phone Number [facility] [address] Department [facility] [place] [address] * Hepatitis panel, acute Blood (06/12/2024 7:39 PM SENIOR DENTIST) Pathologist [facility] Hep A IgM Nonreactive Nonreactive Comment: Interpretive Data: If Hep A IgM Ab is reported as Equivocal, a new sample should be drawn in two weeks for testing. Current interpretive data was last revised on 19. Hep B core IgM Nonreactive Nonreactive [facility] Comment: Interpretive Data If HepB Core IgM Ab is reported as Equivocal, a new sample should be drawn in two weeks for testing. Current interpretive data was last revised on 19. Hep C Ab Nonreactive Nonreactive [facility] Comment: Interpretive Data Nonreactive: Antibodies to HCV [...] last revised on 2019. HepBsAg Nonreactive Nonreactive [facility] Blood 06/12/2024 7:3 9 PM SENIOR DENTIST 06/12/2024 8:01 PM SENIOR DENTIST us Ayan Lucas NP LAB MICROBIOLOGY - GENERAL ALBA LERMA Final Result Performing Organization Address [facility] Co de Phone Number [facility] [address] Department of [facility] [place] [address] * POCT glucose (06/12/2024 4:49 PM SENIOR DENTIST) [facility], POC 105 70 - 199 mg/dL Comment: For Glucose values <35 mg/dl when Hematocrit is >60 mg/dl,the test may not accurately detect significant hypoglycemia,and testing in the Laboratory should be considered if clinically indicated. Blood 06/12/2024 4:49 PM SENIOR DENTIST 06/12/2024 4:49 PM SENIOR DENTIST us David Garza MD LAB POCT ORDERABLES - DEVICE Fin al Result Performing Organization Address [facility]/ZIP Co de Phone Number [facility] [address] Department [place] [address] * (ABNORMAL) POCT glucose (06/12/2024 11:30 AM SENIOR DENTIST) Glucose, POC 227(H) 70 - 199 mg/dL Comment: For Glucose values <35 mg/dl when Hematocrit is >60 mg/dl,the test may not accurately detect significant hypoglycemia,and testing in the Laboratory should be considered if clinically indicated. Blood 06/12/2024 11:3 0 AM SENIOR DENTIST 06/12/2024 11:30 AM SENIOR DENTIST David Garza MD LAB POCT ORDERABLES - DEVICE Fin al Result Performing Organization Address [facility] Co de Phone Number [facility] [address] [place] [address] * eGFR (06/12/2024 6:07 AM SENIOR DENTIST) [facility] eGFR >90 >=60 mL/min/1. 73 m2 [...] last reviewed 2021. Blood 06/12/2024 6:07 AM SENIOR DENTIST 06/12/2024 6:22 AM SENIOR DENTIST David Garza MD LAB BLOOD ORDERABLES Final Resul t Performing Organization Address [facility]/ZIP Co de Phone Number [facility] [address] Department [place] [address] * Differential, auto (06/12/2024 6:07 AM SENIOR DENTIST) Neutrophil abs 2.4 1.5 - 6.5 K/cumm Imm gran abs 0.0 0.0 - 0.1 K/cumm [facility] Lymphocyte abs 1.7 0.8 - 3.3 K/cumm [facility] Monocyte abs 0.4 0.2 - 0.8 K/cumm [facility] Eosinophil abs 0.2 0.0 - 0.5 K/cumm [facility] Basophil abs 0.0 0.0 - 0.1 K/cumm [facility] Neutrophil pct 50.6 % [facility] Comment: Interpretive Data Percent cell count reference ranges are not reported, since discordance with absolute values may lead to misinterpretation of CBC data. Current Interpretive Data was last revised on 2017. Imm gran pct 0.6 % [facility] Comment: Interpretive Data Percent cell count reference ranges are not reported, since discordance with absolute values may lead to misinterpretation of CBC data. Current Interpretive Data was last revised on 2017. Lymphocyte pct 36.2 % [facility] Comment: Interpretive Data Percent cell count reference ranges are not reported, since discordance with absolute values may lead to misinterpretation of CBC data. Current Interpretive Data was last revised on 2017. Monocyte pct 7.6 % [facility] Comment: Interpretive Data Percent cell count reference ranges are not reported, since discordance with absolute values may lead to misinterpretation of CBC data. Current Interpretive Data was last revised on 2017. Eosinophil pct 4.2 % [facility] Comment: Interpretive Data Percent cell count reference ranges are not reported, since discordance with absolute values may lead to misinterpretation of CBC data. Current Interpretive Data was last revised on 2017. Basophil pct 0.8 % [facility] Comment: Interpretive Data Percent cell count reference ranges are not reported, since discordance with absolute values may lead to misinterpretation of CBC data. Current Interpretive Data was last revised on 2017. Blood 06/12/2024 6:07 AM SENIOR DENTIST 06/12/2024 6:22 AM SENIOR DENTIST David Garza MD LAB BLOOD ORDERABLES Final Resul t Performing Organization Address [facility] Co de Phone Number [facility] [address] [place] [address] * (ABNORMAL) CBC with auto differential (06/12/2024 6:07 AM SENIOR DENTIST) [facility] WBC 4.8 3.8 - 9.9 K/cumm Hgb 12.2 11.9 - 15.5 g/dL [facility] Hct 38.0 35.6 - 45.5 % [facility] Plt 304 150 - 400 K/cumm [facility] MPV 8.9(L) 9.1 - 12.3 fL [facility] RBC 3.99 3.90 - 5.20 M/cumm [facility] MCV 95.2 81.3 - 96.4 fL [facility] MCH 30.6 27.1 - 33.3 pg [facility] MCHC 32.1(L) 32.3 - 35.7 g/dL [facility] RDW CV 12.9 11.1 - 14.9 % [facility] RDW SD 45.3 35.7 - 48.1 fL [facility] NRBC abs 0.00 0.00 - 0.01 K/cumm [facility] Blood 06/12/2024 6:07 AM SENIOR DENTIST 06/12/2024 6:22 AM SENIOR DENTIST David Garza MD LAB BLOOD ORDERABLES Final Resul t Performing Organization Address [facility]/ZIP Co de Phone Number [facility] [address] Department of [employer] [place] [address] * Basic metabolic panel (06/12/2024 6:07 AM SENIOR DENTIST) [facility] Sodium 140 135 - 145 mmol/L Potassium, pl 4.2 3.3 - 4.9 mmol/L [facility] Chloride 103 97 - 110 mmol/L [facility] CO2 32 22 - 32 mmol/L [facility] Anion gap 5 2 - 15 mmol/L [facility] BUN 12 6 - 25 mg/dL [facility] Creatinine 0.62 0.60 - 1.10 mg/dL [facility] Glucose 119 70 - 199 mg/dL [facility] Comment: Interpretive Data Fasting glucose >/= 126 [...] 2022. Calcium 8.7 8.5 - 10.3 mg/dL [facility] Blood 06/12/2024 6:07 AM SENIOR DENTIST 06/12/2024 6:22 AM SENIOR DENTIST David Garza MD LAB BLOOD ORDERABLES Final Resul t Performing Organization Address [facility] Co de Phone Number [facility] [address] Department of [employer] [place] [address] * POCT glucose (06/12/2024 5:52 AM SENIOR DENTIST) Glucose, POC 126 70 - 199 mg/dL Comment: For Glucose values <35 mg/dl when Hematocrit is >60 mg/dl,the test may not accurately detect significant hypoglycemia,and testing in the Laboratory should be considered if clinically indicated. Blood 06/12/2024 5:52 AM SENIOR DENTIST 06/12/2024 5:52 AM SENIOR DENTIST David Garza MD LAB POCT ORDERABLES - DEVICE Fin al Result Performing Organization Address [facility] Co de Phone Number [facility] [address] Department of [employer] [place] [address] * POCT glucose (2024 8:40 PM SENIOR DENTIST) Glucose, POC 180 70 - 199 mg/dL Comment: For Glucose values <35 mg/dl when Hematocrit is >60 mg/dl,the test may not accurately detect significant hypoglycemia,and testing in the Laboratory should be considered if clinically indicated. Blood 2024 8:40 PM SENIOR DENTIST 2024 8:40 PM SENIOR DENTIST David Garza MD LAB POCT ORDERABLES - DEVICE Fin al Result Performing Organization Address [facility]/RUST de Phone Number [facility] [address] Department of Laboratories [place], [place] [id number] * POCT glucose (2024 4:22 PM SENIOR DENTIST) [facility] Glucose, POC 177 70 - 199 mg/dL Comment: For Glucose values <35 mg/dl when Hematocrit is >60 mg/dl,the test may not accurately detect significant hypoglycemia,and testing in the Laboratory should be considered if clinically indicated. Blood 2024 4:22 PM SENIOR DENTIST 2024 4:22 PM SENIOR DENTIST David Garza MD LAB POCT ORDERABLES - DEVICE Fin al Result Performing Organization Address [facility]UST de Phone Number [facility] [address] Department [place] [address] * TRANSTHORACIC ECHO (TTE) COMPLETE W DOPPLER/CF WO CONTRAST (2024 1:09 PM SENIOR DENTIST) [facility] LV EF 55-65 % CONS SCIMAGE Anatomical Region Laterality Modality Ultrasound 2024 7:44 AM SENIOR DENTIST Narrative 2024 3:59 PM SENIOR DENTIST [facility] [address] [place] [address] ECHOCARDIOGRAM Patient Name: KATERYNA MOYER : 1970 (54y ) Gender: F Study Date: 2024 07:44:00 AM Ht(Inch): 67 Wt(Lb): 134.04 BSA: 1.7 Patcher Helper: BRYAN Location: [id number] Order Provider: KALI MOSES BMI: 20.99 BP: [...] ms MV E/A Ratio 1.8 TR Peak Specner 2.6 m/s [ 1.0 - 2.8 ] [...] identified. Electronically Signed By: Petey Hylton MD [facility] 2024 3:59:21 PM SENIOR DENTIST Procedure Note Petey Hylton MD - 2024 [facility] [address] [place] [address] ECHOCARDIOGRAM Patient Name: KATERYNA MOYER : 1970 (54y ) Gender: F Study Date: 2024 07:44:00 AM Ht(Inch): 67 Wt(Lb): 134.04 BSA: 1.7 Patcher Helper: Location: [address] Order Provider: KALI MOSES BMI: 20.99 [...] identified. Electronically Signed By: Petey Hylton MD [facility] 2024 3:59:21 PM SENIOR DENTIST Result [facility] Kali Moses MD CV ECHO PROCEDURES Final Result * (ABNORMAL) Hepatic function panel (2024 1:01 PM SENIOR DENTIST) Pathologist [facility] Bilirubin, total 0.2 0.1 - 1.2 mg/dL Bilirubin, direct <0.2 0.1 - 0.3 mg/dL [facility] Protein, pl 7.2 6.5 - 8.5 g/dL [facility] Albumin 3.4(L) 3.5 - 5.0 g/dL [facility] Alk phos 172(H) 40 - 130 Units/L [facility] ALT 102(H) 7 - 45 Units/L [facility] AST 83(H) 10 - 45 Units/L [facility] Blood 2024 1:01 PM SENIOR DENTIST 2024 1:48 PM SENIOR DENTIST Result [facility] Ayan Lucas NP LAB BLOOD ORDERABLES Final Resu lt Performing Organization Address City/[facility]/ZIP Co de Phone Number [facility] [address] [place] [address] * POCT glucose (2024 11:26 AM SENIOR DENTIST) Pathologist [facility] Glucose, POC 118 70 - 199 mg/dL Comment: For Glucose values <35 mg/dl when Hematocrit is >60 mg/dl,the test may not accurately detect significant hypoglycemia,and testing in the Laboratory should be considered if clinically indicated. Blood 2024 11:2 6 AM SENIOR DENTIST 2024 11:26 AM SENIOR DENTIST David Garza MD LAB POCT ORDERABLES - DEVICE Fin al Result Performing Organization Address [facility]/ZIP Co de Phone Number [facility] [address] [place] [address] * POCT glucose (2024 6:17 AM SENIOR DENTIST) Glucose, POC 118 70 - 199 mg/dL Comment: For Glucose values <35 mg/dl when Hematocrit is >60 mg/dl,the test may not accurately detect significant hypoglycemia,and testing in the Laboratory should be considered if clinically indicated. Blood 2024 6:17 AM SENIOR DENTIST 2024 6:17 AM SENIOR DENTIST David Garza MD LAB POCT ORDERABLES - DEVICE Fin al Result Performing Organization Address [facility] Co de Phone Number [facility] [address] [facility] [employer] [place] [address] * POCT glucose (06/10/2024 8:43 PM SENIOR DENTIST) Glucose, POC 153 70 - 199 mg/dL Comment: For Glucose values <35 mg/dl when Hematocrit is >60 mg/dl,the test may not accurately detect significant hypoglycemia,and testing in the Laboratory should be considered if clinically indicated. Blood 06/10/2024 8:43 PM SENIOR DENTIST 06/10/2024 8:43 PM SENIOR DENTIST David Garza MD LAB POCT ORDERABLES - DEVICE Fin al Result Performing Organization Address [facility] Co de Phone Number [facility] [address] [facility] [employer] [place] [address] * POCT glucose (06/10/2024 4:41 PM SENIOR DENTIST) Glucose, POC 148 70 - 199 mg/dL Comment: For Glucose values <35 mg/dl when Hematocrit is >60 mg/dl,the test may not accurately detect significant hypoglycemia,and testing in the Laboratory should be considered if clinically indicated. Blood 06/10/2024 4:41 PM SENIOR DENTIST 06/10/2024 4:41 PM SENIOR DENTIST David Garza MD LAB POCT ORDERABLES - DEVICE Fin al Result Performing Organization Address [facility] Co de Phone Number [facility] [address] [facility] [employer] [place] [address] * Blood culture Blood (06/10/2024 12:01 PM SENIOR DENTIST) Report Final Report: No growth Blood 06/10/2024 12:0 1 PM SENIOR DENTIST 06/10/2024 12:17 PM SENIOR DENTIST Narrative [facility] - 06/15/2024 1:00 PM SENIOR DENTIST From a different site than #1. Collection->Peripheral [...] organism identification may be performed using the [employer] Blood Culture Identification panel. This assay detects microbial DNA in a blood culture broth. This assay has been cleared by the [place] Food and Drug Administration and its performance characteristics have been verified by the [facility]. Interpretive data was last revised on June 19, 2022. David Garza MD LAB MICROBIOLOGY - GENERAL ORDER BIENVENIDO Final Result Performing Organization Address [facility] Co de Phone Number [facility] [address] Department of [employer] [place] [address] * Blood culture Blood (06/10/2024 12:01 PM SENIOR DENTIST) Report Final Report: No growth Blood 06/10/2024 12:0 1 PM SENIOR DENTIST 06/10/2024 12:17 PM SENIOR DENTIST Narrative [facility] - 06/15/2024 1:00 PM SENIOR DENTIST Collection->Peripheral Interpretive Data 1. Blood cultures are incubated and monitored continuously for 5 days (120 hours). The first negative report is issued within 24 hours of receipt in the laboratory. 2. All positive cultures are resulted and called to physicians/care providers as soon as they are detected. 3. A rapid molecular test for organism identification may be performed using the [employer] Blood Culture Identification panel. This assay detects microbial DNA in a blood culture broth. This assay has been cleared by the [place] Food and Drug Administration and its performance characteristics have been verified by the [facility]. Interpretive data was last revised on June 19, 2022. David Garza MD LAB MICROBIOLOGY - GENERAL ORDER BIENVENIDO Final Result Performing Organization Address [facility] Co de Phone Number [facility] [address] Department [place] [address] * POCT glucose (06/10/2024 11:29 AM SENIOR DENTIST) Pathologist [facility] Glucose, POC 178 70 - 199 mg/dL Comment: For Glucose values <35 mg/dl when Hematocrit is >60 mg/dl,the test may not accurately detect significant hypoglycemia,and testing in the Laboratory should be considered if clinically indicated. Blood 06/10/2024 11:2 9 AM SENIOR DENTIST 06/10/2024 11:29 AM SENIOR DENTIST David Garza MD LAB POCT ORDERABLES - DEVICE Fin al Result Performing Organization Address [facility] Co de Phone Number [facility] [address] Department [place] [address] * eGFR (06/10/2024 5:39 AM SENIOR DENTIST) [facility] eGFR >90 >=60 mL/min/1. 73 m2 [...] last reviewed 2021. Blood 06/10/2024 5:39 AM SENIOR DENTIST 06/10/2024 6:22 AM SENIOR DENTIST Anita Sung ICER MACHINE OPERATOR LAB BLOOD ORDERABLES Final Re sult [facility] [address] Department [place] [address] * (ABNORMAL) Basic metabolic panel (06/10/2024 5:39 AM SENIOR DENTIST) Sodium 139 135 - 145 mmol/L Potassium, pl 4.0 3.3 - 4.9 mmol/L [facility] Chloride 105 97 - 110 mmol/L [facility] CO2 28 22 - 32 mmol/L [facility] Anion gap 6 2 - 15 mmol/L [facility] BUN 9 6 - 25 mg/dL [facility] Creatinine 0.59(L) 0.60 - 1.10 mg/dL [facility] Glucose 115 70 - 199 mg/dL [facility] Comment: Interpretive Data Fasting glucose >/= 126 [...] 2022. Calcium 8.3(L) 8.5 - 10.3 mg/dL [facility] Blood 06/10/2024 5:39 AM SENIOR DENTIST 06/10/2024 6:22 AM SENIOR DENTIST Anita Sung NP LAB BLOOD ORDERABLES Final Re sult Performing Organization Address [facility] Co de Phone Number [facility] [address] [facility] [employer] [facility] [place], [place] [id number] * POCT glucose (06/09/2024 9:22 PM SENIOR DENTIST) Glucose, POC 152 70 - 199 mg/dL Comment: For Glucose values <35 mg/dl when Hematocrit is >60 mg/dl,the test may not accurately detect significant hypoglycemia,and testing in the Laboratory should be considered if clinically indicated. Blood 06/09/2024 9:22 PM SENIOR DENTIST 06/09/2024 9:22 PM SENIOR DENTIST David Garza MD LAB POCT ORDERABLES - DEVICE Fin al Result Performing Organization Address [facility] de Phone Number [facility] [address] [facility] [employer] [facility] [place], [place] [id number] * POCT glucose (06/09/2024 6:22 PM SENIOR DENTIST) Glucose, POC 133 70 - 199 mg/dL Comment: For Glucose values <35 mg/dl when Hematocrit is >60 mg/dl,the test may not accurately detect significant hypoglycemia,and testing in the Laboratory should be considered if clinically indicated. Blood 06/09/2024 6:22 PM SENIOR DENTIST 06/09/2024 6:22 PM SENIOR DENTIST David Garza MD LAB POCT ORDERABLES - DEVICE Fin al Result Performing Organization Address [facility] Co de Phone Number [facility] [address] [facility] [employer] [facility] [place], [place] [id number] * (ABNORMAL) POCT glucose (06/09/2024 2:12 PM SENIOR DENTIST) Glucose, POC 271(H) 70 - 199 mg/dL Comment: For Glucose values <35 mg/dl when Hematocrit is >60 mg/dl,the test may not accurately detect significant hypoglycemia,and testing in the Laboratory should be considered if clinically indicated. Blood 06/09/2024 2:12 PM SENIOR DENTIST 06/09/2024 2:12 PM SENIOR DENTIST David Garza MD LAB POCT ORDERABLES - DEVICE Fin al Result Performing Organization Address [facility] Co de Phone Number [facility] [address] [place] [address] * Vancomycin level trough Obtain level at 1400 on 06/09. (06/09/2024 2:00 PM SENIOR DENTIST) Vancomycin trough 10.9 10.0 - 20.0 mcg/mL Blood 06/09/2024 2:00 PM SENIOR DENTIST 06/09/2024 2:36 PM SENIOR DENTIST Narrative [facility] - 06/09/2024 3:56 PM SENIOR DENTIST Obtain level at 1400 on 06/09. Anita Sung NP LAB BLOOD ORDERABLES Final Re sult Performing Organization Address [facility] de Phone Number [facility] [address] Department [employer] [place] [address] * POCT glucose (06/09/2024 7:53 AM SENIOR DENTIST) [facility] Glucose, POC 156 70 - 199 mg/dL Comment: For Glucose values <35 mg/dl when Hematocrit is >60 mg/dl,the test may not accurately detect significant hypoglycemia,and testing in the Laboratory should be considered if clinically indicated. Blood 06/09/2024 7:53 AM SENIOR DENTIST 06/09/2024 7:53 AM SENIOR DENTIST David Garza MD LAB POCT ORDERABLES - DEVICE Fin al Result Performing Organization Address [facility] de Phone Number [facility] [address] Department [employer] [place] [address] * (ABNORMAL) POCT glucose (06/09/2024 4:13 AM SENIOR DENTIST) Glucose, POC 305(H) 70 - 199 mg/dL Comment: For Glucose values <35 mg/dl when Hematocrit is >60 mg/dl,the test may not accurately detect significant hypoglycemia,and testing in the Laboratory should be considered if clinically indicated. Blood 06/09/2024 4:13 AM SENIOR DENTIST 06/09/2024 4:13 AM SENIOR DENTIST David Garza MD LAB POCT ORDERABLES - DEVICE Fin al Result Performing Organization Address [facility] de Phone Number [facility] [address] [facility] [employer] [place] [address] * (ABNORMAL) POCT glucose (06/09/2024 2:03 AM SENIOR DENTIST) Glucose, POC 274(H) 70 - 199 mg/dL Comment: For Glucose values <35 mg/dl when Hematocrit is >60 mg/dl,the test may not accurately detect significant hypoglycemia,and testing in the Laboratory should be considered if clinically indicated. Blood 06/09/2024 2:03 AM SENIOR DENTIST 06/09/2024 2:03 AM SENIOR DENTIST David Garza MD LAB POCT ORDERABLES - DEVICE Fin al Result Performing Organization Address [facility] de Phone Number [facility] [address] [facility] [employer] [place] [address] * (ABNORMAL) POCT glucose (06/08/2024 11:36 PM SENIOR DENTIST) Glucose, POC 349(H) 70 - 199 mg/dL Comment: For Glucose values <35 mg/dl when Hematocrit is >60 mg/dl,the test may not accurately detect significant hypoglycemia,and testing in the Laboratory should be considered if clinically indicated. Blood 06/08/2024 11:3 6 PM SENIOR DENTIST 06/08/2024 11:36 PM SENIOR DENTIST David Garza MD LAB POCT ORDERABLES - DEVICE Fin al Result Performing Organization Address [facility] Co de Phone Number [facility] [address] Department [place] [address] * (ABNORMAL) POCT glucose (06/08/2024 7:46 PM SENIOR DENTIST) Glucose, POC 250(H) 70 - 199 mg/dL Comment: For Glucose values <35 mg/dl when Hematocrit is >60 mg/dl,the test may not accurately detect significant hypoglycemia,and testing in the Laboratory should be considered if clinically indicated. Blood 06/08/2024 7:46 PM SENIOR DENTIST 06/08/2024 7:46 PM SENIOR DENTIST David Garza MD LAB POCT ORDERABLES - DEVICE Fin al Result Performing Organization Address [facility] Co de Phone Number [facility] [address] [place] [address] * POCT glucose (06/08/2024 4:34 PM SENIOR DENTIST) Glucose, POC 91 70 - 199 mg/dL Comment: For Glucose values <35 mg/dl when Hematocrit is >60 mg/dl,the test may not accurately detect significant hypoglycemia,and testing in the Laboratory should be considered if clinically indicated. Blood 06/08/2024 4:34 PM SENIOR DENTIST 06/08/2024 4:34 PM SENIOR DENTIST David Garza MD LAB POCT ORDERABLES - DEVICE Fin al Result Performing Organization Address [facility] Co de Phone Number [facility] [address] Department [place] [address] * Mycology (fungal) culture Wound Back, lower (06/08/2024 4:30 PM SENIOR DENTIST) Report Final Report: No fungus isolated Wound (Back, lower) 06/08/2024 4:30 PM SENIOR DENTIST 06/08/2024 5:09 PM SENIOR DENTIST Narrative [facility] - 07/07/2024 1:00 PM SENIOR DENTIST Deep 1 Mycology cultures are held for 4 weeks. Darío Ceron MD LAB MICROBIOLOGY - GENERA L ORDERABLES Final Result Performing Organization Address [facility]/ZIP Co de Phone Number [facility] [address] Department [place] [address] * Mycology (fungal) culture Wound Back, lower (06/08/2024 4:30 PM SENIOR DENTIST) Report Final Report: No fungus isolated Wound (Back, lower) 06/08/2024 4:30 PM SENIOR DENTIST 06/08/2024 5:09 PM SENIOR DENTIST Narrative [facility] - 07/07/2024 1:00 PM SENIOR DENTIST Superficial 1 Mycology cultures are held for 4 weeks. Darío Ceron MD LAB MICROBIOLOGY - GENERA L ORDERABLES Final Result Performing Organization Address [facility] Co de Phone Number [facility] [address] Department [place] [address] * (ABNORMAL) Aerobic and anaerobic culture and gram stain Wound Back, lower (06/08/2024 4:30 PM SENIOR DENTIST) Direct Specimen Exam Stain: Rare polymorphonuclear leukocytes seen. No organisms seen. Report Final Report: Heavy growth of: Staphylococcus aureus, methicillin susceptible (.) [facility] Organism STAPHYLOCOCCUS AUREUS, METHICILLIN SUSCEPTIBLE [facility] Wound (Back, lower) 06/08/2024 4:30 PM SENIOR DENTIST 06/08/2024 5:09 PM SENIOR DENTIST Narrative [facility] - 2024 7:55 AM SENIOR DENTIST Deep 1 Organism Antibiotic Method Susceptibility Staphylococcus [...] L ORDERABLES Final Result Performing Organization Address [facility] Co de Phone Number [facility] [address] [facility] [place] [address] * (ABNORMAL) Aerobic and anaerobic culture and gram stain Wound Back, lower (06/08/2024 4:30 PM SENIOR DENTIST) Direct Specimen Exam Stain: Rare polymorphonuclear leukocytes seen. No organisms seen. Report Final Report: Heavy growth of: Staphylococcus aureus, methicillin susceptible Susceptibility reported on this organism on previous culture [id number] (.) [facility] Organism STAPHYLOCOCCUS AUREUS, METHICILLIN SUSCEPTIBLE [facility] Wound (Back, lower) 06/08/2024 4:30 PM SENIOR DENTIST 06/08/2024 5:09 PM SENIOR DENTIST Narrative [facility] 2024 7:56 AM SENIOR DENTIST Superficial 1 Darío Ceron MD LAB MICROBIOLOGY - GENERA L ORDERABLES Final Result Performing Organization Address [facility] Co de Phone Number [facility] [address] [facility] [place] [address] * MS AN ELECTIVE ENDOTRACHEAL AIRWAY, MS AN PROCEDURE PLACEHOLDER (06/08/2024 3:17 PM SENIOR DENTIST) Narrative Jasmyn Ramos CRNA - 06/08/2024 3:17 PM SENIOR DENTIST Jasmyn Ramos CRNA 06/08/2024 3:17 PM Airway Patient location: OR Urgency: elective Indications for airway management: anesthesia Difficult airway: no Staff: Placed by: POWER SYSTEM DISPATCHER: Jasmyn Ramos CRNA Airway prep: Preoxygenated: yes [...] with: silk tape Number of attempts: 1 Jah Bowman MD ANESTHESIA ORDERABLES Final Res ult * POCT glucose (06/08/2024 1:33 PM SENIOR DENTIST) Glucose, POC 124 70 - 199 mg/dL Comment: For Glucose values <35 mg/dl when Hematocrit is >60 mg/dl,the test may not accurately detect significant hypoglycemia,and testing in the Laboratory should be considered if clinically indicated. Blood 06/08/2024 1:33 PM SENIOR DENTIST 06/08/2024 1:33 PM SENIOR DENTIST David Garza MD LAB POCT ORDERABLES - DEVICE Fin al Result Performing Organization Address [facility] Co de Phone Number [facility] [address] [employer] [place], [place] [id number] * POCT glucose (06/08/2024 12:35 PM SENIOR DENTIST) Glucose, POC 84 70 - 199 mg/dL Comment: For Glucose values <35 mg/dl when Hematocrit is >60 mg/dl,the test may not accurately detect significant hypoglycemia,and testing in the Laboratory should be considered if clinically indicated. Blood 06/08/2024 12:3 5 PM SENIOR DENTIST 06/08/2024 12:35 PM SENIOR DENTIST David Garza MD LAB POCT ORDERABLES - DEVICE Fin al Result Performing Organization Address [facility] Co de Phone Number [facility] [address] [facility] [place] [address] * POCT glucose (06/08/2024 8:39 AM SENIOR DENTIST) Glucose, POC 105 70 - 199 mg/dL Comment: For Glucose values <35 mg/dl when Hematocrit is >60 mg/dl,the test may not accurately detect significant hypoglycemia,and testing in the Laboratory should be considered if clinically indicated. Blood 06/08/2024 8:39 AM SENIOR DENTIST 06/08/2024 8:39 AM SENIOR DENTIST David Garza MD LAB POCT ORDERABLES - DEVICE Fin al Result Performing Organization Address [facility] Co de Phone Number [facility] [address] Department of Laboratories [place], [place] [id number] * eGFR (06/08/2024 6:21 AM SENIOR DENTIST) eGFR 82 >=60 mL/min/1. 73 m2 Comment: [...] last reviewed 2021. Blood 06/08/2024 6:21 AM SENIOR DENTIST 06/08/2024 6:27 AM SENIOR DENTIST Abram Mcnair MD LAB BLOOD ORDERABLES Final Resul t Performing Organization Address [facility] Co de Phone Number [facility] [address] Department of Laboratories [place], [place] [id number] * (ABNORMAL) CBC without differential (06/08/2024 6:21 AM SENIOR DENTIST) WBC 12.3(H) 3.8 - 9.9 K/cumm Hgb 12.5 11.9 - 15.5 g/dL [facility] Hct 37.9 35.6 - 45.5 % [facility] Plt 289 150 - 400 K/cumm [facility] MPV 8.9(L) 9.1 - 12.3 fL [facility] RBC 3.98 3.90 - 5.20 M/cumm [facility] MCV 95.2 81.3 - 96.4 fL [facility] MCH 31.4 27.1 - 33.3 pg [facility] MCHC 33.0 32.3 - 35.7 g/dL [facility] RDW CV 13.0 11.1 - 14.9 % [facility] RDW SD 45.7 35.7 - 48.1 fL [facility] NRBC abs 0.00 0.00 - 0.01 K/cumm [facility] Blood 06/08/2024 6:21 AM SENIOR DENTIST 06/08/2024 6:27 AM SENIOR DENTIST Abram Mcnair MD LAB BLOOD ORDERABLES Final Resul t Performing Organization Address [facility] Co de Phone Number [facility] [address] [facility] [place] [address] * Phosphorus (06/08/2024 6:21 AM SENIOR DENTIST) Phosphorus, pl 3.6 2.3 - 4.5 mg/dL Blood 06/08/2024 6:21 AM SENIOR DENTIST 06/08/2024 6:27 AM SENIOR DENTIST Abram Mcnair MD LAB BLOOD ORDERABLES Final Resul t [facility] [address] [facility] [place] [address] * Magnesium (06/08/2024 6:21 AM SENIOR DENTIST) Magnesium 2.0 1.4 - 2.5 mg/dL Blood 06/08/2024 6:21 AM SENIOR DENTIST 06/08/2024 6:27 AM SENIOR DENTIST Abram Mcnair MD LAB BLOOD ORDERABLES Final Resul t [facility] [address] Department [place] [address] * Basic metabolic panel (06/08/2024 6:21 AM SENIOR DENTIST) Pathologist [facility] Sodium 136 135 - 145 mmol/L Potassium, pl 4.0 3.3 - 4.9 mmol/L [facility] Chloride 101 97 - 110 mmol/L [facility] CO2 27 22 - 32 mmol/L [facility] Anion gap 8 2 - 15 mmol/L [facility] BUN 12 6 - 25 mg/dL [facility] Creatinine 0.85 0.60 - 1.10 mg/dL [facility] Glucose 138 70 - 199 mg/dL [facility] Comment: Interpretive Data Fasting glucose >/= 126 [...] 2022. Calcium 8.8 8.5 - 10.3 mg/dL [facility] Blood 06/08/2024 6:21 AM SENIOR DENTIST 06/08/2024 6:27 AM SENIOR DENTIST Abram Mcnair MD LAB BLOOD ORDERABLES Final Resul t [facility] [address] Department [place] [address] * POCT glucose (06/08/2024 4:21 AM SENIOR DENTIST) Glucose, POC 116 70 - 199 mg/dL Comment: For Glucose values <35 mg/dl when Hematocrit is >60 mg/dl,the test may not accurately detect significant hypoglycemia,and testing in the Laboratory should be considered if clinically indicated. Blood 06/08/2024 4:21 AM SENIOR DENTIST 06/08/2024 4:21 AM SENIOR DENTIST Abram Mcnair MD LAB POCT ORDERABLES - DEVICE Fin al Result Performing Organization Address [facility]/ZIP Co de Phone Number [facility] [address] Department of [facility] [place] [address] * Blood culture Blood Peripheral (06/08/2024 12:42 AM SENIOR DENTIST) Report Final Report: No growth Blood (Peripheral) 06/08/2024 12:42 AM SENIOR DENTIST 06/08/2024 12:50 AM SENIOR DENTIST Narrative [facility] - 06/13/2024 7:01 AM SENIOR DENTIST From a different site than #1. Draw [...] organism identification may be performed using the [employer] Blood Culture Identification panel. This assay detects microbial DNA in a blood culture broth. This assay has been cleared by the [place] Food and Drug Administration and its performance characteristics have been verified by the [facility]. Interpretive data was last revised on June 19, 2022. Anita Sung NP LAB MICROBIOLOGY - GENERAL OR DERABLES Final Result Performing Organization Address [facility]/ZIP Co de Phone Number [facility] [address] Department [place] [address] * POCT glucose (06/08/2024 12:38 AM SENIOR DENTIST) Glucose, POC 121 70 - 199 mg/dL Comment: For Glucose values <35 mg/dl when Hematocrit is >60 mg/dl,the test may not accurately detect significant hypoglycemia,and testing in the Laboratory should be considered if clinically indicated. Blood 06/08/2024 12:3 8 AM SENIOR DENTIST 06/08/2024 12:38 AM SENIOR DENTIST us Notinf[employer] Unknown LAB POCT ORDERABLES - DEVICE F inal Result [facility] [address] Department [place] [address] * (ABNORMAL) Blood culture Blood Peripheral (06/08/2024 12:30 AM SENIOR DENTIST) Pathologist [facility] Direct Specimen Exam Molecular Analysis: Staphylococcus aureus, methicillin-suscep tible (MSSA) detected by the [employer] Blood Culture Identification Panel. This test does not exclude the possibility of a mixed bacterial infection. Please consider this result in the context of clinical findings and evaluate the possibility of antimicrobial de-escalation. Test result called to and read back by CARMEN RONQUILLO RN on 06/10/2024 05:31:07 by [id number] Direct Specimen Exam Stain: Gram Positive Cocci in clusters [facility] Report Final Report: Staphylococcus aureus, methicillin susceptible (.) [facility] Organism STAPHYLOCOCCUS AUREUS, METHICILLIN SUSCEPTIBLE [facility] Blood (Peripheral) 06/08/2024 12:30 AM SENIOR DENTIST 06/08/2024 12:50 AM SENIOR DENTIST Narrative [facility] - 06/12/2024 7:20 AM SENIOR DENTIST Draw Blood cultures before administration of Antibiotics [...] organism identification may be performed using the [employer] Blood Culture Identification panel. This assay detects microbial DNA in a blood culture broth. This assay has been cleared by the [place] Food and Drug Administration and its performance characteristics have been verified by the [facility]. Interpretive data was last [...] (JAMES) INTERPRETATION <=0.5 mcg/mL: Susceptible Anita Sung ICER MACHINE OPERATOR LAB MICROBIOLOGY - GENERAL OR DERABLES Final Result [facility] [address] Department [place] [address] * MRI Lumbar Spine W WO Contrast (06/07/2024 11:30 PM SENIOR DENTIST) Anatomical Region Laterality Modality Spine N/A Magnetic Resonan ce 06/07/2024 10:3 6 PM SENIOR DENTIST Impressions 06/08/2024 8:45 AM SENIOR DENTIST 1. Changes of prior L3-L5 posterior decompression [...] foraminal stenosis. For the purposes of quality facilitator, this study was initially interpreted by teleradiology. There is no significant discrepancy. Dictated by: Manpreet Knox D.O. The radiology attending physician has personally reviewed this study, and had reviewed and/or edited this written report and agrees with it. Electronically signed by: Jose A Bhagat MD, PHD Narrative 06/08/2024 8:45 AM SENIOR DENTIST EXAMINATION: Magnetic resonance imaging (MRI) of the [...] foraminal stenosis. For the purposes of quality facilitator, this study was initially interpreted by teleradiology. There is no significant discrepancy. Dictated by: Manpreet Knox D.O. The radiology attending physician has personally reviewed this study, and had reviewed and/or edited this written report and agrees with it. Electronically signed by: Jose A Bhagat MD, PHD us Anita Sung ICER MACHINE OPERATOR IMG MRI PROCEDURES Final Resu lt * Urinalysis reflex to microscopic and culture Urine (06/07/2024 9:41 PM SENIOR DENTIST) Color, ur Yellow Yellow Clarity, ur Clear Clear [facility] Specific gravity, ur 1.012 1.003 - 1.030 [facility] pH, urine 7.0 [facility] Comment: Interpretive Data U rine pH is affected by diet, medications, systemic acid-base disturbances, and renal tubular function. pH may affect urinary stone formation. For example, urine pH below 6.0 may help reduce the tendency for calcium phosphate stones and pH greater than 6.0 may reduce the tendency for uric acid stone formation. Source: [facility] Current Interpretive Data was last revised on 2017 Protein, ur ql Negative Negative [facility] Glucose, ur ql Negative Negative [facility] Ketones, ur Negative Negative [facility] Bilirubin, ur Negative Negative [facility] Blood, ur Negative Negative [facility] Urobilinogen, ur <2.0 <2.0 mg/dL [facility] Nitrite, ur Negative Negative [facility] Leukocyte esterase, ur Negative Negative [facility] UA reflex comment Reflex conditions for microscopic UA and culture not met. [facility] Urine 06/07/2024 9:41 PM SENIOR DENTIST 06/07/2024 9:41 PM SENIOR DENTIST us Anita D. Counts ICER MACHINE OPERATOR LAB MICROBIOLOGY - GENERAL OR DERABLES Final Result Performing Organization Address [facility]UST de Phone Number [facility] [address] [facility] [place] [address] * Sepsis Lactate w/ Reflex (06/07/2024 9:39 PM SENIOR DENTIST) Sepsis Lactate 1.0 0.7 - 2.0 mmol/L Blood 06/07/2024 9:39 PM SENIOR DENTIST 06/07/2024 9:44 PM SENIOR DENTIST us Anita Shen Counts ICER MACHINE OPERATOR LAB BLOOD ORDERABLES Final Re sult Performing Organization Address [facility] de Phone Number [facility] [address] Department [place] [address] * eGFR (06/07/2024 9:39 PM SENIOR DENTIST) eGFR 69 >=60 mL/min/1. 73 m2 Comment: [...] last reviewed 2021. Blood 06/07/2024 9:39 PM SENIOR DENTIST 06/07/2024 9:46 PM SENIOR DENTIST us Anita Shen Counts ICER MACHINE OPERATOR LAB BLOOD ORDERABLES Final Re sult Performing Organization Address [facility]/State/ZIP Co de Phone Number [facility] [address] Department [place] [address] * (ABNORMAL) Differential, auto (06/07/2024 9:39 PM SENIOR DENTIST) Neutrophil abs 9.7(H) 1.5 - 6.5 K/cumm Imm gran abs 0.1 0.0 - 0.1 K/cumm [facility] Lymphocyte abs 2.3 0.8 - 3.3 K/cumm [facility] Monocyte abs 0.9(H) 0.2 - 0.8 K/cumm [facility] Eosinophil abs 0.1 0.0 - 0.5 K/cumm [facility] Basophil abs 0.1 0.0 - 0.1 K/cumm [facility] Neutrophil pct 73.9 % [facility] Comment: Interpretive Data Percent cell count reference ranges are not reported, since discordance with absolute values may lead to misinterpretation of CBC data. Current Interpretive Data was last revised on 2017. Imm gran pct 0.4 % [facility] Comment: Interpretive Data Percent cell count reference ranges are not reported, since discordance with absolute values may lead to misinterpretation of CBC data. Current Interpretive Data was last revised on 2017. Lymphocyte pct 17.4 % [facility] Comment: Interpretive Data Percent cell count reference ranges are not reported, since discordance with absolute values may lead to misinterpretation of CBC data. Current Interpretive Data was last revised on 2017. Monocyte pct 6.7 % [facility] Comment: Interpretive Data Percent cell count reference ranges are not reported, since discordance with absolute values may lead to misinterpretation of CBC data. Current Interpretive Data was last revised on 2017. Eosinophil pct 0.9 % [facility] Comment: Interpretive Data Percent cell count reference ranges are not reported, since discordance with absolute values may lead to misinterpretation of CBC data. Current Interpretive Data was last revised on 2017. Basophil pct 0.7 % [facility] Comment: Interpretive Data Percent cell count reference ranges are not reported, since discordance with absolute values may lead to misinterpretation of CBC data. Current Interpretive Data was last revised on 2017. Blood 06/07/2024 9:39 PM SENIOR DENTIST 06/07/2024 9:46 PM SENIOR DENTIST Anita Sung ICER MACHINE OPERATOR LAB BLOOD ORDERABLES Final Re sult Performing Organization Address [facility]/ZIP Co de Phone Number [facility] [address] [place] [address] * (ABNORMAL) CBC with auto differential (06/07/2024 9:39 PM SENIOR DENTIST) WBC 13.1(H) 3.8 - 9.9 K/cumm Hgb 12.8 11.9 - 15.5 g/dL [facility] Hct 38.7 35.6 - 45.5 % [facility] Plt 312 150 - 400 K/cumm [facility] MPV 9.2 9.1 - 12.3 fL [facility] RBC 4.11 3.90 - 5.20 M/cumm [facility] MCV 94.2 81.3 - 96.4 fL [facility] MCH 31.1 27.1 - 33.3 pg [facility] MCHC 33.1 32.3 - 35.7 g/dL [facility] RDW CV 13.1 11.1 - 14.9 % [facility] RDW SD 45.1 35.7 - 48.1 fL [facility] NRBC abs 0.00 0.00 - 0.01 K/cumm [facility] Blood 06/07/2024 9:39 PM SENIOR DENTIST 06/07/2024 9:46 PM SENIOR DENTIST Anita Sung ICER MACHINE OPERATOR LAB BLOOD ORDERABLES Final Re sult Performing Organization Address [facility]/ZIP Co de Phone Number [facility] [address] Department [place] [address] * (ABNORMAL) Erythrocyte sedimentation rate (06/07/2024 9:39 PM SENIOR DENTIST) Erythrocyte sedimentation rate 39(H) 1 - 30 mm/hr Blood 06/07/2024 9:39 PM SENIOR DENTIST 06/07/2024 9:46 PM SENIOR DENTIST us Anita Shen Counts ICER MACHINE OPERATOR LAB BLOOD ORDERABLES Final Re sult Performing Organization Address [facility] Co de Phone Number [facility] [address] Department [place] [address] * (ABNORMAL) CRP (acute phase) (06/07/2024 9:39 PM SENIOR DENTIST) [facility] CRP 82.7(H) <=10.0 mg/L Blood 06/07/2024 9:39 PM SENIOR DENTIST 06/07/2024 9:46 PM SENIOR DENTIST us Anita Shen Counts ICER MACHINE OPERATOR LAB BLOOD ORDERABLES Final Re sult Performing Organization Address [facility] de Phone Number [facility] [address] Department [place] [address] * (ABNORMAL) Comprehensive metabolic panel (06/07/2024 9:39 PM SENIOR DENTIST) [facility] Sodium 137 135 - 145 mmol/L Potassium, pl 4.6 3.3 - 4.9 mmol/L [facility] Comment:Hemolyzed; potassium value may be falsely elevated by as much as 0.6 - 1.0 mmol/L. Suggest redraw and reanalysis Chloride 102 97 - 110 mmol/L [facility] CO2 25 22 - 32 mmol/L [facility] Anion gap 10 2 - 15 mmol/L [facility] BUN 12 6 - 25 mg/dL [facility] Creatinine 0.98 0.60 - 1.10 mg/dL [facility] Glucose 147 70 - 199 mg/dL [facility] Comment: Interpretive Data Fasting glucose >/= 126 [...] 2022. Calcium 9.0 8.5 - 10.3 mg/dL [facility] Bilirubin, total 0.3 0.1 - 1.2 mg/dL [facility] Protein, pl 7.1 6.5 - 8.5 g/dL [facility] Albumin 3.4(L) 3.5 - 5.0 g/dL [facility] Alk phos 83 40 - 130 Units/L [facility] ALT 15 7 - 45 Units/L [facility] Comment:Moderately Hemolyzed Specimen AST 27 10 - 45 Units/L [facility] Comment:Moderately Hemolyzed Specimen Blood 06/07/2024 9:39 PM SENIOR DENTIST 06/07/2024 9:46 PM SENIOR DENTIST us Anita Sung ICER MACHINE OPERATOR LAB BLOOD ORDERABLES Final Re sult Performing Organization Address [facility]/ZIP Co de Phone Number [facility] [address] Department of Laboratories [place], [place] [id number] * (ABNORMAL) Hemoglobin A1c (03/21/2024 10:40 AM SENIOR DENTIST) Hgb A1C 6.4(H) 4.0 - 5.6 % Estimated Average Glucose 137 mg/dL [facility] Comment: The ADA recommends reporting an estimated Average Glucose (eAG) with all Hemoglobin A1c results using the equation derived from a study of 507 normal and diabetic adults. Minority populations were underrepresented and children were not included. (Diabetes Care 31:7269-5346, 2008). The eAG is not equivalent to a fasting glucose. Blood 03/21/2024 10:4 0 AM SENIOR DENTIST 03/21/2024 10:40 AM SENIOR DENTIST us Brigida Ledesma ICER MACHINE OPERATOR LAB BLOOD ORDERABLES Fin al Result Performing Organization Address [facility]/ZIP Co de Phone Number [facility] [address] Department [place] [address] * (ABNORMAL) POCT lipid panel (12/09/2021 10:27 [...] Mammogram Bilateral W Hai (06/10/2021 10:10 AM SENIOR DENTIST) Anatomical Region Laterality Modality Breast Bilateral Mammography 06/10/2021 11:4 8 AM SENIOR DENTIST Impressions 06/10/2021 1:28 PM SENIOR DENTIST 1. No suspicious mammographic or sonographic correlate [...] Maryse Dowling M.D. Narrative 06/10/2021 1:28 PM SENIOR DENTIST EXAMINATION: BILATERAL DIGITAL DIAGNOSTIC MAMMOGRAM INCLUDING CAD [...] Insurance IDPA [facility] H[facility]/PPO Address: [address] [address] [place] [address] MEDICARE IDPA [facility] CHO[facility] H[facility]/PPO Address: [address] [address] [place] [address] [facility] CHO[facility] H[facility]/PPO Address: [address] [address] [place] [address] IDPA MEDICARE [facility] CHOICE PL[facility] HMO/PPO Address: [address] [address] [place] [address] Advance Directives For more information, please contact: [phone] * Full Code (Latest Code Status on File) Date Activated Date Inactivated Comments 06/08/2024 3:56 AM 06/14/2024 8:35 PM * Full Code Date Activated Date Inactivated Comments 04/05/2024 9:24 PM 04/06/2024 2:12 PM * Full Code Date Activated Date Inactivated Comments 04/05/2024 8:19 PM 04/05/2024 9:24 PM * Full Code Date Activated Date Inactivated Comments 12/24/2021 12:49 PM 12/25/2021 4:30 PM Care Teams Career Professional Relationship Specialty Start Date End Date Christos Coon MD [address] [place] [address] PCP - General 10/31/16 Darío Ceron MD [address] [facility] [address] [place] [address] Consulting Physician Neurosurgery 06/14/24 Kali Moses MD [id number] [place] [address] Consulting Physician Infectious Diseases 06/14/24
== END 2024-08-24 10:27 | disposition home or self-care (01) ==
LOC: CHSIMG 10:28
PROVIDERS: PCP Family Medicine; Visit Provider Neurological Surgery
DX: Z98.1 Arthrodesis status (principal)
CPT/HCPCS: 72100

== ENCOUNTER 2024-11-23 08:16 | Outpatient (CLI) | payer OTHER, MEDICARE, MEDICAID, SELFPAY ==
--- NOTE | ~2024-11-23 | XR_ITS ---
Lumbosacral Spine: AP, oblique, and lateral views Clinical History: Pain COMPARISON: 08/24/2024 Findings: The normal lordotic curve is maintained. Stable posterior rods and interlocking transbrachi al screws from L3 through L5. There are interbody disc fusion cages at the L3-L4, L4-L5, L5-S1 disc s paces. Stable osseous orthopedic hardware alignment. The sacroiliac joints are normally outlined. Impression: Stable postoperative changes, as detailed above. Reviewed, dictated and finalized at location M. Impression: Stable postoperative changes, as detailed above.
--- OUTSIDE RECORDS SUMMARY | 2024-11-23 08:20 | XMS_ITS | Clinical Summary ---
Author Organization [facility] [employer] Address [address] [place] [address] Care Team Providers Care Energy Administrator Name Role Phone Christos Coon MD Primary Care Provider [phone] Source Comments [facility] [employer],non-owned Affiliates and Associated Physician Practices is amultiple site organization consisting of ambulatory clinics and hospital sitesin [place], [place], [place] and [place]. This disclosure is being madepursuant to the Care Everywhere program and may not contain all information available regarding this patient. Last updated 18.[facility] [employer] Allergies No known active allergies Medications * Be aware that medications may not be up to date on this document. Alwaysverify current medications with the patient. fluconazole (DIFLUCAN) 150 MG tablet TAKE 1 TABLET BY MOUTH EVERY DAY FOR 2 DAYS 0 Active ACCU-CHEK GUIDE test strip USE TO TEST ONCE DAILY 0 Active HYDROcodone-ac etaminophen (NORCO) 5-325 MG tablet Take 1 tablet by mouth every 6 hours as needed 0 Active VICTOZA 18 MG/3ML pen INJECT 1.8MG SUBCUTANEOUSLY ONCE DAILY 0 Active VYVANSE 50 MG capsule TAKE 1 CAPSULE BY MOUTH EVERY DAY IN THE MORNING 0 Active metroNIDAZOLE (FLAGYL) 500 MG tablet TAKE 1 TABLET BY MOUTH TWICE A DAY FOR 7 DAYS 0 Active prazosin (MINIPRESS) 1 MG capsule Take 1 mg by mouth at bedtime 0 Active predniSONE (DELTASONE) 10 MG tablet TAKE 4 TABS DAILY X 3 DAYS, 3 TABS DAILY X 3 DAYS, 2 TABS DAILY X 3 DAYS, THEN 1 TAB DAILY X 3 DAYS 0 Active Active Problems No known active problems Social History Tobacco Use Types Packs/Day Years Used Date Smoking Tobacco: Every Day Smokeless Tobacco: Never Alcohol Use Standard Drinks/Week Comments Not Currently 0 (1 standard drink = 0.6 oz pur e alcohol) Comments Unknown Sex and Gender Information Value Date Recorded Sex Assigned at Not on file Legal Sex Female 6:48 AM MERCANTILE REPORTER Gender Identity Not on file Sexual Orientation [...] 2:18 PM CDT Height 170.2 cm (5' 7) 12/08/2019 2:18 PM CDT Body Mass Index [...] COLON CA SCREENING 1971 LIPID TESTING 1971 MAMMOGRAM 1971 HIV SCREENING 1986 HEPATITIS C SCREENING 06/06/1989 DTAP/TDAP/TD VACCINES (1 - Tdap) 1990 HEPATITIS B VACCINE (1 of 3 - 19+ 3-dose series) 1990 SCREENING FOR DIABETES 12/08/2019 PNEUMOCOCCAL VACCINE 50+ (1 of 1 - PCV) 2021 ZOSTER VACCINE (1 of 2) 2021 COVID-19 VACCINE (1 - 2023-2 5 season) 2024 DEPRESSION SCREENING [...] patient's age to complete this topic Insurance MEDICAID [place] [address] [place] [address] Care Teams Energy Administrator Relationship Specialty Start Date End Date Christos Coon MD PCP - General 11/05/17
--- OUTSIDE RECORDS SUMMARY | 2024-11-23 08:20 | XMS_ITS | Referral Summary ---
Author Organization [facility] Address [address] [place] [address] Care Team Providers Care Journeyman Painter Name Role Phone Christos Coon MD Primary Care Provider [phone] Darío Ceron MD Unavailable [phone] Kali Albright MD Unavailable Allergies Active Allergy Reactions Criticality [...] materials from doctor or pharmacy Sometimes 07/22/2024 [facility] Utilities Answer Date Recorded In [...] declined 06/08/2024 How often do you attend sabianism or samaritan serv ices? Patient declined 06/08/2024 Do you belong to any clubs o r organizations such as sabianism groups, unions, fraternal or athletic groups, or [...] any time in the past 12 m [facility], were you homeless or living in a long-term (including now)? Patient declined 06/08/2024 Personal Safety Answer Date Recorded Have you ever been in or are you currently in a harmful physical or emotional relationship or is someone making you feel afraid or unsafe? Denies 06/08/2024 Comments No Sex and Gender Information Value Date Recorded Sex Assigned at Not on file Legal Sex Female 12:29 PM BUSINESS ACCOUNT LEADER Gender Identity Not on file Sexual Orientation Not on file Last Filed Vital Signs Vital Sign Reading Time Taken Comments Blood Pressure 122/60 07/20/2024 1:00 AM BUSINESS ACCOUNT LEADER Pulse 60 07/20/2024 1:00 AM BUSINESS ACCOUNT LEADER Temperature 36.2 C (97.1 F) 07/20/2024 1:00 AM BUSINESS ACCOUNT LEADER Respiratory Rate 18 07/20/2024 1:00 AM BUSINESS ACCOUNT LEADER Oxygen Saturation 98% 07/20/2024 1:00 AM BUSINESS ACCOUNT LEADER Inhaled Oxygen Concentration - - Weight 60.9 kg (134 lb 3.2 oz) 06/08/2024 4:00 A M BUSINESS ACCOUNT LEADER Height 170.2 cm (5' 7) 06/08/2024 4:00 AM BUSINESS ACCOUNT LEADER Body Mass Index 21.02 06/08/2024 4:00 AM BUSINESS ACCOUNT LEADER Plan of Treatment Not on file Medical Devices Implanted Type Area Labor Economist Device Identifier Shelf Expiration Date Model / Serial / Lot Stuart Spine [place] L22 Mm X W8.5 Mm X H10 Mm Convex Cage Spinal Titanium P Latex Free [id number] - Sn/A - [id number] Implanted:Qty: 1 on 12/24/2021 by Darío Ceron MD at [facility] Cage N/A: Lumbar-Sa cral Spine [place] Spine [id number] 06/03/2026 [id number] [id number]-G2 / N/A / PM-4900 11 Stuart Spine [place] L22 Mm X W8.5 Mm X H10 Mm Convex Cage Spinal Titanium P Latex Free [id number] - Sn/A - [id number] Implanted:Qty: 1 on 12/24/2021 by Darío Ceron MD at [facility] Cage N/A: Lumbar-Sa cral Spine [place] Spine [id number] 06/03/2026 [id number] [id number]-G2 / N/A / PM-[id number] 11 Screws,Rods N/A: Spine Lumbar Stuart Spine 4mm 30mm Polyaxial Spine Screw Bone Deformity [id number] - [id number] Implanted:Qty: 2 on 12/24/2021 by Darío Ceron MD at [facility] N/A: Lumbar-Sa cral Spine Stuart Spine [id number] 0 / / [place] Spine 4.5mm 30mm Polyaxial Spine Screw Bone Deformity [id number] - [id number] Implanted:Qty: 2 on 12/24/2021 by Darío Ceron MD at [facility] N/A: Lumbar-Sa cral Spine Stuart Spine [id number] 0 / / [place] Spine 4.5mm 40mm Contour Praful Spinal Cocr [id number] - [id number] Implanted:Qty: 2 on 12/24/2021 by Darío Ceron MD at [facility] N/A: Lumbar-Sa cral Spine [place] Spine [id number] 0 / / Stuart Spine 29mm Semiadjustable Transverse Spine Connector Praful Posterior [id number] - [id number] Implanted:Qty: 1 on 12/24/2021 by Darío Ceron MD at [facility] N/A: Lumbar-Sa cral Spine [place] Spine [id number] 9A / / [place] Spine 26mm Semiadjustable Transverse Spine Connector Praful Posterior [id number] - [id number] Implanted:Qty: 1 on 04/05/2024 by Darío Ceron MD at [facility] N/A: Spine Lumbar Stuart Spine [id number] 6A / / [place] Spine 29mm Semiadjustable Transverse Spine Connector Praful Posterior [id number] - [id number] Implanted:Qty: 1 on 04/05/2024 by Darío Ceron MD at [facility] N/A: Spine Lumbar Stuart Spine [id number] 9A / / Stuart Spine 4mm 30mm Polyaxial Spine Screw Bone Deformity [id number] - [id number] Implanted:Qty: 2 on 04/05/2024 by Darío Ceron MD at [facility] N/A: Spine Lumbar Stuart Spine [id number] 0 / / [place] Spine 4.5mm 70mm Contour Praful Spinal Cocr [id number] - [id number] Implanted:Qty: 2 on 04/05/2024 by Darío Ceron MD at [facility] N/A: Spine Lumbar Stuart Spine [id number] 0 / / [employer] Cage Spinal Lumbar 10 Degree Tlif Expandable 7-11.5mm Titanium [id number] - [id number] Implanted:Qty: 2 on 04/05/2024 by Darío Ceron MD at [facility] N/A: Spine Lumbar [employer] [id number] / / Biocomposites Stimulan Rapid Cure Kit Paste Video Control Engineer 5cc 12.5cc Bone Void 620-005 - [id number] Implanted:Qty: 1 on 04/05/2024 by Darío Ceron MD at [facility] N/A: Spine Lumbar Biocomposites [id number] 12/15/2026 620-005 / / [id number] Procedures Procedure Name Priority Date/Time Associated Diagnosis Comments EGFR STAT 07/20/2024 11:30 AM BUSINESS ACCOUNT LEADER HEPATITIS PANEL, ACUTE Routine 06/12/2024 7:39 PM BUSINESS ACCOUNT LEADER HEMOGLOBIN A1C Routine 03/21/2024 10:40 AM BUSINESS ACCOUNT LEADER Preoperative examination POCT LIPID PANEL Routine 12/09/2021 10:2 7 AM CDT Type 2 diabetes mellitus with hyperglycemia, with long-term current use of insulin (HCC) DIAGNOSTIC MAMMOGRAM BILATERAL W HAI Schedule Routine, Read Routine (OP Routine) 06/10/2021 10:10 AM BUSINESS ACCOUNT LEADER Breast mass from Last 3 Months or Most Recently Relevant to Health Maintenance Results * eGFR (07/20/2024 11:30 AM BUSINESS ACCOUNT LEADER) eGFR >90 >=60 mL/min/1. 73 m2 Comment: [...] reviewed 2021. Blood 07/20/2024 11:3 0 AM BUSINESS ACCOUNT LEADER 07/20/2024 2:25 PM BUSINESS ACCOUNT LEADER us Kali Albright MD LAB BLOOD ORDERABLES Final Resul t [facility] Department [place] [address] * Hepatitis panel, acute Blood (06/12/2024 7:39 PM BUSINESS ACCOUNT LEADER) Hep A IgM Nonreactive Nonreactive Comment: Interpretive Data: If Hep A IgM Ab is reported as Equivocal, a new sample should be drawn in two weeks for testing. Current interpretive data was last revised on 19. Hep B core IgM Nonreactive Nonreactive [facility] Comment: Interpretive Data If HepB Core IgM Ab is reported as Equivocal, a new sample should be drawn in two weeks for testing. Current interpretive data was last revised on 19. Hep C Ab Nonreactive Nonreactive [facility] Comment: Interpretive Data Nonreactive: Antibodies to [...] last revised on 2019. HepBsAg Nonreactive Nonreactive [facility] Blood 06/12/2024 7:39 PM BUSINESS ACCOUNT LEADER 06/12/2024 8:01 PM BUSINESS ACCOUNT LEADER Ayan Lucas NP LAB MICROBIOLOGY - [facility] ALBA LERMA Final Result [facility] [address] [place] [address] * (ABNORMAL) Hemoglobin A1c (03/21/2024 10:40 AM BUSINESS ACCOUNT LEADER) Hgb A1C 6.4(H) 4.0 - 5.6 % Estimated Average Glucose 137 mg/dL [facility] Comment: The ADA recommends reporting an estimated Average Glucose (eAG) with all Hemoglobin A1c results using the equation derived from a study of 507 normal and diabetic adults. Minority populations were underrepresented and children were not included. (Diabetes Care 31:6980-3477, 2008). The eAG is not equivalent to a fasting glucose. Blood 03/21/2024 10:4 0 AM BUSINESS ACCOUNT LEADER 03/21/2024 10:40 AM BUSINESS ACCOUNT LEADER us Brigida Ledesma NP LAB BLOOD ORDERABLES Fin al Result [facility] [address] [place] [address] * (ABNORMAL) POCT lipid panel (12/09/2021 10:27 AM CDT) Cholesterol, POC 138 30 - 200 mg/dL HDL, POC 35 0 - 40 mg/dL Triglycerides, POC 170(A) 0 - 149 mg/dL LDL Cholesterol POC 69 0 - 129 mg/dL Chol/HDL Ratio, POC 4.0 Non-HDL Cholesterol, POC 103 mg/dL Cholesterol Total, POC 138 30 - 200 mg/dL Capillary blood 12/09/2021 1 0:27 AM CDT Libia Angelo NP POINT OF CARE TEST ORDERABLES F inal Result * Diagnostic Mammogram Bilateral W Hai (06/10/2021 10:10 AM BUSINESS ACCOUNT LEADER) Anatomical Region Laterality Modality Breast Bilateral Mammography 06/10/2021 11:4 8 AM BUSINESS ACCOUNT LEADER Impressions 06/10/2021 1:28 PM BUSINESS ACCOUNT LEADER 1. No suspicious mammographic or sonographic correlate [...] Maryse Dowling M.D. Narrative 06/10/2021 1:28 PM BUSINESS ACCOUNT LEADER EXAMINATION: BILATERAL DIGITAL DIAGNOSTIC MAMMOGRAM INCLUDING CAD [...] Most Recently Relevant to Health Maintenance Insurance [employer] [facility] HMO/PPO Address: [address] [address] [place] [address] MEDICARE [facility] Address: [address] [address] [place] [address] IDRI [facility] HMO/PPO Address: [address] [address] [place] [address] [facility] HMO/PPO Address: [address] [address] [place] [address] IDPA MEDICARE [facility] Address: [address] [address] [place] [address] [facility] HMO/PPO Address: [address] [address] [place] [address] Advance Directives For more information, please contact: [phone] * Full Code (Latest Code Status on File) Date Activated Date Inactivated Comments 06/08/2024 3:56 AM 06/14/2024 8:35 PM * Full Code Date Activated Date Inactivated Comments 04/05/2024 9:24 PM 04/06/2024 2:12 PM * Full Code Date Activated Date Inactivated Comments 04/05/2024 8:19 PM 04/05/2024 9:24 PM * Full Code Date Activated Date Inactivated Comments 12/24/2021 12:49 PM 12/25/2021 4:30 PM Care Teams Journeyman Painter Relationship Specialty Start Date End Date Christos Coon MD [address] [place] [address] PCP - General 10/31/16 Darío Ceron MD [address] [address] Consulting Physician Neurosurgery 06/14/24 Kali Albright MD [address] [place] [address] Consulting Physician Infectious Diseases 06/14/24
--- OUTSIDE RECORDS SUMMARY | 2024-11-23 08:20 | XMS_ITS | Clinical Summary ---
Author Organization [facility] [facility] [address] [place] [address] Phone Care Team Providers Care Nuclear Control Operator Name Role Phone Unavailable Primary Care Provider [...] 19+ 3-dose series) 05/19 HPV/Cotest (21-29) 1992 CERVICAL CANCER SCREENING 2001 HPV/Cotest (30-65) 2001 PAP SMEAR 2001 BREAST CANCER SCREENING 2011 COLORECTAL SCREENING 2016 Colorectal Cancer Screening 2016 FIT-DNA Q 3 years 2016 FIT/FOBT Q 1 year 2016 Flex Sig/CT Colonography Q 5 years 2016 ZOSTER VACCINE (1 of 2) 2021 INFLUENZA VACCINE (#1) 2024 Insurance [facility] [id number]
--- OUTSIDE RECORDS SUMMARY | 2024-11-23 08:20 | XMS_ITS | Clinical Summary ---
Author Organization [facility] Address [address] [place] [address] Care Team Providers Care Piercing Mill Operator Name Role Phone Christos Coon MD Primary Care Provider [phone] Darío Ceron MD Unavailable [phone] Kali Albright MD Unavailable Allergies Active Allergy [...] materials from doctor or pharmacy Sometimes 07/22/2024 [facility] Utilities Answer Date Recorded In [...] declined 06/08/2024 How often do you attend congregation or [employer]ian serv ices? Patient declined 06/08/2024 Do you belong to any clubs o r organizations such as congregation groups, unions, fraternal or athletic groups, or [...] any time in the past 12 m [facility], were you homeless or living in a half-way (including now)? Patient declined 06/08/2024 Personal Safety Answer Date Recorded Have you ever been in or are you currently in a harmful physical or emotional relationship or is someone making you feel afraid or unsafe? Denies 06/08/2024 Comments No Sex and Gender Information Value Date Recorded Sex Assigned at Not on file Legal Sex Female 12:29 PM DEPUTY [place] Gender Identity Not on file Sexual Orientation Not on file Obstetrics History Last Filed Vital Signs Vital Sign Reading Time Taken Comments Blood Pressure 122/60 07/20/2024 1:00 AM DEPUTY [place] Pulse 60 07/20/2024 1:00 AM DEPUTY [place] Temperature 36.2 C (97.1 F) 07/20/2024 1:00 AM DEPUTY [place] Respiratory Rate 18 07/20/2024 1:00 AM DEPUTY [place] Oxygen Saturation 98% 07/20/2024 1:00 AM DEPUTY [place] Inhaled Oxygen Concentration - - Weight 60.9 kg (134 lb 3.2 oz) 06/08/2024 4:00 A M DEPUTY [place] Height 170.2 cm (5' 7) 06/08/2024 4:00 AM DEPUTY [place] Body Mass Index 21.02 06/08/2024 4:00 AM DEPUTY [place] Plan of Treatment Health Maintenance Due Date [...] Completed 06/12/2024 Medical Devices Implanted Type Area Pool Table Mechanic Device Identifier Shelf Expiration Date Model / Serial / Lot Stuart Spine [place] L22 Mm X W8.5 Mm X H10 Mm Convex Cage Spinal Titanium P Latex Free [id number] - Sn/A - [id number] Implanted:Qty: 1 on 12/24/2021 by Darío Ceron MD at [facility] Cage N/A: Lumbar-Sa cral Spine [place] Spine [id number] 06/03/2026 [id number] 210NC-G2 / N/A / [id number] Stuart Spine [place] L22 Mm X W8.5 Mm X H10 Mm Convex Cage Spinal Titanium P Latex Free [id number] - Sn/A - [id number] Implanted:Qty: 1 on 12/24/2021 by Darío Ceron MD at [facility] Cage N/A: Lumbar-Sa cral Spine [place] Spine [id number] 06/03/2026 [id number] 210NC-G2 / N/A / [id number] Screws,Rods N/A: Spine Lumbar Stuart Spine 4mm 30mm Polyaxial Spine Screw Bone Deformity [id number] - [id number] Implanted:Qty: 2 on 12/24/2021 by Darío Ceron MD at [facility] N/A: Lumbar-Sa cral Spine [place] Spine [id number] 0 / / [place] Spine 4.5mm 30mm Polyaxial Spine Screw Bone Deformity [id number] - [id number] Implanted:Qty: 2 on 12/24/2021 by Darío Ceron MD at [facility] N/A: Lumbar-Sa cral Spine [place] Spine [id number] 0 / / [place] Spine 4.5mm 40mm Contour Praful Spinal Cocr [id number] - [id number] Implanted:Qty: 2 on 12/24/2021 by Darío Ceron MD at [facility] N/A: Lumbar-Sa cral Spine Stuart Spine [id number] 0 / / Stuart Spine 29mm Semiadjustable Transverse Spine Connector Praful Posterior [id number] - [id number] Implanted:Qty: 1 on 12/24/2021 by Darío Ceron MD at [facility] N/A: Lumbar-Sa cral Spine Stuart Spine [id number] [id number] / / Stuart Spine 26mm Semiadjustable Transverse Spine Connector Praful Posterior [id number] - [id number] Implanted:Qty: 1 on 04/05/2024 by Darío Ceron MD at [facility] N/A: Spine Lumbar Stuart Spine [id number] 6A / / [place] Spine 29mm Semiadjustable Transverse Spine Connector Praful Posterior [id number] - [id number] Implanted:Qty: 1 on 04/05/2024 by Darío Ceron MD at [facility] N/A: Spine Lumbar [place] Spine [id number] 9A / / Stuart Spine 4mm 30mm Polyaxial Spine Screw Bone Deformity [id number] - [id number] Implanted:Qty: 2 on 04/05/2024 by Darío Ceron MD at [facility] N/A: Spine Lumbar Stuart Spine [id number] 0 / / [place] Spine 4.5mm 70mm Contour Praful Spinal Cocr [id number] - [id number] Implanted:Qty: 2 on 04/05/2024 by Darío Ceron MD at [facility] N/A: Spine Lumbar Stuart Spine [id number] 0 / / [employer] Cage Spinal Lumbar 10 Degree Tlif Expandable 7-11.5mm Titanium [id number] - [id number] Implanted:Qty: 2 on 04/05/2024 by Darío Ceron MD at [facility] N/A: Spine Lumbar [employer] [id number] / / Biocomposites Stimulan Rapid Cure Kit Paste Child And Youth Program Assistant 5cc 12.5cc Bone Void 620-005 - [id number] Implanted:Qty: 1 on 04/05/2024 by Darío Ceron MD at [facility] N/A: Spine Lumbar [employer] [id number] 12/15/2026 620-005 / / [id number] Procedures Procedure Name Priority Date/Time Associated Diagnosis Comments EGFR STAT 07/20/2024 11:30 AM DEPUTY [place] HEPATITIS PANEL, ACUTE Routine 06/12/2024 7:39 PM DEPUTY [place] HEMOGLOBIN A1C Routine 03/21/2024 10:40 AM DEPUTY [place] Preoperative examination POCT LIPID PANEL Routine 12/09/2021 10:2 7 AM CDT Type 2 diabetes mellitus with hyperglycemia, with long-term current use of insulin (HCC) DIAGNOSTIC MAMMOGRAM BILATERAL W HAI Schedule Routine, Read Routine (OP Routine) 06/10/2021 10:10 AM DEPUTY [place] Breast mass from Last 3 Months or Most Recently Relevant to Health Maintenance Results * eGFR (07/20/2024 11:30 AM DEPUTY [place]) eGFR >90 >=60 mL/min/1. 73 m2 Comment: [...] reviewed 2021. Blood 07/20/2024 11:3 0 AM DEPUTY [place] 07/20/2024 2:25 PM DEPUTY [place] us Kali Albright MD LAB BLOOD ORDERABLES Final Resul t [facility] Department [place] [address] * Hepatitis panel, acute Blood (06/12/2024 7:39 PM DEPUTY [place]) Hep A IgM Nonreactive Nonreactive Comment: Interpretive Data: If Hep A IgM Ab is reported as Equivocal, a new sample should be drawn in two weeks for testing. Current interpretive data was last revised on 19. Hep B core IgM Nonreactive Nonreactive [facility] Comment: Interpretive Data If HepB Core IgM Ab is reported as Equivocal, a new sample should be drawn in two weeks for testing. Current interpretive data was last revised on 19. Hep C Ab Nonreactive Nonreactive [facility] Comment: Interpretive Data Nonreactive: Antibodies to HCV [...] last revised on 2019. HepBsAg Nonreactive Nonreactive [facility] Blood 06/12/2024 7:39 PM DEPUTY [place] 06/12/2024 8:01 PM DEPUTY [place] us Ayan Lucas NP LAB MICROBIOLOGY - GENERAL ALBA LERMA Final Result [facility] [address] [place] [address] * (ABNORMAL) Hemoglobin A1c (03/21/2024 10:40 AM DEPUTY [place]) Hgb A1C 6.4(H) 4.0 - 5.6 % Estimated Average Glucose 137 mg/dL [facility] Comment: The ADA recommends reporting an estimated Average Glucose (eAG) with all Hemoglobin A1c results using the equation derived from a study of 507 normal and diabetic adults. Minority populations were underrepresented and children were not included. (Diabetes Care 31:8770-2673, 2008). The eAG is not equivalent to a fasting glucose. Blood 03/21/2024 10:4 0 AM DEPUTY [place] 03/21/2024 10:40 AM DEPUTY [place] us Brigida Ledesma NP LAB BLOOD ORDERABLES Fin al Result [facility] [address] [place] [address] * (ABNORMAL) POCT lipid panel (12/09/2021 10:27 [...] Mammogram Bilateral W Hai (06/10/2021 10:10 AM DEPUTY [place]) Anatomical Region Laterality Modality Breast Bilateral Mammography 06/10/2021 11:4 8 AM DEPUTY [place] Impressions 06/10/2021 1:28 PM DEPUTY [place] 1. No suspicious mammographic or sonographic correlate [...] Maryse Dowling M.D. Narrative 06/10/2021 1:28 PM DEPUTY [place] EXAMINATION: BILATERAL DIGITAL DIAGNOSTIC MAMMOGRAM INCLUDING CAD [...] Recently Relevant to Health Maintenance Insurance IDPA [facility] CHOICE PLUS MEDICARE IDPA [facility] CHOICE PLUS [facility] CHOICE PLUS IDPA MEDICARE [facility] CHOICE PLUS Advance Directives For more information, please contact: [phone] * Full Code (Latest Code Status on File) Date Activated Date Inactivated Comments 06/08/2024 3:56 AM 06/14/2024 8:35 PM * Full Code Date Activated Date Inactivated Comments 04/05/2024 9:24 PM 04/06/2024 2:12 PM * Full Code Date Activated Date Inactivated Comments 04/05/2024 8:19 PM 04/05/2024 9:24 PM * Full Code Date Activated Date Inactivated Comments 12/24/2021 12:49 PM 12/25/2021 4:30 PM Care Teams Piercing Mill Operator Relationship Specialty Start Date End Date Christos Coon MD [address] [place] [address] PCP - General 10/31/16 Darío Ceron MD [id number] [place] [address] Consulting Physician Neurosurgery 06/14/24 Kali Albright MD [id number] [place] [address] Consulting Physician Infectious Diseases 06/14/24
--- OUTSIDE RECORDS SUMMARY | 2024-11-23 08:21 | XMS_ITS | Clinical Summary ---
Author Organization [facility] Address [address] [place] [address] Phone Care Team Providers Care Gas Flow Regulator Name Role Phone Christos Coon MD Primary Care Provider [phone] Medications ALPRAZolam (XANAX) 0.25 MG Tablet Take 0.25 mg by mouth. Active ezetimibe (ZETIA) 10 MG Tablet Take 1 Tablet by mouth daily. 5 Active ondansetron (ZOFRAN-ODT) 4 MG TABLET DISPERSIBLE DISSOLVE 1 TABLET ON THE TONGUE EVERY 12 HOURS NEEDED FOR NAUSEA 5 Active Ozempic, 2 MG/DOSE, 8 MG/3ML Solution Pen-injector ADMINISTER 2 MG UNDER THE SKIN WEEKLY 5 Active Insulin Aspart FlexPen 100 UNIT/ML Solution Pen-injector ADMINISTER 6 UNITS UNDER THE SKIN THREE TIMES DAILY 5 Active Doxycycline Monohydrate 100 MG Capsule Take 1 Capsule by mouth 2 times daily. 5 Active DULoxetine (CYMBALTA) [address] Particles Take 60 mg by mouth daily. 5 Active lisinopril (PRINIVIL, ZESTRIL) 5 MG Tablet Take 5 mg by mouth daily. 5 Active pregabalin (LYRICA) 25 MG Capsule take 1 capsule by mouth four times daily 5 Active Social History Tobacco Use Types Packs/Day Years Used Date Smoking Tobacco: Some Days Cigarettes Smokeless Tobacco: Never Tobacco Cessation:Ready to Q uit: Not Asked; Counseling Given: Not Answered Alcohol Use Standard Drinks/Week Comments Not Currently 0 (1 standard drink = 0.6 oz pur e alcohol) Comments Unknown Sex and Gender Information Value Date Recorded Sex Assigned at Not on file Legal Sex Female 12:38 PM PATIENT RELATIONS SPECIALIST Gender Identity Not on file Sexual Orientation Not on file Plan of Treatment Upcoming Encounters Date Type Department Care Team ([facility] st Contact Info) Description 03/20/2025 9:15 AM PATIENT RELATIONS SPECIALIST Office Visit [facility] - Neurology [facility] [address] [place] [address] Tigre Figueroa MD [address] [place] [address] Health Maintenance Due Date Last Done Comments Hepatitis C Virus (HCV) Screening 1970 Mammogram 1971 Pneumococcal Immunization (50+ years) (1 of 2 - PCV) 1990 Pap Smear 1992 Cervical Cancer Screening (CCS) 2001 HPV/Cotest 2001 Cologuard 2016 Colonoscopy 2016 Colorectal Cancer Screening 2016 Immunochemical Fecal Occult Blood 2016 Zoster Immunization (1 of 2) 2021 Hepatitis B Immunization (3 of 3 - 19+ 3-dose series) 11/17/2021 06/21/2021, 05/20/2021 SARS-COV-2 Immunization ( season) 2024 06/01/2022, 11/25/2021, 02/19/2021, Additional history exists Influenza Immunization (#1) 01/16/202502/16, 06/05/2022, 02/14/2021, Additional history exists Respiratory Syncytial Virus (RSV) Immunization (Adult) (1 - 1-dose 75+ series) 2046 DTaP/Tdap/Td Immunization Discontinued 05/07/2021 TdaP Immunization Completed 05/07/2021 Human Papillomavirus (HPV) Immunization Aged Out No longer eligible based on patient's age to complete this topic Meningococcal Immunization (ACWY) Aged Out No longer eligible based on patient's age to complete this topic Rotavirus Immunization Aged Out No lo nger eligible based on patient's age to complete this topic Insurance on file MEDICARE [place] Care Teams Gas Flow Regulator Relationship Specialty Start Date End Date Christos Coon MD [address] [place] [id number] PCP - General Family Medicine 11/10/24
[2024-11-23 09:15] LABS: Alanine Aminotransferase 19 U/L (6-35); Albumin Level 4.4 g/dL (3.5-5.1); Alkaline Phosphatase 51 U/L (38-126); Anion Gap 4 mmol/L (4-12); Aspartate Amino Transferase 26 U/L (14-36); Bilirubin,Total 0.5 mg/dL (0.2-1.3); Blood Urea Nitrogen 16 mg/dL (7-17); Calcium 9.5 mg/dL (8.4-10.2); Carbon Dioxide 29 mmol/L (22-30); Chloride 109 mmol/L (98-107); Cholesterol 164 mg/dL (0-200); Estimated Glomerular Filt Rate > 60; Glucose 114 mg/dL (65-110); HDL Direct 48 mg/dL; Osmolality Calculated 296 mOsm/kg (285-295); Potassium 4.8 mmol/L (3.4-5.0); Sodium 142 mmol/L (137-145); Total Protein 7.3 g/dL (6.3-8.2); Triglycerides 123 mg/dL (<150)
[2024-11-23 09:19] LABS: Hemoglobin A1C 6.3 % (<5.7); MALB Creatinine Ratio 11.8 mg/g (0-30)
== END 2024-11-23 08:17 | disposition home or self-care (01) ==
LOC: CHSLAB 08:18
PROVIDERS: PCP Family Medicine; Visit Provider Family Medicine
DX: E11.65 Type 2 diabetes mellitus with hyperglycemia (principal); Z79.4 Long term (current) use of insulin; E78.2 Mixed hyperlipidemia; M47.26 Other spondylosis with radiculopathy, lumbar region
CPT/HCPCS: 36415; 72110; 80053; 80061; 82043; 83036

== ENCOUNTER 2024-12-05 08:43 | Outpatient (CLI) | payer OTHER, MEDICARE, MEDICAID, SELFPAY ==
--- NOTE | 2024-12-05 08:48 | EST_ITS ---
Patient Info Name: Kateryna Overton Age: 54 years : 1970 Gender: Female Ht: 67 in Wt: 151 lbs BSA: 1.81 m2 HR: 65 bpm BP: 127 / 78 mmHg Heart Rhythm: Sinus Rhythm Technical Quality: Good Exam Date: 12/05/2024 8:48 AM Patient Status: O Admit Date: 12/05/2024 Exam Type: CA stress mehdi w NM A regadenoson stress test was performed. Staff Referring Physician: Christos Coon MD Attending Provider: Christos Coon MD Summary 1. 1. Negative lexiscan stress test for ischemic ST changes by ECG criteria. 2. 2. Stable hemodynamics throughout the test. 3. 3. Nuclear scan to follow and will be reported separately. Please correlate with it. History/Risk Factors Hypertension: Yes Dyslipidemia: Yes Diabetes Mellitus: Type II Protocol: LEXISCAN Stress ECG Details Stage: REST Duration (min): 4 min : 25 sec HR (bpm): 65 SBP (mmHg): 127 DBP (mmHg): 78 Stage: REST Duration (min): 4 min : 46 sec HR (bpm): 76 SBP (mmHg): 127 DBP (mmHg): 78 Stage: REST Duration (min): 6 min : 15 sec HR (bpm): 73 SBP (mmHg): 127 DBP (mmHg): 78 Stage: STAGE 1 Duration (min): 0 min : 22 sec HR (bpm): 68 SBP (mmHg): 127 DBP (mmHg): 78 Stage: RECOVERY Duration (min): 0 min : 37 sec HR (bpm): 102 SBP (mmHg): 127 DBP (mmHg): 78 Stage: RECOVERY Duration (min): 1 min : 37 sec HR (bpm): 102 SBP (mmHg): 127 DBP (mmHg): 78 Stage: RECOVERY Duration (min): 2 min : 37 sec HR (bpm): 98 SBP (mmHg): 137 DBP (mmHg): 79 Stage: RECOVERY Duration (min): 3 min : 37 sec HR (bpm): 89 SBP (mmHg): 120 DBP (mmHg): 80 Stage: RECOVERY Duration (min): 4 min : 37 sec HR (bpm): 90 SBP (mmHg): 116 DBP (mmHg): 78 Stage: RECOVERY Duration (min): 5 min : 37 sec HR (bpm): 91 SBP (mmHg): 110 DBP (mmHg): 80 Stage: RECOVERY Duration (min): 6 min : 33 sec HR (bpm): 89 SBP (mmHg): 111 DBP (mmHg): 80 Rest HR: 73 bpm Peak HR: 105 bpm Rest Sys BP: 127 mmHg Peak Sys BP: 137 mmHg Max Pred HR: 167 bpm % Max Pred HR: 63 % Target HR: 142 bpm Max RPP: 14,385 bpm*mmHg BP Response: Normal blood pressure response Termination Reason: Completed Protocol Cardiac Symptoms: None Total Time: 0 min : 22 sec Rest Aguilera BP: 78 mmHg Peak Aguilera BP: 79 mmHg Total Dose: 0.4 mg Resting ECG Normal sinus rhythm, delayed precordial R/S transition, low voltage in precordial leads. Stress ECG No abnormal ST/T wave changes. Arrhythmias None. Report Signatures
--- OUTSIDE RECORDS SUMMARY | 2024-12-05 08:49 | XMS_ITS | Clinical Summary ---
Author Organization [facility] Address [address] [place] [address] Care Team Providers Care Customer Complaint Service Supervisor Name Role Phone Christos Coon MD Primary Care Provider [phone] Allergies Active Allergy Reactions Criticality Noted Date [...] on file Legal Sex Female 5:47 PM BATTERY ASSEMBLER Gender Identity Not on file Sexual Orientation Not on file Last Filed Vital Signs Vital Sign Reading Time Taken Comments Blood Pressure 136/85 05/11/2020 11:20 PM BATTERY ASSEMBLER Pulse 85 05/11/2020 11:20 PM BATTERY ASSEMBLER Temperature 36.8 C (98.2 F) 05/11/2020 11:20 PM BATTERY ASSEMBLER Respiratory Rate 20 05/11/2020 11:20 PM BATTERY ASSEMBLER Oxygen Saturation 99% 05/11/2020 11:20 PM BATTERY ASSEMBLER Inhaled Oxygen Concentration - - Weight 76.7 kg (169 lb) 05/11/2020 11:20 PM BATTERY ASSEMBLER Height 170.2 cm (5' 7) 05/11/2020 11:20 PM BATTERY ASSEMBLER Body Mass Index 26.47 05/11/2020 11:20 PM BATTERY ASSEMBLER Plan of Treatment Health Maintenance Due Date Last Done Comments Cervical Cancer Screening Pa p Smear (Age 30 to 64) Every 3 Years 1971 Colorectal Cancer Screening Colonoscopy (10 Years) 1971 Annual Physical 1974 Hepatitis C 1989 DTaP, Tdap and Td Vaccines ( 1 - Tdap) 1990 Hepatitis B Vaccines (1 of 3 - 19+ 3-dose series) 1990 Pneumococcal Vaccine: 50+ Ye ars (1 of 2 - PCV) 1990 Cervical Cancer Screening Pa p with HPV Testing (Age 30 to 64) Every 5 Years 2001 Cervical Cancer Screening with HPV 2001 Mammogram Screening 2011 Zoster Vaccines (1 of 2) 2021 COVID-19 Vaccine (2023-2 5 season) 2024 Meningococcal B Vaccine Aged Out No l onger eligible based on patient's age to complete this topic Meningococcal Vaccine Aged Out No kusum david eligible based on patient's age to complete this topic RSV Immunizations Under 20 Months Aged Out No longer eligible based on patient's age to complete this topic Insurance [facility] MEDICAID Care Teams Customer Complaint Service Supervisor Relationship Specialty Start Date End Date Christos Coon MD [address] [place] [id number] PCP - General FAMILY PRACTICE 05/11/20
--- OUTSIDE RECORDS SUMMARY | 2024-12-05 08:49 | XMS_ITS | Clinical Summary ---
Author Organization [address] Address [address] [facility] [address] [place] [address] Phone Care Team Providers Care Marina Manager Name Role Phone Unavailable Primary Care Provider [...] 2) 2021 INFLUENZA VACCINE (#1) [address] [facility] [id number] [facility] Address: [facility] [id number] [place] [address]
--- OUTSIDE RECORDS SUMMARY | 2024-12-05 08:49 | XMS_ITS | Clinical Summary ---
Author Organization [facility] Address [address] [place] [address] Phone Care Team Providers Care Ship Design Teacher Name Role Phone Christos Coon MD Primary Care Provider [phone] Allergies Active Allergy Reactions Criticality Noted Date Comments Nitrofurantoin Unknown 11/24/2024 Wound Dressing Adhesive Rash 11/24/2024 Penicillins Itching 11/24/2024 Medications ALPRAZolam (XANAX) 0.25 MG Tablet Take [...] on file Legal Sex Female 12:38 PM PROJECT SCIENTIST Gender Identity Not on file Sexual Orientation Not on file Plan of Treatment Upcoming Encounters Date Type Department Care Team (Late st Contact Info) Description 03/20/2025 9:15 AM PROJECT SCIENTIST [facility] [address] [place] [address] Tigre Figueroa MD [address] [place] [address] Health Maintenance Due Date Last Done Comments [...] patient's age to complete this topic [place] [address] [address] on file MEDICARE [place] Care Teams Ship Design Teacher Relationship Specialty Start Date End Date Christos Coon MD [address] [place] [id number] PCP - General Family Medicine 11/10/24
--- OUTSIDE RECORDS SUMMARY | 2024-12-05 08:49 | XMS_ITS | Referral Summary ---
Author Organization [facility] Address [address] [place] [address] Care Team Providers Care Librarian Helper Name Role Phone Christos Coon MD Primary Care Provider [phone] Darío Ceron MD Unavailable [phone] Kali Albright MD Unavailable Allergies Active Allergy [...] materials from doctor or pharmacy Sometimes 07/22/2024 [facility] Utilities Answer Date Recorded In the [...] declined 06/08/2024 How often do you attend gnosticist or orthodoxy serv ices? Patient declined 06/08/2024 Do you belong to any clubs o r organizations such as gnosticist groups, unions, fraternal or athletic groups, or [...] time in the past 12 m [facility], were you homeless or living in a penitentiary (including now)? Patient declined 06/08/2024 Personal Safety Answer Date Recorded Have you ever been in or are you currently in a harmful physical or emotional relationship or is someone making you feel afraid or unsafe? Denies 06/08/2024 Comments No Sex and Gender Information Value Date Recorded Sex Assigned at Not on file Legal Sex Female 12:29 PM WILDLIFE ECOLOGY PROFESSOR Gender Identity Not on file Sexual Orientation Not on file Last Filed Vital Signs Vital Sign Reading Time Taken Comments Blood Pressure 122/60 07/20/2024 1:00 AM WILDLIFE ECOLOGY PROFESSOR Pulse 60 07/20/2024 1:00 AM WILDLIFE ECOLOGY PROFESSOR Temperature 36.2 C (97.1 F) 07/20/2024 1:00 AM WILDLIFE ECOLOGY PROFESSOR Respiratory Rate 18 07/20/2024 1:00 AM WILDLIFE ECOLOGY PROFESSOR Oxygen Saturation 98% 07/20/2024 1:00 AM WILDLIFE ECOLOGY PROFESSOR Inhaled Oxygen Concentration - - Weight 60.9 kg (134 lb 3.2 oz) 06/08/2024 4:00 A M WILDLIFE ECOLOGY PROFESSOR Height 170.2 cm (5' 7) 06/08/2024 4:00 AM WILDLIFE ECOLOGY PROFESSOR Body Mass Index 21.02 06/08/2024 4:00 AM WILDLIFE ECOLOGY PROFESSOR Plan of Treatment Not on file Medical Devices Implanted Type Area Precision Crop Manager Device Identifier Shelf Expiration Date Model / Serial / Lot Stuart Spine [place] L22 Mm X W8.5 Mm X H10 Mm Convex Cage Spinal Titanium P Latex Free [id number] - Sn/A - [id number] Implanted:Qty: 1 on 12/24/2021 by Darío Ceron MD at [facility] Cage N/A: Lumbar-Sa cral Spine Stuart Spine [id number] 06/03/2026 9112-3001 210NC-G2 / N/A / [id number] 11 Stuart Spine [place] L22 Mm X W8.5 Mm X H10 Mm Convex Cage Spinal Titanium P Latex Free [id number] - Sn/A - [id number] Implanted:Qty: 1 on 12/24/2021 by Darío Ceron MD at [facility] Cage N/A: Lumbar-Sa cral Spine Cum[place] Spine [id number] 06/03/2026 3254-1108 210NC-G2 / N/A / [id number] 11 Screws,Rods N/A: Spine Lumbar [place] Spine 4mm 30mm Polyaxial Spine Screw Bone Deformity [id number] - [id number] Implanted:Qty: 2 on 12/24/2021 by Darío Ceron MD at [facility] N/A: Lumbar-Sa cral Spine Stuart Spine 9089-4004 0 / / Stuart Spine 4.5mm 30mm Polyaxial Spine Screw Bone Deformity [id number] - [id number] Implanted:Qty: 2 on 12/24/2021 by Darío Ceron MD at [facility] N/A: Lumbar-Sa cral Spine Stuart Spine 0850-1096 0 / / Stuart Spine 4.5mm 40mm Contour Praful Spinal Cocr [id number] - [id number] Implanted:Qty: 2 on 12/24/2021 by Darío Ceron MD at [facility] N/A: Lumbar-Sa cral Spine Stuart Spine [id number] 0 / / Cumby Spine 29mm Semiadjustable Transverse Spine Connector Praful Posterior [id number] - [id number] Implanted:Qty: 1 on 12/24/2021 by Darío Ceron MD at [facility] N/A: Lumbar-Sa cral Spine Cumby Spine [id number] 9A / / Cumby Spine 26mm Semiadjustable Transverse Spine Connector Praful Posterior 3001-37875c - [id number] Implanted:Qty: 1 on 04/05/2024 by Darío Ceron MD at [facility] N/A: Spine Lumbar Cumby Spine 1695-0104 6A / / Cumby Spine 29mm Semiadjustable Transverse Spine Connector Praful Posterior 3001-31264c - [id number] Implanted:Qty: 1 on 04/05/2024 by Darío Ceron MD at [facility] N/A: Spine Lumbar Cumby Spine [id number] 9A / / Cumby Spine 4mm 30mm Polyaxial Spine Screw Bone Deformity 3001-58828 - [id number] Implanted:Qty: 2 on 04/05/2024 by Darío Ceron MD at [facility] N/A: Spine Lumbar Stuart Spine 1263-3268 0 / / Stuart Spine 4.5mm 70mm Contour Praful Spinal Cocr [id number] - [id number] Implanted:Qty: 2 on 04/05/2024 by Darío Ceron MD at [facility] N/A: Spine Lumbar Stuart Spine 2458-1891 0 / / [employer] Cage Spinal Lumbar 10 Degree Tlif Expandable 7-11.5mm Titanium [id number] - [id number] Implanted:Qty: 2 on 04/05/2024 by Darío Ceron MD at [facility] N/A: Spine Lumbar [employer] 360-[id number] 10 / / Biocomposites Stimulan Rapid Cure Kit Paste Stocking And Box Shop Supervisor 5cc 12.5cc Bone Void 620-005 - [id number] Implanted:Qty: 1 on 04/05/2024 by Darío Ceron MD at [facility] N/A: Spine Lumbar Biocomposites [id number] 12/15/2026 620-005 / / [id number] Procedures Procedure Name Priority Date/Time Associated Diagnosis Comments EGFR STAT 07/20/2024 11:30 AM WILDLIFE ECOLOGY PROFESSOR HEPATITIS PANEL, ACUTE Routine 06/12/2024 7:39 PM WILDLIFE ECOLOGY PROFESSOR HEMOGLOBIN A1C Routine 03/21/2024 10:40 AM WILDLIFE ECOLOGY PROFESSOR Preoperative examination POCT LIPID PANEL Routine 12/09/2021 10:2 7 AM CDT Type 2 diabetes mellitus with hyperglycemia, with long-term current use of insulin (HCC) DIAGNOSTIC MAMMOGRAM BILATERAL W HAI Schedule Routine, Read Routine (OP Routine) 06/10/2021 10:10 AM WILDLIFE ECOLOGY PROFESSOR Breast mass from Last 3 Months or Most Recently Relevant to Health Maintenance Results * eGFR (07/20/2024 11:30 AM WILDLIFE ECOLOGY PROFESSOR) eGFR >90 >=60 mL/min/1. 73 m2 Comment: [...] reviewed 2021. Blood 07/20/2024 11:3 0 AM WILDLIFE ECOLOGY PROFESSOR 07/20/2024 2:25 PM WILDLIFE ECOLOGY PROFESSOR us Kali Albright MD LAB BLOOD ORDERABLES Final Resul t [facility] Department [place] [address] * Hepatitis panel, acute Blood (06/12/2024 7:39 PM WILDLIFE ECOLOGY PROFESSOR) Hep A IgM Nonreactive Nonreactive Comment: Interpretive Data: If Hep A IgM Ab is reported as Equivocal, a new sample should be drawn in two weeks for testing. Current interpretive data was last revised on 19. Hep B core IgM Nonreactive Nonreactive [facility] Comment: Interpretive Data If HepB Core IgM Ab is reported as Equivocal, a new sample should be drawn in two weeks for testing. Current interpretive data was last revised on 19. Hep C Ab Nonreactive Nonreactive [facility]3] Comment: Interpretive Data Nonreactive: Antibodies to HCV [...] last revised on 2019. HepBsAg Nonreactive Nonreactive [facility]3] Blood 06/12/2024 7:39 PM WILDLIFE ECOLOGY PROFESSOR 06/12/2024 8:01 PM WILDLIFE ECOLOGY PROFESSOR Ayan Lucas NP LAB MICROBIOLOGY - [facility] ALBA LERMA Final Result [facility]3] [address] Department [place] [address] * (ABNORMAL) Hemoglobin A1c (03/21/2024 10:40 AM WILDLIFE ECOLOGY PROFESSOR) Hgb A1C 6.4(H) 4.0 - 5.6 % Estimated Average Glucose 137 mg/dL [facility]3] Comment: The ADA recommends reporting an estimated Average Glucose (eAG) with all Hemoglobin A1c results using the equation derived from a study of 507 normal and diabetic adults. Minority populations were underrepresented and children were not included. (Diabetes Care 31:6915-5281, 2008). The eAG is not equivalent to a fasting glucose. Blood 03/21/2024 10:4 0 AM WILDLIFE ECOLOGY PROFESSOR 03/21/2024 10:40 AM WILDLIFE ECOLOGY PROFESSOR us Brigida Ledesma NP LAB BLOOD ORDERABLES Fin al Result [facility] [address] Department [place] [address] * (ABNORMAL) POCT lipid panel (12/09/2021 10:27 [...] Mammogram Bilateral W Hai (06/10/2021 10:10 AM WILDLIFE ECOLOGY PROFESSOR) Anatomical Region Laterality Modality Breast Bilateral Mammography 06/10/2021 11:4 8 AM WILDLIFE ECOLOGY PROFESSOR Impressions 06/10/2021 1:28 PM WILDLIFE ECOLOGY PROFESSOR 1. No suspicious mammographic or sonographic correlate [...] Maryse Dowling M.D. Narrative 06/10/2021 1:28 PM WILDLIFE ECOLOGY PROFESSOR EXAMINATION: BILATERAL DIGITAL DIAGNOSTIC MAMMOGRAM INCLUDING CAD [...] Most Recently Relevant to Health Maintenance Insurance [facility] CHOICE PLUS MEDICARE [facility] CHOICE PLUS [facility] CHOICE PLUS IDPA MEDICARE [facility] CHOICE PLUS Advance Directives For more information, please contact: [phone] * Full Code (Latest Code Status on File) Date Activated Date Inactivated Comments 06/08/2024 3:56 AM 06/14/2024 8:35 PM * Full Code Date Activated Date Inactivated Comments 04/05/2024 9:24 PM 04/06/2024 2:12 PM * Full Code Date Activated Date Inactivated Comments 04/05/2024 8:19 PM 04/05/2024 9:24 PM * Full Code Date Activated Date Inactivated Comments 12/24/2021 12:49 PM 12/25/2021 4:30 PM Care Teams Librarian Helper Relationship Specialty Start Date End Date Christos Coon MD [address] [place] [address] PCP - General 10/31/16 Darío Ceron MD [address] [address] Consulting Physician Neurosurgery 06/14/24 Kali Albright MD [address] [place] [address] Consulting Physician Infectious Diseases 06/14/24
--- OUTSIDE RECORDS SUMMARY | 2024-12-05 08:49 | XMS_ITS | Patient Health Record ---
Author Organization [facility] Address [address] [place] [address] Care Team Providers Care Museum Informatics Specialist Name Role Phone Frankie Hall Unavailable [phone] Reason For Referral No Information Medications Medication SIG (Take, Route, Frequency, Duration) Notes Start Date End Date Status Sertraline HCl 50 MG Oral Active VICTOZA 0.6 MG/0.1 ML (18 MG/3 ML) SUBCUTANEOUS PEN INJECTOR *Reorder from [employer] for eRx and Interaction Alerts* Active Vyvanse 50 MG Oral Active Vyvanse 30 MG Oral Active Prazosin HCl 1 MG Oral Ac tive traZODone HCl 50 MG Oral Active metFORMIN HCl 1000 MG Oral Active Sulfamethoxazole-Trim ethoprim 800-160 MG Oral Active Plan Of Treatment No Information
--- OUTSIDE RECORDS SUMMARY | 2024-12-05 08:49 | XMS_ITS | Clinical Summary ---
Author Organization [facility] Address [address] [place] [address] Care Team Providers Care Firestop/Containment Worker Name Role Phone Christos Coon MD Primary Care Provider [phone] Darío Ceron MD Unavailable [phone] Kali Albright MD Unavailable Allergies Active Allergy [...] materials from doctor or pharmacy Sometimes 07/22/2024 [facility] Utilities Answer Date Recorded In the [...] declined 06/08/2024 How often do you attend adventism or mandaeism serv ices? Patient declined 06/08/2024 Do you belong to any clubs o r organizations such as adventism groups, unions, fraternal or athletic groups, or [...] in the past 12 m [facility], were you homeless or living in a senior living (including now)? Patient declined 06/08/2024 Personal Safety Answer Date Recorded Have you ever been in or are you currently in a harmful physical or emotional relationship or is someone making you feel afraid or unsafe? Denies 06/08/2024 Comments No Sex and Gender Information Value Date Recorded Sex Assigned at Not on file Legal Sex Female 12:29 PM COOK ICE CREAM Gender Identity Not on file Sexual Orientation Not on file Obstetrics History Last Filed Vital Signs Vital Sign Reading Time Taken Comments Blood Pressure 122/60 07/20/2024 1:00 AM COOK ICE CREAM Pulse 60 07/20/2024 1:00 AM COOK ICE CREAM Temperature 36.2 C (97.1 F) 07/20/2024 1:00 AM COOK ICE CREAM Respiratory Rate 18 07/20/2024 1:00 AM COOK ICE CREAM Oxygen Saturation 98% 07/20/2024 1:00 AM COOK ICE CREAM Inhaled Oxygen Concentration - - Weight 60.9 kg (134 lb 3.2 oz) 06/08/2024 4:00 A M COOK ICE CREAM Height 170.2 cm (5' 7) 06/08/2024 4:00 AM COOK ICE CREAM Body Mass Index 21.02 06/08/2024 4:00 AM COOK ICE CREAM Plan of Treatment Health Maintenance Due Date [...] Completed 06/12/2024 Medical Devices Implanted Type Area Property Master Device Identifier Shelf Expiration Date Model / Serial / Lot [place] Spine Stout L22 Mm X W8.5 Mm X H10 Mm Convex Cage Spinal Titanium P Latex Free [id number] - Sn/A - [id number] Implanted:Qty: 1 on 12/24/2021 by Darío Ceron MD at [facility] Cage N/A: Lumbar-Sa cral Spine Stuart Spine [id number] 06/03/2026 6057-3863 210NC-G2 / N/A / [id number] Stuart Spine Stout L22 Mm X W8.5 Mm X H10 Mm Convex Cage Spinal Titanium P Latex Free [id number] - Sn/A - [id number] Implanted:Qty: 1 on 12/24/2021 by Darío Ceron MD at [facility] Cage N/A: Lumbar-Sa cral Spine [place] Spine [id number] 06/03/2026 9522-5421 210NC-G2 / N/A / [id number] 11 Screws,Rods N/A: Spine Lumbar [place] Spine 4mm 30mm Polyaxial Spine Screw Bone Deformity 3001-46985 - [id number] Implanted:Qty: 2 on 12/24/2021 by Darío Ceron MD at [facility] N/A: Lumbar-Sa cral Spine [place] Spine 9950-3541 0 / / Stuart Spine 4.5mm 30mm Polyaxial Spine Screw Bone Deformity [id number] - [id number] Implanted:Qty: 2 on 12/24/2021 by Darío Ceron MD at [facility] N/A: Lumbar-Sa cral Spine [place] Spine 2353-1143 0 / / [place] Spine 4.5mm 40mm Contour Praful Spinal Cocr 3011-20910 - [id number] Implanted:Qty: 2 on 12/24/2021 by Darío Ceron MD at [facility] N/A: Lumbar-Sa cral Spine [place] Spine 2664-9107 0 / / [place] Spine 29mm Semiadjustable Transverse Spine Connector Praful Posterior 3001-31881d - [id number] Implanted:Qty: 1 on 12/24/2021 by Darío Ceron MD at [facility] N/A: Lumbar-Sa cral Spine [place] Spine 5040-4897 9A / / [place] Spine 26mm Semiadjustable Transverse Spine Connector Praful Posterior 3001-76020r - [id number] Implanted:Qty: 1 on 04/05/2024 by Darío Ceron MD at [facility] N/A: Spine Lumbar [place] Spine 9270-5476 6A / / [place] Spine 29mm Semiadjustable Transverse Spine Connector Praful Posterior [id number] - [id number] Implanted:Qty: 1 on 04/05/2024 by Darío Ceron MD at [facility] N/A: Spine Lumbar [place] Spine 8151-4158 9A / / Stuart Spine 4mm 30mm Polyaxial Spine Screw Bone Deformity 3001-00340 - [id number] Implanted:Qty: 2 on 04/05/2024 by Darío Ceron MD at [facility] N/A: Spine Lumbar Stuart Spine 3416-9531 0 / / Stuart Spine 4.5mm 70mm Contour Praful Spinal Cocr 3011-19199 - [id number] Implanted:Qty: 2 on 04/05/2024 by Darío Ceron MD at [facility] N/A: Spine Lumbar Stuart Spine 1493-1378 0 / / Zavation [employer] Cage Spinal Lumbar 10 Degree Tlif Expandable 7-11.5mm Titanium [id number] - [id number] Implanted:Qty: 2 on 04/05/2024 by Darío Ceron MD at [facility] N/A: Spine Lumbar [employer]ation Llc 360-S0923 10 / / Biocomposites Stimulan Rapid Cure Kit Paste Licensed Loan Officer 5cc 12.5cc Bone Void 620-005 - [id number] Implanted:Qty: 1 on 04/05/2024 by Darío Ceron MD at [facility] N/A: Spine Lumbar Biocomposites [id number] 12/15/2026 620-005 / / [id number] Procedures Procedure Name Priority Date/Time Associated Diagnosis Comments EGFR STAT 07/20/2024 11:30 AM COOK ICE CREAM HEPATITIS PANEL, ACUTE Routine 06/12/2024 7:39 PM COOK ICE CREAM HEMOGLOBIN A1C Routine 03/21/2024 10:40 AM COOK ICE CREAM Preoperative examination POCT LIPID PANEL Routine 12/09/2021 10:2 7 AM CDT Type 2 diabetes mellitus with hyperglycemia, with long-term current use of insulin (HCC) DIAGNOSTIC MAMMOGRAM BILATERAL W HAI Schedule Routine, Read Routine (OP Routine) 06/10/2021 10:10 AM COOK ICE CREAM Breast mass from Last 3 Months or Most Recently Relevant to Health Maintenance Results * eGFR (07/20/2024 11:30 AM COOK ICE CREAM) eGFR >90 >=60 mL/min/1. 73 m2 Comment: [...] reviewed 2021. Blood 07/20/2024 11:3 0 AM COOK ICE CREAM 07/20/2024 2:25 PM COOK ICE CREAM us Kali Albright MD LAB BLOOD ORDERABLES Final Resul t [facility] [place] [address] * Hepatitis panel, acute Blood (06/12/2024 7:39 PM COOK ICE CREAM) Hep A IgM Nonreactive Nonreactive Comment: Interpretive Data: If Hep A IgM Ab is reported as Equivocal, a new sample should be drawn in two weeks for testing. Current interpretive data was last revised on 19. Hep B core IgM Nonreactive Nonreactive [facility] Comment: Interpretive Data If HepB Core IgM Ab is reported as Equivocal, a new sample should be drawn in two weeks for testing. Current interpretive data was last revised on 19. Hep C Ab Nonreactive Nonreactive [facility] Comment: Interpretive Data Nonreactive: Antibodies to HCV [...] last revised on 2019. HepBsAg Nonreactive Nonreactive [facility] Blood 06/12/2024 7:39 PM COOK ICE CREAM 06/12/2024 8:01 PM COOK ICE CREAM us Ayan Lucas NP LAB MICROBIOLOGY - GENERAL ALBA LERMA Final Result [facility] [address] [place] [address] * (ABNORMAL) Hemoglobin A1c (03/21/2024 10:40 AM COOK ICE CREAM) Hgb A1C 6.4(H) 4.0 - 5.6 % Estimated Average Glucose 137 mg/dL [facility] Comment: The ADA recommends reporting an estimated Average Glucose (eAG) with all Hemoglobin A1c results using the equation derived from a study of 507 normal and diabetic adults. Minority populations were underrepresented and children were not included. (Diabetes Care 31:7807-7547, 2008). The eAG is not equivalent to a fasting glucose. Blood 03/21/2024 10:4 0 AM COOK ICE CREAM 03/21/2024 10:40 AM COOK ICE CREAM us Brigida Ledesma NP LAB BLOOD ORDERABLES Fin al Result [facility] [address] [place] [address] * (ABNORMAL) POCT lipid panel (12/09/2021 10:27 [...] Mammogram Bilateral W Hai (06/10/2021 10:10 AM COOK ICE CREAM) Anatomical Region Laterality Modality Breast Bilateral Mammography 06/10/2021 11:4 8 AM COOK ICE CREAM Impressions 06/10/2021 1:28 PM COOK ICE CREAM 1. No suspicious mammographic or sonographic correlate [...] Maryse Dowling M.D. Narrative 06/10/2021 1:28 PM COOK ICE CREAM EXAMINATION: BILATERAL DIGITAL DIAGNOSTIC MAMMOGRAM INCLUDING CAD [...] Recently Relevant to Health Maintenance Insurance [facility] CHOICE PLUS MEDICARE [facility]PA [facility] CHOICE PLUS [facility] CHOICE PLUS IDPA MEDICARE [facility] CHOICE PLUS Advance Directives For more information, please contact: [phone] * Full Code (Latest Code Status on File) Date Activated Date Inactivated Comments 06/08/2024 3:56 AM 06/14/2024 8:35 PM * Full Code Date Activated Date Inactivated Comments 04/05/2024 9:24 PM 04/06/2024 2:12 PM * Full Code Date Activated Date Inactivated Comments 04/05/2024 8:19 PM 04/05/2024 9:24 PM * Full Code Date Activated Date Inactivated Comments 12/24/2021 12:49 PM 12/25/2021 4:30 PM Care Teams Firestop/Containment Worker Relationship Specialty Start Date End Date Christos Coon MD [address] [place] [address] PCP - General 10/31/16 Darío Ceron MD [address] [place] [address] Consulting Physician Neurosurgery 06/14/24 aKli Albright MD [address] [place] [address] Consulting Physician Infectious Diseases 06/14/24
--- OUTSIDE RECORDS SUMMARY | 2024-12-05 08:49 | XMS_ITS | Clinical Summary ---
Author Organization [facility] [employer] Address [address] [facility] [place] [address] Care Team Providers Care Health Advisor Name Role Phone Christos Coon MD Primary Care Provider [phone] Source Comments [facility] [employer],non-owned Affiliates and Associated Physician Practices is amultiple site organization consisting of ambulatory clinics and hospital sitesin [place], [place], [place] and [place]. This disclosure is being madepursuant to the Care Everywhere program and may not contain all information available regarding this patient. Last updated 18.[facility] [employer] Allergies No known active allergies Medications * [...] on file Legal Sex Female 6:48 AM REMELT FURNACE EXPEDITER Gender Identity Not on file Sexual Orientation [...] season) 2024 DEPRESSION SCREENING 05/18/2024 INFLUENZA VACCINE (#1) 2025 HIB VACCINE Aged Out No longer [...] topic Insurance MEDICAID - OUT OF STATE [address] [place] [address] Care Teams Health Advisor Relationship Specialty Start Date End Date Christos Coon MD PCP - General 11/05/17
--- NOTE | 2024-12-05 23:13 | WPDCARIOSTRE ---
Nuclear Stress Test INDICATIONS Indications: Chest pain PROCEDURE Procedure Performed: Myocardial Perf Spect-Multi Procedure: Patient underwent a lexiscan stress test and was injected with 31.8 mCi of cardiolyte. Multiple tomographic images were obtained. These are of good quality. There is no evidence of any perfusion defect with stress imaging. A separate resting images were obtained after patient was injected with 10.7 mCi of cardiolyte. Multiple tomographic images were obtained. These are of good quality. There is no evidence of any perfusion defect with rest imaging. CONCLUSION Conclusion: 1. Normal myocardial perfusion imaging demonstrating no perfusion defects with stress or rest imaging. 2. No evidence of reversible ischemia. 3. Left ventriculogram demonstrates normal LV systolic function with EF 72% with no wall motion abnormalities. 4. TID score 1.22 is not elevated.
== END 2024-12-05 08:44 | disposition home or self-care (01) ==
LOC: CHSIMG 08:45
PROVIDERS: PCP Family Medicine; Visit Provider Family Medicine
DX: R07.9 Chest pain, unspecified (principal)
CPT/HCPCS: 78452; 93017; A9502; J2785

== ENCOUNTER 2025-01-10 10:52 | Outpatient (CLI) | payer OTHER, MEDICARE, MEDICAID, SELFPAY ==
--- NOTE | ~2025-01-10 | XR_ITS ---
XR lumbar spine min 4V Indication: RT LBP, heard loud pop X 2 weeks ago, twisting injury Comparison: None Findings: Mild dextroconvex scoliosis. Posterior fixation L4-L5, L4 and L3 with disc prostheses, no fracture is identified, the hardware appears intact. Moderate loss of the remaining disc heights. Soft tissues unremarkable Impression: No acute abnormality. Reviewed, dictated and finalized at location A. Impression: No acute abnormality.
--- OUTSIDE RECORDS SUMMARY | 2025-01-10 11:25 | XMS_ITS | Clinical Summary ---
Author Organization [address] Address [address] [facility] [address] [place] [address] Phone Care Team Providers Care Gear Coding Machine Operator Name Role Phone Unavailable Primary Care [...] 2) 2021 INFLUENZA VACCINE (#1) 2024 Insurance [facility] OPTIONS PPO [id number]
--- OUTSIDE RECORDS SUMMARY | 2025-01-10 11:25 | XMS_ITS | Clinical Summary ---
Author Organization [facility]UR[facility] Address [address] [place] [address] Phone Care Team Providers Care Jewelry Manager Name Role Phone Christos Coon MD Primary Care Provider Allergies Active Allergy Reactions Criticality Noted Date [...] on file Legal Sex Female 12:38 PM MATH PROFESSOR Gender Identity Not on file Sexual Orientation Not on file Plan of Treatment Upcoming Encounters Date Type Department Care Team (Late st Contact Info) Description 03/20/2025 9:15 AM MATH PROFESSOR [facility] [address] [place] [address] Tigre Figueroa MD [address] [place] [address] Health Maintenance Due Date Last Done Comments [...] patient's age to complete this topic [place] [address] [address] [place] [address] on file MEDICARE [place]ICAID [place] Care Teams Jewelry Manager Relationship Specialty Start Date End Date Christos Coon MD [address] [place] [address] PCP - General Family Medicine 11/10/24
--- OUTSIDE RECORDS SUMMARY | 2025-01-10 11:25 | XMS_ITS | Patient Health Record ---
Author Organization [facility] Address [address] [place] [address] Care Team Providers Care Supervisor Cutting And Sewing Room Name Role Phone Frankie Hall Unavailable [phone] Reason For Referral No Information Medications Medication SIG (Take, Route, Frequency, Duration) Notes Start Date End Date Status Sertraline HCl 50 MG Tablet Oral Active VICTOZA 0.6 MG/0.1 ML (18 MG/3 ML) SUBCUTANEOUS PEN INJECTOR *Reorder from [employer] for eRx and Interaction Alerts* Active Vyvanse 50 MG Capsule Oral Active Vyvanse 30 MG Capsule Oral Active Prazosin HCl 1 MG Capsule Oral Active traZODone HCl 50 MG Tablet Oral Active metFORMIN HCl 1000 MG Tablet Oral Active Sulfamethoxazole-Trim ethoprim 800-160 MG Tablet Oral Active Plan Of Treatment No Information
--- OUTSIDE RECORDS SUMMARY | 2025-01-10 11:25 | XMS_ITS | Clinical Summary ---
Author Organization [facility] Address [address] [place] [address] Care Team Providers Care Fourth Mate Name Role Phone Christos Coon MD Primary Care Provider [phone] Darío Ceron MD Unavailable [phone] Kali Albright MD Unavailable Allergies Active Allergy [...] from doctor or pharmacy Sometimes 07/22/2024 [facility] Utilities Answer Date Recorded In the past 12 months has th e electric, gas, oil, or water [employer] threatened to shut off services in your home? Patient declined 06/08/2024 Social Connection and Isolation Panel Answer Date Recorded In a typical week, how many times do you talk on the phone with family, friends, or neighbors? Patient declined 06/08/2024 How often do you get togethe r with friends or relatives? Patient declined 06/08/2024 How often do you attend jehovah's witness or anabaptist serv ices? Patient declined 06/08/2024 Do you belong to any clubs o r organizations such as jehovah's witness groups, unions, fraternal or athletic groups, or [...] any time in the past 12 m [facility], were you homeless or living in a care home (including now)? Patient declined 06/08/2024 Personal Safety Answer Date Recorded Have you ever been in or are you currently in a harmful physical or emotional relationship or is someone making you feel afraid or unsafe? 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 Gender Identity Not on file Sexual Orientation Not on file Obstetrics History Last Filed Vital Signs Vital Sign Reading Time Taken Comments Blood Pressure 122/60 07/20/2024 1:00 AM RADIO TELEVISION ANNOUNCER Pulse 60 07/20/2024 1:00 AM RADIO TELEVISION ANNOUNCER Temperature 36.2 C (97.1 F) 07/20/2024 1:00 AM RADIO TELEVISION ANNOUNCER Respiratory Rate 18 07/20/2024 1:00 AM RADIO TELEVISION ANNOUNCER Oxygen Saturation 98% 07/20/2024 1:00 AM RADIO TELEVISION ANNOUNCER Inhaled Oxygen Concentration - - Weight 60.9 kg (134 lb 3.2 oz) 06/08/2024 4:00 A M RADIO TELEVISION ANNOUNCER Height 170.2 cm (5' 7) 06/08/2024 4:00 AM RADIO TELEVISION ANNOUNCER Body Mass Index 21.02 06/08/2024 4:00 AM RADIO TELEVISION ANNOUNCER Plan of Treatment Health Maintenance Due Date [...] A1C 09/18/2024 03/21/2024, 11/16, 10/11/2021 Influenza Vaccine (#1) 2025 , 02/08/2020, 02/21/2017, Additional history exists eGFR 07/20/2025 07/20/2024, 06/19, 07/06/2024, Additional history exists DTaP/Tdap/Td Vaccine (3 - Td or Tdap) 05/07/2031 05/07/2021, 05/06/2013 Hepatitis B Screening Completed 06/21/2021, 022 Hepatitis C Screening Completed 06/12/2024 Medical Devices Implanted Type Area Dental Tech Device Identifier Shelf Expiration Date Model / Serial / Lot Stuart Spine Ackerly L22 Mm X W8.5 Mm X H10 Mm Convex Cage Spinal Titanium P Latex Free [id number] - Sn/A - [id number] Implanted:Qty: 1 on 12/24/2021 by Darío Ceron MD at [facility] Cage N/A: Lumbar-Sa cral Spine [employer] Spine [id number] 06/03/2026 [id number] 210NC-G2 / N/A / [id number] [employer] [place] Spine Ackerly L22 Mm X W8.5 Mm X H10 Mm Convex Cage Spinal Titanium P Latex Free [id number] - Sn/A - [id number] Implanted:Qty: 1 on 12/24/2021 by Darío Ceron MD at [facility] Cage N/A: Lumbar-Sa cral Spine [employer] Spine [id number] 06/03/2026 [id number] 210NC-G2 / N/A / [id number] Screws,Rods N/A: Spine Lumbar [employer] [place] Spine 4mm 30mm Polyaxial Spine Screw Bone Deformity [id number] - [id number] Implanted:Qty: 2 on 12/24/2021 by Darío Ceron MD at [facility] N/A: Lumbar-Sa cral Spine Stuart Spine [id number] 0 / / [employer] [place] Spine 4.5mm 30mm Polyaxial Spine Screw Bone Deformity [id number] - [id number] Implanted:Qty: 2 on 12/24/2021 by Darío Ceron MD at [facility] N/A: Lumbar-Sa cral Spine Stuart Spine [id number] 0 / / Stuart Spine 4.5mm 40mm Contour Praful Spinal Cocr [id number] - [id number] Implanted:Qty: 2 on 12/24/2021 by Darío Ceron MD at [facility] N/A: Lumbar-Sa cral Spine Stuart Spine [id number] 0 / / Stuart Spine 29mm Semiadjustable Transverse Spine Connector Praful Posterior [id number] - [id number] Implanted:Qty: 1 on 12/24/2021 by Darío Ceron MD at [facility] N/A: Lumbar-Sa cral Spine [employer] Spine [id number] 9A / / [employer] [place] Spine 26mm Semiadjustable Transverse Spine Connector Praful Posterior [id number] - [id number] Implanted:Qty: 1 on 04/05/2024 by Darío Ceron MD at [facility] N/A: Spine Lumbar Stuart Spine [id number] 6A / / Stuart Spine 29mm Semiadjustable Transverse Spine Connector Praful Posterior [id number] - [id number] Implanted:Qty: 1 on 04/05/2024 by Darío Ceron MD at [facility] N/A: Spine Lumbar Stuart Spine [id number] 9A / / Stuart Spine 4mm 30mm Polyaxial Spine Screw Bone Deformity [id number] - [id number] Implanted:Qty: 2 on 04/05/2024 by Darío Ceron MD at [facility] N/A: Spine Lumbar [employer] [place] Spine [id number] 0 / / [place] [place] Spine 4.5mm 70mm Contour Praful Spinal Cocr 3011-46077 - [id number] Implanted:Qty: 2 on 04/05/2024 by Darío Ceron MD at [facility] N/A: Spine Lumbar [employer] [place] Spine [id number] 0 / / [employer] Cage Spinal Lumbar 10 Degree Tlif Expandable 7-11.5mm Titanium [id number] - [id number] Implanted:Qty: 2 on 04/05/2024 by Darío Ceron MD at [facility] N/A: Spine Lumbar [employer] [id number] / / [employer]ites Stimulan Rapid Cure Kit Paste Airplane Cover Maker 5cc 12.5cc Bone Void 620-005 - [id number] Implanted:Qty: 1 on 04/05/2024 by Darío Ceron MD at [facility] N/A: Spine Lumbar [employer] [id number] 12/15/2026 620-005 / / [id number] Procedures Procedure Name Priority Date/Time Associated Diagnosis Comments EGFR STAT 07/20/2024 11:30 AM RADIO TELEVISION ANNOUNCER HEPATITIS PANEL, ACUTE Routine 06/12/2024 7:39 PM RADIO TELEVISION ANNOUNCER HEMOGLOBIN A1C Routine 03/21/2024 10:40 AM RADIO TELEVISION ANNOUNCER Preoperative examination POCT LIPID PANEL Routine 12/09/2021 10:2 7 AM CDT Type 2 diabetes mellitus with hyperglycemia, with long-term current use of insulin (HCC) DIAGNOSTIC MAMMOGRAM BILATERAL W HAI Schedule Routine, Read Routine (OP Routine) 06/10/2021 10:10 AM RADIO TELEVISION ANNOUNCER Breast mass from Last 3 Months or Most Recently Relevant to Health Maintenance Results * eGFR (07/20/2024 11:30 AM RADIO TELEVISION ANNOUNCER) eGFR >90 >=60 mL/min/1. 73 m2 Comment: [...] reviewed 2021. Blood 07/20/2024 11:3 0 AM RADIO TELEVISION ANNOUNCER 07/20/2024 2:25 PM RADIO TELEVISION ANNOUNCER us Kali Albright MD LAB BLOOD ORDERABLES Final Resul t [facility] Department [place] [address] * Hepatitis panel, acute Blood (06/12/2024 7:39 PM RADIO TELEVISION ANNOUNCER) Hep A IgM Nonreactive Nonreactive Comment: Interpretive Data: If Hep A IgM Ab is reported as Equivocal, a new sample should be drawn in two weeks for testing. Current interpretive data was last revised on 19. Hep B core IgM Nonreactive Nonreactive [facility] Comment: Interpretive Data If HepB Core IgM Ab is reported as Equivocal, a new sample should be drawn in two weeks for testing. Current interpretive data was last revised on 19. Hep C Ab Nonreactive Nonreactive [facility] Comment: Interpretive Data Nonreactive: Antibodies to [...] last revised on 2019. HepBsAg Nonreactive Nonreactive [facility] Blood 06/12/2024 7:39 PM RADIO TELEVISION ANNOUNCER 06/12/2024 8:01 PM RADIO TELEVISION ANNOUNCER us Ayan Lucas NP LAB MICROBIOLOGY - GENERAL ALBA LERMA Final Result Performing Organization Address City/[facility] Co de Phone Number [facility] [address] [place] [address] * (ABNORMAL) Hemoglobin A1c (03/21/2024 10:40 AM RADIO TELEVISION ANNOUNCER) Hgb A1C 6.4(H) 4.0 - 5.6 % Estimated Average Glucose 137 mg/dL [facility] Comment: The ADA recommends reporting an estimated Average Glucose (eAG) with all Hemoglobin A1c results using the equation derived from a study of 507 normal and diabetic adults. Minority populations were underrepresented and children were not included. (Diabetes Care 31:2047-8243, 2008). The eAG is not equivalent to a fasting glucose. Blood 03/21/2024 10:4 0 AM RADIO TELEVISION ANNOUNCER 03/21/2024 10:40 AM RADIO TELEVISION ANNOUNCER us Brigida Ledesma NP LAB BLOOD ORDERABLES Fin al Result [facility] [address] [place] [address] * (ABNORMAL) POCT lipid panel (12/09/2021 10:27 [...] Mammogram Bilateral W Hai (06/10/2021 10:10 AM RADIO TELEVISION ANNOUNCER) Anatomical Region Laterality Modality Breast Bilateral Mammography 06/10/2021 11:4 8 AM RADIO TELEVISION ANNOUNCER Impressions 06/10/2021 1:28 PM RADIO TELEVISION ANNOUNCER 1. No suspicious mammographic or sonographic correlate [...] Maryse Dowling M.D. Narrative 06/10/2021 1:28 PM RADIO TELEVISION ANNOUNCER EXAMINATION: BILATERAL DIGITAL DIAGNOSTIC MAMMOGRAM INCLUDING CAD [...] Most Recently Relevant to Health Maintenance Insurance [facility] CHOICE PLUS MEDICARE IDPA [facility] CHOICE PLUS [facility] CHOICE PLUS IDPA MEDICARE [facility] CHOICE PLUS Advance Directives For more information, please contact: [phone] * Full Code (Latest Code Status on File) Date Activated Date Inactivated Comments 06/08/2024 3:56 AM 06/14/2024 8:35 PM * Full Code Date Activated Date Inactivated Comments 04/05/2024 9:24 PM 04/06/2024 2:12 PM * Full Code Date Activated Date Inactivated Comments 04/05/2024 8:19 PM 04/05/2024 9:24 PM * Full Code Date Activated Date Inactivated Comments 12/24/2021 12:49 PM 12/25/2021 4:30 PM Care Teams Fourth Mate Relationship Specialty Start Date End Date Christos Coon MD [address] [place] [address] PCP - General 10/31/16 Darío Ceron MD [address] [address] Consulting Physician Neurosurgery 06/14/24 Kali Albright MD [address] [place] [address] Consulting Physician Infectious Diseases 06/14/24
--- OUTSIDE RECORDS SUMMARY | 2025-01-10 11:25 | XMS_ITS | Clinical Summary ---
Author Organization [facility] Address [address] [facility] [place] [address] Care Team Providers Care Nursery Nurse Name Role Phone Christos Coon MD Primary Care Provider [phone] Source Comments [facility],non-owned Affiliates and Associated Physician Practices is amultiple site organization consisting of ambulatory clinics and hospital sitesin [place], [place] and [place]. This disclosure is being madepursuant to the Care Everywhere program and may not contain all information available regarding this patient. 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
== END 2025-01-10 10:53 | disposition home or self-care (01) ==
PROVIDERS: PCP Family Medicine; Visit Provider Family Medicine
DX: M54.50 Low back pain, unspecified (principal)
CPT/HCPCS: 72110